=== PATIENT | female | born 1945 | race Caucasian/White ===

== ENCOUNTER 2017-05-25 10:22 | Emergency (ER) | payer OTHER, MEDICARE ==
[~2017-05-25] VITALS: Ht 152.4 cm; Wt 69.6 kg
[~2017-05-25 10:22] MED LIST: LORA-741 PO; LPR25 PO; MULT-260 PO; ZCR10 PO; [UNRECOGNIZED DRUG - CODE] PO
[2017-05-25 10:30] VITALS: Ht 152.4 cm; Wt 69.6 kg
[2017-05-25 10:34] VITALS: O2SAT 96
[2017-05-25] MEDS ORDERED: ONDANSETRON 8 MG/54 ML D5W IV STA (12:49)
[2017-05-25] MEDS ORDERED: SODIUM CHLORIDE 0.9% 1000ML 1,000 ML IV STA ×2 (12:49→15:52)
[2017-05-25 13:24] LABS: BASO % 0.3 %; BASO ABS # 0.02 K/uL (0-0.2); COMPLETE YES; HEMATOCRIT 38.1 % (37-47); IG% 0.1 %; LYMPH % 7.7 %; LYMPH ABS # 0.58 K/uL (1.2-3.4); MEAN CELL VOLUME 90.3 fL (80-100); MEAN CORPUSCULAR HEMOGLOBIN 31.3 pg (25-34); MEAN CORPUSCULAR HGB CONC 34.6 g/dl (32-36); MEAN PLATELET VOLUME 9.7 fL (7.4-10.4); MONO % 11.7 %; NEUT % 80.2 %; PLATELET COUNT 165 K/uL (130-400); RED BLOOD COUNT 4.22 M/uL (4.2-5.4); WHITE BLOOD COUNT 7.54 K/uL (4.8-10.8)
--- NOTE | 2017-05-25 13:44 | EMERGENCY ROOM VISIT NOTE ---
History Report prepared by Raffaele: Anila Patel Under the Supervision of: Jarrett ChurchO. First contact with patient: 12:12 Chief Complaint: NAUSEA Stated Complaint: WEAKNESS Nursing Triage Summary: pt reports she has had cough with spitting up flem yesterday was unable to eat or drink much had a couple saltines and sips of water yesterday was feeling weak during night went to get up slid off bed and attempted to tell her how to get up " get on knees then get up" pt reports that is why bilat knees are bruised. sx started on wednesday. unable to stand on her own today History of Present Illness The patient is a 71 year old female who presents to the Emergency Room with complaints of constant weakness beginning yesterday. She reports bilateral lower extremity weakness. She was unable to stand up from the bed on her own last night. She started to get up and then slid between her bed and the nightstand. The patient states that she tried to get out of bed on her own unsuccessfully three times throughout the night. Per , the patient developed cold symptoms two days ago. She is complaining of a non-productive cough, sore throat, sinus congestion, rhinorrhea, and low-grade fevers with temperatures around 100. She has not eaten anything in two days and has not been drinking a lot of fluids. Yesterday the patient had one episode of vomiting. She reports still feeling nauseated at this time. She denies chest pain, chest pressure, abdominal pain, urinary symptoms, diarrhea, melena, hematochezia, pain or swelling in her legs, and any recent changes to her diet or medications. The patient denies any personal history of frequent respiratory infections. She was brought to the ED by ambulance. She does report that she recently returned from [place] and had multiple long flights two days ago. Source of History: patient, spouse/significant other Onset: last night Position: other (global) Quality: other (weakness) Timing: constant Modifying Factors (Worsening): other (standing) Associated Symptoms: + fevers, + sorethroat, + cough, + nausea, + vomiting, No chest pain, No abdominal pain, No melena, No hematochezia, No diarrhea, No urinary symptoms Review of Systems See HPI for pertinent positives & negatives. A total of 10 systems reviewed and were otherwise negative. Past Medical & Surgical Medical Problems: (1) Breast cancer Surgical Problems: (1) H/O lumpectomy (2) H/O: hysterectomy Family History No significant family history Social History Smoking Status: Never Smoker Alcohol Use: occasionally Drug Use: none Marital Status: Housing Status: lives with significant other Occupation Status: retired Current/Historical Medications Scheduled Aspirin (Sm Childrens Aspirin), 81 MG PO DAILY Metoprolol Tartrate (Lopressor), 25 MG PO BID Multiple Vitamins W/ Minerals (Multivital), 1 TAB PO DAILY Simvastatin (Simvastatin), 10 MG PO DAILY Scheduled PRN Lorazepam (Ativan), 0.25 MG PO TID PRN for Anxiety Allergies Coded Allergies: No Known Allergies (Unverified , NONE, 05/25/17) Physical Exam Vital Signs Date Time Temp Pulse Resp B/P (MAP) Pulse Ox O2 Delivery O2 Flow Rate FiO2 05/25/17 18:41 37.6 91 17 123/79 96 05/25/17 16:31 123/79 05/25/17 16:01 102/84 05/25/17 15:36 91 96 05/25/17 15:31 127/77 05/25/17 15:26 119/59 05/25/17 13:49 125/69 05/25/17 13:48 93 17 125/69 95 Room Air 05/25/17 13:20 88 21 95 05/25/17 13:00 112/66 05/25/17 12:50 91 30 94 05/25/17 12:31 103/60 05/25/17 12:20 81 24 93 05/25/17 12:15 85 25 94 05/25/17 12:01 103/63 05/25/17 11:45 97 22 05/25/17 11:31 121/64 05/25/17 11:15 76 23 92 05/25/17 11:01 123/71 05/25/17 10:45 90 29 94 05/25/17 10:34 96 Room Air 05/25/17 10:33 96 05/25/17 10:30 37.6 99 18 131/76 96 Room Air Physical Exam GENERAL: alert, well appearing, well nourished, no distress, non-toxic EYE EXAM: normal conjunctiva, PERRL and EOM's grossly intact OROPHARYNX: no exudate, no erythema, lips, buccal mucosa, and tongue normal and mucous membranes are moist NECK: supple, no nuchal rigidity, no adenopathy, non-tender LUNGS: Breath sounds diminished, no wheezing, rhonchi, or rales. Normal chest wall mechanics HEART: no murmurs, S1 normal and S2 normal ABDOMEN: abdomen soft, non-tender, normo-active bowel sounds, no masses, no rebound or guarding. BACK: Back is symmetrical on inspection and there is no deformity, no midline tenderness, no CVA tenderness. SKIN: warm to touch, no rashes and no bruising UPPER EXTREMITIES: upper extremities are grossly normal. LOWER EXTREMITIES: No pitting edema. NEURO EXAM: Normal sensorium, cranial nerves II-XII grossly intact, normal speech, no gross weakness of arms, no gross weakness of legs. Medical Decision & Procedures ER Provider Diagnostic Interpretation: Radiology results have been interpreted by the radiologist and reviewed by me. TWO VIEW CHEST CLINICAL HISTORY: Cough and fever. FINDINGS: PA and lateral chest radiographs are compared to study dated 05/07/2015. The cardiomediastinal silhouette is unremarkable. There is atherosclerotic calcification of the thoracic aorta. Chronic interstitial thickening is unchanged. The lungs and pleural spaces are clear. There is no pneumothorax. The skeletal structures are osteopenic. The bony thorax appears intact. Surgical clips are noted in the left axilla. IMPRESSION: No active disease in the chest. Electronically signed by: Gulshan Kidd M.D. 05/25/2017 1:49 PM Dictated Date/Time: 05/25/2017 1:48 PM Laboratory Results 05/25/17 13:09 Red Blood Count 4.22, Mean Corpuscular Volume 90.3, Mean Corpuscular Hemoglobin 31.3, Mean Corpuscular Hemoglobin Concent 34.6, Mean Platelet Volume 9.7, Neutrophils (%) (Auto) 80.2, Lymphocytes (%) (Auto) 7.7, Monocytes (%) (Auto) 11.7, Eosinophils (%) (Auto) 0.0, Basophils (%) (Auto) 0.3, Neutrophils # (Auto ) 6.05, Lymphocytes # (Auto) 0.58, Monocytes # (Auto) 0.88, Eosinophils # (Auto ) 0.00, Basophils # (Auto) 0.02 05/25/17 13:09 Test 05/25/17 13:09 05/25/17 15:20 White Blood Count 7.54 K/uL (4.8-10.8) Red Blood Count 4.22 M/uL (4.2-5.4) Hemoglobin 13.2 g/dL (12.0-16.0) Hematocrit 38.1 % (37-47) Mean Corpuscular Volume 90.3 fL (80-100) Mean Corpuscular Hemoglobin 31.3 pg (25-34) Mean Corpuscular Hemoglobin Concent 34.6 g/dl (32-36) Platelet Count 165 K/uL (130-400) Mean Platelet Volume 9.7 fL (7.4-10.4) Neutrophils (%) (Auto) 80.2 % Lymphocytes (%) (Auto) 7.7 % Monocytes (%) (Auto) 11.7 % Eosinophils (%) (Auto) 0.0 % Basophils (%) (Auto) 0.3 % Neutrophils # (Auto) 6.05 K/uL (1.4-6.5) Lymphocytes # (Auto) 0.58 K/uL (1.2-3.4) Monocytes # (Auto) 0.88 K/uL (0.11-0.59) Eosinophils # (Auto) 0.00 K/uL (0-0.5) Basophils # (Auto) 0.02 K/uL (0-0.2) RDW Standard Deviation 44.2 fL (36.4-46.3) RDW Coefficient of Variation 13.4 % (11.5-14.5) Immature Granulocyte % (Auto) 0.1 % Immature Granulocyte # (Auto) 0.01 K/uL (0.00-0.02) D-Dimer 450 ug/L FEU (0-500) Anion Gap 8.0 mmol/L (3-11) Est Creatinine Clear Calc Drug Dose 48.8 ml/min Estimated GFR () 72.6 Estimated GFR (Non- 62.6 BUN/Creatinine Ratio 18.6 (10-20) Lactic Acid Level 1.3 mmol/L (0.4-2.0) Calcium Level 8.9 mg/dl (8.5-10.1) Total Bilirubin 0.5 mg/dl (0.2-1) Aspartate Amino Transf (AST/SGOT) 38 U/L (15-37) Alanine Aminotransferase (ALT/SGPT) 37 U/L (12-78) Alkaline Phosphatase 54 U/L (45-117) Troponin I < 0.015 ng/ml (0-0.045) Pro-B-Type Natriuretic Peptide 986 pg/ml (0-900) Total Protein 7.2 gm/dl (6.4-8.2) Albumin 3.4 gm/dl (3.4-5.0) Globulin 3.8 gm/dl (2.5-4.0) Albumin/Globulin Ratio 0.9 (0.9-2) Urine Color DK YELLOW Urine Appearance CLOUDY (CLEAR) Urine pH 5.5 (4.5-7.5) Urine Specific [place] 1.027 (1.000-1.030) Urine Protein TRACE (NEG) Urine Glucose (UA) NEG (NEG) Urine Ketones 1+ (NEG) Urine Occult Blood 1+ (NEG) Urine Nitrite NEG (NEG) Urine Bilirubin NEG (NEG) Urine Urobilinogen NEG (NEG) Urine Leukocyte Esterase NEG (NEG) Urine WBC (Auto) 5-10 /hpf (0-5) Urine RBC (Auto) 0-4 /hpf (0-4) Urine Hyaline Casts (Auto) 1-5 /lpf (0-5) Urine Epithelial Cells (Auto) >30 /lpf (0-5) Urine Bacteria (Auto) NEG (NEG) Urine Renal Epithelial Cells /lpf (0-5) Urine Crystals AMORPHOUS SEDIMENT (NONE Urine Pathogenic Casts /lpf (0) Urine Mucus PRESENT (NONE PRSENT) Urine Yeast (Auto) (NONE PRSENT) Date/Time Source Procedure Growth Status 05/25/17 15:20 Urine,Catheterized Urine Culture - Final NO GROWTH - LESS THAN 1,000 COLONIES/ML Complete Laboratory results per my review. Medications Administered Medications (Trade) Dose Ordered Sig/Vicky Route Start Time Stop Time Status Last Admin Dose Admin Sodium Chloride 1,000 ml @ 999 mls/hr Q1H1M STAT IV 05/25/17 12:49 05/25/17 13:49 DC 05/25/17 12:49 999 MLS/HR Ondansetron HCl (Zofran 8mg Iv) 8 mg NOW STAT IV 05/25/17 12:49 05/25/17 12:51 DC 05/25/17 13:48 8 MG Sodium Chloride 1,000 ml @ 999 mls/hr Q1H1M STAT IV 05/25/17 15:52 05/25/17 16:52 DC 05/25/17 16:28 999 MLS/HR Guaifenesin (Mucinex Contr Rel Tab) 600 mg NOW STAT PO 05/25/17 16:06 05/25/17 16:07 DC 05/25/17 16:28 600 MG Albuterol (Ventolin Hfa Inhaler) 2 puffs NOW ONCE INH 05/25/17 18:15 05/25/17 18:16 DC 05/25/17 18:40 2 PUFFS ECG Indication: weakness Rate (beats per minute): 91 Rhythm: sinus rhythm Findings: nonspecific-ST abn (inV3), PAC, T-wave inversion (lead 3), no acute ischemic change, other (normal axis; normal intervals) ED Course 1230: The patient was evaluated in room C4. A complete history and physical exam was performed. 1249: Zofran 8 mg IV, NSS 1000 ml @ 999 mls/hr IV 1552: NSS 1000 ml @ 999 mls/hr IV 1605: I reassessed the patient at this time. She is feeling a little better. 1606: Guaifenesin 600 mg PO 1753: I reassessed the patient at this time. She is doing well. She is ambulating with a steady gait. I discussed the results and treatment plan with the patient and her . I answered all pertaining questions that they had. They expressed understanding and verbalized agreement. The patient will be discharged home. 1815: Albuterol 2 puffs INH Medical Decision Differential diagnosis: Etiologies such as viral syndrome, otitis, pharyngitis, pneumonia, influenza, meningitis, urinary tract infection, sepsis, bacteremia, as well as others were entertained. Medication Reconciliation: I attest that I have personally reviewed the patient' s current medication list. Blood pressure screening: Patient was found to have a slightly elevated blood pressure due to circumstances. I do not believe that the patient requires hypertension monitoring. Pt clinically dehydrated, but stable VS here. Labs and imaging reassuring. Pt reported improvement with IVF. Pt states prior hx of hematuria, hasn't seen urology but PCP knows and follows this. STates thought to be irritation from being post menopausal. UA otw suboptimal specimen. Mildly elevated BNP, however pt doesn't examine like CHF nor have a hx. THis was discussed extensively at bedside with pt and encouraged discussion with PCP. May benefit from outpt echo. Did not feel warranted admission and urgent echo at this time. Able to ambulate with a steady gait. No c/o pain, and exam reassuring. Doubt occult acs, dissection, bacteremia/sepsis, gi bleed, mesenteric ischemia, meningitis/encephalitis, sbo, perf. No evidence of UTI. Discussed with pt need for close f/u with PCP, sx to watch/return for, she and verbalized understanding and were agreeable with plan. Pt symptoms suggestive of viral syndrome, no evidence of effusion/pneumonia, dimer negative and no LE edema. Doubt ACS. Impression Primary Impression: Cough Additional Impressions: Generalized weakness Dehydration Scribe Attestation The scribe's documentation has been prepared under my direction and personally reviewed by me in its entirety. I confirm that the note above accurately reflects all work, treatment, procedures, and medical decision making performed by me. Departure Information Dispostion Home / Self-Care Referrals Mar Lovelace M.D. (PCP) Patient Instructions My [facility] Additional Instructions Please continue regular medications as prescribed. Please sip clear liquids at frequent intervals to stay well-hydrated. Please call and follow up with her family doctor to recheck your symptoms and assure you're getting better. You may use the inhaler with spacer 2 puffs, up to every 4 hours as needed for its coughing, trouble breathing. If you develop any recurrent weakness or difficulty walking, have a worsening cough or develop trouble breathing, chest pains, fevers or chills again, worsening body aches, dizziness, vomiting, or you have any other new concerns, please return the emergency room immediately. Problem Qualifiers
[2017-05-25 13:47] LABS: ALT/SGPT 37 U/L (12-78); AST/SGOT 38 U/L (15-37); BLOOD UREA NITROGEN 17 mg/dl (7-18); BUN/CREATININE RATIO 18.6 (10-20); CALCIUM 8.9 mg/dl (8.5-10.1); CARBON DIOXIDE 26 mmol/L (21-32); CHLORIDE 103 mmol/L (98-107); CREATININE 0.92 mg/dl (0.60-1.20); GLUCOSE 118 mg/dl (70-99); POTASSIUM 3.5 mmol/L (3.5-5.1); SODIUM 137 mmol/L (136-145)
--- NOTE | 2017-05-25 13:50 | DIAGNOSTIC IMAGING REPORT ---
TWO VIEW CHEST CLINICAL HISTORY: Cough and fever. FINDINGS: PA and lateral chest radiographs are compared to study dated 05/07/2015. The cardiomediastinal silhouette is unremarkable. There is atherosclerotic calcification of the thoracic aorta. Chronic interstitial thickening is unchanged. The lungs and pleural spaces are clear. There is no pneumothorax. The skeletal structures are osteopenic. The bony thorax appears intact. Surgical clips are noted in the left axilla. IMPRESSION: No active disease in the chest. Electronically signed by: Gulshan Kidd M.D. 05/25/2017 1:49 PM Dictated Date/Time: 05/25/2017 1:48 PM
[2017-05-25 13:52] LABS: ALB/GLOB RATIO 0.9 (0.9-2); ALKALINE PHOSPHATASE 54 U/L (45-117)
[2017-05-25 15:59] LABS: URINE APPEARANCE CLOUDY (CLEAR); URINE BILIRUBIN NEG (NEG); URINE COLOR DK YELLOW; URINE EPITHELIAL CELL AUTO >30 /lpf (0-5); URINE NITRITE NEG (NEG); URINE PH 5.5 (4.5-7.5); URINE SPECIFIC GRAVITY 1.027 (1.000-1.030); UROBILINOGEN NEG (NEG)
[2017-05-25 16:01] LABS: MANUAL MICROSCOPIC REQUIRED? NO; REVIEW REQ? YES
[2017-05-25] MEDS ORDERED: GUAIFENESIN 600 MG TABCR PO STA (16:06)
[2017-05-25 16:28] LABS: URINE MUCUS PRESENT (NONE PRSENT)
[2017-05-25] MEDS ORDERED: ALBUTEROL HFA 8 GM INHALER INH ONE (18:15)
[2017-05-25 18:41] VITALS: BP 123/79; PULSE 91; TEMP 37.6; O2SAT 96
== END 2017-05-25 18:41 | disposition home or self-care (01) ==
LOC: EDBD 10:22 → C.EDC 10:23
DX: R05 Cough (principal); R53.1 Weakness; E86.0 Dehydration; R11.2 Nausea with vomiting, unspecified; Z85.3 Personal history of malignant neoplasm of breast; Z90.710 Acquired absence of both cervix and uterus; Z98.890 Other specified postprocedural states

== ENCOUNTER 2020-06-07 05:23 | Inpatient (IN) ==
--- NOTE | 2020-05-16 08:36 | PAT Medication Instructions ---
Medication Instructions Date of Service May 16, 2020 Home Medications Medication Instructions Recorded Ly Jenkins #1 ea 01/30/20 acetaminophen 325 mg tablet 325 mg PO UD PRN aspirin 81 mg tablet,delayed release 81 mg PO QAM metoprolol tartrate 25 mg tablet 25 mg PO BID simvastatin 40 mg tablet 40 mg PO HS albuterol sulfate 2 inh INHALATION UD PRN lorazepam 0.5 mg PO UD PRN multivitamin 1 cap PO QAM bismuth subsalicylate [Pepto-Bismol] 2 tab PO QID PRN celecoxib 200 mg PO QAM PRN melatonin 3 mg PO HS PRN ASK your surgeon for instructions celecoxib 200 mg PO QAM PRN DO NOT take the morning of surgery multivitamin 1 cap PO QAM bismuth subsalicylate [Pepto-Bismol] 2 tab PO QID PRN Take morning of surgery With a small sip of water, OTHERWISE NOTHING TO EAT OR DRINK AFTER MIDNIGHT: acetaminophen 325 mg tablet 325 mg PO UD PRN (okay to take up to 4 hours prior t o surgery if needed) metoprolol tartrate 25 mg tablet 25 mg PO BID albuterol sulfate 2 inh INHALATION UD PRN (use if needed; please bring with you to hospital day of surgery if possible) lorazepam 0.5 mg PO UD PRN (if needed) Take evening before surgery acetaminophen 325 mg tablet 325 mg PO UD PRN (if needed) metoprolol tartrate 25 mg tablet 25 mg PO BID simvastatin 40 mg tablet 40 mg PO HS albuterol sulfate 2 inh INHALATION UD PRN (if needed) lorazepam 0.5 mg PO UD PRN (if needed) bismuth subsalicylate [Pepto-Bismol] 2 tab PO QID PRN (if needed) melatonin 3 mg PO HS PRN (if needed) Other Notes If you have any questions please call us at [phone] or [phone] or [phone] or [phone]
--- NOTE | 2020-05-16 10:46 | Anesthesiology Consultation ---
Date of Service May 16, 2020 Assessment & Plan (1) Encounter for pre-operative examination: Per PAT assessment on 05/16: Travel screen- Traveled to [facility] to see the [facility] 04/28/20 (wore mask + social distancing). No known COVID-19 positive contacts (daughter had negative COVID testing within the past month). No current COVID-19 related symptoms. No hx of COVID-19 testing. - Check [facility] AM DOS Chart Review Chart Review: Acceptable Risk for Surgery and Patient seen in Pre Admission Te sting Teaching & Discussion Pre-Anesthesia Teaching/Discussion Notes: Instructed NPO after midnight before surgery,except medications with 15 cc of water. Medication instructions provided according to the PAT guidelines. History Surgery Operation Date: 06/07/20 10:40 Proposed Procedures p Right Total Knee Arthroplasty - Colby Whitehead MD Height/Weight Height: 5 ft Weight: 74.8 kg Allergies Allergy/AdvReac Type Severity Reaction Status Date / Time No Known Allergies Allergy NONE Verified 05/13/20 09:20 Medications Home Medications Medication Instructions Recorded Confirmed Last Taken acetaminophen 325 mg tablet 325 mg PO UD PRN 01/01/20 05/13/20 Unknown aspirin 81 mg tablet,delayed 81 mg PO QAM 01/01/20 05/13/20 Unknown release metoprolol tartrate 25 mg tablet 25 mg PO BID 01/01/20 05/13/20 Unknown simvastatin 40 mg tablet 40 mg PO HS 01/01/20 05/13/20 Unknown albuterol sulfate 2 inh INHALATION UD PRN 01/15/20 05/13/20 Unknown lorazepam 0.5 mg PO UD PRN 01/15/20 05/13/20 Unknown multivitamin 1 cap PO QAM 01/15/20 05/13/20 Unknown Wheeled Walker #1 ea 01/30/20 Unknown bismuth subsalicylate 2 tab PO QID PRN 05/13/20 05/13/20 Unknown [Pepto-Bismol] celecoxib 200 mg PO QAM PRN 05/13/20 05/13/20 Unknown melatonin 3 mg PO HS PRN 05/13/20 05/13/20 Unknown Wheeled Walker #1 ea 05/16/20 Unknown Past Medical History Medical History Anxiety Arthritis Bronchitis hx (no recent issues) Heartburn symptom diet controlled History of left breast cancer Hyperlipidemia Hypertension Obesity Prediabetes PCP monitoring, labs drawn for PCP on 12/26 show A1C 6.5%-decision to monitor/diet control Exercise / Class Metabolic Activity II 4-5 Yardwork/Stairs/Walk up hill Past Family History Family History Father Family history of diabetes mellitus Mother Family history of diabetes mellitus Other Patient's father is Patient's mother is Past Surgical History Surgical History History of arthroscopy of right knee History of colonoscopy History of hysterectomy History of lumpectomy of left breast WITH LYMPH NODES - PT DENIES LIMB RESTRICTION-2000 Nausea and vomiting after administration of anesthetic agent Past Anesthesia History No Family Hx of Anesthesia Complications and Other ("slow to wake") History of PONV No Hx of Motion Sickness and History of PONV Social History Smoking Status: Never smoker Do You Dip or Chew Tobacco: No Hx Alcohol Use: Yes Alcohol type: wine alcohol intake frequency: holidays/special occasions only Hx Substance Use: No substance use type: does not use Review of Systems Reflux controlled. Patient denies chest pain, shortness of breath, cough, wheezing, palpitations. Physical Exam Vital Signs VITALS BP 147/81 P 70 TEMP 98.4 SP02 96%RA RESP 18 PHYSICAL Full neck and c-spine range of motion. Full TMJ range of motion. TMD 3 finger breaths Mallampati Score 2 Dentition: intact, lower right side implant Lungs: clear throughout to auscultation Cardiac: regular rate and rhythm, no murmurs noted Spine: normal Carotid arteries: negative bruit Extremities: no edema Testing Laboratory Results 05/16/20 11:14 05/16/20 11:14 PT 11.2 Seconds (9.0-12.0) 05/16/20 11:14 INR 1.1 (0.9-1.1) 05/16/20 11:14 APTT 29.5 Seconds (21.0-31.0) 05/16/20 11:14 Hemoglobin A1c 6.5 % (4.5-5.6) H 05/16/20 11:14 Blood Type A Positive 05/16/20 11:14 Antibody Screen NEGATIVE 05/16/20 11:14 Electrocardiogram Date: 01/22/20 Findings: + NSR @ (65bpm) Chest X-Ray Date: 01/22/20 Findings: + NAD
[2020-05-16 12:20] LABS: Basophils # (auto) 0.02 K/uL (0-0.2); Basophils % (auto) 0.3 %; Eosinophils # (auto) 0.08 K/uL (0-0.5); Eosinophils % (auto) 1.4 %; Hematocrit (blood only) 42.5 % (37-47); Hemoglobin 14.1 g/dL (12.0-16.0); Lymphocytes # (auto) 1.92 K/uL (1.2-3.4); Mean Corpuscular Hemoglobin 30.5 pg (25-34); Mean Corpuscular Hgb Conc 33.2 g/dL (32-36); Mean Corpuscular Volume 91.8 fL (80-100); Monocytes # (auto) 0.56 K/uL (0.11-0.59); Monocytes % (auto) 9.6 %; Neutrophils # (auto) 3.23 K/uL (1.4-6.5); Neutrophils % (auto) 55.7 %; Platelet Count 235 K/uL (130-400); RDW Coefficient of Variation 13.1 % (11.5-14.5); RDW Standard Deviation 43.5 fL (36.4-46.3); Red Blood Count 4.63 M/uL (4.2-5.4); White Blood Count 5.81 K/uL (4.8-10.8)
[2020-05-16 12:30] LABS: BUN Creatinine Ratio 20.1 (10-20); Calcium 9.3 mg/dl (8.5-10.1); Creatinine Clr Calc Pharmacy 55.7 ml/min; Est GFR (African American) 84.2; Est GFR (Non-African American) 72.6; Potassium 4.6 mmol/L (3.5-5.1)
[2020-05-16 12:33] LABS: INR 1.1 (0.9-1.1); Partial Thromboplastin Ratio 1.1; Partial Thromboplastin Time 29.5 Seconds (21.0-31.0); Prothrombin Time 11.2 Seconds (9.0-12.0)
[2020-05-16 13:24] LABS: Estimated Average Glucose 140 mg/dl; Hemoglobin A1C 6.5 % (4.5-5.6)
[2020-06-07] MEDS ORDERED: LR 60ML/HR IV SCH (06:00)
[2020-06-07] MEDS ORDERED: FAMOTIDINE 20 MG TAB PO SCH (06:00)
[2020-06-07] MEDS ORDERED: LR 500ML BOLUS, THEN 15ML/HR IV SCH (06:00)
[2020-06-07] MEDS ORDERED: METOCLOPRAMIDE HCL 10 MG TABLET PO SCH (06:00)
[2020-06-07] MEDS ORDERED: BUPIVACAINE LIPOSOME/PF 266 MG, BUPIVACAINE/EPINEPHRINE 50 ML, SODIUM CHLORIDE 0.9% 30 ... INFIL SCH (06:00)
[2020-06-07] MEDS ORDERED: ACETAMINOPHEN 500 MG TAB PO SCH (06:00)
[2020-06-07] MEDS ORDERED: GABAPENTIN 300 MG CAP PO SCH (06:00)
[2020-06-07] MEDS ORDERED: CEFAZOLIN 2000MG 2,000 MG/15 ML SYR IV SCH (06:00)
[2020-06-07] MEDS ORDERED: [UNRECOGNIZED DRUG - OTHER] IV SCH (06:05)
[2020-06-07] MEDS ORDERED: TRANEXAMIC ACID IV SCH (06:05)
[2020-06-07] MEDS ORDERED: ROPIVACAINE 0.5% 5 MG/ML 30 ML VIAL ONE (06:30)
[2020-06-07] MEDS ORDERED: BUPIVACAINE 0.5 % 5 MG/1 ML PF 10ML VIAL ONE (06:30)
[2020-06-07] MEDS ORDERED: MIDAZOLAM HCL 1 MG/ML 2ML VIAL ONE (06:37)
[2020-06-07] MEDS ORDERED: SODIUM CHLORIDE 0.9% PF 50 ML VIAL ONE (06:44)
[2020-06-07] MEDS ORDERED: BUPIVACAINE/EPINEPHRINE 0.25% 1:200,000 30 ML VIAL ONE (06:44)
--- NOTE | 2020-06-07 06:44 | History & Physical Bridge Note ---
Date of Service June 07, 2020 History & Physical Bridge Note I have examined the patient, reviewed the History & Physical and in the interval since the performance of the History & Physical I have noted the following changes of clinical significance: no changes noted
[2020-06-07] MEDS ORDERED: BACITRACIN INJ 50,000 UNIT VIAL ONE (06:45)
[2020-06-07] MEDS ORDERED: BUPIVACAINE LIPOSOME 1.3% 266 MG/20 ML VIAL ONE (06:45)
[2020-06-07] MEDS ORDERED: fentaNYL citrate 100 MCG/2 ML VIAL IV PRN (06:55)
[2020-06-07] MEDS ORDERED: ATROPINE SULFATE 0.1 MG/ML 10ML SYR IV PRN (06:55)
[2020-06-07] MEDS ORDERED: ONDANSETRON INJ 2 MG/ML 2 ML VIAL IV PRN ×2 (06:55→10:13)
[2020-06-07] MEDS ORDERED: ePHEDrine sulfate 50 MG/ML AMP IV PRN (06:55)
[2020-06-07] MEDS ORDERED: PROPOFOL IV EMULSION 10 MG/ML 20 ML VIAL IV ONE ×2 (07:28→07:45)
[2020-06-07] MEDS ORDERED: PHENYLEPHRINE 100MCG/ML 5ML SYR ONE (07:28)
[2020-06-07] MEDS ORDERED: LIDOCAINE HCL 2% 2 ML VIAL/AMP(20MG/ML) INFIL ONE (07:28)
[2020-06-07] MEDS ORDERED: ePHEDrine sulfate 50 MG/ML SYR ONE (07:35)
--- NOTE | 2020-06-07 08:32 | Post Operative Brief Note ---
PG Immediate Post Op with CF Date of Surgery June 07, 2020 Pre & Post Diagnosis Operation Date: 06/07/20 07:00 Pre-Op Diagnosis: Right Knee Degenerative Joint Disease with Knee Pain Post-Op Diagnosis: Right Knee Degenerative Joint Disease with Knee Pain I identified the patient and participated in the time-out.: Yes Procedure Operation Date: 06/07/20 07:00 Actual Procedures p Right Total Knee Replacement(Right) - Colby Whitehead MD Surgeon Colby Whitehead MD Felt Dyeing Machine Tender Alexy, [facility] Estimated Blood Loss 50 Findings Consistent with Post-Op Diagnosis Fluids 1100 cc. Specimens Specimen Description: Permanent: A. Left Knee Bone and Tissue Drains Cummins Catheter Anesthesia Type Spinal MAC Complications none Disposition Accompanied Patient To Recovery: No Disposition: Recovery Room
--- NOTE | 2020-06-07 08:41 | Operative Report ---
Post Operative Report Pre & Post Diagnosis Operation Date: 06/07/20 07:00 Pre-Op Diagnosis: Right Knee Degenerative Joint Disease with Knee Pain Post-Op Diagnosis: Right Knee Degenerative Joint Disease with Knee Pain I identified the patient and participated in the time-out.: Yes Procedure Operation Date: 06/07/20 07:00 Actual Procedures p Right Total Knee Replacement(Right) - Colby Whitehead MD Surgeon Colby Whitehead MD Chair Post Machine Operator Alexy, PAC Estimated Blood Loss 50 Findings Consistent with Post-Op Diagnosis Operative findings revealed advanced right knee lateral compartment DJD with grade 4 [id number] disease of the lateral femoral condyle lateral tibial plateau. She had some moderate degenerative changes elsewhere particular in the medial side of her knee with grade 3 disease. Moderate-sized joint effusion. Slight valgus alignment to her knee. Fluids 1100 cc. Specimens Right knee sent for pathology. Drains None. Anesthesia Type Spinal MAC Complications none Disposition Accompanied Patient To Recovery: No Disposition: Recovery Room Indications Patient is a 74-year-old female is had a several year history of increasing right knee pain discomfort which become less responsive conservative care. She did have a recent right knee arthroscopy done about 4 years ago which did not help much. Pain progressed over time. She failed conservative measures. She elected proceed with total knee arthroplasty. Description of Procedure Operative implants consist of: 1. Biomet Vanguard size 60 right posterior by femoral component. 2. Biomet size 63 tibial tray. 3. 10 mm posterior box polyethylene insert. 4. 28 x 8 all poly-patella. Patient was taken to the operating identified and placed on the operating table supine position protectors were appropriately padded. IV antibiotics arrived by anesthesia team. A spinal anesthetic and abductor canal block had been provided in the holding area. Cummins catheter was placed in sterile fashion. Right thigh tract was then placed in the right lower extremity was then prepped and draped in usual sterile fashion. The right leg was elevated and exsanguinated with use of an Esmarch interspace at 300 mmHg. An anterior posterior the right knee was then performed to longitudinal incision centered over the patella. Sharp dissection was cut through subcutaneous tissue down the extensor mechanism. A medial parapatellar arthrotomy incision was made. Some subperiosteal dissection was carried out medially. The fat pad was resected from each patella tendon. Lateral patellofemoral ligament was released. The patella was subluxated laterally knee was flexed. The osteophytes were taken off the distal femur. The ACL and PCL were then released from the distal femur the tibia subluxate anteriorly. External tibial alignment jig was then placed in the interface the tibia and adjusted 12 mm medially. Proximal tibial cut was made to remove about 2 to 3 mm of bone from the medial side. The tibia was sized to a size 63. We try to maximize coverage but her anterior posterior dimensions were pretty small we had to downsize the tibial tray as a result. Attention drawn the femur. The distal femur was entered the sharp drill bit intramedullary canal was suction. A right 5 degree valgus cutting guide was placed but distal femoral cutting block was pinned in place. Distal femoral cut was made to take an additional 3 mm of bone off distal femur. The femur was then sized to a size 60. We downsized this just slightly. The AP cutting block was pinned parallel to the epicondylar axis which was 3 degrees external rotation with anterior cut, anterior chamfer, posterior cut, posterior chamfer cuts were made. Box cutting guide was placed in just slight lateral and the box cut was made. The knee was flexed with the remnants of the medial lateral menisci were excised. The osteophytes were taken off the posterior aspect of the femur. A trial femoral component was placed for the tibial tray was pinned in maximum external rotation and the drill and stem punch were used to create defect in proximal tip for the tibial tray. Knee was then trialed the 10 mm insert fit most appropriately. Attention drawn the patella. The patella was cleaned of all soft tissues. Patella thickness measured 20 mm in thickness was cut down to 12. Was sized to a size 28 patella. Locals were drilled for the 28 patella. The lateral osteophyte was removed. Patella button was placed. Knee was taken through range of motion patella tracked nicely with no thumbs test. Attention drawn to placing permanent components. All trial implants were removed. Bone plug was placed in the distal femur limit blood loss put a double batch Palacos G cement was mixed. Biomet Vanguard size 60 right posterior by femoral component, size 63 tibial tray, 10 mm posterior box polyethylene insert, and a 28 x 8 all poly-patella then cement placed. Knee was brought out into full extension total cement hardened. Final cement check was then performed. The pericapsular tissues were injected with total 100 cc of combination of 20 cc of Exparel, 30 cc normal saline, 50 cc of quarter percent Marcaine with epinephrine. The knee was once again irrigated. The extensor nec k was then closed with combination 1 PDS suture #1 Vicryl suture in [id number] fashion. Extensor mechanism checked found to be intact. The subcutaneous tissue then closed with 2 Dexon suture in a buried interrupted fashion skin was closed skin alyssia. Leg was then cleaned dried a sterile dressing composed Xeroform, 4 x 4's, sterile ABD pad, sterile cast padding, Wally bandage were applied. Patient then transferred to the recovery room in stable condition. The patient tolerated procedure well and there are no complications. I attest to the content of the Intraoperative Record and any orders documented therein. Any exceptions are noted below.
--- NOTE | 2020-06-07 08:56 | XRay Report ---
XR knee RT 1 or 2V routine CLINICAL HISTORY: Surgical Post Op COMPARISON: None. DISCUSSION: Anatomic alignment post total right knee arthroplasty. Could contact between prosthetic a nd underlying bone. Expected soft tissue postoperative change IMPRESSION: Anatomic alignment post total right knee arthroplasty. ACT 112: Negative or not required by law. The above report was generated using voice recognition software. It may contain grammatical, syntax or spelling errors. Electronically signed by: Eric Fabian M.D. 06/07/2020 8:54 AM
[2020-06-07] MEDS ORDERED: GLUCOSE 40% GEL 15 GM TUBE PO PRN (10:13)
[2020-06-07] MEDS ORDERED: ALUMINUM/MAGNESIUM SUSP 30 ML UDC PO PRN (10:13)
[2020-06-07] MEDS ORDERED: HYDROmorphone INJ 0.5 MG/0.5 ML SYR IV PRN (10:13)
[2020-06-07] MEDS ORDERED: MAGNESIUM HYDROXIDE SUSP 30 ML UDC PO PRN (10:13)
[2020-06-07] MEDS ORDERED: METOCLOPRAMIDE HCL INJ 5 MG/ML 2 ML VIAL IV PRN (10:13)
[2020-06-07] MEDS ORDERED: DEXTROSE 50% 50 ML SYRINGE IV PRN (10:13)
[2020-06-07] MEDS ORDERED: ALBUTEROL HFA 8 GM INHALER INH PRN (10:13)
[2020-06-07] MEDS ORDERED: NALOXONE HCL 0.4 MG/1 ML VIAL/CARP IV PRN (10:13)
[2020-06-07] MEDS ORDERED: bisacodyL 10 MG SUPP PR PRN (10:13)
[2020-06-07] MEDS ORDERED: NON-FORMULARY MEDICATION (Multivitamin 1 CAP) PO SCH (10:13)
[2020-06-07] MEDS ORDERED: TRAMADOL HCL 50 MG TABLET PO PRN (10:13)
[2020-06-07] MEDS ORDERED: GLUCAGON FOR INJ 1 MG VIAL SQ PRN (10:13)
[2020-06-07] MEDS ORDERED: CARBOHYDRATES FOR HYPOGLYCEMIA PO PRN (10:13)
[2020-06-07] MEDS ORDERED: LORazepam 0.5 MG TAB PO PRN (10:13)
[2020-06-07] MEDS ORDERED: GLUCOSE 10 TABS/TUBE PO PRN (10:13)
[2020-06-07] MEDS ORDERED: MELATONIN 3 MG TAB PO PRN (10:28)
[2020-06-07] MEDS ORDERED: BISMUTH SUBSALICYLATE 262 MG CHEW PO PRN (10:38)
[2020-06-07] MEDS ORDERED: PHARMACY GLYCEMIC MGMT CONSULT SCH (10:55)
[2020-06-07] MEDS: SODIUM CHLORIDE 0.9% 1000ML 1,000 ML IV SCH ×2 (11:18→21:05)
[2020-06-07] MEDS: KETOROLAC TROMETHAMINE 15 MG/ML VIAL IV SCH ×3 (11:20→22:47)
[2020-06-07] MEDS: MULTIVITAMIN TAB PO SCH (11:53)
[2020-06-07] MEDS: ASPIRIN 81 MG ECTAB PO SCH ×2 (11:53→20:56)
[2020-06-07] MEDS: ACETAMINOPHEN 500 MG TAB PO SCH ×2 (13:58→22:03)
[2020-06-07] MEDS: CEFAZOLIN 1000MG 1,000 MG/7.5 ML SYR IV SCH ×2 (14:33→22:03)
[2020-06-07] MEDS ORDERED: TRANEXAMIC ACID / 0.7% NACL 1,000 MG/100 ML BAG IV SCH (14:35)
--- NOTE | 2020-06-07 14:53 | Pharmacy Report ---
Glycemic Control Consultation - Date of Service June 07, 2020 - Scope Scope: Glycemic Pharmacist consulted for glycemic control and to write orders per [facility] inpatient glycemic control protocol. - Objective Weight: 75.43 kg Accuchecks BSG (last 24hrs): 06/07/20 06/07/20 06/07/20 05:40 08:39 11:36 POC Glucose 121 H 123 H 100 H HbA1c: Hemoglobin A1c 6.5 % (4.5-5.6) H 05/16/20 11:14 - Recent Pertinent Medications Outpatient Anti-diabetic Regimen: * NONE * A1c = 6.5 % 05/16/20 Risk Factors for Insulin Resistance: * Recent Surgery: S/P TKA * Diet: Type 2 DM - Assessment & Plan Assessment & Plan: ASSESSMENT: * 74 year old female, s/p R TKA, type 2 diabetic with A1c 6.5%, on no anti- diabetic medications as outpatient. * No steroids received. * Will start patient on only a CF at this time and monitor blood sugars. Will add prandial insulin if indicated. PLAN FOR INPATIENT GLYCEMIC CONTROL: * Bolus insulin * NovoLog per scale ACHS or Q6hrs while NPO * Goal Range: Low 110 mg/dL - High 140 mg/dL * Correction Factor: 30 mg/dL/unit * Please note that the plan above was derived based on current level of insulin resistance and hospital stress. These recommendations are appropriate for inpatient admission only. Plan of care upon discharge will need to be reassessed to avoid potential outpatient hypo/hyperglycemia. Thank you.
--- NOTE | 2020-06-07 15:35 | Anesthesiology Progress Note ---
Date of Service June 07, 2020 Anesthesia Post Procedure Vital Signs Vital Signs: Temp Pulse Pulse Pulse Resp BP BP 06/07/20 13:22 36.5 C 70 16 107/67 06/07/20 12:05 80 18 100/59 L 06/07/20 11:09 36.4 C L 66 16 126/69 06/07/20 10:38 36.4 C L 63 16 115/75 06/07/20 10:05 36.5 C 79 18 133/84 06/07/20 09:45 74 17 107/77 06/07/20 09:35 36.4 C L 79 21 125/75 06/07/20 09:25 82 17 108/83 06/07/20 09:15 80 12 118/91 06/07/20 09:05 82 14 118/85 06/07/20 08:55 86 16 133/75 06/07/20 08:45 85 17 115/71 06/07/20 08:36 36.4 C L 84 15 118/71 06/07/20 06:23 83 18 152/103 H 06/07/20 05:53 37.0 C 71 18 161/87 H Pulse Ox 06/07/20 13:22 95 06/07/20 12:05 95 06/07/20 11:09 97 06/07/20 10:38 96 06/07/20 10:05 98 06/07/20 09:45 96 06/07/20 09:35 96 06/07/20 09:25 97 06/07/20 09:15 96 06/07/20 09:05 96 06/07/20 08:55 96 06/07/20 08:45 96 06/07/20 08:36 96 06/07/20 06:23 98 06/07/20 05:53 98 Pain Intensity Right Knee: Pain Intensity: 0 Transfer of Care Handoff Completed per policy Notes Mental Status: alert / awake / arousable and participated in evaluation Patient Amnestic to Procedure: Yes Nausea / Vomiting: adequately controlled Pain: adequately controlled Airway Patency, RR, SpO2: stable & adequate BP & HR: stable & adequate Hydration State: stable & adequate Neuraxial Anesthesia: was administered and sensory block is resolving Anesthetic Complications: no major complications apparent and Pt Satisfied with anesthetic care
[2020-06-07] MEDS: ASCORBIC ACID 500 MG TAB PO SCH (17:58)
[2020-06-07] MEDS: FERROUS GLUCONATE 324 MG TAB PO SCH (17:58)
[2020-06-07] MEDS: INSULIN ASPART 100 UNITS/ML 3 ML PEN SC SCH ×2 (18:27→20:58)
[2020-06-07] MEDS: SENNA 8.6 MG TAB PO SCH (20:56)
[2020-06-07] MEDS: SIMVASTATIN 40 MG TAB PO SCH (20:56)
[2020-06-07] MEDS: DOCUSATE SODIUM 100 MG CAP PO SCH (20:56)
[2020-06-07] MEDS: METOPROLOL TARTRATE 25 MG TAB PO SCH (20:56)
[2020-06-08] MEDS: KETOROLAC TROMETHAMINE 15 MG/ML VIAL IV SCH ×4 (05:29→22:02)
[2020-06-08] MEDS: ACETAMINOPHEN 500 MG TAB PO SCH ×4 (05:29→22:02)
[2020-06-08 06:05] LABS: Hemoglobin 12.1 g/dL (12.0-16.0); Mean Corpuscular Hemoglobin 30.8 pg (25-34); Mean Corpuscular Hgb Conc 33.6 g/dL (32-36); Mean Corpuscular Volume 91.6 fL (80-100); Mean Platelet Volume 10.2 fL (7.4-10.4); Platelet Count 190 K/uL (130-400); RDW Coefficient of Variation 13.4 % (11.5-14.5); RDW Standard Deviation 44.8 fL (36.4-46.3); Red Blood Count 3.93 M/uL (4.2-5.4); White Blood Count 9.06 K/uL (4.8-10.8)
[2020-06-08 06:26] LABS: Calcium 8.5 mg/dl (8.5-10.1); Creatinine Clr Calc Pharmacy 56.7 ml/min; Est GFR (African American) 85.5; Est GFR (Non-African American) 73.7; Potassium 3.8 mmol/L (3.5-5.1)
[2020-06-08] MEDS: ASCORBIC ACID 500 MG TAB PO SCH ×2 (08:32→17:04)
[2020-06-08] MEDS: ASPIRIN 81 MG ECTAB PO SCH ×2 (08:32→20:29)
[2020-06-08] MEDS: DOCUSATE SODIUM 100 MG CAP PO SCH ×2 (08:32→20:29)
[2020-06-08] MEDS: FERROUS GLUCONATE 324 MG TAB PO SCH ×2 (08:33→17:04)
[2020-06-08] MEDS: METOPROLOL TARTRATE 25 MG TAB PO SCH ×2 (08:33→20:31)
[2020-06-08] MEDS: MULTIVITAMIN TAB PO SCH (08:33)
[2020-06-08] MEDS: INSULIN ASPART 100 UNITS/ML 3 ML PEN SC SCH ×4 (08:35→21:16)
--- NOTE | 2020-06-08 09:08 | Progress Notes ---
DATE: 06/08/2020 SUBJECTIVE: A 74-year-old female postop day 1 from right knee replacement. Having a bit more pain this morning. No chest pain or shortness of breath. Not feeling dizzy or lightheaded. She did recently get some medicine for nausea. Denies any chest pain or shortness of breath. OBJECTIVE: VITAL SIGNS: Temperature 36.7. Vital signs stable. GENERAL: Physical examination reveals a pleasant elderly female. Lying in bed, looks reasonably comfortable. LUNGS: Clear to auscultation. HEART: Regular rate and rhythm. ABDOMEN: Soft, nontender, nondistended. EXTREMITIES: Grossly neurovascularly intact except as follows. Examination of the right leg reveals the leg to be well aligned. She can dorsiflex and plantarflex her foot appropriately. She is neurologically intact. She has got brisk refill. LABORATORY DATA: Hemoglobin 12.1. Hematocrit 36.0. Electrolytes are stable. ASSESSMENT: A 74-year-old female postop day 1 from a right knee replacement, doing reasonably well. Her pain is controlled. She is neurologically intact. PLAN: 1. DVT prophylaxis include thigh-high TEDs, SCDs and aspirin twice a day. 2. PT/OT, weightbear as tolerated. Right total knee protocol. 3. Pain control, doing pretty well with current pain regimen. 4. Disposition: She is planning to be discharged to home with some home health once adequately recovered and medically stable. We will see how she does in therapy today. We need to get her nausea under better control as well.
[2020-06-08] MEDS: SIMVASTATIN 40 MG TAB PO SCH (20:29)
[2020-06-08] MEDS: SENNA 8.6 MG TAB PO SCH (20:29)
[2020-06-09] MEDS: KETOROLAC TROMETHAMINE 15 MG/ML VIAL IV SCH (05:59)
[2020-06-09] MEDS: ACETAMINOPHEN 500 MG TAB PO SCH (05:59)
[2020-06-09] MEDS: METOPROLOL TARTRATE 25 MG TAB PO SCH (08:11)
[2020-06-09] MEDS: DOCUSATE SODIUM 100 MG CAP PO SCH (08:11)
[2020-06-09] MEDS: FERROUS GLUCONATE 324 MG TAB PO SCH (08:11)
[2020-06-09] MEDS: ASPIRIN 81 MG ECTAB PO SCH (08:12)
[2020-06-09] MEDS: ASCORBIC ACID 500 MG TAB PO SCH (08:12)
[2020-06-09] MEDS: MULTIVITAMIN TAB PO SCH (08:12)
[2020-06-09] MEDS: INSULIN ASPART 100 UNITS/ML 3 ML PEN SC SCH (08:29)
--- NOTE | 2020-06-09 09:26 | Progress Notes ---
DATE: 06/09/2020 SUBJECTIVE: A 74-year-old white female postop day 2 from a right knee replacement. She is doing pretty well. Feeling better this morning. Pain is better controlled. No chest pain or shortness of breath. Not feeling dizzy or lightheaded. No nausea. OBJECTIVE: VITAL SIGNS: Temperature 36.8. Vital signs stable. GENERAL: Physical examination shows a pleasant elderly female. She is lying in bed, looks pretty comfortable. EXTREMITIES: Examination of the right leg reveals the leg to be well aligned. Dressing is clean, dry and intact. She can dorsiflex and plantarflex her foot appropriately. Calf is soft and supple. ASSESSMENT: A 74-year-old white female postop day 2 from right knee replacement, doing pretty well. Pain is controlled. She is neurologically intact. PLAN: 1. DVT prophylaxis include thigh-high TEDs, SCDs, and aspirin twice a day. 2. PT/OT, weightbear as tolerated. Right total knee protocol. 3. Pain control, doing pretty well with current pain regimen. 4. Disposition: Plan to discharge to home with some home health likely later today.
--- NOTE | 2020-06-12 16:15 | Discharge Summary ---
Date of Service June 12, 2020 Admission HPI Per Admitting Provider Documented in the H & P Admission Exam (Per Admitting) Constitutional Documented in the h & p Discharge Data Consultations 06/07/20 10:13 Consult Case Management - Discharge Planning Routine Procedures Performed Operation Date: 06/07/20 07:00 Actual Procedures p Right Total Knee Replacement(Right) - Colby Whitehead MD Hospital Course (1) Status post total right knee replacement: This patient is a 74 year old female admitted on 06/07/20 and underwent right total knee replacement. She tolerated the procedure well and there were no complications. Transferred to the PACU post op and later to the orthopedic floor for further care. She was given ancef for antibiotic prophylaxis. She was also given EKATERINA stockings, SCDs, and aspirin for DVT prophylaxis. Hemoglobin, hematocrit, and vital signs were monitored during their hospital stay and remained stable. Did not require any blood transfusions. There were no complications during her hospital stay. By post op day #2 the patient was tolerating a diabetic diet, pain was reasonably controlled with oral pain medicine, and she was participating in physical therapy. On post op day #2 the patient was discharged home and set up with home health care. She was given printed discharge instructions including prescriptions for extra strength tylenol, aspirin, and tramadol. Continue physical therapy, weight bearing as tolerated. Continue EKATERINA stockings. Follow up approximately 2 weeks post op or sooner if there are problems or concerns. Coding Level of Care Code None Diagnoses Status post total right knee replacement Z96.651
== END 2020-06-09 11:00 | disposition home health service (06) | DRG 470 ==
LOC: ASU 05:23 → 3E 08:36

== ENCOUNTER 2023-12-25 21:18 | Inpatient (IN) ==
--- OUTSIDE RECORDS SUMMARY | 2023-12-25 21:23 | External Medical Summary | Summary of Care ---
Author Name Unknown Organization [facility] Address [address] [place] [address] Phone [phone] Care Team Providers Care Licensed Life And Health Agent Name Role Phone Mar Lovelace MD Primary Care Provider [phone] Reason for Visit * Reason Onset Date Comments Emergency Department Follow-Up 11/16/2023 Encounter Details Date Type Department Care Team (Late st Contact Info) Description 11/16/2023 Telephone General Internal Medicine [facility] [place] [address] [facility] [place] [address] Mar Lovelace MD [address] [facility] [place] [address] Emergency Department Follow-Up Allergies No known active allergiesdocumented as of this encounter (statuses as of 11/17/2023) Medications Medication Sig Dispensed Refills Start Date End Date Status MULTIVITAL PO TABS daily 0 Active TYLENOL 325 MG PO TABS Take 1,000 mg by mouth 3 times a day as needed for Pain, Mild. 0 06/09/2020 Active ASPIRIN 81 MG PO CHEWIndications:Dysl ipidemia, goal to be determined,HTN, goal below 140/90 Take 1 Tablet by mouth in the morning. 100 5 06/09/2020 Active albuterol HFA (VENTOLIN HFA) 108 (90 BASE) MCG/ACT inhalerIndications:A cute bronchitis, antibiotics not indicated Inhale 2 Puffs by mouth 4 times a day. 1 Inhaler 1 07/31/2019 Active Bismuth Subsalicylate 262 MG/15ML Oral Suspension Take 30 mL by mouth every 4 hours as needed for Heartburn or Nausea. 0 Active Meclizine HCl 25 MG Oral Tablet (Antivert) TAKE 1 TABLET BY MOUTH THREE TIMES DAILY NEEDED FOR DIZZINESS 0 01/03/2021 Active Zoster Vac Recomb Adjuvanted 50 MCG/0.5ML Intramuscular Suspension Reconstituted (Shingrix)Indication s:Need for vaccination for zoster Inject 0.5 mL into a large muscle now and repeat dose in 60 to 180 days 1 Each 1 05/09/2021 Active Amoxicillin 500 MG Oral Capsule (Amoxil) TAKE FOUR CAPSULES BY MOUTH ONE HOUR BEFORE APPOINTMENT 0 05/22/2021 Active Donepezil HCl 10 MG Oral Tablet (Aricept) Take with supper daily 90 Tablet 3 05/31/2023 Active Alendronate Sodium 70 MG Oral Tablet (Fosamax)Indications :Age-related osteoporosis without current pathological fracture Take 1 Tablet by mouth once a week. with 8 oz. water 30 minutes before first meal of the day. Remain upright for 30 min after taking tablet 5 Tablet 11 07/14/2023 Active Solifenacin Succinate 10 MG Oral Tablet (VESIcare) Take 1 Tablet by mouth in the morning. 30 Tablet 6 08/06/2023 Active Atorvastatin Calcium 40 MG Oral Tablet (Lipitor)Indications :Dyslipidemia, goal LDL below 130 Take 1 Tablet by mouth in the morning. 90 Tablet 1 09/02/2023 Active Calcium 250 MG Oral Capsule Take by mouth. 0 Active Metoprolol Tartrate 25 MG Oral Tablet (Lopressor)Indicatio ns:Palpitations,Esse ntial hypertension with goal blood pressure less than 140/90 Take 0.5 Tablets by mouth in the morning and 0.5 Tablets before bedtime. 90 Tablet 3 09/24/2023 Active Meloxicam 7.5 MG Oral TabletIndications:DD D (degenerative disc disease), lumbar Take 1 Tablet by mouth daily as needed for Pain, Moderate. With food for pain. 90 Tablet 1 09/24/2023 Active DULoxetine HCl 60 MG Oral Capsule Delayed Release Particles (Cymbalta) Take 1 Capsule by mouth in the morning. Do not cut, crush or chew. With Breakfast. 30 Capsule 3 10/25/2023 Active documented as of this encounter (statuses as of 11/17/2023) Active Problems Problem Noted Date Diagnosed Date Major depressive disorder, recurrent episode, mo derate 10/25/2023 Major neurocognitive disorde r due to Alzheimer's disease, without behavioral disturbance 06/15/2023 Mild vascular dementia with anxiety 02/18/2023 Current mild episode of julia r depressive disorder without prior episode 08/18/2022 Type 2 diabetes mellitus wit h hemoglobin A1c goal of less than 7.0% 12/05/2018 Overview: Per Prediabetes protocol #1 BMI 30.0-30.9,adult 09/06/2017 Pain in joint of right shoulder 01/06/2017 History of breast cancer 07/01/2016 Anxiety disorder 05/10/2015 Dyslipidemia, goal LDL below 130 01/19/2011 Essential hypertension with goal blood pressure less than 140/90 12/13/2008 Palpitations documented as of this encounter (statuses as of 11/17/2023) Immunizations Name Administration Dates Next Due COVID-19 mRNA, LNP-s, No Pre serve, 2-Dose Series ([employer]) 03/24/2022,09/19/2021,02/03/2021,12/30 Covid-19, Mrna, Lnp-s, Pf, B ivalent, 30 Mcg, IM, 12 yrs and above (Pfizer) 04/30/2023 Pneumococcal Conjugate Vacc, 13 Valent (Prevnar) 07/01/2016 Pneumococcal Polysaccharide PPV23 (Pneumovax) 01/19/2011 Seasonal Influenza, PF, 6 M & above, IM , (FluLaval or Fluzone) 02/21/2019,09/06/2017 Seasonal Influenza, Quadriva lent Hd (Fluzone Hd) 09/24/2023,08/18/2022,10/09/2021 Seasonal Influenza, Quadriva lent, No Preserve, IM 08/26/2016,01/03/2016 Seasonal Influenza, Split, I IV3, No Preserve, Inj 10/04/2009 Seasonal Influenza, Split, I IV3, With Preserve, Inj 11/30/2014,10/24/2013,08/08/2012,10/30,12/13/2008 Seasonal Influenza, Trivalen t, Adjuvanted, 65+ yrs 08/29/2020,08/30/2019 TDAP (age 10 and older)(Boostrix) 08/21/2019, TDAP (age 11 and older)(Adacel) 12/27/2008 Varicella Zoster Vaccine (Adult) 11/03/2012 Zoster Vaccine Recombinant (Shingrix) 04/30/2023 documented as of this encounter Social History Tobacco Use Types Packs/Day Years Used Date Smoking Tobacco: Never Smokeless Tobacco: Never Alcohol Use Standard Drinks/Week Comments Yes 0 (1 standard drink = 0.6 oz pur e alcohol) rare, every few months AUDIT-C Answer Date Recorded Frequency of Alcohol Consumption Monthly or less 04/05/2019 Average Number of Drinks 1 or 2 019 Frequency of Binge Drinking Not on file 03/22 PHQ-2 Answer Date Recorded PHQ Adult Total Score 10 06/23/2023 Hunger Vital Sign Answer Date Recorded Within the past 12 months, y ou worried that your food would run out before you got the money to buy more. Never true 02/19/20 23 Within the past 12 months, t he food you bought just didn't last and you didn't have money to get more. Never true 02/18/2023 Sex and Gender Information Value Date Recorded Sex Assigned at Female 03/15/2019 12:23 PM EDT Gender Identity Female 03/15/2019 12:23 PM EDT Sexual Orientation Straight 03/15/2019 12 :23 PM EDT Job Start Date Occupation Industry Not on file Not on file Not on file documented as of this encounter Miscellaneous Notes * Telephone Encounter - Sherine Phillips OSA - 11/17/2023 4:30 PM EST Patient calling in to check on the status of previous message. Patient Called within 48 hour timeframe. Reminded patient of 48 hour turn-around time. * Telephone Encounter - Katherine Moreno OSA - 11/17/2023 2:53 PM EST Patient calling in to check on the status of previous message. Patient Called within 48 hour timeframe. Reminded patient of 48 hour turn-around time. * Telephone Encounter - Sherine Phillips OSA - 11/17/2023 12:58 PM EST Reason for patient's call: pt and returning call to schedule ER fu appt Caller was unable to be transferred to the clinic in the allotted time. Please return call. * Telephone Encounter - Gretel Garsia OSA - 11/17/2023 12:46 PM EST Lmom 11/17 * Telephone Encounter - Valeri Regalado OSA - 11/16/2023 2:14 PM EST Patient needs ED Follow-up. Did patient decline to see other providers in their home clinic? : NO If New Patient - Were surrounding clinics offered? Yes, no appts available within appropriate timeframe Please see call details. Patient Anton needed an earlier appointment than 2023. Thank you. DAMON Long documented in this encounter Plan of Treatment Upcoming Encounters Date Type Department Care Team (Late st Contact Info) Description 11/29/2023 12:00 PM EST Telemedicine Psychiatry, [place] [address] [place] [address] Carli Mercado MD [address] [place] [address] 01/24/2024 9:20 AM EST Office Visit Neurology [facility] [place] [address] [facility] [place] [address] Anton Kumar MD [address] [facility] [place] [address] 03/01/2024 11:00 AM EDT Office Visit Urology, [facility] [address] [place] [address] Dandy Bashir MD [address] [place] [address] [place] [address] 03/27/2024 2:20 PM EDT Office Visit General Internal Medicine [facility] [address] [facility] [place] [address] Mar Lovelace MD [address] [facility] [place] [address] Scheduled Procedures Name Priority Associated Diagnoses Date/Ti me COLONOSCOPY FLEXIBLE PROXIMA L DIAGNOSTIC Recall Special screening for malignant neoplasms, colon Health Maintenance Due Date Last Done Comments Hepatitis B (1 of 3 - Risk 3-dose series) 2005 Depression, Most Recent Score >= 10 (will fire each visit until score < 10) 06/24/2023 06/23/2023 Zoster Vaccines (3 of 3) 06/25/2023 04/30/2023, 10/22 COVID-19 Vaccine ( season) 2023 04/30/2023, 03/24/2022, 09/19/2021, Additional history exists Albumin/Creatinine Ratio 08/18/2023 08/18/2022, 12/23 Diabetic Foot Exam 02/19/2024 02/18/2023, 0 03/13/2022, 12/09/2020, Additional history exists HbA1c 03/24/2024 09/24/2023, 05/23, 02/10/2023, Additional history exists Diabetic Eye Exam 05/10/2024 05/10/2023, , 05/04/2022, Additional history exists GFR 09/24/2024 09/24/2023, 01/21, 10/05/2022, Additional history exists DTaP,Tdap,and Td Vaccines (4 - Td or Tdap) 08/21/2029 08/21/2019, 04/13/2019, 12/27/2008 DXA Scan 06/28/2030 06/28/2023, 08/05/2023, 06/10/2016, Additional history exists Pneumococcal Vaccine: 65+ Years Completed 07/01/2016, 01/19/2011 Influenza Vaccine (FLU shot) Completed 01/2023, 08/18/2022, 10/09/2021, Additional history exists GARDASIL-HPV IMMUNIZATION SERIES Aged Out No longer eligible based on patient's age to complete this topic MENINGOCOCCAL (MENACTRA/MENVEO) Aged Out No longer eligible based on patient's age to complete this topic documented as of this encounter Medical Devices Not on filedocumented as of this encounter Advance Directives Documents on File Type Date Recorded Patient Research And Development Chemist Expl anation Advance Directives and Thai g Will 07/29/2007 ADVANCE DIRECTIVE Care Teams Licensed Life And Health Agent Relationship Specialty Start Date End Date Mar Lovelace MD [address] [facility] [place] [address] PCP - General 12/13/08 documented as of this encounter
--- OUTSIDE RECORDS SUMMARY | 2023-12-25 21:23 | External Medical Summary | Summary of Care ---
Author Name Unknown Organization [facility] Address [address] [facility] [place] [address] Phone [phone] Care Team Providers Care Air Plant Engineer Name Role Phone Mar Lovelace MD Primary Care Provider [phone] Reason for Visit * Reason Comments Return Neuro Encounter Details Date Type Department Care Team (Late st Contact Info) Description 12/20/2023 10:40 AM EST Office Visit Neurology [facility] [place] 200 [facility] [place] [address] Anton Kumar MD 200 [place] [address] Gait abnormality*; Memory changes Allergies No known active allergiesdocumented as of this encounter (statuses as of 12/20/2023) Medications Medication Sig Dispensed Refills Start Date End Date Status TYLENOL 325 MG PO TABS Take 1,000 [...] a day. 1 Inhaler 1 07/31/2019 Active Additional Information Patient not taking.Reported on 12/20/2023 Bismuth Subsalicylate 262 MG/15ML Oral Suspension Take [...] ONE HOUR BEFORE APPOINTMENT 0 05/22/2021 Active Alendronate Sodium 70 MG Oral Tablet [...] the morning. 30 Tablet 6 08/06/2023 Active Calcium 250 MG Oral Capsule Take by mouth. 0 Active Meloxicam 7.5 MG Oral TabletIndications:DD D (degenerative disc disease), lumbar Take 1 Tablet by mouth daily as needed for Pain, Moderate. With food for pain. 90 Tablet 1 09/24/2023 Active Donepezil HCl 10 MG Oral Tablet (Aricept) Take with supper daily 90 Tablet 3 11/29/2023 Active DULoxetine HCl 60 MG Oral Capsule Delayed Release Particles (Cymbalta) Take 1 Capsule by mouth in the morning. Do not cut, crush or chew. With Breakfast. 30 Capsule 3 11/29/2023 Active Atorvastatin Calcium 40 MG Oral Tablet (Lipitor)Indications :Dyslipidemia, goal LDL below 130 Take 1 Tablet by mouth in the morning. 90 Tablet 3 12/01/2023 Active Metoprolol Tartrate 25 MG Oral Tablet (Lopressor)Indicatio ns:Palpitations,Esse ntial hypertension with goal blood pressure less than 140/90 Take 0.5 Tablets by mouth in the morning and 0.5 Tablets before bedtime. HOLD UNTIL DIRECTED. 0 12/01/2023 Active documented as of this encounter (statuses as of 12/20/2023) Active Problems Problem Noted Date Diagnosed Date [...] shoulder 01/06/2017 History of breast cancer 07/01/2016 Generalized anxiety disorder 05/10/2015 Dyslipidemia, goal LDL below 130 01/19/2011 Essential hypertension with goal blood pressure less than 140/90 12/13/2008 Palpitations documented as of this encounter (statuses as of 12/20/2023) Immunizations Name Administration Dates Next Due COVID-19 mRNA, LNP-s, No Pre serve, 2-Dose Series ([employer]) 03/24/2022,09/19/2021,02/03/2021,12/30 Covid-19, Mrna, Lnp-s, Pf, B ivalent, [...] on file documented as of this encounter Last Filed Vital Signs Vital Sign Reading Time Taken Comments Blood Pressure 130/84 12/20/2023 10:41 AM EST Pulse 86 12/20/2023 10:41 AM EST Temperature 36.6 C (97.8 F) 12/20/2023 10:[address] Respiratory Rate - - Oxygen Saturation 98% 12/20/2023 10:41 AM EST Inhaled Oxygen Concentration - - Weight 71.8 kg (158 lb 4.8 oz) 12/20/2023 10:41 AM EST Height - - Body Mass Index 30.92 12/01/2023 10:06 AM EST documented in this encounter Progress Notes * Anton Kumar MD - 12/20/2023 11:22 AM EST CLINIC NOTES Neurology [facility] [place] [address] [place] [address] Ruby Simms [id number] 1945 NEUROLOGY OUTPATIENT NOTE 12/20/2023 HISTORY: Ruby is 78 years old is right-handed has type 2 diabetes diabetic neuropathy, a gait disturbance likely due to white matter disease superimposed upon a polyneuropathy and cognitive impairment which was finally evaluated by neuropsych to and felt to be mild and type unlikely due to a mixed vascular and degenerative process and correlating nicely with the MRI scan showing global cerebral atrophy, hydrocephalus of compensatory type, and confluent white matter disease in the periventricular regions She also suffers from anxiety and depression and is now seeing Psychiatry by tele medicine visits has had her Cymbalta raised to 60 mg and continues to take Aricept which I started about a year ago and then raise the dose about 6 months ago to 10 mg. He has had no side effects her is not sure it is doing anything positive but will in agreement that is not having any major GI issues weightloss cardiac problems etcetera so we may as well continue There has been no new medical problems developing all of her old problems are stable has been no new medications on board she has not been hospitalized and she and her remains socially isolated due to age infirmity and the after effects of the COVID 19 lock down Past Medical History: Diagnosis Date Breast cancer (HCC) 1999 left breast with SLNB and XRT HTN, goal below 140/90 Hyperlipidemia LDL goal < 130 INFORMATION 05/07/2015 ER pain Malignant neoplasm of female breast (HCC) 10/2000 left breast Osteoarthritis palpitation Past Surgical History: Procedure Laterality Date OTHER lumpectomy - 11/22 BREAST LESION,OTHER,EXCISION Left 1999 Sterotatic (+) CATARACT SURGERY,COMPLEX , 08/2021 COLONOSCOPY, DIAGNOSTIC (RECTUM) 04/05/2015 normal, repeat 10 yrs/COLONOSCOPY FLEXIBLE PROXIMAL DIAGNOSTIC performed by Suzanne Barth DO at ENDOSCOPY [facility] COLONOSCOPY, OUTSIDE PROCEDURE 2004 CYSTOSCOPY 12/31/2014 MASTECTOMY, PARTIAL Left 11/2000 positive with SLNB (-) STRESS ECHO (DOBUTAMINE) 2005 negative TOTAL HYSTERECTOMY 2000 total TOTAL KNEE REPLACEMENT EDU. Right 06/07/2020 Social History Socioeconomic History Marital status: Spouse name: Not on file Number of children: Not on file Years of education: Not on file Highest education level: Not on file Occupational History Not on file Tobacco Use Smoking status: Never Smokeless tobacco: Never Vaping Use Vaping Use: Never used Substance and Sexual Activity Alcohol use: Yes Comment: rare, every few months Drug use: No Sexual activity: Yes Partners: Male Other Topics Concern Not on file Social History Narrative Not on file Social Determinants of Health Financial Resource Strain: Not on file Food Insecurity: No Food Insecurity (02/18/2023) Hunger Vital Sign Worried About Running Out of Food in the Last Year: Never true Ran Out of Food in the Last Year: Never true Transportation Needs: Not on file Physical Activity: Not on file Stress: Not on file Social Connections: Not on file Intimate Partner Violence: Not on file Housing Stability: Not on file Family History Problem Relation Age of Onset Diabetes Mother Heart Disorder Mother Diabetes Father Heart Disorder Father 66 from [place] Current Outpatient Medications Medication Sig Dispense Refill TYLENOL 325 MG PO TABS Take 1,000 mg by mouth 3 times a day as needed for Pain, Mild. ASPIRIN 81 MG PO CHEW Take 1 Tablet by mouth in the morning. 100 5 Bismuth Subsalicylate 262 MG/15ML Oral Suspension Take 30 mL by mouth every 4 hours as needed for Heartburn or Nausea. Meclizine HCl 25 MG Oral Tablet (Antivert) TAKE 1 TABLET BY MOUTH THREE TIMES DAILY NEEDED FOR DIZZINESS Zoster Vac Recomb Adjuvanted 50 MCG/0.5ML Intramuscular Suspension Reconstituted (Shingrix) Inject 0.5 mL into a large muscle now and repeat dose in 60 to 180 days 1 Each 1 Amoxicillin 500 MG Oral Capsule (Amoxil) TAKE FOUR CAPSULES BY MOUTH ONE HOUR BEFORE APPOINTMENT Alendronate Sodium 70 MG Oral Tablet (Fosamax) Take 1 Tablet by mouth once a week. with 8 oz. water30 minutes before first meal of the day. Remain upright for 30 min after taking tablet 5 Tablet 11 Solifenacin Succinate 10 MG Oral Tablet (VESIcare) Take 1 Tablet by mouth in the morning. 30 Tablet6 Calcium 250 MG Oral Capsule Take by mouth. Meloxicam 7.5 MG Oral Tablet Take 1 Tablet by mouth daily as needed for Pain, Moderate. With food for pain. 90 Tablet 1 Donepezil HCl 10 MG Oral Tablet (Aricept) Take with supper daily 90 Tablet 3 DULoxetine HCl 60 MG Oral Capsule Delayed Release Particles (Cymbalta) Take 1 Capsule by mouth in the morning. Do not cut, crush or chew. With Breakfast. 30 Capsule 3 Atorvastatin Calcium 40 MG Oral Tablet (Lipitor) Take 1 Tablet by mouth in the morning. 90 Tablet 3 albuterol HFA (VENTOLIN HFA) 108 (90 BASE) MCG/ACT inhaler Inhale 2 Puffs by mouth 4 times a day. (Patient not taking: Reported on 12/20/2023) 1 Inhaler 1 Metoprolol Tartrate 25 MG Oral Tablet (Lopressor) Take 0.5 Tablets by mouth in the morning and 0.5 Tablets before bedtime. HOLD UNTIL DIRECTED. (Patient not taking: Reported on 12/20/2023) No current facility-administered medications for this visit. Review of patient's allergies indicates: No Known Allergies REVIEW OF SYSTEMS: With the exception of historical items included in the history of present illness above, a 12-point systems review was normal. PHYSICAL EXAM: BP 130/84 (BP Site: Left Arm, BP Position: Sitting, BP Cuff Size: Regular) | Pulse 86 | Temp 36.6 C (97.8 F) (Tympanic) | Wt 71.8 kg (158 lb 4.8 oz) | LMP 01/19/2001 | SpO2 98% | BMI 30.92 kg/m | BSA 1.74 m She is awake alert oriented but quite tangential and clearly is having difficulty coming up with times in casual speech often using word substitutions and circumlocution to get an idea across she hasno abnormal involuntary movements eye movements are normal speech is clear she has no reflexes at the ankles or knees toes are downgoing no Shukri signs are seen strength testing is normal but sensation reveals significant loss of proprioception distally and mild loss of vibration distally along with reduction in light touch with normal findings in the upper extremities. I did not get her up to walk as she was in the wheelchair and did not bring a walker or assistive device but her states that at home she often uses a cane and holds onto his hand ambulate andthat this is fairly effective. He is afraid about lying her use a walker unattended as she does tend to get far behind the device and is stretched out when she uses it. 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 Plan is to continue medications Horace see her back in the summer hopefully with time after which she will have had in-home physical therapy and the weather will be more commensurate with her getting out and trying to walk in fresh air I spent a total of 20-29 minutes (exact time 25 mins) on the date of service in preparation, delivery, and documentation of the care provided to Ruby Simms excluding any time spent in the performance of separately billed services. The above note was generated utilizing voice recognition technology may have spelling errors punctuation errors pronoun usage errors and syntax errors Anton Kumar MD documented in this encounter Nursing Notes * Arely Burris LPN - 12/20/2023 10:40 AM EST Return patient- pt is having more difficulties walking since last visit. Walks with help at home. documented in this encounter Plan of Treatment Upcoming Encounters Date Type Department Care Team (Late st Contact Info) Description 12/30/2023 12:30 PM EST Telemedicine Psychiatry, [place] [address] [place] [address] Carli Mercado MD [address] [place] [address] 03/01/2024 11:00 AM EDT Office Visit Urology, [address] [place] [address] Dandy Bashir MD [address] [place] [address] [place] [address] 03/27/2024 2:20 PM EDT Office Visit General Internal Medicine [facility] [address] [facility] [place] [address] Mar Lovelace MD 200 [facility] [place] [address] 06/19/2024 11:20 AM EDT Office Visit Neurology [facility] 200 [facility] [place] [address] Anton Kumar MD 200 [facility] [place] [address] Scheduled Procedures Name Priority Associated Diagnoses Date/Ti [...] 08/21/2019, 04/13/2019, 12/27/2008 DXA Scan 06/28/2030 06/28/2023, 08/0 05/2023, 06/10/2016, Additional history exists Pneumococcal Vaccine: 65+ [...] Not on filedocumented as of this encounter Visit Diagnoses Diagnosis Gait abnormality- Primary Abnormality of gait Memory changes Memory loss documented in this encounter Advance Directives Documents on File Type Date Recorded Patient Freight Forwarder Expl anation Advance Directives and Thai Elliott 07/29/2007 ADVANCE DIRECTIVE Care Teams Air Plant Engineer Relationship Specialty Start Date End Date Mar Lovelace MD 200 [place] [address] PCP - General 12/13/08 documented as of this encounter"
--- OUTSIDE RECORDS SUMMARY | 2023-12-25 21:23 | External Medical Summary | Summary of Care ---
Author Name Unknown Organization [facility] Address [address] [facility] [place] [address] Phone [phone] Care Team Providers Care Pellet Preparation Operator Name Role Phone Mar Lovelace MD Primary Care Provider [phone] Reason for Visit * Reason Onset Date Comments Emergency Department Follow-Up 11/16/2023 Encounter Details Date Type Department Care Team (Late st Contact Info) Description 11/16/2023 Telephone General Internal Medicine [facility] [place] 200 [facility] [place] [address] Mar Lovelace MD 200 [place] [address] Emergency Department Follow-Up Allergies No known active allergiesdocumented as of this encounter (statuses as of 11/18/2023) Medications Medication Sig Dispensed Refills Start Date [...] as of this encounter (statuses as of 11/18/2023) Active Problems Problem Noted Date Diagnosed Date [...] as of this encounter (statuses as of 11/18/2023) Immunizations Name Administration Dates Next Due COVID-19 mRNA, LNP-s, No Pre serve, 2-Dose Series ([employer]) 03/24/2022,09/19/2021,02/03/2021,12/30 Covid-19, Mrna, Lnp-s, Pf, B ivalent, [...] encounter Miscellaneous Notes * Telephone Encounter - Gretel Garsia OSA - 11/18/2023 11:40 AM EST Lmom 11/18 When pt calls in SCHEDULE Er follow with any of the IM providers. ( Please see unsure why when they called in the 3 times pt couldn't be scheduled..... there are openings for 11/24 with a couple different times) FYI * Telephone Encounter - Sherine Phillips OSA [...] Description 11/29/2023 12:00 PM EST Telemedicine Psychiatry, [address] [address] Carli Mercado MD [address] [place] [address] 01/24/2024 9:20 AM EST Office Visit Neurology [facility] 200 [facility] [place] [address] Anton Kumar MD 200 [facility] [place] [address] 03/01/2024 11:00 AM EDT Office Visit Urology, [facility] 132 [facility] [place] [address] Dandy Bashir MD 27 [facility] [place] [address] [place] [address] 03/27/2024 2:20 PM EDT Office Visit General Internal Medicine [facility] 200 [facility] [place] [address] Mar Lovelace MD 200 [facility] [place] [address] Scheduled Procedures Name Priority Associated Diagnoses Date/Ti [...] Documents on File Type Date Recorded Patient Customer Greeter Expl anation Advance Directives and Thai g Will 07/29/2007 ADVANCE DIRECTIVE Care Teams Pellet Preparation Operator Relationship Specialty Start Date End Date Mar Lovelace MD 200 [facility] [place] [address] PCP - General 12/13/08 documented as of this encounter
--- OUTSIDE RECORDS SUMMARY | 2023-12-25 21:23 | External Medical Summary | Summary of Care ---
Author Name Unknown Organization [facility] Address [address] [facility] [place] [address] Phone [phone] Care Team Providers Care Slps Name Role Phone Mar Lovelace MD Primary Care Provider [phone] Reason for Visit * Reason Onset Date Comments Emergency Department Follow-Up 11/16/2023 Encounter Details Date Type Department Care Team (Late st Contact Info) Description 11/16/2023 Telephone General Internal Medicine [facility] [place] 200 [place] [address] Mar Lovelace MD 200 [place] [address] Emergency Department Follow-Up Allergies No known active [...] mRNA, LNP-s, No Pre serve, 2-Dose Series ([employer]) 03/24/2022,09/19/2021,02/03/2021,12/30 Covid-19, Mrna, Lnp-s, Pf, B ivalent, [...] encounter Miscellaneous Notes * Telephone Encounter - Katherine Moreno OSA [...] Description 11/29/2023 12:00 PM EST Telemedicine Psychiatry, [place] [address] [place] [address] Carli Mercado MD [address] [place] [address] 01/24/2024 9:20 AM EST Office Visit Neurology [facility] [address] [place] [address] Anton Kumar MD 200 [place] [address] 03/01/2024 11:00 AM EDT Office Visit Urology, [facility] 132 [facility] [place] [address] Dandy Bashir MD 27 [facility] [address] [place] [address] 03/27/2024 2:20 PM EDT Office Visit General Internal Medicine [facility] [address] [place] [address] Mar Lovelace MD [address] [facility] [place] [address] Scheduled Procedures Name Priority Associated Diagnoses Date/Ti [...] Documents on File Type Date Recorded Patient Plant Protection Superintendent Expl anation Advance Directives and Livin g Will 07/29/2007 ADVANCE DIRECTIVE Care Teams Slps Relationship Specialty Start Date End Date Mar Lovelace MD 200 [place] [address] PCP - General 12/13/08 documented as of this encounter
--- OUTSIDE RECORDS SUMMARY | 2023-12-25 21:23 | External Medical Summary | Summary of Care ---
Author Name Unknown Organization [facility] Address [address] [facility] [place] [address] Phone [phone] Care Team Providers Care Collateral Analyst Name Role Phone Mar Lovelace MD Primary Care Provider [phone] Reason for Visit * Reason Onset Date Comments Emergency Department Follow-Up 11/16/2023 Encounter Details Date Type Department Care Team (Late st Contact Info) Description 11/16/2023 Telephone General Internal Medicine [facility] [place] 200 [place] [address] Mar Lovelace MD 200 [place] [address] Emergency Department Follow-Up Allergies No known active [...] mRNA, LNP-s, No Pre serve, 2-Dose Series ([employer]) 03/24/2022,09/19/2021,02/03/2021,12/30 Covid-19, Mrna, Lnp-s, Pf, B [...] Description 11/29/2023 12:00 PM EST Telemedicine Psychiatry, [place] [address] [place] [address] Carli Mercado MD [address] [place] [address] 01/24/2024 9:20 AM EST Office Visit Neurology [facility] [address] [place] [address] Anton Kumar MD 200 [facility] [place] [address] 03/01/2024 11:00 AM EDT Office Visit Urology, [facility] 132 [facility] [place] [id number] Dandy Bashir MD 27 [facility] [address] [place] [address] 03/27/2024 2:20 PM EDT Office Visit General Internal Medicine [facility] [address] [place] [address] Mar Lovelace MD 200 [facility] [place] [address] Scheduled Procedures Name Priority Associated Diagnoses Date/Ti [...] Documents on File Type Date Recorded Patient Drive Tester Maribell agudelo Advance Directives and Thai Elliott 07/29/2007 ADVANCE DIRECTIVE Care Teams Collateral Analyst Relationship Specialty Start Date End Date Mar Lovelace MD 200 [facility] [place] [address] PCP - General 12/13/08 documented as of this encounter
--- OUTSIDE RECORDS SUMMARY | 2023-12-25 21:23 | External Medical Summary | Summary of Care ---
Author Name Unknown Organization [facility] Address [address] [facility] [place] [address] Phone [phone] Care Team Providers Care Ordnance Handler Name Role Phone Mar Lovelace MD Primary Care Provider [phone] Reason for Visit * Reason Onset Date Comments Emergency Department Follow-Up 11/16/2023 Encounter Details Date Type Department Care Team (Late st Contact Info) Description 11/16/2023 Telephone General Internal Medicine [facility] [place] 200 [place] [address] Mar Lovelace MD 200 [place] [address] Emergency Department Follow-Up Allergies No known active [...] mRNA, LNP-s, No Pre serve, 2-Dose Series ([employer]) 03/24/2022,09/19/2021,02/03/2021,12/30 Covid-19, Mrna, Lnp-s, Pf, B ivalent, [...] Description 11/29/2023 12:00 PM EST Telemedicine Psychiatry, [place] [address] [place] [address] Carli Mercado MD [address] [place] [address] 01/24/2024 9:20 AM EST Office Visit Neurology [facility] [address] [place] [address] Anton Kumar MD 200 [facility] [place] [address] 03/01/2024 11:00 AM EDT Office Visit Urology, [facility] 132 [facility] [place] [id number] Dandy Bashir MD 27 [facility] [address] [place] [address] 03/27/2024 2:20 PM EDT Office Visit General Internal Medicine [facility] [address] [place] [address] Mar Lovelace MD 200 [facility] [place] [address] Scheduled Procedures Name Priority Associated Diagnoses Date/Ti [...] Documents on File Type Date Recorded Patient Vest Front Presser Marib[place] agudelo Advance Directives and Thai Elliott 07/29/2007 ADVANCE DIRECTIVE Care Teams Ordnance Handler Relationship Specialty Start Date End Date Mar Lovelace MD 200 [place] [address] PCP - General 12/13/08 documented as of this encounter
--- OUTSIDE RECORDS SUMMARY | 2023-12-25 21:23 | External Medical Summary | Summary of Care ---
Author Name Unknown Organization [facility] Address [address] [facility] [place] [place] [address] Phone [phone] Care Team Providers Care Welt Sewer Name Role Phone Mar Lovelace MD Primary Care Provider [phone] Encounter Details Date Type Department Care Team (Late st Contact Info) Description 12/07/2023 Orders Only PATIENT PORTAL DO NOT DELETE THIS DEPT USED BY [place] [address] Allergies No known active allergiesdocumented as of this encounter (statuses as of 12/07/2023) Medications Medication Sig Dispensed Refills Start Date [...] as of this encounter (statuses as of 12/07/2023) Active Problems Problem Noted Date Diagnosed Date [...] as of this encounter (statuses as of 12/07/2023) Immunizations Name Administration Dates Next Due COVID-19 mRNA, LNP-s, No Pre serve, 2-Dose Series ([employer]) 03/24/2022,09/19/2021,02/03/2021,12/30 Covid-19, Mrna, Lnp-s, Pf, B ivalent, [...] on file documented as of this encounter Plan of Treatment Upcoming Encounters Date Type Department Care Team (Late st Contact Info) Description 12/30/2023 12:30 PM EST Telemedicine Psychiatry, [facility] [address] [place] [address] Carli Mercado MD [address] [place] [address] 01/24/2024 9:20 AM EST Office Visit [facility] [address] [place] [address] Anton Kumar MD [address] [place] [address] 03/01/2024 11:00 AM EDT Office Visit Urology, [facility] [address] [facility] [place] [address] Dandy Bashir MD [address] [place] [address] [place] [address] 03/27/2024 2:20 PM EDT Office Visit General Internal Medicine [facility] [place] 200 [facility] [place] [address] Mar Lovelace MD 200 [facility] [place] [address] Scheduled Procedures Name Priority Associated Diagnoses Date/Ti [...] Documents on File Type Date Recorded Patient Wagon Drill Operator Expl anation Advance Directives and Livin g Will 07/29/2007 ADVANCE DIRECTIVE Care Teams Welt Sewer Relationship Specialty Start Date End Date Mar Lovelace MD [address] [place] [address] PCP - General 12/13/08 documented as of this encounter
--- OUTSIDE RECORDS SUMMARY | 2023-12-25 21:23 | External Medical Summary | Summary of Care ---
Author Name Unknown Organization [facility] Address [address] [place] [facility] [place] [address] Phone [phone] Care Team Providers Care Automated Manufacturing Instructor Name Role Phone Mar Lovelace MD Primary Care Provider [phone] Encounter Details Date Type Department Care Team (Latest Contact Info) Description 11/29/2023 12:[address] 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 0 06/09/2020 Active ASPIRIN 81 MG PO CHEWIndications:Dy slipidemia, goal to be determined,HTN, goal below 140/90 Take 1 Tablet by mouth in the morning. 100 5 06/09/2020 Active albuterol HFA (VENTOLIN HFA) 108 (90 BASE) MCG/ACT inhalerIndications :Acute bronchitis, antibiotics not indicated Inhale 2 Puffs [...] Recomb Adjuvanted 50 MCG/0.5ML Intramuscular Suspension Reconstituted (Shingrix)Indicati ons:Need for vaccination for zoster Inject 0.5 mL into a large muscle now and repeat dose in 60 to 180 days 1 Each 1 05/09/2021 Active Amoxicillin 500 MG Oral Capsule (Amoxil) TAKE FOUR CAPSULES BY MOUTH ONE HOUR BEFORE APPOINTMENT 0 05/22/2021 Active Alendronate Sodium 70 MG Oral Tablet (Fosamax)Indicatio ns:Age-related osteoporosis without current pathological fracture Take 1 [...] Active Atorvastatin Calcium 40 MG Oral Tablet (Lipitor)Indicatio ns:Dyslipidemia, goal LDL below 130 Take 1 Tablet by mouth in the morning. 90 Tablet 1 09/02/2023 Active Calcium 250 MG Oral Capsule Take by mouth. 0 Active Metoprolol Tartrate 25 MG Oral Tablet (Lopressor)Indicat ions:Palpitations, Essential hypertension with goal blood pressure less than 140/90 Take 0.5 Tablets by mouth in the morning and 0.5 Tablets before bedtime. 90 Tablet 3 09/24/2023 Active Meloxicam 7.5 MG Oral TabletIndications: DDD (degenerative disc disease), lumbar Take 1 Tablet [...] With Breakfast. 30 Capsule 3 11/29/2023 Active Donepezil HCl 10 MG Oral Tablet (Aricept) Take with supper daily 90 Tablet 3 05/31/2023 4 Discontinue d(Refill) DULoxetine HCl 60 MG Oral Capsule Delayed Release Particles (Cymbalta) Take 1 Capsule by mouth in the morning. Do not cut, crush or chew. With Breakfast. 30 Capsule 3 10/25/2023 4 Discontinue d(Refill) documented as of this encounter (statuses as of 11/29/2023) Active Problems Problem Noted Date Diagnosed Date [...] as of this encounter (statuses as of 11/29/2023) Immunizations Name Administration Dates Next Due COVID-19 mRNA, LNP-s, No Pre serve, 2-Dose Series ([employer]) 03/24/2022,09/19/2021,02/03/2021,12/30 Covid-19, Mrna, Lnp-s, Pf, B ivalent, 30 Mcg, IM, 12 yrs and above ([employer]ation) 04/30/2023 Pneumococcal Conjugate Vacc, 13 Valent (Prevnar) [...] on file documented as of this encounter Progress Notes * Carli Mercado MD - 11/29/2023 12:06 PM EST OUTPATIENT PSYCHIATRY RETURN VISIT DIVISION OF PSYCHIATRY [address] [address] Name: Ruby Simms : 1945 Date and Time Patient was Seen: 11/29/2023 at 12:06 PM After connecting through televideo, patient was verified with two unique identifiers. Patient (or authorized legal marketing development representative) was then informed that this was a Telemedicine visit and that the exam was being conducted confidentially over secure lines. My office door was closed. No one else was in the room with me. Patient acknowledged consent and understanding of privacy and security of the Telemedicine visit, and gave permission to have a telemedicine presenter stay in the room in order toassist with the history and to conduct the exam as needed. I informed the patient that I have reviewed their record in [facility] and presented the opportunity for them to ask any questions regarding the visit today. The patient agreed to participate. Patient location: HOME. I was not in a hospital or clinic location. After connecting through televideo, patient was verified with two unique identifiers. Patient (or authorized legal marketing development representative) was then informed that this was a Telemedicine visit and being conducted confidentially over secure lines. Methods to assure confidentiality were taken. Patient acknowledged consent and understanding of privacy and security of the Telemedicine visit. The patient agreed to participate. CC: Follow up visit Depression, anxiety and depression INTERVAL HISTORY: Pt said that she is doing better since her last visit. She said she is still depressed, improved, about 1-2 times a week, less intense and able to cope much better with it. She denied feeling anxiousfor the most part and doing pretty well. She denied any current stressors. She said she lives with her and he is supportive. Psychiatric ROS Sleep: Good, 8-9 hours Appetite: Reduced, eats 2 meals mostly, 5 lbs in last few months Suicidal ideation: Denied Homicidal ideation: Denied Psychosis: None reported Marleny: None reported PTSD: None reported Panic attacks: None reported Memory issues: None reported Side effects: None reported D+A Use Alcohol: None Nicotine: None Other substances: None Medical Issues Acute medical issues at present: None Last PCP Visit: 4 weeks ago, no issues MEDICAL REVIEW OF SYSTEMS: C/o pain in left knee that was replaced few years ago No fever/dizziness/blurred vision/cough/chest pain/shortness of breath/abdominal pain/nausea/vomiting/bladder or bowel problems/headache/weakness/rigidity or pain reported. Any positive symptoms reported by patient are listed in the interval summary. ALLERGIES Review of patient's allergies indicates: No Known Allergies CURRENT MEDICATIONS: Current Outpatient Medications Medication Sig Dispense Refill MULTIVITAL PO TABS daily TYLENOL 325 MG PO TABS Take 1,000 mg by mouth 3 times a day as needed for Pain, Mild. ASPIRIN 81 MG PO CHEW Take 1 Tablet by mouth in the morning. 100 5 albuterol HFA (VENTOLIN HFA) 108 (90 BASE) MCG/ACT inhaler Inhale 2 Puffs by mouth 4 times a day. 1Inhaler 1 Bismuth Subsalicylate 262 MG/15ML Oral Suspension Take [...] CAPSULES BY MOUTH ONE HOUR BEFORE APPOINTMENT Donepezil HCl 10 MG Oral Tablet (Aricept) Take with supper daily 90 Tablet 3 Alendronate Sodium 70 MG Oral Tablet (Fosamax) Take 1 Tablet by mouth once a week. with 8 oz. water30 minutes before first meal of the day. Remain upright for 30 min after taking tablet 5 Tablet 11 Solifenacin Succinate 10 MG Oral Tablet (VESIcare) Take 1 Tablet by mouth in the morning. 30 Tablet6 Atorvastatin Calcium 40 MG Oral Tablet (Lipitor) Take 1 Tablet by mouth in the morning. 90 Tablet 1 Calcium 250 MG Oral Capsule Take by mouth. Metoprolol Tartrate 25 MG Oral Tablet (Lopressor) Take 0.5 Tablets by mouth in the morning and 0.5 Tablets before bedtime. 90 Tablet 3 Meloxicam 7.5 MG Oral Tablet Take 1 Tablet by mouth daily as needed for Pain, Moderate. With food for pain. 90 Tablet 1 DULoxetine HCl 60 MG Oral Capsule Delayed Release Particles (Cymbalta) Take 1 Capsule by mouth in the morning. Do not cut, crush or chew. With Breakfast. 30 Capsule 3 No current facility-administered medications for this visit. RECENT LABS/IMAGING: No results found for this or any previous visit (from the past 672 hour(s)). VITALS There were no vitals filed for this visit. Wt Readings from Last 3 Encounters: 09/24/23 70.9 kg (156 lb 4.8 oz) 06/15/23 70.9 kg (156 lb 6.4 oz) 05/31/23 70.9 kg (156 lb 3.2 oz) There is no height or weight on file to calculate BMI. CURRENT MEDICATIONS: Current Outpatient Medications Medication Sig Dispense Refill MULTIVITAL PO TABS daily TYLENOL 325 MG PO TABS Take 1,000 mg by mouth 3 times a day as needed for Pain, Mild. ASPIRIN 81 MG PO CHEW Take 1 Tablet by mouth in the morning. 100 5 albuterol HFA (VENTOLIN HFA) 108 (90 BASE) MCG/ACT inhaler Inhale 2 Puffs by mouth 4 times a day. 1Inhaler 1 Bismuth Subsalicylate 262 MG/15ML Oral Suspension Take [...] CAPSULES BY MOUTH ONE HOUR BEFORE APPOINTMENT Donepezil HCl 10 MG Oral Tablet (Aricept) Take with supper daily 90 Tablet 3 Alendronate Sodium 70 MG Oral Tablet (Fosamax) Take 1 Tablet by mouth once a week. with 8 oz. water30 minutes before first meal of the day. Remain upright for 30 min after taking tablet 5 Tablet 11 Solifenacin Succinate 10 MG Oral Tablet (VESIcare) Take 1 Tablet by mouth in the morning. 30 Tablet6 Atorvastatin Calcium 40 MG Oral Tablet (Lipitor) Take 1 Tablet by mouth in the morning. 90 Tablet 1 Calcium 250 MG Oral Capsule Take by mouth. Metoprolol Tartrate 25 MG Oral Tablet (Lopressor) Take 0.5 Tablets by mouth in the morning and 0.5 Tablets before bedtime. 90 Tablet 3 Meloxicam 7.5 MG Oral Tablet Take 1 Tablet by mouth daily as needed for Pain, Moderate. With food for pain. 90 Tablet 1 DULoxetine HCl 60 MG Oral Capsule Delayed Release Particles (Cymbalta) Take 1 Capsule by mouth in the morning. Do not cut, crush or chew. With Breakfast. 30 Capsule 3 No current facility-administered medications for this visit. FAMILY HISTORY: Family History Problem Relation Age of Onset Diabetes Mother Heart Disorder Mother Diabetes Father Heart Disorder Father 66 from [place] PAST MEDICAL HISTORY: Past Medical History: Diagnosis Date Breast cancer (HCC) 1999 left breast with SLNB and XRT HTN, goal below 140/90 Hyperlipidemia LDL goal < 130 INFORMATION 05/07/2015 ER pain Malignant neoplasm of female breast (HCC) 10/2000 left breast Osteoarthritis palpitation SUMMARY OF/CHANGES TO PAST PSYCHIATRIC, MEDICAL, FAMILY, OR SOCIAL HISTORY: See interval history MENTAL STATUS EXAMINATION: General appearance and behavior: Moderately kempt, calm, cooperative, pleasant, good eye contact, good rapport, no psychomotor abnormalities noted Motor: Normal gait and no abnormal movements noted via tele-medicine encounter Speech: Spontaneous with normal rate, normal volume and normal tone Mood: "better" Affect: Euthymic, congruent with mood, normal range, appropriate Thought Process: Linear and logical Thought content: Denied suicidal or homicidal ideation. No delusions elicited Perception: Denied any auditory or visual hallucinations Insight: Good Judgment: Good Orientation: Oriented to person, place and time Attention/Concentration: Good Memory: Grossly intact Language: Fluent Fund of Knowledge: Adequate [place]-SUICIDE SEVERITY RATING SCALE Frequent Screener Ask questions that are bold and underlined Since Last Contact (Eric with an X) YES NO Have you actually had thoughts about killing yourself? x If YES, ask the following questions. If NO, go directly to the last question Have you been thinking about how you might do this? Have you had these thoughts and had some intention of acting on them? E.g. I thought about taking an overdose, but I never made a specific plan as to when where or how I would actually do it.and I would never go through with it. Have you started to work out or worked out the details of how to kill yourself? Do you intend to carry out this plan? As opposed to I have the thoughts, but I definitely will not do anything about them. Have you done anything, started to do anything, or prepared to do anything to end your life? Examples: Collected pills, obtained a gun, gave away valuables, wrote a will or suicide note, took out pills but didn't swallow any, held a gun but changed your mind or it was grabbed from your hand,went to the roof but didn't jump; or actually took pills, tried to shoot yourself, cut yourself, tried to hang yourself, etc. x Low Risk Complete or review crisis plan with patient Discuss risk/protective factors and reasons for living Moderate Risk Complete or review crisis plan with patient Discuss risk/protective factors and reasons for living Discuss removal of means High Risk Maintain 1 to 1 monitoring until assessment is completed Evaluate for higher level of care (Inpatient or PHP) Consultation with Emergency Services as appropriate If patient not admitted: Complete or review crisis plan with patient Discuss risk/protective factors and reasons for living Advise removal of means Consider family or collateral contact to promote safety Schedule follow up care consistent with assessment ASSESSMENT AND PLAN: Major depressive disorder, recurrent, moderate - Continue duloxetine to 60 mg PO daily with breakfast. Tolerating the dose well Anxiety disorder unspecified - Continue duloxetine as above Major neurocognitive disorder, due to Alzheimers, mild - Continue donepezil 10 mg PO supper MRI in 10/2022 showed vascular changes and some global volume loss and no evidence of NPH. Continueto f/u with neuro and PCP Laboratory tests: None Therapy: None RTC: in 4 weeks Treatment options and alternatives reviewed with patient who agrees with the above plan. Information about current medications was provided to the patient including reasons why medications are being used. Patient understood the risks, benefits, side-effects, and potential complications associated with changes in medications being proposed (both medications being started and medications being discontinued or having dose changed). Patient is making an informed medical decision to follow the recommendations outlined in this note. Directed patient to call with any questions or concerns, worseningsymptoms and/or ask for earlier appointment. Their current psychosocial stressors were discussed with the patient. Supportive psychotherapy was provided to help them with better coping with their current stressors. Breathing, relaxation, distraction and behavioral activation techniques were explained to the patient where and when clinically indicated. The importance of medication compliance was reinstated. The importance of heathy diet, regular exercise and daily sleep hygiene/routine was reiterated to the patient. Risk assessment was performed. This is a patient being treated for mental health conditions and/or substance use disorder as characterized above. At the time of this visit, there was no indication that this patient was either a risk to self, others, or gravely disabled by symptoms of a mental illness or substance use disorder. At the time of this evaluation, patient did not appear to be an acute risk to self or others. There were enough protective factors in place and it was deemed safe and appropriate to continue with treatment on a outpatient basis with return to clinic in the timeframe described below. We reviewed previous crisis plan should he/she experience worsening of symptoms before next follow-up appointment, including being aware of what resources to use according to the urgency and severityof symptoms. Ruby Simms was able to verbalize understanding of the steps necessary to obtain help between appointments should be needed, from requesting a phone call, to requesting an appointment sooner, including reaching clinic after hours, accessing our system, and accessing emergency mental health and medical services, either at a local emergency department or by activating mobile crisis teams and EMS. Time Spent on Visit: 30 minutes Time spent on counseling over and above medication management: 17 minutes Billing code: [id number] and [id number] TREATMENT PLAN: DATE PROBLEM STATUS (New, Stable, Improved, etc.) INTERVENTIONS 11/29/2023 Depression Improving Medication management Anxiety Improving Memory problems Improving This treatment plan was most recently reviewed and discussed with the patient on the date(s) listedabove. She and/or family had the opportunity to ask questions and agreed with the treatment plan and course of care on that date. Carli Mercado MD Psychiatrist, [facility] 11/29/2023 documented in this encounter Plan of Treatment Upcoming Encounters Date Type Department Care Team (Late st Contact Info) Description 12/01/2023 10:00 AM EST Office Visit General Internal Medicine [employer] [address] [place] [address] Mar Lovelace MD [address] [place] [address] 12/30/2023 12:30 PM EST [facility] [address], [place] [id number] Carli Mercado MD [address] [place] [address] 01/24/2024 9:20 AM EST Office Visit Neurology [facility] 200 [facility] [place] [address] Anton Kumar MD 200 [facility] [address] 03/01/2024 11:00 AM EDT Office Visit Urology, [facility] [address] [facility] [place] [address] Dandy Bashir MD [address] [place] [address] [place] [address] 03/27/2024 2:20 PM EDT Office Visit General Internal Medicine [facility] 200 [facility] [place] [address] Mar Lovelace MD 200 [facility] [place] [address] Scheduled Procedures Name Priority Associated Diagnoses Date/Ti [...] 12/09/2020, Additional history exists HbA1c 03/24/2024 09/24/2023, 0703/2023, 02/10/2023, Additional history exists Diabetic Eye Exam [...] as of this encounter Visit Diagnoses Diagnosis Major depressive disorder, recurrent episode, moderate (HCC)- Primary Major depressive disorder, recurrent episode, moderate Anxiety disorder, unspecified type Major neurocognitive disorder due to Alzheimer's disease, 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
--- OUTSIDE RECORDS SUMMARY | 2023-12-25 21:23 | External Medical Summary | Summary of Care ---
Author Name Unknown Organization [facility] Address [address] [facility] [place] [address] Phone [phone] Care Team Providers Care Web Marketing Analyst Name Role Phone Mar Lovelace MD Primary Care Provider [phone] Reason for Visit * Reason Onset Date Comments Emergency Department Follow-Up 11/16/2023 Encounter Details Date Type Department Care Team (Late st Contact Info) Description 11/16/2023 Telephone General Internal Medicine [facility] [place] [address] [place] [address] Mar Lovelace MD 200 [place] [address] Emergency Department Follow-Up Allergies No known active allergiesdocumented as of this encounter (statuses as of 11/26/2023) Medications Medication Sig Dispensed Refills Start Date [...] as of this encounter (statuses as of 11/26/2023) Active Problems Problem Noted Date Diagnosed Date [...] as of this encounter (statuses as of 11/26/2023) Immunizations Name Administration Dates Next Due COVID-19 mRNA, LNP-s, No Pre serve, 2-Dose Series ([employer]) 03/24/2022,09/19/2021,02/03/2021,12/30 Covid-19, Mrna, Lnp-s, Pf, B ivalent, [...] encounter Miscellaneous Notes * Telephone Encounter - Linh Parmar LPN - 11/26/2023 9:35 AM EST Appt has been scheduled for Hosp f/u for wed with [facility]. * Telephone Encounter - Gretel Garsia OSA [...] Description 11/29/2023 12:00 PM EST Telemedicine Psychiatry, [place] [address] [place] [address] Carli Mercado MD [address] [place] [address] 12/01/2023 10:00 AM EST Office Visit General Internal Medicine [facility] [address] [place] [address] Mar Lovelace MD 200 [facility] [place] [address] 01/24/2024 9:20 AM EST Office Visit Neurology [facility] [address] [place] [address] Anton Kumar MD 200 [facility] [address] 03/01/2024 11:00 AM EDT Office Visit Urology, [facility] [place] [id number] Dandy Bashir MD 27 [facility] [address] [place], [place] [id number] 03/27/2024 2:20 PM EDT Office Visit General Internal Medicine [facility] [address] [place] [address] Mar Lovelace MD [address] [place] [address] Scheduled Procedures Name Priority Associated Diagnoses Date/Ti [...] Documents on File Type Date Recorded Patient 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
--- OUTSIDE RECORDS SUMMARY | 2023-12-25 21:23 | External Medical Summary | Summary of Care ---
Author Name Unknown Organization [facility] Address [address] [facility] [place] [address] Phone [phone] Care Team Providers Care Import Dispatcher Name Role Phone Mar Lovelace MD Primary Care Provider [phone] Reason for Visit * Reason Comments Emergency Department Follow-Up [facility] ER 1 01/08/23-- f/u on bladder infection. thinks her urine has an odor and she has been more incontinent, which has been occurring since before she went to the ER. Leg Pain C/o pain in left leg when walking or when she is on her feet for a period of time. Has been having difficulty walking. Encounter Details Date Type Department Care Team (Latest Contact Info) Description 12/01/2023 10:00 AM EST Office Visit General Internal Medicine [address] [place] [address] [place] [address] Mar Lovelace MD [address] [place] [address] Acute cystitis without hematuria*; Type 2 diabetes mellitus with hemoglobin A1c goal of less than 7.0% (HCC); Generalized weakness; Palpitations; Major neurocognitive disorder due to Alzheimer's disease, without behavioral disturbance (HCC); Pain in joint of right shoulder; Dyslipidemia, goal LDL below 130; Major depressive disorder, recurrent episode, moderate (HCC); Mild vascular dementia with anxiety (HCC); History of breast cancer; Essential hypertension with goal blood pressure less than 140/90; Current mild episode of major depressive disorder without prior episode ([facility]); BMI 30.0-30.9,adult; Generalized anxiety disorder Allergies No known active allergiesdocumented as of this encounter (statuses as of 12/01/2023) Medications Medication Sig Dispensed Refills Start Date End Date Status TYLENOL 325 MG PO TABS Take 1,000 mg by mouth 3 times a day as needed for Pain, Mild. 0 0 Active ASPIRIN 81 MG PO CHEWIndications:D yslipidemia, goal to be determined,HTN, goal below 140/90 Take 1 Tablet by mouth in the morning. 100 5 0 Active albuterol HFA (VENTOLIN HFA) 108 (90 BASE) MCG/ACT inhalerIndication s:Acute bronchitis, antibiotics not indicated Inhale 2 Puffs by mouth 4 times a day. 1 Inhaler 1 9 Active Bismuth Subsalicylate 262 MG/15ML Oral Suspension Take 30 mL by mouth every 4 hours as needed for Heartburn or Nausea. 0 Active Meclizine HCl 25 MG Oral Tablet (Antivert) TAKE 1 TABLET BY MOUTH THREE TIMES DAILY NEEDED FOR DIZZINESS 0 1 Active Zoster Vac Recomb Adjuvanted 50 MCG/0.5ML Intramuscular Suspension Reconstituted (Shingrix)Indicat ions:Need for vaccination for zoster Inject 0.5 mL into a large muscle now and repeat dose in 60 to 180 days 1 Each 1 1 Active Amoxicillin 500 MG Oral Capsule (Amoxil) TAKE FOUR CAPSULES BY MOUTH ONE HOUR BEFORE APPOINTMENT 0 1 Active Alendronate Sodium 70 MG Oral Tablet (Fosamax)Indicati ons:Age-related osteoporosis without current pathological fracture Take 1 Tablet by mouth once a week. with 8 oz. water 30 minutes before first meal of the day. Remain upright for 30 min after taking tablet 5 Tablet 11 3 Active Solifenacin Succinate 10 MG Oral Tablet (VESIcare) Take 1 Tablet by mouth in the morning. 30 Tablet 6 3 Active Calcium 250 MG Oral Capsule Take by mouth. 0 Active Meloxicam 7.5 MG Oral TabletIndications :DDD (degenerative disc disease), lumbar Take 1 Tablet by mouth daily as needed for Pain, Moderate. With food for pain. 90 Tablet 1 3 Active Donepezil HCl 10 MG Oral Tablet (Aricept) Take with supper daily 90 Tablet 3 4 Active DULoxetine HCl 60 MG Oral Capsule Delayed Release Particles (Cymbalta) Take 1 Capsule by mouth in the morning. Do not cut, crush or chew. With Breakfast. 30 Capsule 3 4 Active Atorvastatin Calcium 40 MG Oral Tablet (Lipitor)Indicati ons:Dyslipidemia, goal LDL below 130 Take 1 Tablet by mouth in the morning. 90 Tablet 3 4 Active Metoprolol Tartrate 25 MG Oral Tablet (Lopressor)Indica tions:Palpitation s,Essential hypertension with goal blood pressure less than 140/90 Take 0.5 Tablets by mouth in the morning and 0.5 Tablets before bedtime. HOLD UNTIL DIRECTED. 0 4 Active MULTIVITAL PO TABS daily 0 12/01/19 24 Discontinued Atorvastatin Calcium 40 MG Oral Tablet (Lipitor)Indicati ons:Dyslipidemia, goal LDL below 130 Take 1 Tablet by mouth in the morning. 90 Tablet 1 3 12/01/19 24 Discontinued(Re fill) Metoprolol Tartrate 25 MG Oral Tablet (Lopressor)Indica tions:Palpitation s,Essential hypertension with goal blood pressure less than 140/90 Take 0.5 Tablets by mouth in the morning and 0.5 Tablets before bedtime. 90 Tablet 3 3 12/01/19 24 Discontinued(Re fill) documented as of this encounter (statuses as of 12/01/2023) Active Problems Problem Noted Date Diagnosed Date [...] as of this encounter (statuses as of 12/01/2023) Immunizations Name Administration Dates Next Due COVID-19 mRNA, LNP-s, No Pre serve, 2-Dose Series (Pfizer) 03/24/2022,09/19/2021,02/03/2021,12/30 Covid-19, Mrna, Lnp-s, Pf, B ivalent, [...] Sign Reading Time Taken Comments Blood Pressure 116/70 12/01/2023 10:06 AM EST Pulse 74 12/01/2023 10:06 AM EST Temperature 37.1 C (98.7 F) 12/01/2023 1 0:06 AM EST Respiratory Rate - - Oxygen Saturation 97% 12/01/2023 10: 06 AM EST Inhaled Oxygen Concentration - - Weight 70.6 kg (155 lb 11.2 oz) 024 10:06 AM EST Height 152.4 cm (5') 12/01/2023 10:06 AM EST Body Mass Index 30.41 12/01/2023 10:06 AM EST documented in this encounter Progress Notes * Mar Lovelace MD - 12/01/2023 10:12 AM EST SUBJECTIVE: Ruby Simms is a 78 year old female. Chief Complaint Patient presents with Emergency Department Follow-Up [facility] ER 11/07/23-- f/u on bladder infection. thinks her urine has an odor and she has been more incontinent, which has been occurring since before she went to the ER. Leg Pain C/o pain in left leg when walking or when she is on her feet for a period of time. Has been having difficulty walking. HPI: 78 YOF with HTN, Hyperlipidemia, borderline sugar, left breast ca in 00 s/p lumpectomy, chemo presents here for ER follow up. Pt went to ER 3 weeks ago with urinary frequency and bad odor and found to have UTI and treated with Cefdinir for 5 days . Since discharge feeling better while on antibiotic but odor been coming backwith some more incontinence. . Hospital records reviewed and updated. New issue now -baseline continence has also increased because patient is not able to make to the bathroom on timedue to her leg weakness and it takes a while for her to get up from sitting position. -pain in left leg when walking or when she is on her feet for a period of time. Has been having difficulty walking. Patient is not walking at all and does not want to use walker for the most part. Sousually uses cane and 's hand. Has been is taking pretty much all care at home and herself. [facility] to [facility] was [facility] and faxed but they have not heard back -blood pressure low noted. Patient does complain of dizziness in the morning when she gets out of bed Patient Active Problem List Diagnosis Code Essential hypertension with goal blood pressure less than 140/90 I10 Palpitations R00.2 Dyslipidemia, goal LDL below 130 E78.5 Anxiety disorder F41.9 History of breast cancer Z85.3 Pain in joint of right shoulder M25.511 BMI 30.0-30.9,adult Z68.30 Type 2 diabetes mellitus with hemoglobin A1c goal of less than 7.0% ([facility]) E11.9 Current mild episode of major depressive disorder without prior episode ([facility]) F32.0 Mild vascular dementia with anxiety ([facility]) F01.A4 Major neurocognitive disorder due to Alzheimer's disease, without behavioral disturbance ([facility]) G30.9, F02.80 Major depressive disorder, recurrent episode, moderate ([facility]) F33.1 Current Outpatient Medications Medication Sig Dispense Refill TYLENOL 325 MG PO TABS Take 1,000 mg by mouth 3 times a day as needed for Pain, Mild. ASPIRIN 81 MG PO CHEW Take 1 Tablet by mouth in the morning. 100 5 albuterol HFA (VENTOLIN HFA) 108 (90 BASE) MCG/ACT inhaler Inhale 2 Puffs by mouth 4 times a day. 1Inhaler 1 Meclizine HCl 25 MG Oral Tablet (Antivert) TAKE 1 TABLET BY MOUTH THREE TIMES DAILY NEEDED FOR DIZZINESS Zoster Vac Recomb Adjuvanted 50 MCG/0.5ML Intramuscular Suspension Reconstituted (Shingrix) Inject 0.5 mL into a large muscle now and repeat dose in 60 to 180 days 1 Each 1 Alendronate Sodium 70 MG Oral Tablet (Fosamax) [...] or chew. With Breakfast. 30 Capsule 3 Bismuth Subsalicylate 262 MG/15ML Oral Suspension Take 30 mL by mouth every 4 hours as needed for Heartburn or Nausea. Amoxicillin 500 MG Oral Capsule (Amoxil) TAKE FOUR CAPSULES BY MOUTH ONE HOUR BEFORE APPOINTMENT No current facility-administered medications for this visit. The patient's medication list was reviewed and updated as needed. Past Medical History: Diagnosis Date Breast cancer (HCC) 1999 left breast with SLNB and XRT HTN, goal below 140/90 Hyperlipidemia LDL goal < 130 INFORMATION 05/07/2015 ER pain Malignant neoplasm of female breast (HCC) 10/2000 left breast Osteoarthritis palpitation Social History Socioeconomic History Marital status: Tobacco Use Smoking status: Never Smokeless tobacco: Never Vaping Use Vaping Use: Never used Substance and Sexual Activity Alcohol use: Yes Comment: rare, every few months Drug use: No Sexual activity: Yes Partners: Male Social Determinants of Health Food Insecurity: No Food Insecurity (02/18/2023) Hunger Vital Sign Worried About Running Out of Food in the Last Year: Never true Ran Out of Food in the Last Year: Never true Review of patient's allergies indicates: No Known Allergies Family History Problem Relation Age of Onset Diabetes Mother Heart Disorder Mother Diabetes Father Heart Disorder Father 66 from [place] Family Status Relation Status Mo at age 74 diabetes Fa at age 85 black lung Jaymie Alive MGMA at age 90 old age MGFA at age 90 old age PGMA unknown reason PGFA unknown reason REVIEW OF SYSTEMS: All 10 systems reviewed and negative except mentioned in HPI OBJECTIVE: BP 116/70 | Pulse 74 | Temp 37.1 C (98.7 F) (Tympanic) | Ht 1.524 m (5') | Wt 70.6 kg (155 lb 11.2 oz) | LMP 01/19/2001 | SpO2 97% | BMI 30.41 kg/m | BSA 1.73 m PHYSICAL EXAM: General: alert, healthy, and no distress, mild dementia Head: Normocephalic, No masses, lesions, tenderness or abnormalities Neck: supple, no adenopathy, no bruits, thyroid normal size, non-tender, without nodularity Heart: regular rate & rhythm, no murmur, and no gallops Lungs: chest symmetric with normal AP diameter, no chest deformities noted, no chest wall tenderness, lungs clear to auscultation Abdomen: abdomen soft, non-tender, normal bowel sounds, and no masses or organomegaly Extremities: less than 2 second capillary refill, no joint deformities, effusion, or inflammation Neuro Exam: alert & oriented x 2 with fluent speech, no focal motor/sensory deficits but generalized some weakness on both legs ASSESSMENT AND PLAN Acute cystitis without hematuria (Primary) - URINALYSIS WITH MICROSCOPIC EXAM; Future; Expected date: 12/01/2023 - CULTURE, URINE, QUANTITATIVE; Future; Expected date: 12/01/2023 Type 2 diabetes mellitus with hemoglobin A1c goal of less than 7.0% ([facility]) - HEMOGLOBIN A1C; Future; Expected date: 03/31/2024 - ALBUMIN / CREATININE RATIO, URINE; Future; Expected date: 12/01/2023 Stable Continue current treatment as directed Generalized weakness Proceed with physical therapy Discussed importance of exercise on her own- patient to walk for 10 -15 minutes before each meal and do some chair exercises and under chair pedal in between walks. Suggested to make a note book where she just will salomón whenever she does walking and chair exercises as above once she is donewith it- this might help her get in the schedule Palpitations Hold metoprolol due to low blood pressure Major neurocognitive disorder due to Alzheimer's disease, without behavioral disturbance (HCC) Follow up with Neurology Pain in joint of right shoulder Dyslipidemia, goal LDL below 130 - Atorvastatin Calcium 40 MG Oral Tablet (Lipitor); Take 1 Tablet by mouth in the morning. - COMPREHENSIVE METABOLIC PANEL; Future; Expected date: 03/31/2024 - LIPID PANEL WITH DIRECT LDL IF TG IS HIGH; Future; Expected date: 03/31/2024 Major depressive disorder, recurrent episode, moderate (HCC) Continue Cymbalta Mild vascular dementia with anxiety (HCC) History of breast cancer Essential hypertension with goal blood pressure less than 140/90 Hold metoprolol due to low blood pressure now Current mild episode of major depressive disorder without prior episode (HCC) BMI 30.0-30.9,adult Generalized anxiety disorder More than 40 min ( 45 ) spent on reviewing records, previous notes , labs and face to face counselling on different aspect of disease and formulating plan Mar Lovelace MD 10:12 AM 12/01/2023 documented in this encounter Nursing Notes * Imani Mathew LPN - 12/01/2023 10:06 AM EST Chief Complaint Patient presents with Emergency Department Follow-Up [facility] ER 11/07/23-- f/u on bladder infection. thinks her urine has an odor and she has been more incontinent, which has been occurring since before she went to the ER. Leg Pain C/o pain in left leg when walking or when she is on her feet for a period of time. Has been having difficulty walking. documented in this encounter Plan of Treatment Upcoming Encounters Date Type Department Care Team (Late st Contact Info) Description 12/30/2023 12:30 PM EST Telemedicine Psychiatry, [facility] [address] [place] [address] Carli Mercado MD [address] [place] [address] 01/24/2024 9:20 AM EST Office Visit Neurology [address] [place] [address] [facility] [address] [place] [address] Anton Kumar MD [address] [facility] [place], [place] [address] 03/01/2024 11:00 AM EDT Office Visit Urology, [facility] [address] [place] [address] Dandy Bashir MD [address] [place] [address] [place] [address] 03/27/2024 2:20 PM EDT Office Visit General Internal Medicine [facility] [address] [facility] [place] [address] Mar Lovelace MD [address] [facility] [place], [place] [address] Scheduled Orders Name Type Priority Associated Diagnoses Orde r Schedule URINALYSIS WITH MICROSCOPIC EXAM Lab Routine Acute cystitis without hematuria Expected: 12/01/2023 (Approximate), Expires: 11/30/2024 CULTURE, URINE, QUANTITATIVE Lab Routine Acute cystitis without hematuria Expected: 12/01/2023, Expires: 12/01/2024 COMPREHENSIVE METABOLIC PANEL Lab Routine Dyslipidemia, goal LDL below 130 Expected: 03/31/2024, Expires: 12/01/2024 HEMOGLOBIN A1C Lab Routine Type 2 diabetes mellitus with hemoglobin A1c goal of less than 7.0% (HCC) Expected: 03/31/2024, Expires: 12/01/2024 ALBUMIN / CREATININE RATIO, URINE Lab Routine Type 2 diabetes mellitus with hemoglobin A1c goal of less than 7.0% (HCC) Expected: 12/01/2023 (Approximate), Expires: 12/01/2024 LIPID PANEL WITH DIRECT LDL IF TG IS HIGH Lab Routine Dyslipidemia, goal LDL below 130 Expected: 03/31/2024, Expires: 12/01/2024 Scheduled Procedures Name Priority Associated Diagnoses Date/Ti me COLONOSCOPY FLEXIBLE PROXIMA L DIAGNOSTIC Recall Special screening for malignant neoplasms, colon Health Maintenance Due Date Last Done Comments Hepatitis B (1 of 3 - Risk 3-dose series) 2005 Depression, Most Recent Score >= 10 (will fire each visit until score < 10) 06/24/2023 06/23/2023 Zoster Vaccines (3 of 3) 06/25/2023 04/30/2023, 10/22 COVID-19 Vaccine (2022- season) 2023 04/30/2023, 03/24/2022, 09/19/2021, Additional history [...] as of this encounter Visit Diagnoses Diagnosis Acute cystitis without hematuria- Primary Acute cystitis Type 2 diabetes mellitus with hemoglobin A1c goal of less than 7.0% (HCC) Generalized weakness Other malaise and fatigue Palpitations Major neurocognitive disorder due to Alzheimer's disease, without behavioral disturbance (HCC) Pain in joint of right shoulder Pain in joint, shoulder region Dyslipidemia, goal LDL below 130 Other and unspecified hyperlipidemia Major depressive disorder, recurrent episode, moderate (HCC) Major depressive disorder, recurrent episode, moderate Mild vascular dementia with anxiety (HCC) History of breast cancer Personal history of malignant neoplasm of breast Essential hypertension with goal blood pressure less than 140/90 Current mild episode of major depressive disorder without prior episode (HCC) BMI 30.0-30.9,adult Body Mass Index 30.0-30.9, adult Generalized anxiety disorder documented in this encounter Advance Directives Documents on File Type Date Recorded Patient Telephone Sales Representative Expl anation Advance Directives and Thai calles Will 07/29/2007 ADVANCE DIRECTIVE Care Teams Import Dispatcher Relationship Specialty Start Date End Date Mar Lovelace MD [address] [facility] [place] [address] PCP - General 12/13/08 documented as of this encounter"
--- NOTE | 2023-12-25 21:37 | Emergency Department Note ---
Impression & Plan Falls frequently, Acute UTI (urinary tract infection), Generalized weakness ED Provider Note Name: MILLER BUTLER Age: 78 Sex: Female Arrives Via: Ambulance Informant: Patient, , EMS ED Provider: Fidencio Foster MD Chief Complaint: Generalized weakness Impression: As per impressions above Medical Decision Makin-year-old female with a history of anxiety depression vertigo breast cancer arrives for evaluation of worsening weakness. She has been falling at home and tonight was unable to even get up off the floor. EMS had been called to help her up however due to her weakness brought to the ER. Patient was treated 2 months ago for UTI which was pansensitive bacteria. Today patient is awake alert though is not fully oriented and is a bit anxious. arrived and notes he is very concerned about her frequent falls and risk of injury. Workup including CT of the head is unremarkable other than she does have a UTI. She was given some IV fluids and seems to have perked up a bit after this but given the weakness at home and the risk of falls and injuries and after discussing with will bring in for further monitoring and evaluation. Hospitalist and to see further. I do not feel patient has severe sepsis or septic shock at time of hospitalization Triage/Nursing Notes reviewed by Me Differential:Infection, dehydration, metabolic abnormality, hypo/hyperglycemia, electrolyte disturbance, anemia, hypoxia, cardiac sources, intracerebral event, toxicologic, neurologic, as well as other pathologies. Vital Signs: reviewed and remarkable for no significant abnormalities Interventions: Normal saline bolus 5 mL IV, Rocephin 2 g IV Labs:ED labs Reviewed by me and remarkable for no significant abnormalities other than UA is concerning for UTI Imaging:CT of the head without contrast as per my informal interpretation reveals no intracranial hemorrhage or mass effect. 1 view chest x-ray as per my interpretation reveals no lobar infiltrate nor significant fluid overload EKG:As per my interpretation. Indication weakness. Sinus tachycardia 103 bpm QTc of 437. There is no ectopy nor ischemia. Patient does appear to have a right bundle branch block. When compared to an EKG of March 06, 2023 rate has increased but otherwise morphology is similar. Cardiac/Tele Monitoring: Cardiac Monitoring: An Order was placed for continuous cardiac monitoring. The monitor shows a rate of 90 with a normal sinus rhythm. [facility]: Disposition:Hospitalization. Condition: Good History of Present Illness: 78-year-old female arrives for evaluation of weakness. Patient states last few days she has had increasing weakness. Today she was unable to get off the floor after sliding to the ground. EMS was called for lift assist but given severity of weakness she was brought to the ER for evaluation. Patient denies any focal weakness. State weakness is primarily in the legs but also feels like her arms are not working as well either. She states she has not eaten in a few days due to not feeling well. She denies any headache or head injury. She has not had any chest pain, shortness of breath, fevers, chills, abdominal pain, back pain, urinary burning, leg swelling, rashes or other concerning signs or symptoms. Patient does note a history of UTIs having been to the ER few months ago for a UTI. Past Medical History:Anxiety, depression, vertigo, breast cancer Home Medications:See Below Allergies:No known drug allergies Vitals:Blood Pressure: 159/102, Pulse 99, RR 21, T 36.5C, O2 97% on RA Physical Exam: GENERAL: Patient is anxious appearing and in minimal distress. RESPIRATORY: No dyspnea. Clear to auscultation and equal bilaterally. CARDIOVASCULAR: Regular rate and rhythm.No murmur appreciated. GASTROINTESTINAL: Abdomen soft, non-tender, no peritonitis. EXTREMITIES: Normal motion all extremities, no cyanosis, no edema. NEUROLOGIC: Alert and aware of location but seems a bit confused with recent timeline and date. No focal neurologic deficits appreciated SKIN: No rash, no jaundice, no diaphoresis. PSYCH: Appropriate GCS: 15 ED Course: Times/Reassessments: Patient does appear a bit better after some IV fluids however given the concerns for her ambulatory dysfunction and risks of falling at home I have consulted hospitalist for further management Fidencio Foster MD Past Med/Surg History Medical History Obesity Bronchitis hx (no recent issues) Prediabetes PCP monitoring, labs drawn for PCP on 12/26 show A1C 6.5%-decision to monitor/diet control History of left breast cancer dx 1999; sx + radiation Heartburn symptom diet controlled Arthritis Anxiety Hypertension Hyperlipidemia Surgical History History of cataract surgery RT History of tooth extraction reason for current abx Nausea and vomiting after administration of anesthetic agent History of colonoscopy History of hysterectomy History of arthroscopy of right knee History of lumpectomy of left breast WITH LYMPH NODES - PT DENIES LIMB RESTRICTION-1999 Family History Father Family history of diabetes mellitus Mother Family history of diabetes mellitus Other No family history of adverse response to anesthesia Patient's father is Patient's mother is Social History Smoking Status: Never smoker Second Hand Exposure: No; Do You Dip or Chew Tobacco: No; Hx Alcohol Use: No Hx Substance Use: No Preferred Language: Azeri Communication Ability: Effective [employer] Operator Required: No Beliefs That Will Affect Care: None marital status: Current Living Situation: Spouse Feels Safe at Home: Yes Safety Concerns: Feels Safe At This Time Assistive Devices: Glasses, Walker and Wheelchair Allergies Allergies Allergy/AdvReac Type Severity Reaction Status Date / Time No Known Allergies Allergy NONE Verified 12/25/23 22:03 Home Meds Home Medications Medication Instructions Recorded Confirmed aspirin 81 mg tablet,delayed 81 mg PO QAM 01/01/20 12/25/23 release (Adult Aspirin Regimen) meloxicam 7.5 mg tablet 7.5 mg PO QAM PRN Pain 01/03/21 12/25/23 amoxicillin 500 mg capsule 2,000 mg PO DIRECTED PRN ONE 01/31/22 12/25/23 HOUR PRIOR TO DENTAL VISITS. atorvastatin 40 mg tablet 40 mg PO HS 01/31/22 12/25/23 acetaminophen 500 mg tablet 1,000 mg PO TID PRN Pain 12/25/23 12/25/23 (Tylenol Extra Strength) alendronate 70 mg tablet 70 mg PO WK 12/25/23 12/25/23 bismuth subsalicylate 262 mg/15 mL 524 mg PO Q4H PRN HEARTBURN/NAUSEA 12/25/23 12/25/23 oral suspension (Pepto-Bismol) calcium 250 mg tablet 250 mg PO QAM 12/25/23 12/25/23 donepezil 10 mg tablet 10 mg PO QDD 12/25/23 12/25/23 duloxetine 60 mg capsule,delayed 60 mg PO QAM 12/25/23 12/25/23 release solifenacin 10 mg tablet 10 mg PO QAM 12/25/23 12/25/23 Previous Rx's Medication Instructions Recorded Wheeled Walker #1 ea 01/30/20 Wheeled Walker #1 ea 05/16/20 Wheeled Walker #1 ea 05/29/20 Wheeled Walker #1 ea 05/29/20 meclizine 25 mg tablet 25 mg PO TID PRN dizziness #30 tabs 01/03/21 Results & Data (ED) Vital Signs Vital Signs - 24 hr 12/25/23 21:18 Temperature 36.5 C Temperature Source Oral Pulse Rate [Right Finger] 99 H Respiratory Rate 21 Blood Pressure [Right Arm] 159/102 H Blood Pressure Mean [Right Arm] 121 Pulse Oximetry 97 Oxygen Delivery Method Room Air Laboratory Data 12/26/23 06:51 12/26/23 06:51 Lab Results 12/25/23 12/25/23 12/25/23 Range/Units 21:30 21:50 22:59 WBC 6.71 (4.8-10.8) K/ul RBC 4.61 (4.20-5.40) M/uL Hgb 14.3 (12.0-16.0) g/dl Hct 42.9 (37.0-47.0) % MCV 93.1 (80.0-100.0) fL MCH 31.0 (25.0-34.0) pg MCHC 33.3 (32.0-36.0) g/dL RDW Std Deviation 45.6 (36.4-46.3) fL RDW Coeff of Andrea 13.3 (11.5-14.5) % Plt Count 249 (130-400) K/uL MPV 10.2 (9.4-12.4) fL Immature Gran % (Auto) 0.3 % Neut % (Auto) 64.8 % Lymph % (Auto) 23.2 % [place] % (Auto) 9.1 % Eos % (Auto) 2.2 % Baso % (Auto) 0.4 % Neut # (Auto) 4.34 (1.40-6.50) K/uL Lymph # (Auto) 1.56 (1.20-3.40) K/uL [place] # (Auto) 0.61 H (0.11-0.59) K/uL Eos # (Auto) 0.15 (0.00-0.50) K/uL Baso # (Auto) 0.03 (0.00-0.20) K/uL Immature Gran # (Auto) 0.02 (0.01-0.20) K/uL Sodium 139 (136-145) mmol/L Potassium 4.0 (3.5-5.1) mmol/L Chloride 105 (98-107) mmol/L Carbon Dioxide 27 (21-32) mmol/L Anion Gap 7 (3-11) BUN 17 (6-23) mg/dl Creatinine 0.83 (0.6-1.2) mg/dl Est Cr Clr Drug Dosing Not Reportable Est GFR ( Amer) 78.3 ml/min Est GFR (Non-Af Amer) 67.5 ml/min BUN/Creatinine Ratio 20.5 H (10-20) Glucose 168 H (70-99(Fasting)) mg/dl Calcium 9.5 (8.6-10.3) mg/dl Magnesium 1.9 (1.7-2.4) mg/dl Total Bilirubin 0.4 (0.2-1.0) mg/dl Direct Bilirubin 0.1 (0-0.2) mg/dl AST 20 (13-39) U/L ALT 26 (7-52) U/L Alkaline Phosphatase 64 (34-104) U/L Troponin I High Sens 3.5 (0-14) pg/ml Total Protein 7.0 (6.0-8.3) gm/dl Albumin 4.3 (3.4-5.0) gm/dl Urine Color Yellow Urine Appearance Turbid A (Clear) Urine pH 6.0 (4.5-7.5) Ur Specific [place] 1.016 (1.000-1.030) Urine Protein 1+ H (Negative) Urine Glucose (UA) Negative (Negative) Urine Ketones Negative (Negative) Urine Blood 2+ H (Negative) Urine Nitrite Positive A (Negative) Urine Bilirubin Negative (Negative) Urine Urobilinogen Negative (Negative) Ur Leukocyte Esterase 3+ H (Negative) Urine RBC 0-4 (0-4) /hpf Urine WBC >30 H (0-5) /hpf Ur Epithelial Cells 10-20 H (0-5) /lpf Urine Bacteria 4+ H (Negative) SARS-CoV-2 (PCR) NEGATIVE (Negative) Influenza Type A (PCR) Negative (Neg) Influenza Type B (PCR) Negative (Neg) RSV (RT-PCR) Negative (Neg) Administered Medications Aspirin (Aspirin 81 Mg Ectab) 81 mg PO QAM [facility] Stop: 01/25/24 08:59 Last Admin: 12/26/23 08:33 Dose: 81 mg Documented By: LILIAN Atorvastatin Calcium (Atorvastatin 40 Mg Tab) 40 mg PO HS [facility] Stop: 01/25/24 20:59 Last Admin: 12/26/23 20:16 Dose: 40 mg Documented By: DANIEL Calcium Carbonate (Calcium Carbonate 1250mg Tab) 1,[facility] [place]: 01/25/24 08:59 Last Admin: 12/26/23 08:32 Dose: 1,250 mg Documented By: LILIAN Donepezil HCl (Donepezil Hcl 10 Mg Tab) 10 mg PO QDD [facility] Stop: 01/25/24 16:29 Last Admin: 12/26/23 16:22 Dose: 10 mg Documented By: LILIAN Duloxetine HCl (Duloxetine Hcl 60 Mg Cap) 60 mg PO QAM [facility] Stop: 01/25/24 08:59 Last Admin: 12/26/23 08:33 Dose: 60 mg Documented By: LILIAN Heparin Sodium (Porcine) (Heparin Sod 5,000 Unit/0.5 Ml Vial) 5,000 units SQ Q12 [facility] Stop: 01/25/24 08:59 Last Admin: 12/26/23 20:16 Dose: 5,000 units Documented By: Admin: 12/26/23 08:34 Dose: 5,000 units Documented By: LILIAN Ceftriaxone Sodium 2,000 mg/ (Dextrose) 50 mls @ 100 mls/hr IV Q24H [facility]; Protocol Stop: 01/05/24 21:59 Last Infusion: 12/26/23 22:30 Dose: Infused Documented By: Admin: 12/26/23 21:46 Dose: 100 mls/hr Documented By: DANIEL Insulin Aspart (Insulin Aspart Per Unit Charge) 0 units SC ACHS [facility] Stop: 01/25/24 07:29 Last Admin: 12/26/23 20:25 Dose: Not Given Documented By: Admin: 12/26/23 16:49 Dose: Not Given Documented By: JUSTUS Co-signed By: LILIAN Admin: 12/26/23 11:57 Dose: Not Given Documented By: Admin: 12/26/23 08:30 Dose: Not Given Documented By: LILIAN Co-signed By: JUSTUS Oxybutynin Chloride (Oxybutynin Chloride Xl 5 Mg Tabcr) 10 mg PO QAM [facility] Stop: 01/25/24 08:59 Last Admin: 12/26/23 08:33 Dose: 10 mg Documented By: LILIAN Discontinued Medications Sodium Chloride (Nss) 500 mls @ 999 mls/hr IV .Q31M ONE Stop: 12/25/23 22:06 Last Infusion: 12/25/23 23:02 Dose: Infused Documented By: Admin: 12/25/23 21:53 Dose: 999 mls/hr Documented By: FIDEL Ceftriaxone Sodium (Rocephin) 2,000 mg in 50 mls @ 100 mls/hr IV NOW STA Stop: 12/25/23 23:55 Last Infusion: 12/26/23 00:16 Dose: Infused Documented By: Admin: 12/25/23 23:41 Dose: 100 mls/hr Documented By: FIDEL Discharge Plan Visit Data Chief Complaint: Illness Stated Complaint: FALL, NOT FEELING WELL FOR COUPLE WEEKS ED Provider: Fidencio Foster Discharge Problem: Falls frequently, Acute UTI (urinary tract infection), Generalized weakness Patient Disposition: Admitted As Inpatient Discharge Instructions Interventions: ED Discharge Assessment Last Done: 12/26/23 02:27
[2023-12-25] MEDS: SODIUM CHLORIDE 0.9% 500 ML IV ONE (21:53)
[2023-12-25 21:57] LABS: Basophils # (auto) 0.03 K/uL (0.00-0.20); Basophils % (auto) 0.4 %; Eosinophils # (auto) 0.15 K/uL (0.00-0.50); Eosinophils % (auto) 2.2 %; Hematocrit (blood only) 42.9 % (37.0-47.0); Hemoglobin 14.3 g/dl (12.0-16.0); Immature Granulocytes # (auto) 0.02 K/uL (0.01-0.20); Immature Granulocytes % (auto) 0.3 %; Lymphocytes # (auto) 1.56 K/uL (1.20-3.40); Lymphocytes % (auto) 23.2 %; Mean Corpuscular Hgb Conc 33.3 g/dL (32.0-36.0); Mean Corpuscular Volume 93.1 fL (80.0-100.0); Mean Platelet Volume 10.2 fL (9.4-12.4); Monocytes # (auto) 0.61 K/uL (0.11-0.59); Monocytes % (auto) 9.1 %; Neutrophils # (auto) 4.34 K/uL (1.40-6.50); Neutrophils % (auto) 64.8 %; Platelet Count 249 K/uL (130-400); RDW Coefficient of Variation 13.3 % (11.5-14.5); RDW Standard Deviation 45.6 fL (36.4-46.3); Red Blood Count 4.61 M/uL (4.20-5.40); White Blood Count 6.71 K/ul (4.8-10.8)
[2023-12-25 22:13] LABS: Alanine Aminotransferase 26 U/L (7-52); Albumin Level 4.3 gm/dl (3.4-5.0); Alkaline Phosphatase 64 U/L (34-104); Anion Gap 7 (3-11); Aspartate Aminotransferase 20 U/L (13-39); BUN Creatinine Ratio 20.5 (10-20); Bilirubin Direct 0.1 mg/dl (0-0.2); Bilirubin,Total 0.4 mg/dl (0.2-1.0); Blood Urea Nitrogen 17 mg/dl (6-23); Calcium 9.5 mg/dl (8.6-10.3); Carbon Dioxide 27 mmol/L (21-32); Chloride 105 mmol/L (98-107); Est GFR (African American) 78.3 ml/min; Est GFR (Non-African American) 67.5 ml/min; Glucose 168 mg/dl (70-99(Fasting)); Magnesium 1.9 mg/dl (1.7-2.4); Sodium 139 mmol/L (136-145)
[2023-12-25 22:19] LABS: Troponin I High Sensitivity 3.5 pg/ml (0-14)
[2023-12-25 22:39] LABS: Influenza A virus by PCR Negative (Neg); Influenza B virus by PCR Negative (Neg); RSV by PCR Negative (Neg); SARS CoV2 RNA(COVID-19) Ceph NEGATIVE (Negative)
[2023-12-25 23:16] LABS: Appearance Urine Turbid (Clear); Bilirubin Urine Negative (Negative); Blood Urine 2+ (Negative); Color Urine Yellow; Glucose Urine UA Negative (Negative); Ketones Urine Negative (Negative); Leukocyte Esterase Urine 3+ (Negative); Nitrite Urine Positive (Negative); Protein Urine 1+ (Negative); Specific Gravity Urine 1.016 (1.000-1.030); Urobilinogen Urine Negative (Negative)
[2023-12-25 23:39] LABS: Bacteria Urine 4+ (Negative); RBC Urine 0-4 /hpf (0-4); WBC Urine >30 /hpf (0-5)
[2023-12-25] MEDS: cefTRIAXone SODIUM 2,000 MG/50 ML BAG IV STA (23:41)
--- NOTE | 2023-12-26 00:30 | CT Scan Report ---
Exam(s): CT HEAD Without Contrast EXAM: CT Head Without Intravenous Contrast CLINICAL HISTORY: Reason for exam: weakness, recurrent falls. TECHNIQUE: Axial computed tomography images of the head/brain without intravenous contrast. CTDI is 37.95 mGy and DLP is 546.36 mGy-cm. Automated exposure control was utilized for the study. A dose lowering technique was utilized adhering to the principles of ALARA. COMPARISON: Comparison made to prior head CT from January 03, 2021. FINDINGS: Brain: Unremarkable. No hemorrhage. Moderate nonspecific white matter changes. No edema. Ventricles: Advanced ventriculomegaly. Bones/joints: Unremarkable. No acute fracture. Soft tissues: Bilateral lens replacements. Sinuses: Unremarkable as visualized. No acute sinusitis. Mastoid air cells: Unremarkable as visualized. No mastoid effusion. IMPRESSION: No evidence of acute intracranial pathology. Electronically signed by: Lian Jeffers MD 12/26/23 00:28 AM
--- NOTE | 2023-12-26 01:22 | History & Physical Report ---
Date of Service December 26, 2023 Assessment & Plan (1) Falls frequently: Plan: 78-year-old female with past medical history significant for type 2 diabetes, hyperlipidemia, hypertension, palpitations, depression, generalized anxiety disorder, history of breast cancer, mixed vascular and degenerative dementia who lives at home with her comes because of weakness and falls and found to have UTI. Patient was in ER in October and found to UTI and discharged on cefdinir for 5 days. Cultures grew pansensitive Klebsiella. Last few days she is having more weakness in the legs. Today after she fell down she could not get up from the floor. Her could not help get her up. EMS was called. There was question of confusions. So patient was brought to the ER. Found to have UTI. As per she is supposed to use walker but not using it. holds her hands while she is walking in the house. Patient is able to give her history. She states she is having urinary incontinence. Denies any burning micturition. No diarrhea or constipation. No abdominal pain. No fevers. No chest pain or shortness of breath. No cough. No runny nose or sore throat. No headaches. Appetite not great. No blurred visions. Currently resting comfortably and hemodynamically stable. Falling frequently Weakness UTI contributing As per she is getting home physical therapy Gentle fluids IV Rocephin PT OT UTI On Rocephin Will follow cultures Diabetes Not on medications Will place on sliding scale Follow HbA1c levels Hypertension Not on meds Will monitor Depression Generalized anxiety disorder On duloxetine Mixed vascular and degenerative dementia On donezepil Monitor for delirium Urinary incontinence On Solifenacin Hyperlipidemia Statin DVT prophylaxis Heparin subcu Disposition Medical floor Full code History of Present Illness Chief Complaint: Frequent falls, weakness and UTI Primary Care Provider: Mar Lovelace MD 78-year-old female with past medical history significant for type 2 diabetes, hyperlipidemia, hypertension, palpitations, depression, generalized anxiety disorder, history of breast cancer, mixed vascular and degenerative dementia who lives at home with her comes because of weakness and falls and found to have UTI. Patient was in ER in October and found to UTI and discharged on cefdinir for 5 days. Cultures grew pansensitive Klebsiella. Last few days she is having more weakness in the legs. Today after she fell down she could not get up from the floor. Her could not help get her up. EMS was called. There was question of confusions. So patient was brought to the ER. Found to have UTI. As per she is supposed to use walker but not using it. holds her hands while she is walking in the house. Patient is able to give her history. She states she is having urinary incontinence. Denies any burning micturition. No diarrhea or constipation. No abdominal pain. No fevers. No chest pain or shortness of breath. No cough. No runny nose or sore throat. No headaches. Appetite not great. No blurred visions. Currently resting comfortably and hemodynamically stable. Past medical history. As mentioned above Past surgical history. Left breast lesion excision. Left partial mastectomy.. Cataracts. Colonoscopy. Cystoscopy. Total hysterectomy. Right knee replacement Social history. . No smoking. Alcohol rarely. No drug use. Family history. Father had diabetes. CT. Mother had diabetes. Heart disorder. Allergies Allergy/AdvReac Type Severity Reaction Status Date / Time No Known Allergies Allergy NONE Verified 12/25/23 22:03 Home Medications Medication Instructions Recorded Confirmed Type aspirin 81 mg tablet,delayed 81 mg PO QAM 01/01/20 12/25/23 History release (Adult Aspirin Regimen) Wheeled Walker #1 ea 01/30/20 09/27/23 Rx Wheeled Walker #1 ea 05/16/20 09/27/23 Rx Wheeled Walker #1 ea 05/29/20 09/27/23 Rx Wheeled Walker #1 ea 05/29/20 09/27/23 Rx meclizine 25 mg tablet 25 mg PO TID PRN dizziness #30 tabs 01/03/21 12/25/23 Rx meloxicam 7.5 mg tablet 7.5 mg PO QAM PRN Pain 01/03/21 12/25/23 History amoxicillin 500 mg capsule 2,000 mg PO DIRECTED PRN ONE 01/31/22 12/25/23 History HOUR PRIOR TO DENTAL VISITS. atorvastatin 40 mg tablet 40 mg PO HS 01/31/22 12/25/23 History acetaminophen 500 mg tablet 1,000 mg PO TID PRN Pain 12/25/23 12/25/23 History (Tylenol Extra Strength) alendronate 70 mg tablet 70 mg PO WK 12/25/23 12/25/23 History bismuth subsalicylate 262 mg/15 mL 524 mg PO Q4H PRN HEARTBURN/NAUSEA 12/25/23 12/25/23 History oral suspension (Pepto-Bismol) calcium 250 mg tablet 250 mg PO QAM 12/25/23 12/25/23 History donepezil 10 mg tablet 10 mg PO QDD 12/25/23 12/25/23 History duloxetine 60 mg capsule,delayed 60 mg PO QAM 12/25/23 12/25/23 History release solifenacin 10 mg tablet 10 mg PO QAM 12/25/23 12/25/23 History Past Med/Surg History Medical History Obesity Bronchitis hx (no recent issues) Prediabetes PCP monitoring, labs drawn for PCP on 12/26 show A1C 6.5%-decision to monitor/diet control History of left breast cancer dx 1999; sx + radiation Heartburn symptom diet controlled Arthritis Anxiety Hypertension Hyperlipidemia Surgical History History of cataract surgery RT History of tooth extraction reason for current abx Nausea and vomiting after administration of anesthetic agent History of colonoscopy History of hysterectomy History of arthroscopy of right knee History of lumpectomy of left breast WITH LYMPH NODES - PT DENIES LIMB RESTRICTION-1999 Family History Father Family history of diabetes mellitus Mother Family history of diabetes mellitus Other No family history of adverse response to anesthesia Patient's father is Patient's mother is Social History Smoking Status: Never smoker Second Hand Exposure: No; Do You Dip or Chew Tobacco: No; Hx Alcohol Use: No Hx Substance Use: No Preferred Language: Sammarinese Communication Ability: Effective 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 Head- atraumatic Eyes- PERRL. ENT- oropharynx clear Neck- supple, no JVD. Lungs- clear to auscultation no wheezing or crackles. Heart- regular rhythm; no murmur, no gallop. Abdomen- normal bowel sounds, soft, nontender, no distension. Extremities- no pretibial edema, no erythema Neuro- alert, oriented ; PERRL, no facial palsy; no dysarthria; moves extremities. Skin- warm & dry Results & Data Results & Data Vital Signs (Past 12 Hours) Vital Signs Temp Pulse Pulse Resp BP BP Pulse Ox 12/25/23 23:18 93 H 19 165/109 H 95 12/25/23 21:35 102 H 12/25/23 21:18 36.5 C 99 H 21 159/102 H 97 12/25/23 21:15 36.5 C 95 H 20 151/99 H 96 O2 Del Method 12/25/23 23:18 Room Air 12/25/23 21:35 12/25/23 21:18 Room Air 12/25/23 21:15 Room Air Diagnostic Findings Laboratory Results WBC 6.71 K/ul (4.8-10.8) 12/25/23 21:30 RBC 4.61 M/uL (4.20-5.40) 12/25/23 21:30 Hgb 14.3 g/dl (12.0-16.0) 12/25/23 21:30 Hct 42.9 % (37.0-47.0) 12/25/23 21:30 MCV 93.1 fL (80.0-100.0) 12/25/23 21:30 MCH 31.0 pg (25.0-34.0) 12/25/23 21:30 MCHC 33.3 g/dL (32.0-36.0) 12/25/23 21:30 RDW Std Deviation 45.6 fL (36.4-46.3) 12/25/23 21:30 RDW Coeff of Anrdea 13.3 % (11.5-14.5) 12/25/23 21:30 Plt Count 249 K/uL (130-400) 12/25/23 21:30 MPV 10.2 fL (9.4-12.4) 12/25/23 21:30 Immature Gran % (Auto) 0.3 % 12/25/23 21:30 Neut % (Auto) 64.8 % 12/25/23 21:30 Lymph % (Auto) 23.2 % 12/25/23 21:30 [place] % (Auto) 9.1 % 12/25/23 21:30 Eos % (Auto) 2.2 % 12/25/23 21:30 Baso % (Auto) 0.4 % 12/25/23 21:30 Neut # (Auto) 4.34 K/uL (1.40-6.50) 12/25/23 21: Lymph # (Auto) 1.56 K/uL (1.20-3.40) 12/25/23 21:30 [place] # (Auto) 0.61 K/uL (0.11-0.59) H 12/25/23 21:30 Eos # (Auto) 0.15 K/uL (0.00-0.50) 12/25/23 21: Baso # (Auto) 0.03 K/uL (0.00-0.20) 12/25/23 21: Immature Gran # (Auto) 0.02 K/uL (0.01-0.20) 12/25/23 21:30 Sodium 139 mmol/L (136-145) 12/25/23 21:30 Potassium 4.0 mmol/L (3.5-5.1) 12/25/23 21:30 Chloride 105 mmol/L (98-107) 12/25/23 21:30 Carbon Dioxide 27 mmol/L (21-32) 12/25/23 21:30 Anion Gap 7 (3-11) 12/25/23 21:30 BUN 17 mg/dl (6-23) 12/25/23 21:30 Creatinine 0.83 mg/dl (0.6-1.2) 12/25/23 21:30 Est Cr Clr Drug Dosing Not Reportable 12/25/23 21:30 Est GFR ( Amer) 78.3 ml/min 12/25/23 21:30 Est GFR (Non-Af Amer) 67.5 ml/min 12/25/23 21:30 BUN/Creatinine Ratio 20.5 (10-20) H 12/25/23 21:30 Glucose 168 mg/dl (70-99(Fasting)) H 12/25/23 21:30 Calcium 9.5 mg/dl (8.6-10.3) 12/25/23 21:30 Magnesium 1.9 mg/dl (1.7-2.4) 12/25/23 21:30 Total Bilirubin 0.4 mg/dl (0.2-1.0) 12/25/23 21:30 Direct Bilirubin 0.1 mg/dl (0-0.2) 12/25/23 21:30 AST 20 U/L (13-39) 12/25/23 21:30 ALT 26 U/L (7-52) 12/25/23 21:30 Alkaline Phosphatase 64 U/L (34-104) 12/25/23 21:30 Troponin I High Sens 3.5 pg/ml (0-14) 12/25/23 21:30 Total Protein 7.0 gm/dl (6.0-8.3) 12/25/23 21:30 Albumin 4.3 gm/dl (3.4-5.0) 12/25/23 21:30 Urine Color Yellow 12/25/23 22:59 Urine Appearance Turbid (Clear) A 12/25/23 22:59 Urine pH 6.0 (4.5-7.5) 12/25/23 22:59 Ur Specific [place] 1.016 (1.000-1.030) 12/25/23 22:59 Urine Protein 1+ (Negative) H 12/25/23 22:59 Urine Glucose (UA) Negative (Negative) 12/25/23 22:59 Urine Ketones Negative (Negative) 12/25/23 22:59 Urine Blood 2+ (Negative) H 12/25/23 22:59 Urine Nitrite Positive (Negative) A 12/25/23 22:59 Urine Bilirubin Negative (Negative) 12/25/23 22:59 Urine Urobilinogen Negative (Negative) 12/25/23 22:59 Ur Leukocyte Esterase 3+ (Negative) H 12/25/23 22:59 Urine RBC 0-4 /hpf (0-4) 12/25/23 22:59 Urine WBC >30 /hpf (0-5) H 12/25/23 22:59 Ur Epithelial Cells 10-20 /lpf (0-5) H 12/25/23 22:59 Urine Bacteria 4+ (Negative) H 12/25/23 22:59 SARS-CoV-2 (PCR) NEGATIVE (Negative) 12/25/23 21:50 Influenza Type A (PCR) Negative (Neg) 12/25/23 21:50 Influenza Type B (PCR) Negative (Neg) 12/25/23 21:50 RSV (RT-PCR) Negative (Neg) 12/25/23 21:[address] 12/25/23 21:36 Exam(s): CT HEAD Without Contrast EXAM: CT Head Without Intravenous Contrast CLINICAL HISTORY: Reason for exam: weakness, recurrent falls. TECHNIQUE: Axial computed tomography images of the head/brain without intravenous contrast. CTDI is 37.95 mGy and DLP is 546.36 mGy-cm. Automated exposure control was utilized for the study. A dose lowering technique was utilized adhering to the principles of ALARA. COMPARISON: Comparison made to prior head CT from January 03, 2021. FINDINGS: Brain: Unremarkable. No hemorrhage. Moderate nonspecific white matter changes. No edema. Ventricles: Advanced ventriculomegaly. Bones/joints: Unremarkable. No acute fracture. Soft tissues: Bilateral lens replacements. Sinuses: Unremarkable as visualized. No acute sinusitis. Mastoid air cells: Unremarkable as visualized. No mastoid effusion. IMPRESSION: No evidence of acute intracranial pathology. Electronically signed by: Lian Jeffers MD 12/26/23 00:28 AM ECG Additional Comments: ECG. Sinus tachycardia rate of 103. Nonspecific T wave abnormalities. Code Status & VTE Plan VTE Prophylaxis Plan VTE Prophylaxis will be ordered: Yes
[2023-12-26] MEDS ORDERED: MECLIZINE HCL 25 MG TAB PO PRN (03:01)
[2023-12-26] MEDS ORDERED: ACETAMINOPHEN 325 MG TAB PO PRN (03:01)
[2023-12-26] MEDS ORDERED: ACETAMINOPHEN 500 MG TAB PO PRN (03:01)
[2023-12-26] MEDS ORDERED: BISMUTH SUBSALICYLATE LIQD 236 ML PO PRN (03:01)
[2023-12-26] MEDS ORDERED: DEXTROSE 50% 50 ML SYRINGE IV PRN (06:33)
[2023-12-26] MEDS ORDERED: GLUCOSE 40% GEL 15 GM TUBE PO PRN (06:33)
[2023-12-26] MEDS ORDERED: GLUCOSE 10 TAB/TUBE PO PRN (06:33)
[2023-12-26] MEDS ORDERED: CARBOHYDRATES FOR HYPOGLYCEMIA PO PRN (06:33)
[2023-12-26] MEDS ORDERED: GLUCAGON FOR INJ 1 MG VIAL SQ PRN (06:33)
[2023-12-26 07:21] LABS: Basophils # (auto) 0.04 K/uL (0.00-0.20); Basophils % (auto) 0.7 %; Eosinophils # (auto) 0.26 K/uL (0.00-0.50); Eosinophils % (auto) 4.4 %; Hematocrit (blood only) 36.2 % (37.0-47.0); Hemoglobin 12.1 g/dl (12.0-16.0); Immature Granulocytes # (auto) 0.01 K/uL (0.01-0.20); Immature Granulocytes % (auto) 0.2 %; Lymphocytes # (auto) 1.68 K/uL (1.20-3.40); Lymphocytes % (auto) 28.5 %; Mean Corpuscular Hemoglobin 30.9 pg (25.0-34.0); Mean Corpuscular Hgb Conc 33.4 g/dL (32.0-36.0); Mean Corpuscular Volume 92.3 fL (80.0-100.0); Monocytes # (auto) 0.67 K/uL (0.11-0.59); Monocytes % (auto) 11.4 %; Neutrophils # (auto) 3.24 K/uL (1.40-6.50); Neutrophils % (auto) 54.8 %; Platelet Count 203 K/uL (130-400); RDW Coefficient of Variation 13.3 % (11.5-14.5); RDW Standard Deviation 44.9 fL (36.4-46.3); Red Blood Count 3.92 M/uL (4.20-5.40)
--- NOTE | 2023-12-26 07:27 | XRay Report ---
XR chest 1V portable HISTORY: 78 years-old Female weakness, recurrent falls acute weakness COMPARISON: Chest CT 03/06/2023 TECHNIQUE: AP view of the chest FINDINGS: Cardiac silhouette is mildly enlarged. Atherosclerosis of the aorta. No pneumothorax, pleural effusio n, airspace consolidation or pulmonary edema. Mild right hemidiaphragmatic elevation. Left axillary s urgical clips. Degenerative changes of the shoulders and spine. IMPRESSION: No acute process of the chest. ACT 112: Negative or not required by law. The above report was generated using voice recognition software. It may contain grammatical, syntax o r spelling errors. Electronically signed by: Montez Azul M.D. 12/26/2023 7:25 AM
[2023-12-26 07:30] LABS: BUN Creatinine Ratio 19.4 (10-20); Calcium 8.5 mg/dl (8.6-10.3); Creatinine Clr Calc Pharmacy 60.8 ml/min; Est GFR (African American) 97.6 ml/min; Est GFR (Non-African American) 84.2 ml/min; Magnesium 1.9 mg/dl (1.7-2.4)
[2023-12-26] MEDS: INSULIN ASPART PER UNIT CHARGE SC SCH (08:30)
[2023-12-26] MEDS: CALCIUM CARBONATE 1250MG TAB PO SCH (08:32)
[2023-12-26] MEDS: OXYBUTYNIN CHLORIDE XL 5 MG TABCR PO SCH (08:33)
[2023-12-26] MEDS: DULoxetine HCL 60 MG CAP PO SCH (08:33)
[2023-12-26] MEDS: ASPIRIN 81 MG ECTAB PO SCH (08:33)
[2023-12-26] MEDS: HEPARIN SOD 5,000 UNIT/0.5 ML VIAL SQ SCH (08:34)
--- NOTE | 2023-12-26 08:46 | Electrocardiogram Report ---
Test Reason : Blood Pressure : / mmHG Vent. Rate : 103 BPM Atrial Rate : 103 BPM P-R Int : 168 ms QRS Dur : 090 ms QT Int : 334 ms P-R-T Axes : 036 -10 007 degrees QTc Int : 437 ms Poor data quality, interpretation may be adversely affected Sinus tachycardia Incomplete right bundle branch block Poor R wave progression, consider anterior ID vs. lead placement vs. LVH Nonspecific T wave abnormality Anterior leads Abnormal ECG When compared with ECG of 06-MAR-2023 09:31, Vent. rate has increased BY 37 BPM Confirmed by Rafael Loza ([id number]) on 12/26/2023 8:46:00 AM Referred By: REFERRED SELF Confirmed By:Rafael Loza
--- NOTE | 2023-12-26 14:53 | Communication Note ---
Date of Service: December 26, 2023 Evaluated patient at bedside after admission. Reports feeling better and "more safe" since being in the hospital. Notes concerns about weakness and falls at home. Endorses frequency and hesitancy with urination. VS stable. labs this am reviewed, otherwise unremarkable. Urine culture pending at this time. Remains on CTX Ms. Simms is a 78-year-old female with past medical history significant for type 2 diabetes, hyperlipidemia, hypertension, palpitations, depression, generalized anxiety disorder, history of breast cancer, mixed vascular and degenerative dementia who lives at home with her admitted on 12/26 for evaluation of ambulatory dysfunction. Work up revealed abnormal UA suspicious for infection. #Ambulatory dysfunction Pt/OT fall precautions Open to rehab Treat infection Will hold oxybutynin as not necessarily helping with incontinence reported and can contribute presenting issues #Acute uncomplicated cystitis -Follow cultures Continue CTX #Diabetes Not on medications Will place on sliding scale A1C pending #Hypertension Not on meds Will monitor #Depression Generalized anxiety disorder On duloxetine #Mixed vascular and degenerative dementia On donezepil Monitor for delirium #Urinary incontinence On Solifenacin; holding at this time #Hyperlipidemia Statin DVT prophylaxis Heparin subcu Disposition Medical floor Full code Formal progress note to follow in am
[2023-12-26] MEDS: DONEPEZIL HCL 10 MG TAB PO SCH (16:22)
[2023-12-26] MEDS: ATORVASTATIN 40 MG TAB PO SCH (20:16)
[2023-12-26] MEDS: cefTRIAXone SODIUM 2,000 MG in DEXTROSE 5 % MINI-B 50 ML IV SCH (21:46)
[2023-12-27 07:10] LABS: Mean Corpuscular Hemoglobin 30.9 pg (25.0-34.0); Mean Corpuscular Hgb Conc 33.3 g/dL (32.0-36.0); Mean Corpuscular Volume 92.7 fL (80.0-100.0); Platelet Count 204 K/uL (130-400); RDW Coefficient of Variation 13.2 % (11.5-14.5); RDW Standard Deviation 44.9 fL (36.4-46.3); Red Blood Count 4.53 M/uL (4.20-5.40)
[2023-12-27 07:22] LABS: BUN Creatinine Ratio 17.1 (10-20); Calcium 9.2 mg/dl (8.6-10.3); Creatinine Clr Calc Pharmacy 58.2 ml/min; Est GFR (African American) 96.2 ml/min; Phosphorus 3.8 mg/dl (2.5-4.9)
[2023-12-27 07:45] LABS: Estimated Average Glucose 157 mg/dl; Hemoglobin A1C 7.1 % (4.5-5.6)
--- NOTE | 2023-12-27 17:44 | Hospitalist Progress Note ---
Date of Service December 27, 2023 Assessment & Plan (1) Falls frequently: Plan: Ms. Simms is a 78-year-old female with past medical history significant for type 2 diabetes, hyperlipidemia, hypertension, palpitations, depression, generalized anxiety disorder, history of breast cancer, mixed vascular and degenerative dementia who lives at home with her admitted on 12/26 for evaluation of ambulatory dysfunction. Work up revealed abnormal UA suspicious for infection. Ambulatory dysfunction Generalized weakness Secondary to UTI Fall precautions Continue PT OT Oxybutynin discontinued Acute UTI Urine culture growing gram-negative bacilli Empirically on Rocephin DM II Diet-controlled Not on medications HbA1c 7.9 Continue insulin while hospitalized Hypertension Not on meds monitor Depression Generalized anxiety disorder Continue duloxetine Mixed vascular and degenerative dementia On Donepezil Reorient frequently to minimize delirium Urinary incontinence On Solifenacin--discontinued--not helpful Hyperlipidemia Continue statin DVT Px: Heparin SQ CODE STATUS Full code Disposition PT OT prior to discharge Admission and Anticipated Discharge Date Admission Date: December 26, 2023 Subjective Patient is seen and examined at bedside Generalized weakness improved Poor historian secondary to dementia Discussed with patient's family at bedside Denies any dysuria, hematuria, chest pain, dyspnea No other complaints Urine culture pending Review of Systems Review of Systems: All systems reviewed & are unremarkable except as noted in Subjective Physical Exam Physical Exam: Physical Exam: Vitals signs as noted above General Appearance:Obese, no apparent distress Head: normocephalic, Atraumatic Eyes: normal inspection, EOMI Neck: supple, Trachea midline Respiratory/Chest: Normal breath sounds, CTA, No accessory muscle use Cardiovascular: S1, S2, No murmur Abdomen/GI:Soft, Non tender, Bowel sounds present Extremities/Musculoskeletal:normal inspection, no edema Neurologic/Psych:AAO, grossly no focal neurological deficits, +Dementia Skin: normal color, warm Results & Data Results & Data Vital Signs (Past 12 Hours) Vital Signs Temp Pulse Resp BP Pulse Ox O2 Del Method 12/27/23 13:59 36.9 C 87 18 143/79 H 95 Room Air 12/27/23 07:17 36.4 C L 63 16 136/84 95 Room Air Laboratory Results Short CBC 12/27/23 Range/Units 06:38 WBC 6.20 (4.8-10.8) K/ul Hgb 14.0 (12.0-16.0) g/dl Hct 42.0 (37.0-47.0) % Plt Count 204 (130-400) K/uL BMP 12/27/23 06:38 Sodium 139 Potassium 4.0 Chloride 105 Carbon Dioxide 29 BUN 12 Creatinine 0.70 Glucose 139 H Calcium 9.2
[2023-12-28] MEDS: CEFDINIR 300 MG CAP PO SCH (10:58)
--- NOTE | 2023-12-28 13:28 | Hospitalist Progress Note ---
Date of Service December 28, 2023 Assessment & Plan (1) Falls frequently: Plan: Ms. Simms is a 78-year-old female with past medical history significant for type 2 diabetes, hyperlipidemia, hypertension, palpitations, depression, generalized anxiety disorder, history of breast cancer, mixed vascular and degenerative dementia who lives at home with her admitted on 12/26 for evaluation of ambulatory dysfunction. Work up revealed abnormal UA suspicious for infection. Ambulatory dysfunction Generalized weakness Secondary to UTI Fall precautions Continue PT OT Oxybutynin discontinued Plan to discharge to rehab facility today Acute UTI Urine culture grew: Klebsiella oxytoca Empirically on Rocephin--received for 3 days Transition to p.o. antibiotics to complete the course DM II Diet-controlled Not on medications HbA1c 7.9 Continue insulin while hospitalized Hypertension Not on meds monitor Depression Generalized anxiety disorder Continue duloxetine Mixed vascular and degenerative dementia On Donepezil Reorient frequently to minimize delirium Urinary incontinence On Solifenacin--discontinued--not helpful Hyperlipidemia Continue statin DVT Px: Heparin SQ CODE STATUS Full code Disposition Rehab Admission and Anticipated Discharge Date Admission Date: December 26, 2023 Subjective Patient is seen and examined at bedside States feeling well today Offers no new complaints Discussed with patient's family at bedside Denies any dysuria, hematuria, chest pain, dyspnea, nausea, vomiting, abdominal pain Plan to be discharged to rehab facility today Review of Systems Review of Systems: All systems reviewed & are unremarkable except as noted in Subjective Physical Exam Physical Exam: Physical Exam: Vitals signs as noted above General Appearance:Obese, no apparent distress Head: normocephalic, Atraumatic Eyes: normal inspection, EOMI Neck: supple, Trachea midline Respiratory/Chest: Normal breath sounds, CTA, No accessory muscle use Cardiovascular: S1, S2, No murmur Abdomen/GI:Soft, Non tender, Bowel sounds present Extremities/Musculoskeletal:normal inspection, no edema Neurologic/Psych:AAO, grossly no focal neurological deficits, +Dementia Skin: normal color, warm Results & Data Results & Data Vital Signs (Past 12 Hours) Vital Signs Temp Pulse Resp BP Pulse Ox O2 Del Method 12/28/23 07:33 36.4 C L 77 18 154/80 H 96 Room Air
--- NOTE | 2023-12-28 13:36 | Discharge Summary ---
Date of Service December 28, 2023 Admission HPI Per Admitting Provider 78-year-old female with past medical history significant for type 2 diabetes, hyperlipidemia, hypertension, palpitations, depression, generalized anxiety disorder, history of breast cancer, mixed vascular and degenerative dementia who lives at home with her comes because of weakness and falls and found to have UTI. Patient was in ER in October and found to UTI and discharged on cefdinir for 5 days. Cultures grew pansensitive Klebsiella. Last few days she is having more weakness in the legs. Today after she fell down she could not get up from the floor. Her could not help get her up. EMS was called. There was question of confusions. So patient was brought to the ER. Found to have UTI. As per she is supposed to use walker but not using it. holds her hands while she is walking in the house. Patient is able to give her history. She states she is having urinary incontinence. Denies any burning micturition. No diarrhea or constipation. No abdominal pain. No fevers. No chest pain or shortness of breath. No cough. No runny nose or sore throat. No headaches. Appetite not great. No blurred visions. Currently resting comfortably and hemodynamically stable. Past medical history. As mentioned above Past surgical history. Left breast lesion excision. Left partial mastectomy.. Cataracts. Colonoscopy. Cystoscopy. Total hysterectomy. Right knee replacement Social history. . No smoking. Alcohol rarely. No drug use. Family history. Father had diabetes. [place]. Mother had diabetes. Heart disorder. Admission Exam Per Admitting Provider General- Not in distress. Head- atraumatic Eyes- PERRL. ENT- oropharynx clear Neck- supple, no JVD. Lungs- clear to auscultation no wheezing or crackles. Heart- regular rhythm; no murmur, no gallop. Abdomen- normal bowel sounds, soft, nontender, no distension. Extremities- no pretibial edema, no erythema Neuro- alert, oriented ; PERRL, no facial palsy; no dysarthria; moves extremities. Skin- warm & dry Principal Diagnosis Acute Urinary tract infection Ambulatory dysfunction Generalized weakness Discharge Data Allergies Allergy/AdvReac Type Severity Reaction Status Date / Time No Known Allergies Allergy NONE Verified 12/25/23 22:03 Consultations 12/25/23 23:40 ED Decision to Admit Stat Procedures Performed Laboratory Results WBC 6.20 K/ul (4.8-10.8) 12/27/23 06:38 RBC 4.53 M/uL (4.20-5.40) 12/27/23 06:38 Hgb 14.0 g/dl (12.0-16.0) 12/27/23 06:38 Hct 42.0 % (37.0-47.0) 12/27/23 06:38 MCV 92.7 fL (80.0-100.0) 12/27/23 06:38 MCH 30.9 pg (25.0-34.0) 12/27/23 06:38 MCHC 33.3 g/dL (32.0-36.0) 12/27/23 06:38 RDW Std Deviation 44.9 fL (36.4-46.3) 12/27/23 06:38 RDW Coeff of Andrea 13.2 % (11.5-14.5) 12/27/23 06:38 Plt Count 204 K/uL (130-400) 12/27/23 06:38 MPV 10.0 fL (9.4-12.4) 12/27/23 06:38 Immature Gran % (Auto) 0.2 % 12/26/23 06:51 Neut % (Auto) 54.8 % 12/26/23 06:51 Lymph % (Auto) 28.5 % 12/26/23 06:51 [place] % (Auto) 11.4 % 12/26/23 06:51 Eos % (Auto) 4.4 % 12/26/23 06:51 Baso % (Auto) 0.7 % 12/26/23 06:51 Neut # (Auto) 3.24 K/uL (1.40-6.50) 12/26/23 06:51 Lymph # (Auto) 1.68 K/uL (1.20-3.40) 12/26/23 06:51 [place] # (Auto) 0.67 K/uL (0.11-0.59) H 12/26/23 06:51 Eos # (Auto) 0.26 K/uL (0.00-0.50) 12/26/23 06:51 Baso # (Auto) 0.04 K/uL (0.00-0.20) 12/26/23 06:51 Immature Gran # (Auto) 0.01 K/uL (0.01-0.20) 12/26/23 06:51 Sodium 139 mmol/L (136-145) 12/27/23 06:38 Potassium 4.0 mmol/L (3.5-5.1) 12/27/23 06:38 Chloride 105 mmol/L (98-107) 12/27/23 06:38 Carbon Dioxide 29 mmol/L (21-32) 12/27/23 06:38 Anion Gap 5 (3-11) 12/27/23 06:38 BUN 12 mg/dl (6-23) 12/27/23 06:38 Creatinine 0.70 mg/dl (0.6-1.2) 12/27/23 06:38 Est Cr Clr Drug Dosing 58.2 ml/min 12/27/23 06:38 Est GFR ( Amer) 96.2 ml/min 12/27/23 06:38 Est GFR (Non-Af Amer) 83.0 ml/min 12/27/23 06:38 BUN/Creatinine Ratio 17.1 (10-20) 12/27/23 06:38 Glucose 139 mg/dl (70-99(Fasting)) H 12/27/23 06:38 POC Glucose 150 mg/dl (70-99) H 12/28/23 11:26 Estimat Average Glucose 157 mg/dl 12/26/23 06:51 Hemoglobin A1c 7.1 % (4.5-5.6) H 12/26/23 06:51 Calcium 9.2 mg/dl (8.6-10.3) 12/27/23 06:38 Phosphorus 3.8 mg/dl (2.5-4.9) 12/27/23 06:38 Magnesium 2.0 mg/dl (1.7-2.4) 12/27/23 06:38 Total Bilirubin 0.4 mg/dl (0.2-1.0) 12/25/23 21:30 Direct Bilirubin 0.1 mg/dl (0-0.2) 12/25/23 21:30 AST 20 U/L (13-39) 12/25/23 21:30 ALT 26 U/L (7-52) 12/25/23 21:30 Alkaline Phosphatase 64 U/L (34-104) 12/25/23 21:30 Troponin I High Sens 3.5 pg/ml (0-14) 12/25/23 21:30 Total Protein 7.0 gm/dl (6.0-8.3) 12/25/23 21:30 Albumin 4.3 gm/dl (3.4-5.0) 12/25/23 21:30 Urine Color Yellow 12/25/23 22:59 Urine Appearance Turbid (Clear) A 12/25/23 22:59 Urine pH 6.0 (4.5-7.5) 12/25/23 22:59 Ur Specific [place] 1.016 (1.000-1.030) 12/25/23 22:59 Urine Protein 1+ (Negative) H 12/25/23 22:59 Urine Glucose (UA) Negative (Negative) 12/25/23 22:59 Urine Ketones Negative (Negative) 12/25/23 22:59 Urine Blood 2+ (Negative) H 12/25/23 22:59 Urine Nitrite Positive (Negative) A 12/25/23 22:59 Urine Bilirubin Negative (Negative) 12/25/23 22:59 Urine Urobilinogen Negative (Negative) 12/25/23 22:59 Ur Leukocyte Esterase 3+ (Negative) H 12/25/23 22:59 Urine RBC 0-4 /hpf (0-4) 12/25/23 22:59 Urine WBC >30 /hpf (0-5) H 12/25/23 22:59 Ur Epithelial Cells 10-20 /lpf (0-5) H 12/25/23 22:59 Urine Bacteria 4+ (Negative) H 12/25/23 22:59 SARS-CoV-2 (PCR) NEGATIVE (Negative) 12/25/23 21:50 Influenza Type A (PCR) Negative (Neg) 12/25/23 21:50 Influenza Type B (PCR) Negative (Neg) 12/25/23 21:50 RSV (RT-PCR) Negative (Neg) 12/25/23 21:50 Impressions Chest X-Ray 12/25/23 21:36 XR chest 1V portable HISTORY: 78 years-old Female weakness, recurrent falls acute weakness COMPARISON: Chest CT 03/06/2023 TECHNIQUE: AP view of the chest FINDINGS: Cardiac silhouette is mildly enlarged. Atherosclerosis of the aorta. No pneumothorax, pleural effusion, airspace consolidation or pulmonary edema. Mild right hemidiaphragmatic elevation. Left axillary surgical clips. Degenerative changes of the shoulders and spine. IMPRESSION: No acute process of the chest. ACT 112: Negative or not required by law. The above report was generated using voice recognition software. It may contain grammatical, syntax or spelling errors. Electronically signed by: Montez Azul M.D. 12/26/2023 7:[address] 12/25/23 21:36 Exam(s): CT HEAD Without Contrast EXAM: CT Head Without Intravenous Contrast CLINICAL HISTORY: Reason for exam: weakness, recurrent falls. TECHNIQUE: Axial computed tomography images of the head/brain without intravenous contrast. CTDI is 37.95 mGy and DLP is 546.36 mGy-cm. Automated exposure control was utilized for the study. A dose lowering technique was utilized adhering to the principles of ALARA. COMPARISON: Comparison made to prior head CT from January 03, 2021. FINDINGS: Brain: Unremarkable. No hemorrhage. Moderate nonspecific white matter changes. No edema. Ventricles: Advanced ventriculomegaly. Bones/joints: Unremarkable. No acute fracture. Soft tissues: Bilateral lens replacements. Sinuses: Unremarkable as visualized. No acute sinusitis. Mastoid air cells: Unremarkable as visualized. No mastoid effusion. IMPRESSION: No evidence of acute intracranial pathology. Electronically signed by: Lian Jeffers MD 12/26/23 00:28 AM Ordered Studies 12/25/23 21:36 CT head/brain wo con Stat Hospital Course (1) Falls frequently: Ms. Simms is a 78-year-old female with past medical history significant for type 2 diabetes, hyperlipidemia, hypertension, palpitations, depression, generalized anxiety disorder, history of breast cancer, mixed vascular and degenerative dementia who lives at home with her admitted on 12/26 for evaluation of ambulatory dysfunction. Work up revealed abnormal UA suspicious fo r infection. Ambulatory dysfunction Generalized weakness Secondary to UTI Fall precautions Continue PT OT Oxybutynin discontinued Plan to discharge to rehab facility today Acute UTI Urine culture grew: Klebsiella oxytoca Empirically on Rocephin--received for 3 days Transition to p.o. antibiotics to complete the course DM II Diet-controlled Not on medications HbA1c 7.9 Continue insulin while hospitalized Hypertension Not on meds monitor Depression Generalized anxiety disorder Continue duloxetine Mixed vascular and degenerative dementia On Donepezil Reorient frequently to minimize delirium Urinary incontinence On Solifenacin--discontinued--not helpful Hyperlipidemia Continue statin DVT Px: Heparin SQ CODE STATUS Full code Disposition Rehab Total Time Total Time Spent Total Time Spent (In Minutes): 55 minutes Discharge Plan Discharge Items Patient Disposition: Transfer Inpatient Rehab Fac Reason For Visit: FALLS, UTI Discharge Diagnosis: Acute Urinary tract infection Ambulatory dysfunction Generalized weakness Activity: Per Instructions section Exercise/Sports: Gradually increase as tolerated Non-emergency contact: Primary Care Provider Call non-emergency contact if: you have any medication questions, your symptoms worsen, your pain is concerning for you and you have a fever Follow-up/Referrals: Mar Lovelace MD [Primary Care Provider] - Diet: Carb Consistent or DM2 and Heart Healthy Addtl Attending Provider Instructions: Follow-up with your primary care physician in 1 week upon discharge from rehab facility --- Complete the antibiotic course cefdinir as prescribed Seek immediate medical attention if your symptoms reoccur or worsen Please take all medications as instructed on discharge list below. Please call if you have any questions or problems. You can reach a [facility] hospitalist on duty at [facility] 24 hours a day by calling [phone] Pending Studies at Discharge: No Stand-Alone Forms: My [facility] Skilled Items Patient informed of condition?: Yes DNR: No Discharge Level of Care: Acute rehab Communicable Disease: No Discharge Prognosis: Stable Lines: None Urinary Catheter: No Medications and DC Order Prescriptions: New cefdinir 300 mg Capsule 300 mg PO BID Qty: 7 0RF Continued (DME) Wheeled Walker Misc See Rx Instructions .ROUTE .MEDSUPPLY Qty: 1 0RF Rx Instructions: As directed (DME) Wheeled Walker Misc See Rx Instructions .ROUTE .MEDSUPPLY Qty: 1 0RF Rx Instructions: As directed (DME) Wheeled Walker Misc See Rx Instructions .ROUTE .MEDSUPPLY Qty: 1 0RF Rx Instructions: As directed (DME) Wheeled Walker Misc See Rx Instructions .ROUTE .MEDSUPPLY Qty: 1 0RF Rx Instructions: As directed aspirin [Adult Aspirin Regimen] 81 mg tablet,delayed release (DR/EC) 81 mg PO QAM Patient Comments: chewable meloxicam 7.5 mg tablet 7.5 mg PO QAM PRN (Reason: Pain) meclizine 25 mg tablet 25 mg PO TID PRN (Reason: dizziness) Qty: 30 0RF amoxicillin 500 mg capsule 2,000 mg PO DIRECTED PRN (Reason: ONE HOUR PRIOR TO DENTAL VISITS.) atorvastatin 40 mg tablet 40 mg PO HS donepezil 10 mg tablet 10 mg PO QDD alendronate 70 mg tablet 70 mg PO WK Rx Instructions: MONDAYS acetaminophen [Tylenol Extra Strength] 500 mg Tablet 1,000 mg PO TID PRN (Reason: Pain) bismuth subsalicylate [Pepto-Bismol] 262 mg/15 mL Suspension 524 mg PO Q4H PRN (Reason: HEARTBURN/NAUSEA) calcium 250 mg Tablet 250 mg PO QAM duloxetine 60 mg capsule,delayed release(DR/EC) 60 mg PO QAM Held solifenacin 10 mg tablet 10 mg PO QAM Hold Instructions: Hold until further instructions from your Primary Care Physician Discharge Orders: Discharge Order (Routine); Ordered 12/28/23 Ordered By: Johnny Delgado/Other Patient Handouts: Diabetes: Meal Planning, Type 2 Diabetes Admission Data Admit Date/Time: 12/26/23 01:02 Attending Provider: Johnny Amin Admit Provider: Delio Fung Primary Care Provider: Mar Lovelace Other Providers: Delio Fung; [facility]
== END 2023-12-28 15:47 | DRG 690 ==
LOC: ED 21:18 → 3W 12-26 01:02 → SUATTDRO 12-26 01:02 → 3W 12-26 02:27

== ENCOUNTER 2024-01-18 09:30 | Inpatient (IN) ==
--- NOTE | 2024-01-18 09:45 | Emergency Department Note ---
Impression & Plan Acute UTI (urinary tract infection), Generalized weakness, Vomiting, COVID-19 ED Provider Note NAME: MILLER BUTLER AGE: 78 SEX: F : 1945 ARRIVES VIA: Ambulance INFORMANT: Patient ED PROVIDER(S): Demario Cisneros DO CHIEF COMPLAINT: N/V HPI: Patient is a 78-year-old female with a past medical history of UTIs, breast cancer, and hysterectomy who presents to the ER for nausea and vomiting. She notes she has been unable to eat since Wednesday. She has been having persistent dry heaves. Denies any true abdominal pain. No fevers that she is aware of. Denies any headache or change in vision. No chest pain or shortness of breath. Additional history provided by EMS who notes that she is from [facility] and lives with her . Patient does admit to urinary pressure which started yesterday. She notes this feels like she might have a UTI but is not certain. ADDITIONAL HISTORY OBTAINED: Per HPI Chronic Medical/Social Conditions Affecting Care: Per HPI PAST MEDICAL HISTORY:See Below PAST SURGICAL HISTORY:See Below FAMILY HISTORY:See Below SOCIAL HISTORY:See Below HOME MEDICATIONS:See Below ALLERGIES:See Below VITALS:See Below PHYSICAL EXAMINATION: GENERAL: Sitting up in bed, alert, well appearing, well nourished, no distress, non-toxic EYE EXAM: normal conjunctiva. OROPHARYNX: Dry mucous membranes NECK: supple, no nuchal rigidity, no adenopathy, non-tender LUNGS: Clear to auscultation. Normal chest wall mechanics HEART: no murmurs, S1 normal and S2 normal ABDOMEN: abdomen soft, non-tender, normo-active bowel sounds, no masses, no rebound or guarding. UPPER EXTREMITIES: upper extremities are grossly normal. LOWER EXTREMITIES: No pitting edema. NEURO EXAM: Normal sensorium, cranial nerves II-XII grossly intact, normal speech, no gross weakness of arms, no gross weakness of legs. MEDICAL DECISION MAKING: Patient is a 78-year-old female who presents ER for above-stated complaint. IV was established blood work was obtained. Labs show mild leukocytosis. No significant anemia. INR unremarkable. BMP with LFTs bilirubin and lipase was normal. UA does suggest UTI although contaminated. Patient was given IV antibiotics. She was COVID-positive. She was given IV fluids. Patient was updated bedside. CT abdomen pelvis does suggest a cystitis. Appendix was normal. She was discussed with the hospitalist admitted for further workup and management Consults/Care Managements Discussions: Per MDM Triage Nursing notes reviewed. Limited review of prior medical records performed Vital Signs: reviewed and remarkable for no significant abnormalities Differential diagnosis: Differential diagnoses includes but is not limited to gastritis, peptic ulcer disease, GERD, gallbladder disease, pancreatitis, small bowel obstruction, appendicitis, diverticulitis, hernia, urinary tract infection, torsion, perforation, trauma, infectious. ER treatment provided: See below Diagnostics interpreted by me include EKG and cardiac monitoring as listed below: -Cardiac Monitoring: An order was placed for continuous cardiac monitoring. The monitor shows a rate of 80 with sinus rhythm. -ECG: none -Laboratory studies:Interpreted by me as stated above in MDM and shown below. Imaging studies: Xrays: As interpreted by me:none CTs show: CT abdomen pelvis per my preliminary interpretation shows no obvious lower lobe infiltrates CT abdomen pelvis per radiology as described above Procedures:none Critical Care: None Past Med/Surg History Medical History Obesity Bronchitis hx (no recent issues) Prediabetes PCP monitoring, labs drawn for PCP on 12/26 show A1C 6.5%-decision to monitor/diet control History of left breast cancer dx 1999; sx + radiation Heartburn symptom diet controlled Arthritis Anxiety Hypertension Hyperlipidemia Surgical History History of cataract surgery RT History of tooth extraction reason for current abx Nausea and vomiting after administration of anesthetic agent History of colonoscopy History of hysterectomy History of arthroscopy of right knee History of lumpectomy of left breast WITH LYMPH NODES - PT DENIES LIMB RESTRICTION-1999 Family History Father Family history of diabetes mellitus Mother Family history of diabetes mellitus Other No family history of adverse response to anesthesia Patient's father is Patient's mother is Social History Smoking Status: Never smoker Second Hand Exposure: No; Do You Dip or Chew Tobacco: No; Hx Alcohol Use: No Hx Substance Use: No Preferred Language: Sami Communication Ability: Effective Critical Care Educator Required: No Beliefs That Will Affect Care: None marital status: Current Living Situation: Spouse Feels Safe at Home: Yes Assistive Devices: Cane, Walker and Wheelchair Allergies Allergies Allergy/AdvReac Type Severity Reaction Status Date / Time walnut Allergy Severe mouth Unverified 01/18/24 11:59 blisters Home Meds Home Medications Medication Instructions Recorded Confirmed aspirin 81 mg tablet,delayed 81 mg PO QAM 01/01/20 01/18/24 release (Adult Aspirin Regimen) meloxicam 7.5 mg tablet 7.5 mg PO QAM PRN Pain 01/03/21 01/18/24 amoxicillin 500 mg capsule 2,000 mg PO DIRECTED PRN ONE 01/31/22 01/18/24 HOUR PRIOR TO DENTAL VISITS. atorvastatin 40 mg tablet 40 mg PO HS 01/31/22 01/18/24 acetaminophen 500 mg tablet 1,000 mg PO TID PRN Pain 12/25/23 01/18/24 (Tylenol Extra Strength) alendronate 70 mg tablet 70 mg PO WK 12/25/23 01/18/24 bismuth subsalicylate 262 mg/15 mL 524 mg PO Q4H PRN HEARTBURN/NAUSEA 12/25/23 01/18/24 oral suspension (Pepto-Bismol) calcium 250 mg tablet 250 mg PO QAM 12/25/23 01/18/24 donepezil 10 mg tablet 10 mg PO QDD 12/25/23 01/18/24 duloxetine 60 mg capsule,delayed 60 mg PO QAM 12/25/23 01/18/24 release solifenacin 10 mg tablet 10 mg PO QAM 12/25/23 01/18/24 Previous Rx's Medication Instructions Recorded Wheeled Walker #1 ea 01/30/20 Wheeled Walker #1 ea 05/16/20 Wheeled Walker #1 ea 05/29/20 Wheeled Walker #1 ea 05/29/20 meclizine 25 mg tablet 25 mg PO TID PRN dizziness #30 tabs 01/03/21 Results & Data (ED) Vital Signs Vital Signs - 24 hr 01/18/24 09:50 01/18/24 09:54 01/18/24 09:59 Temperature 36.7 C Temperature Source Oral Pulse Rate 81 75 Pulse Rate [Apical] Pulse Rhythm Regular Pulse Strength Normal Respiratory Rate 18 Respiratory Effort / Characteristics Non-Labored Spontaneous Respiratory Depth Normal Respiratory Pattern Regular Blood Pressure 172/84 H Blood Pressure [Right Arm] Blood Pressure Mean 113 Blood Pressure Mean [Right Arm] Blood Pressure Position Lying Pulse Oximetry 94 96 Oxygen Delivery Method Room Air Room Air Sepsis Recent Fever Within 48 Hours No Sepsis New/Unexplained Change in Mental Status No Sepsis Action Taken by Nursing No Action Required 01/18/24 11:46 Temperature Temperature Source Pulse Rate Pulse Rate [Apical] 76 Pulse Rhythm Pulse Strength Respiratory Rate 18 Respiratory Effort / Characteristics Non-Labored Respiratory Depth Normal Respiratory Pattern Blood Pressure Blood Pressure [Right Arm] 161/96 H Blood Pressure Mean Blood Pressure Mean [Right Arm] 117 Blood Pressure Position Pulse Oximetry 95 Oxygen Delivery Method Room Air Sepsis Recent Fever Within 48 Hours Sepsis New/Unexplained Change in Mental Status Sepsis Action Taken by Nursing Laboratory Data 01/18/24 09:50 01/18/24 09:50 Lab Results 01/18/24 01/18/24 01/18/24 Range/Units 09:45 09:50 09:56 WBC 12.73 H (4.8-10.8) K/ul RBC 5.06 (4.20-5.40) M/uL Hgb 15.3 (12.0-16.0) g/dl Hct 46.5 (37.0-47.0) % MCV 91.9 (80.0-100.0) fL MCH 30.2 (25.0-34.0) pg MCHC 32.9 (32.0-36.0) g/dL RDW Std Deviation 43.0 (36.4-46.3) fL RDW Coeff of Andrea 12.8 (11.5-14.5) % Plt Count 369 (130-400) K/uL MPV 10.2 (9.4-12.4) fL Immature Gran % (Auto) 0.5 % Neut % (Auto) 79.9 % Lymph % (Auto) 12.6 % [place] % (Auto) 6.5 % Eos % (Auto) 0.0 % Baso % (Auto) 0.5 % Neut # (Auto) 10.16 H (1.40-6.50) K/uL Lymph # (Auto) 1.61 (1.20-3.40) K/uL [place] # (Auto) 0.83 H (0.11-0.59) K/uL Eos # (Auto) 0.00 (0.00-0.50) K/uL Baso # (Auto) 0.06 (0.00-0.20) K/uL Immature Gran # (Auto) 0.07 (0.01-0.20) K/uL PT 11.3 (9.0-12.0) Seconds INR 1.0 (0.9-1.1) Sodium 138 (136-145) mmol/L Potassium 4.0 (3.5-5.1) mmol/L Chloride 103 (98-107) mmol/L Carbon Dioxide 25 (21-32) mmol/L Anion Gap 10 (3-11) BUN 15 (6-23) mg/dl Creatinine 0.78 (0.6-1.2) mg/dl Est Cr Clr Drug Dosing 49.2 ml/min Est GFR ( Amer) 84.4 ml/min Est GFR (Non-Af Amer) 72.8 ml/min BUN/Creatinine Ratio 19.2 (10-20) Glucose 119 H (70-99(Fasting)) mg/dl Calcium 9.5 (8.6-10.3) mg/dl Total Bilirubin 1.0 (0.2-1.0) mg/dl AST 18 (13-39) U/L ALT 20 (7-52) U/L Alkaline Phosphatase 74 (34-104) U/L Total Protein 7.4 (6.0-8.3) gm/dl Albumin 3.9 (3.4-5.0) gm/dl Globulin 3.5 (2.5-4.0) gm/dl Albumin/Globulin Ratio 1.1 (0.9-2) Lipase 25 (11-82) U/L Urine Color Yellow Urine Appearance Turbid A (Clear) Urine pH 6.5 (4.5-7.5) Ur Specific [place] 1.021 (1.000-1.030) Urine Protein 1+ H (Negative) Urine Glucose (UA) Negative (Negative) Urine Ketones 2+ H (Negative) Urine Blood 2+ H (Negative) Urine Nitrite Positive A (Negative) Urine Bilirubin Negative (Negative) Urine Urobilinogen Negative (Negative) Ur Leukocyte Esterase 2+ H (Negative) Urine WBC (Auto) >30 H (0-5) /hpf Urine RBC (Auto) 5-10 H (0-4) /hpf U Hyaline Cast (Auto) 1-5 (0-5) /lpf U Epithel Cells (Auto) >30 H (0-5) /lpf Urine Bacteria (Auto) 4+ H (Negative) SARS-CoV-2, RNA, NAAT POSITIVE A (NEGATIVE) Administered Medications Sodium Chloride (Nss) 1,000 mls @ 80 mls/hr IV .[id number] JADON Stop: 01/19/24 03:44 Last Admin: 01/18/24 15:26 Dose: 80 mls/hr Documented By: MMG Discontinued Medications Sodium Chloride (Nss) 1,000 mls @ 999 mls/hr IV .Q1H1M ONE Stop: 01/18/24 10:41 Last Infusion: 01/18/24 11:45 Dose: Infused Documented By: Admin: 01/18/24 09:52 Dose: 999 mls/hr Documented By: ML Ceftriaxone Sodium (Rocephin) 2,000 mg in 50 mls @ 100 mls/hr IV NOW STA Stop: 01/18/24 12:21 Last Infusion: 01/18/24 12:51 Dose: Infused Documented By: MMDago Admin: 01/18/24 12:21 Dose: 100 mls/hr Documented By: PASHA Sodium Chloride (Nss) 500 mls @ 999 mls/hr IV .Q31M ONE Stop: 01/18/24 12:22 Last Infusion: 01/18/24 12:51 Dose: Infused Documented By: Admin: 01/18/24 12:21 Dose: 999 mls/hr Documented By: PASHA Ioversol (Optiray 320 500ml) 88 ml IV ONCE ONE Stop: 01/18/24 11:14 Last Admin: 01/18/24 11:13 Dose: 88 ml Documented By: LUIS ENRIQUE Ondansetron HCl (Ondansetron Inj 2 Mg/Ml 2 Ml Vial) 4 mg IV NOW STA Stop: 01/18/24 09:42 Last Admin: 01/18/24 09:53 Dose: 4 mg Documented By: ML Imaging Data Radiologist's Impression: Abdomen/Pelvis CT 01/18/24 09:42 CT OF THE ABDOMEN AND PELVIS WITH CONTRAST CLINICAL HISTORY: Nausea and vomiting. COMPARISON STUDY: CT of the abdomen and pelvis March 06, 2023. TECHNIQUE: Following IV administration of 88 mL of Optiray, axial images of the abdomen and pelvis were obtained from the lung bases to the proximal femurs. Images were reviewed in the axial, sagittal, and coronal planes. IV contrast was administered without complication. Automated exposure control was utilized for the study. A dose lowering technique was utilized adhering to the principles of ALARA. CT DOSE: 955.9 mGy.cm FINDINGS: Lung bases are unremarkable. No pneumatosis, free air gas is present. There are no hepatic lesions. There is no biliary or pancreatic ductal dilatation. Spleen, adrenal glands and pancreas are unremarkable. No peripancreatic or pericholecystic infiltration is present. Several right renal calculi measure up to 5 mm. There are no ureteral calculi. There is no hydronephrosis. Water attenuation bilateral renal lesions reflect cysts. The caliber and wall thickness of small and large bowel are normal. The appendix is normal. Moderate wall thickening of the bladder is noted with mild adjacent stranding. There is no lymphadenopathy. Major vasculature is patent. No acute fractures or suspicious lesions within the visualized skeletal structures. IMPRESSION: 1. Bladder wall thickening with adjacent stranding suggestive of cystitis. 2. Right nephrolithiasis. No ureteral calculi. No hydronephrosis. 3. Normal appendix. No bowel obstruction. No bowel wall thickening. ACT 112: Negative or not required by law. Electronically signed by: Milind Lugo M.D. 01/18/2024 11:43 AM Discharge Plan Visit Data Chief Complaint: Illness ED Provider: Demario Cisneros Discharge Problem: Acute UTI (urinary tract infection), Generalized weakness, Vomiting, COVID-19 Discharge Instructions Interventions: ED Discharge Assessment Last Done: 01/18/24 15:16 Discharge Problem: Vomiting Qualifiers: Vomiting type: unspecified Nausea presence: unspecified Qualified Code(s): R 11.10 - Vomiting, unspecified
[2024-01-18] MEDS: SODIUM CHLORIDE 0.9% 1,000 ML IV ONE (09:52)
[2024-01-18] MEDS: ONDANSETRON INJ 2 MG/ML 2 ML VIAL IV STA (09:53)
[2024-01-18 10:22] LABS: Appearance Urine Turbid (Clear); Bacteria Urine Automated 4+ (Negative); Bilirubin Urine Negative (Negative); Blood Urine 2+ (Negative); Color Urine Yellow; Epithelial Cell Urine Auto >30 /lpf (0-5); Glucose Urine UA Negative (Negative); Ketones Urine 2+ (Negative); Leukocyte Esterase Urine 2+ (Negative); Nitrite Urine Positive (Negative); Protein Urine 1+ (Negative); Specific Gravity Urine 1.021 (1.000-1.030); Urobilinogen Urine Negative (Negative); WBC Urine Automated >30 /hpf (0-5); pH Urine 6.5 (4.5-7.5)
[2024-01-18 10:32] LABS: Basophils # (auto) 0.06 K/uL (0.00-0.20); Basophils % (auto) 0.5 %; Hematocrit (blood only) 46.5 % (37.0-47.0); Hemoglobin 15.3 g/dl (12.0-16.0); Immature Granulocytes # (auto) 0.07 K/uL (0.01-0.20); Immature Granulocytes % (auto) 0.5 %; Lymphocytes # (auto) 1.61 K/uL (1.20-3.40); Lymphocytes % (auto) 12.6 %; Mean Corpuscular Hemoglobin 30.2 pg (25.0-34.0); Mean Corpuscular Hgb Conc 32.9 g/dL (32.0-36.0); Mean Corpuscular Volume 91.9 fL (80.0-100.0); Mean Platelet Volume 10.2 fL (9.4-12.4); Monocytes # (auto) 0.83 K/uL (0.11-0.59); Monocytes % (auto) 6.5 %; Neutrophils # (auto) 10.16 K/uL (1.40-6.50); Neutrophils % (auto) 79.9 %; Platelet Count 369 K/uL (130-400); RDW Coefficient of Variation 12.8 % (11.5-14.5); Red Blood Count 5.06 M/uL (4.20-5.40); White Blood Count 12.73 K/ul (4.8-10.8)
[2024-01-18 10:40] LABS: Albumin Globulin Ratio 1.1 (0.9-2); Albumin Level 3.9 gm/dl (3.4-5.0); BUN Creatinine Ratio 19.2 (10-20); Calcium 9.5 mg/dl (8.6-10.3); Creatinine Clr Calc Pharmacy 49.2 ml/min; Est GFR (African American) 84.4 ml/min; Est GFR (Non-African American) 72.8 ml/min; Globulin 3.5 gm/dl (2.5-4.0); Total Protein 7.4 gm/dl (6.0-8.3)
[2024-01-18 10:58] LABS: Prothrombin Time 11.3 Seconds (9.0-12.0)
[2024-01-18] MEDS: OPTIRAY 320 500ml IV ONE (11:13)
--- NOTE | 2024-01-18 11:44 | CT Scan Report ---
CT OF THE ABDOMEN AND PELVIS WITH CONTRAST CLINICAL HISTORY: Nausea and vomiting. COMPARISON STUDY: CT of the abdomen and pelvis March 06, 2023. TECHNIQUE: Following IV administration of 88 mL of Optiray, axial images of the abdomen and pelvis we re obtained from the lung bases to the proximal femurs. Images were reviewed in the axial, sagittal, and coronal planes. IV contrast was administered without complication. Automated exposure control wa s utilized for the study. A dose lowering technique was utilized adhering to the principles of ALARA . CT DOSE: 955.9 mGy.cm FINDINGS: Lung bases are unremarkable. No pneumatosis, free air gas is present. There are no hepatic lesions. There is no biliary or pancreatic ductal dilatation. Spleen, adrenal glands and pancreas are unremarkable. No peripancreatic or pericholecystic infiltration is present. Several right renal calc maria del carmen measure up to 5 mm. There are no ureteral calculi. There is no hydronephrosis. Water attenuation bilateral renal lesions reflect cysts. The caliber and wall thickness of small and large bowel are no rmal. The appendix is normal. Moderate wall thickening of the bladder is noted with mild adjacent str anding. There is no lymphadenopathy. Major vasculature is patent. No acute fractures or suspicious le sions within the visualized skeletal structures. IMPRESSION: 1. Bladder wall thickening with adjacent stranding suggestive of cystitis. 2. Right nephrolithiasis. No ureteral calculi. No hydronephrosis. 3. Normal appendix. No bowel obstruction. No bowel wall thickening. ACT 112: Negative or not required by law. Electronically signed by: Milind Lugo M.D. 01/18/2024 11:43 AM
--- NOTE | 2024-01-18 12:09 | History & Physical Report ---
Date of Service January 18, 2024 Assessment & Plan (1) Acute UTI (urinary tract infection): (2) Generalized weakness: Plan This is a 78-year-old female with significant past medical history of T2DM, HTN, HLD, vascular mention with anxiety, depression with history of breast cancer who presents to ED secondary to nausea and vomiting. Recently hospitalized 12/25-12/28/23 2/2 klebsiella oxytoca UTI and amb dysfxn. She completed course of antibiotic IV rocephin and transitioned to cefnidir for total of 7 days. She was [facility] She re presents back to ED today 2/ to recurrent UTI and Sars COV2. Acute UTI admit to med tele await blood and urine cultures Empiric IV Rocephin, Day #1 SARS COV-2 currently asymptomatic does not meet criteria for treatment will monitor, covid precautions DM II Diet-controlled Not on medications HbA1c 7.1 12/26/23 Continue insulin while hospitalized Hypertension Not on meds monitor, bp elevated in ED, will follow Depression Generalized anxiety disorder Continue duloxetine Mixed vascular and degenerative dementia On Donepezil Reorient frequently to minimize delirium Hyperlipidemia Continue statin DVT Px: Lovenox CODE STATUS Full code Pt was seen and examined in collaboration with Dr. Reardon, please see addendum A total of 76 minutes was spent coordinating, documenting, and providing care for this patient excluding time spent in the performance of separately billed services. This included personally viewing all current laboratories and imaging studies, medication reconciliation, outpatient chart review, and discussion with specialists. History of Present Illness Chief Complaint: Nausea and vomiting. Primary Care Provider: Mar Lovelace MD This is a 78-year-old female with significant past medical history of T2DM, HTN, HLD, vascular mention with anxiety, depression with history of breast cancer who presents to ED secondary to nausea and vomiting. She complains of difficulty urinating, dysuria. also elicits some increased confusion. She denies f/c/s, lightheaded, dizziness, chest pain, sob, uri sx, cough, melena, hematochezia and diarrhea. Overall appetite is poor. She is generally weak. When discussing general hygiene she states she wipes from front to back most occassions. Overall bowel movements are less frequent. Last time she moved her bowels was yesterday. She was recently admitted 12/25-12/28/23 due to UTI and ambulatory dysfunction. Her urine culture grew klebsiella and she was initially started on IV rocephin and discharged on cefnidir. She was then discharged to [facility] where she was until 01/06. who is at bedside also helps elicit history. Allergies Allergy/AdvReac Type Severity Reaction Status Date / Time [place] Allergy Severe mouth Unverified 01/18/24 11:59 blisters Home Medications Medication Instructions Recorded Confirmed Type aspirin 81 mg tablet,delayed 81 mg PO QAM 01/01/20 01/18/24 History release (Adult Aspirin Regimen) Wheeled Walker #1 ea 01/30/20 01/18/24 Rx Wheeled Walker #1 ea 05/16/20 01/18/24 Rx Wheeled Walker #1 ea 05/29/20 01/18/24 Rx Wheeled Walker #1 ea 05/29/20 01/18/24 Rx meclizine 25 mg tablet 25 mg PO TID PRN dizziness #30 tabs 01/03/21 01/18/24 Rx meloxicam 7.5 mg tablet 7.5 mg PO QAM PRN Pain 01/03/21 01/18/24 History amoxicillin 500 mg capsule 2,000 mg PO DIRECTED PRN ONE 01/31/22 01/18/24 History HOUR PRIOR TO DENTAL VISITS. atorvastatin 40 mg tablet 40 mg PO HS 01/31/22 01/18/24 History acetaminophen 500 mg tablet 1,000 mg PO TID PRN Pain 12/25/23 01/18/24 History (Tylenol Extra Strength) alendronate 70 mg tablet 70 mg PO WK 12/25/23 01/18/24 History bismuth subsalicylate 262 mg/15 mL 524 mg PO Q4H PRN HEARTBURN/NAUSEA 12/25/23 01/18/24 History oral suspension (Pepto-Bismol) calcium 250 mg tablet 250 mg PO QAM 12/25/23 01/18/24 History donepezil 10 mg tablet 10 mg PO QDD 12/25/23 01/18/24 History duloxetine 60 mg capsule,delayed 60 mg PO QAM 12/25/23 01/18/24 History release solifenacin 10 mg tablet 10 mg PO QAM 12/25/23 01/18/24 History Past Med/Surg History Medical History Obesity Bronchitis hx (no recent issues) Prediabetes PCP monitoring, labs drawn for PCP on 12/26 show A1C 6.5%-decision to monitor/diet control History of left breast cancer dx 1999; sx + radiation Heartburn symptom diet controlled Arthritis Anxiety Hypertension Hyperlipidemia Surgical History History of cataract surgery RT History of tooth extraction reason for current abx Nausea and vomiting after administration of anesthetic agent History of colonoscopy History of hysterectomy History of arthroscopy of right knee History of lumpectomy of left breast WITH LYMPH NODES - PT DENIES LIMB RESTRICTION-1999 Family History Father Family history of diabetes mellitus Mother Family history of diabetes mellitus Other No family history of adverse response to anesthesia Patient's father is Patient's mother is Social History Smoking Status: Never smoker Second Hand Exposure: No; Do You Dip or Chew Tobacco: No; Hx Alcohol Use: No Hx Substance Use: No Preferred Language: Bruneian Communication Ability: Effective Life Insurance Specialist Required: No Beliefs That Will Affect Care: None marital status: Current Living Situation: Spouse Feels Safe at Home: Yes Assistive Devices: Cane, Walker and Wheelchair Review of Systems Review of Systems: All systems reviewed & are unremarkable except as noted in HPI & below Physical Exam Physical Exam: please refer to Dr. Reardon addendum for physical exam findings. Results & Data Results & Data Vital Signs (Past 12 Hours) Vital Signs Temp Pulse Pulse Resp BP BP Pulse Ox 01/18/24 11:46 76 18 161/96 H 95 01/18/24 09:59 75 01/18/24 09:54 96 01/18/24 09:50 36.7 C 81 18 172/84 H 94 O2 Del Method 01/18/24 11:46 Room Air 01/18/24 09:59 01/18/24 09:54 Room Air 01/18/24 09:50 Room Air Diagnostic Findings Abdomen/Pelvis CT 01/18/24 09:42 CT OF THE ABDOMEN AND PELVIS WITH CONTRAST CLINICAL HISTORY: Nausea and vomiting. COMPARISON STUDY: CT of the abdomen and pelvis March 06, 2023. TECHNIQUE: Following IV administration of 88 mL of Optiray, axial images of the abdomen and pelvis were obtained from the lung bases to the proximal femurs. Images were reviewed in the axial, sagittal, and coronal planes. IV contrast was administered without complication. Automated exposure control was utilized for the study. A dose lowering technique was utilized adhering to the principles of ALARA. CT DOSE: 955.9 mGy.cm FINDINGS: Lung bases are unremarkable. No pneumatosis, free air gas is present. There are no hepatic lesions. There is no biliary or pancreatic ductal dilatation. Spleen, adrenal glands and pancreas are unremarkable. No peripancreatic or pericholecystic infiltration is present. Several right renal calculi measure up to 5 mm. There are no ureteral calculi. There is no hydronephrosis. Water attenuation bilateral renal lesions reflect cysts. The caliber and wall thickness of small and large bowel are normal. The appendix is normal. Moderate wall thickening of the bladder is noted with mild adjacent stranding. There is no lymphadenopathy. Major vasculature is patent. No acute fractures or suspicious lesions within the visualized skeletal structures. IMPRESSION: 1. Bladder wall thickening with adjacent stranding suggestive of cystitis. 2. Right nephrolithiasis. No ureteral calculi. No hydronephrosis. 3. Normal appendix. No bowel obstruction. No bowel wall thickening. ACT 112: Negative or not required by law. Electronically signed by: Milind Lugo M.D. 01/18/2024 11:43 AM Medications Administered Medication List Discontinued Medications Sodium Chloride (Nss) 1,000 mls @ 999 mls/hr IV .Q1H1M ONE Stop: 01/18/24 10:41 Last Infusion: 01/18/24 11:45 Dose: Infused Documented By: Admin: 01/18/24 09:52 Dose: 999 mls/hr Documented By: MERLENE Ceftriaxone Sodium (Rocephin) 2,000 mg in 50 mls @ 100 mls/hr IV NOW STA Stop: 01/18/24 12:21 Last Infusion: 01/18/24 12:51 Dose: Infused Documented By: Admin: 01/18/24 12:21 Dose: 100 mls/hr Documented By: PASHA Sodium Chloride (Nss) 500 mls @ 999 mls/hr IV .Q31M ONE Stop: 01/18/24 12:22 Last Infusion: 01/18/24 12:51 Dose: Infused Documented By: Admin: 01/18/24 12:21 Dose: 999 mls/hr Documented By: PASHA Ioversol (Optiray 320 500ml) 88 ml IV ONCE ONE Stop: 01/18/24 11:14 Last Admin: 01/18/24 11:13 Dose: 88 ml Documented By: LUIS ENRIQUE Ondansetron HCl (Ondansetron Inj 2 Mg/Ml 2 Ml Vial) 4 mg IV NOW STA Stop: 01/18/24 09:42 Last Admin: 01/18/24 09:53 Dose: 4 mg Documented By: ML Code Status & VTE Plan Code Status FULL CODE Supervising Physician Co-Signing Physician Notes I have seen and discussed the case with the collaborating ROSA. I agree with the above H&P. I have reviewed and confirmed the patients medical history, the findings on physical examination, and the patients diagnosis and treatment plan with Kiana LEE and agree with the information documented. In short, Ms. Simms is a 78 year old woman with vascular dementia in a personal skilled nursing admitted for poor po intake and urinary complaints x 4 days. Patient recently admitted with klebsiella uti and discharged to [facility]. Patient notes urinary pressure/discomfort, as well as nausea and 1-2 episodes vomiting. GENERAL APPEARANCE: AxOx2-3, generally well-appearing female, no acute distress. HEENT: NC, AT. MMM. EOMI, clear conjunctiva, oropharynx clear. NECK: Supple without lymphadenopathy. No stiffness or restricted ROM. HEART: Normal rate and regular rhythm, normal S1/S1, no m/r/g LUNGS: CTAB, moving air well. No crackles or wheezes are heard. ABDOMEN: Soft, nontender, nondistended with good bowel sounds heard. BACK: No CVAT, no obvious deformity. EXTREMITIES: Without cyanosis, clubbing or edema. NEUROLOGICAL: Grossly nonfocal. Alert and oriented, moving all 4 extremities. CN not formally tested but appear grossly intact. : #Acute urinary tract infection Follow cultures Continue CTX given recent susceptibilities #Mixed dementia -delrium precautions Rest of plan as above I have reviewed the advanced practitioner's documentation, and I agree with, and take responsibility for the plan of care I spent a total of 35 minutes coordinating, documenting, and providing care for this patient excluding time spent in the performance of separately billed services. All of the aforementioned completed outside of collaborating with above advanced practitioner for a full treatment plan.
[2024-01-18] MEDS: SODIUM CHLORIDE 0.9% 500 ML IV ONE (12:21)
[2024-01-18] MEDS: cefTRIAXone SODIUM 2,000 MG/50 ML BAG IV STA (12:21)
--- OUTSIDE RECORDS SUMMARY | 2024-01-18 14:26 | External Medical Summary ---
Author Name Unknown Address Unknown Organization [id number]:[facility] [address] [place] [address] Laboratory Report Ordering Provider Test Date Status JAVIER HERNANDEZ 01/05/2024 05:35:00 Final Observation Date Value Abnormality Reference (Units ) Status WBC, Total 01/05/2024 05:35:00 4.88 4.00-10.8 0 (K/uL) Final RBC 01/05/2024 05:35:00 4.47 3.85-5.15 (M/uL) Final Hemoglobin 01/05/2024 05:35:00 13.7 12.0-15.3 (g/dL) Final HCT 01/05/2024 05:35:00 42.8 36.0-45.2 (%) Final MCV 01/05/2024 05:35:00 95.7 81.5-97.5 (fL) Final MCH 01/05/2024 05:35:00 30.6 27.0-34.0 (pg) Final MCHC 01/05/2024 05:35:00 32.0 32.0-36.0 (g/dL) Final RDW 01/05/2024 05:35:00 13.5 11.5-15.5 (%) Final Platelets 01/05/2024 05:35:00 205 140-400 (K /uL) Final MPV 01/05/2024 05:35:00 10.9 6.6-11.1 ( fL) Final Performing Location [facility] [address] [place] [address]
--- OUTSIDE RECORDS SUMMARY | 2024-01-18 14:26 | External Medical Summary ---
Author Name Unknown Address Unknown Organization [id number]:[facility] [place] [address] Laboratory Report Ordering Provider Test Date Status JAVIER HERNANDEZ 12/29/2023 05:35:00 Final Observation Date Value Abnormality Reference (Units ) Status WBC, Total 12/29/2023 05:35:00 6.42 4.00-10.8 0 (K/uL) Final RBC 12/29/2023 05:35:00 4.60 3.85-5.15 (M/uL) Final Hemoglobin 12/29/2023 05:35:00 14.2 12.0-15.3 (g/dL) Final HCT 12/29/2023 05:35:00 43.5 36.0-45.2 (%) Final MCV 12/29/2023 05:35:00 94.6 81.5-97.5 (fL) Final MCH 12/29/2023 05:35:00 30.9 27.0-34.0 (pg) Final MCHC 12/29/2023 05:35:00 32.6 32.0-36.0 (g/dL) Final RDW 12/29/2023 05:35:00 13.5 11.5-15.5 (%) Final Platelets 12/29/2023 05:35:00 231 140-400 (K /uL) Final MPV 12/29/2023 05:35:00 10.3 6.6-11.1 ( fL) Final Performing Location [facility] [place] [address]
--- OUTSIDE RECORDS SUMMARY | 2024-01-18 14:26 | External Medical Summary ---
Author Name Unknown Address Unknown Organization K09:[facility] [address] [place] [address] Laboratory Report Ordering Provider Test Date Status JAVIER HERNANDEZ 01/05/2024 05:35:00 Final Observation Date Value Abnormality Reference (Units ) Status BUN 01/05/2024 05:35:00 9 6-20 (mg/dL) Final Creatinine 01/05/2024 05:35:00 0.7 0.5-1.0 (mg/dL) Final Glomerular filtration rate/1.73 sq M.predicted [Volume Rate/Area] in Serum, Plasma or Blood by Creatinine-based formula (CKD-EPI) 01/05/2024 05:35:00 89 >=60 (mL/min) Final eGFR is calculated based on the CKD-EPI 2020 equation SODIUM 01/05/2024 05:35:00 140 135-146 (m mol/L) Final Potassium 01/05/2024 05:35:00 4.2 3.5-5.1 (m mol/L) Final Cl 01/05/2024 05:35:00 104 98-107 (mm ol/L) Final CO2 01/05/2024 05:35:00 25 22-32 (mmo l/L) Final Anion gap 01/05/2024 05:35:00 11 7-15 (mmol /L) Final Glucose 01/05/2024 05:35:00 111 70-120 (mg /dL) Final Calcium 01/05/2024 05:35:00 9.3 8.4-10.2 ( mg/dL) Final Performing Location [facility] [address] [place] [address]
--- OUTSIDE RECORDS SUMMARY | 2024-01-18 14:26 | External Medical Summary ---
Author Name Unknown Address Unknown Organization K09[facility] [place] [address] Laboratory Report Ordering Provider Test Date Status JAVIER HERNANDEZ 12/29/2023 05:35:00 Final Observation Date Value Abnormality Reference (Units ) Status BUN 12/29/2023 05:35:00 16 6-20 (mg/dL) Final Creatinine 12/29/2023 05:35:00 0.9 0.5-1.0 (mg/dL) Final Glomerular filtration rate/1.73 sq M.predicted [Volume Rate/Area] in Serum, Plasma or Blood by Creatinine-based formula (CKD-EPI) 12/29/2023 05:35:00 70 >=60 (mL/min) Final eGFR is calculated based on the CKD-EPI 2020 equation SODIUM 12/29/2023 05:35:00 139 135-146 (m mol/L) Final Potassium 12/29/2023 05:35:00 4.1 3.5-5.1 (m mol/L) Final Cl 12/29/2023 05:35:00 104 98-107 (mm ol/L) Final CO2 12/29/2023 05:35:00 24 22-32 (mmo l/L) Final Anion gap 12/29/2023 05:35:00 11 7-15 (mmol /L) Final Glucose 12/29/2023 05:35:00 135 Above high normal 70 -120 (mg/dL) Final Calcium 12/29/2023 05:35:00 9.7 8.4-10.2 ( mg/dL) Final Performing Location [facility] [place] [address]
[2024-01-18] MEDS ORDERED: ONDANSETRON INJ 2 MG/ML 2 ML VIAL IV PRN (15:15)
[2024-01-18] MEDS ORDERED: GLUCOSE 40% GEL 15 GM TUBE PO PRN (15:15)
[2024-01-18] MEDS ORDERED: CARBOHYDRATES FOR HYPOGLYCEMIA PO PRN (15:15)
[2024-01-18] MEDS ORDERED: GLUCOSE 10 TAB/TUBE PO PRN (15:15)
[2024-01-18] MEDS ORDERED: GLUCAGON FOR INJ 1 MG VIAL SQ PRN (15:15)
[2024-01-18] MEDS ORDERED: DEXTROSE 50% 50 ML SYRINGE IV PRN (15:15)
[2024-01-18] MEDS ORDERED: ACETAMINOPHEN 325 MG TAB PO PRN (15:15)
[2024-01-18] MEDS: SODIUM CHLORIDE 0.9% 1,000 ML IV SCH (15:26)
[2024-01-18] MEDS: INSULIN ASPART PER UNIT CHARGE SC SCH (17:26)
[2024-01-18] MEDS: DONEPEZIL HCL 10 MG TAB PO SCH (17:42)
[2024-01-18] MEDS: ATORVASTATIN 40 MG TAB PO SCH (20:37)
[2024-01-18] MEDS: ENOXAPARIN INJ 40 MG/0.4 ML SYR SQ SCH (20:37)
[2024-01-19 09:11] LABS: Albumin Globulin Ratio 1.4 (0.9-2); Albumin Level 3.7 gm/dl (3.4-5.0); BUN Creatinine Ratio 12.5 (10-20); Bilirubin,Total 0.6 mg/dl (0.2-1.0); Creatinine Clr Calc Pharmacy 68.5 ml/min; Est GFR (African American) 103.5 ml/min; Est GFR (Non-African American) 89.3 ml/min; Globulin 2.7 gm/dl (2.5-4.0); Magnesium 2.1 mg/dl (1.7-2.4); Potassium 3.9 mmol/L (3.5-5.1); Total Protein 6.4 gm/dl (6.0-8.3)
[2024-01-19 09:20] LABS: Basophils # (auto) 0.03 K/uL (0.00-0.20); Basophils % (auto) 0.4 %; Eosinophils # (auto) 0.03 K/uL (0.00-0.50); Eosinophils % (auto) 0.4 %; Hematocrit (blood only) 40.7 % (37.0-47.0); Hemoglobin 13.9 g/dl (12.0-16.0); Immature Granulocytes # (auto) 0.02 K/uL (0.01-0.20); Immature Granulocytes % (auto) 0.3 %; Lymphocytes % (auto) 17.9 %; Mean Corpuscular Hgb Conc 34.2 g/dL (32.0-36.0); Mean Corpuscular Volume 90.6 fL (80.0-100.0); Mean Platelet Volume 10.2 fL (9.4-12.4); Monocytes # (auto) 0.77 K/uL (0.11-0.59); Monocytes % (auto) 9.9 %; Neutrophils # (auto) 5.56 K/uL (1.40-6.50); Neutrophils % (auto) 71.1 %; Platelet Count 279 K/uL (130-400); RDW Coefficient of Variation 12.6 % (11.5-14.5); RDW Standard Deviation 41.8 fL (36.4-46.3); Red Blood Count 4.49 M/uL (4.20-5.40); White Blood Count 7.81 K/ul (4.8-10.8)
[2024-01-19 09:32] LABS: Estimated Average Glucose 151 mg/dl; Hemoglobin A1C 6.9 % (4.5-5.6)
[2024-01-19] MEDS: DULoxetine HCL 60 MG CAP PO SCH (09:50)
[2024-01-19] MEDS: ASPIRIN 81 MG ECTAB PO SCH (09:50)
[2024-01-19] MEDS: cefTRIAXone SODIUM 2,000 MG in DEXTROSE 5 % MINI-B 50 ML IV SCH (10:25)
--- NOTE | 2024-01-19 13:18 | Hospitalist Progress Note ---
Date of Service January 19, 2024 Assessment & Plan (1) Acute UTI (urinary tract infection): (2) Generalized weakness: Plan This is a 78-year-old female with significant past medical history of T2DM, HTN, HLD, vascular mention with anxiety, depression with history of breast cancer who presents to ED secondary to nausea and vomiting. Recently hospitalized 2/3-12/28/23 2/2 klebsiella oxytoca UTI and amb dysfxn. She completed course of antibiotic IV rocephin and transitioned to cefnidir for total of 7 days. She was then [facility]. She re presents back to ED today 2/2 to recurrent UTI and Sars COV2. Acute UTI admit to med tele urine culture growing gram negative bacilli blood culture pending Empiric IV Rocephin, Day #2 SARS COV-2 currently asymptomatic does not meet criteria for treatment will monitor, covid precautions DM II Diet-controlled Not on medications HbA1c 6.9 01/19/24 Continue insulin while hospitalized Hypertension Not on meds BP consistently elevated, even during last admission add losartan 25mg daily, first dose now, monitor response repeat bmp Depression Generalized anxiety disorder Continue duloxetine Mixed vascular and degenerative dementia On Donepezil Reorient frequently to minimize delirium Hyperlipidemia Continue statin Severe malnutrition Continue supplements DVT Px: Lovenox CODE STATUS Full code Dispo: await urine culture, PT/OT, pt may need rehab, does not feel he can care for her at home and pt does not want to go back to [facility] following Pt was seen and examined in collaboration with Dr. Amin, please see addendum A total of 55 minutes was spent coordinating, documenting, and providing care for this patient excluding time spent in the performance of separately billed services. This included personally viewing all current laboratories and imaging studies, medication reconciliation, outpatient chart review, and discussion with specialists. Admission and Anticipated Discharge Date Admission Date: January 18, 2024 Supervising Physician Co-Signing Physician Notes Patient is seen and examined at bedside. States having generalized weakness and tiredness. Denies any cough, dyspnea, chest pain, dizziness, nausea, vomiting, abdominal pain. Admits to have poor oral intake. On exam patient is moderately built and nourished, no apparent distress, normocephalic atraumatic, EOMI, normal breath sounds, clear to auscultation, S1-S2, no murmur, no peripheral edema, abdomen soft, nontender, normal bowel sounds, alert, awake,+ dementia, grossly no focal deficits. Continue Rocephin for UTI. Follow-up urine cultures. COVID-19 infection incidental. Asymptomatic. Saturating well on room air. Conservative management. Agree with adding losartan for hypertension management. I personally interviewed and examined at bedside. Patient's care is coordinated with Cher Bruno PA-C. I have reviewed the advanced practitioner's documentation, and I agree with, and take responsibility for that plan of care. Please refer to the documentation above for details of patient's presentation and for discussion of other issues. I spent a total [id number] coordinating, documenting, and providing care for this patient excluding time spent in the performance of separately billed services. Subjective Pt was seen and examined in room 380-1. F/U UTI Pt at bedside. She tolerated breakfast. Denies any acute complaints. She wants to go home from discharge. Denies f/c/s, chest pain, sob, n/v/d. She feels like she always has to pee. Review of Systems Review of Systems: All systems reviewed & are unremarkable except as noted in HPI & below Physical Exam Physical Exam: Gen: WD/WN, NAD, A&O x3 to basics HEENT: Normocephalic, atraumatic, conjunctivae moist, sclerae anicteric, mucous membranes moist. Lung: Clear to Auscultation bilaterally, no wheezes/rales/rhonchi Heart: Regular rate, regular rhythm, no murmurs, rubs, or gallops Abdomen: Soft, NT, ND +BS x 4 Extremities: No edema Skin: Warm, no rash, negative turgor. Results & Data Results & Data Vital Signs (Past 12 Hours) Vital Signs Temp Pulse Resp BP Pulse Ox O2 Del Method 01/19/24 07:08 36.8 C 86 16 177/91 H 93 Room Air Laboratory Results Short CBC 01/19/24 Range/Units 08:13 WBC 7.81 (4.8-10.8) K/ul Hgb 13.9 (12.0-16.0) g/dl Hct 40.7 (37.0-47.0) % Plt Count 279 (130-400) K/uL BMP 01/19/24 08:13 Sodium 139 Potassium 3.9 Chloride 106 Carbon Dioxide 25 BUN 7 Creatinine 0.56 L Glucose 114 H Calcium 9.0 Liver Function 01/19/24 Range/Units 08:13 Total Bilirubin 0.6 (0.2-1.0) mg/dl AST 17 (13-39) U/L ALT 16 (7-52) U/L Alkaline Phosphatase 58 (34-104) U/L Albumin 3.7 (3.4-5.0) gm/dl Medications Administered Current Inpatient Medications Acetaminophen (Acetaminophen 325 Mg Tab) 650 mg PO Q4H PRN PRN Reason: pain/fever Stop: 02/17/24 15:14 Aspirin (Aspirin 81 Mg Ectab) 81 mg PO [facility] Stop: 02/18/24 08:59 Last Admin: 01/19/24 09:50 Dose: 81 mg Atorvastatin Calcium (Atorvastatin 40 Mg Tab) 40 mg PO HS [facility] Stop: 02/17/24 20:59 Last Admin: 01/18/24 20:37 Dose: 40 mg Dextrose (Dextrose 50% 50 Ml Syringe) 25 - 50 ml IV UD PRN; Protocol PRN Reason: Hypoglycemia Protocol Stop: 02/17/24 15:14 Donepezil HCl (Donepezil Hcl 10 Mg Tab) 10 mg PO QDD [facility] Stop: 02/17/24 16:29 Last Admin: 01/18/24 17:42 Dose: 10 mg Duloxetine HCl (Duloxetine Hcl 60 Mg Cap) [facility] Stop: 02/18/24 08:59 Last Admin: 01/19/24 09:50 Dose: 60 mg Enoxaparin Sodium (Enoxaparin Inj 40 Mg/0.4 Ml Syr) 40 mg SQ HS [facility] Stop: 02/17/24 20:59 Last Admin: 01/18/24 20:37 Dose: 40 mg Glucagon (Glucagon For Inj 1 Mg Vial) 1 mg SQ UD PRN; Protocol PRN Reason: Hypoglycemia Protocol Stop: 02/17/24 15:14 Glucose (Glucose 10 Tab/Tube) 4 - 8 tab PO UD PRN; Protocol PRN Reason: Hypoglycemia Treatment Stop: 02/17/24 15:14 Glucose (Glucose 40% Gel 15 Gm Tube) 15 - 30 gm PO UD PRN; Protocol PRN Reason: Hypoglycemia Protocol Stop: 02/17/24 15:14 Ceftriaxone Sodium 2,000 mg/ (Dextrose) 50 mls @ 100 mls/hr IV Q24H [facility]; Protocol Stop: 01/29/24 08:59 Last Infusion: 01/19/24 11:19 Dose: Infused Insulin Aspart (Insulin Aspart Per Unit Charge) 0 units SC ACHS [facility] Stop: 02/17/24 16:29 Last Admin: 01/19/24 12:13 Dose: Not Given Miscellaneous (Carbohydrates For Hypoglycemia ) 15 - 30 gm PO UD PRN PRN Reason: Hypoglycemia Protocol Stop: 02/17/24 15:14 Ondansetron HCl (Ondansetron Inj 2 Mg/Ml 2 Ml Vial) 4 mg IV Q6H PRN PRN Reason: Nausea Stop: 02/17/24 15:14
[2024-01-19] MEDS: LOSARTAN POTASSIUM 25 MG TAB PO SCH (14:39)
[2024-01-20 08:15] LABS: Hematocrit (blood only) 40.3 % (37.0-47.0); Mean Corpuscular Hemoglobin 30.9 pg (25.0-34.0); Mean Corpuscular Hgb Conc 34.7 g/dL (32.0-36.0); Mean Platelet Volume 9.9 fL (9.4-12.4); Platelet Count 285 K/uL (130-400); RDW Coefficient of Variation 12.4 % (11.5-14.5); RDW Standard Deviation 40.8 fL (36.4-46.3); Red Blood Count 4.53 M/uL (4.20-5.40); White Blood Count 7.57 K/ul (4.8-10.8)
[2024-01-20 08:52] LABS: BUN Creatinine Ratio 15.1 (10-20); Calcium 9.1 mg/dl (8.6-10.3); Creatinine Clr Calc Pharmacy 72.4 ml/min; Est GFR (African American) 105.4 ml/min; Est GFR (Non-African American) 90.9 ml/min; Magnesium 2.2 mg/dl (1.7-2.4); Potassium 3.6 mmol/L (3.5-5.1)
--- NOTE | 2024-01-20 14:15 | Hospitalist Progress Note ---
Date of Service January 20, 2024 Assessment & Plan (1) Acute UTI (urinary tract infection): (2) Generalized weakness: Plan This is a 78-year-old female with significant past medical history of T2DM, HTN, HLD, vascular mention with anxiety, depression with history of breast cancer who presents to ED secondary to nausea and vomiting. Recently hospitalized 2/3-12/28/23 2/2 klebsiella oxytoca UTI and amb dysfxn. She completed course of antibiotic IV rocephin and transitioned to cefnidir for total of 7 days. She was then d[facility] She re presents back to ED today 2/2 to recurrent UTI and Sars COV2. Acute UTI admit to med tele urine culture growing klebsiella oxytoca blood culture negative to date Empiric IV Rocephin, Day #3 Transition to Cipro tomorrow to complete course SARS COV-2 currently asymptomatic does not meet criteria for treatment will monitor, covid precautions DM II Diet-controlled Not on medications HbA1c 6.9 01/19/24 Continue insulin while hospitalized Hypertension Not on meds BP consistently elevated, even during last admission BP improved with losartan 25mg daily, plan to continue and have patient follow up with PCP Monitor BMP Depression Generalized anxiety disorder Continue duloxetine Mixed vascular and degenerative dementia On Donepezil Reorient frequently to minimize delirium Hyperlipidemia Continue statin Severe malnutrition Continue supplements DVT Px: Lovenox CODE STATUS Full code Dispo: patient accepted back at [facility], has transport at 11 am tomorrow. Will attempt to reach over phone (CM unable to reach today) Pt was seen and examined in collaboration with Dr. Amin, please see addendum A total of 50 minutes was spent coordinating, documenting, and providing care for this patient excluding time spent in the performance of separately billed services. This included personally viewing all current laboratories and imaging studies, medication reconciliation, outpatient chart review, and discussion with specialists. Admission and Anticipated Discharge Date Admission Date: January 18, 2024 Supervising Physician Co-Signing Physician Notes Patient is seen and examined at bedside. No new complaints. States having generalized weakness. Saturating well on room air. Denies any cough, dyspnea, chest pain, dizziness, nausea, vomiting, abdominal pain. Still has poor appetite. On exam patient is moderately built and nourished, no apparent distress, normocephalic atraumatic, EOMI, normal breath sounds, clear to auscultation, S1-S2, no murmur, no peripheral edema, abdomen soft, nontender, normal bowel sounds, alert, awake,+ dementia, grossly no focal deficits. UTI-- Rocephin will be transition to ciprofloxacin tomorrow. COVID-19 infection incidental. Asymptomatic. Saturating well on room air. Conservative management. Continue losartan for hypertension management. I personally interviewed and examined at bedside. Patient's care is coordinated with Smiley Whitehead PA-C. I have reviewed the advanced practitioner's documentation, and I agree with, and take responsibility for that plan of care. Please refer to the documentation above for details of patient's presentation and for discussion of other issues. I spent a total [id number] coordinating, documenting, and providing care for this patient excluding time spent in the performance of separately billed services. Waiting for rehab placement. Subjective Pt was seen and examined in room 380-1 in F/U for UTI. Feeling better today, less urinary symptoms. Denies any acute complaints. She wants to go home from discharge. Denies f/c/s, chest pain, sob, n/v/d. She feels like she always has to pee. Review of Systems Review of Systems: At least ten systems reviewed and negative except as noted in the HPI. Physical Exam Physical Exam: Gen: WD/WN, NAD, sitting in bedside chair, A&Ox2, limited insight HEENT: Normocephalic, atraumatic, conjunctivae moist, sclerae anicteric, mucous membranes moist Lung: Clear to Auscultation bilaterally, no wheezes/rales/rhonchi Heart: Regular rate, regular rhythm, no murmurs, rubs, or gallops Abdomen: Soft, NT, ND +BS x 4 Extremities: no edema Skin: Warm, no rash Results & Data Results & Data Vital Signs (Past 12 Hours) Vital Signs Pulse Resp BP Pulse Ox O2 Del Method 01/20/24 12:25 100 H 18 125/88 95 Room Air Laboratory Results Short CBC 01/20/24 Range/Units 07:54 WBC 7.57 (4.8-10.8) K/ul Hgb 14.0 (12.0-16.0) g/dl Hct 40.3 (37.0-47.0) % Plt Count 285 (130-400) K/uL [facility] 01/20/24 07:54 Sodium 137 Potassium 3.6 Chloride 104 Carbon Dioxide 26 BUN 8 Creatinine 0.53 L Glucose 118 H Calcium 9.1 Diagnostic Findings Abdomen/Pelvis CT 01/18/24 09:42 CT OF THE ABDOMEN AND PELVIS WITH CONTRAST CLINICAL HISTORY: Nausea and vomiting. COMPARISON STUDY: CT of the abdomen and pelvis March 06, 2023. TECHNIQUE: Following IV administration of 88 mL of Optiray, axial images of the abdomen and pelvis were obtained from the lung bases to the proximal femurs. Images were reviewed in the axial, sagittal, and coronal planes. IV contrast was administered without complication. Automated exposure control was utilized for the study. A dose lowering technique was utilized adhering to the principles of ALARA. CT DOSE: 955.9 mGy.cm FINDINGS: Lung bases are unremarkable. No pneumatosis, free air gas is present. There are no hepatic lesions. There is no biliary or pancreatic ductal dilatation. Spleen, adrenal glands and pancreas are unremarkable. No peripancreatic or pericholecystic infiltration is present. Several right renal calculi measure up to 5 mm. There are no ureteral calculi. There is no hydronephrosis. Water attenuation bilateral renal lesions reflect cysts. The caliber and wall thickness of small and large bowel are normal. The appendix is normal. Moderate wall thickening of the bladder is noted with mild adjacent stranding. There is no lymphadenopathy. Major vasculature is patent. No acute fractures or suspicious lesions within the visualized skeletal structures. IMPRESSION: 1. Bladder wall thickening with adjacent stranding suggestive of cystitis. 2. Right nephrolithiasis. No ureteral calculi. No hydronephrosis. 3. Normal appendix. No bowel obstruction. No bowel wall thickening. ACT 112: Negative or not required by law. Electronically signed by: Milind Lugo M.D. 01/18/2024 11:43 AM
[2024-01-21] MEDS ORDERED: CIPROFLOXACIN 500 MG TAB PO SCH (09:00)
[2024-01-21 09:17] LABS: BUN Creatinine Ratio 17.2 (10-20); Calcium 9.1 mg/dl (8.6-10.3); Creatinine Clr Calc Pharmacy 66.1 ml/min; Est GFR (African American) 102.3 ml/min; Est GFR (Non-African American) 88.3 ml/min; Potassium 3.8 mmol/L (3.5-5.1)
[2024-01-21] MEDS: AMOXICILLIN/CLAVULANATE 875 MG TAB PO SCH (09:18)
--- NOTE | 2024-01-21 10:03 | Discharge Summary ---
Discharge Summary Date of Service January 21, 2024 Notes For Next Care Provider Medication Changes From Visit Losartan 25 mg daily Augmentin x 6 more days Admission HPI Per Admitting Provider This is a 78-year-old female with significant past medical history of T2DM, HTN, HLD, vascular mention with anxiety, depression with history of breast cancer who presents to ED secondary to nausea and vomiting. She complains of difficulty urinating, dysuria. also elicits some increased confusion. She denies f/c/s, lightheaded, dizziness, chest pain, sob, uri sx, cough, melena, hem atochezia and diarrhea. Overall appetite is poor. She is generally weak. When discussing general hygiene she states she wipes from front to back most occassions. Overall bowel movements are less frequent. Last time she moved her bowels was yesterday. She was recently admitted 12/25-12/28/23 due to UTI and ambulatory dysfunction. Her urine culture grew klebsiella and she was initially started on IV rocephin and discharged on cefnidir. She was then discharged to [facility] where she was until 01/06. who is at bedside also helps elicit history. Admission Exam Per Admitting Provider I have seen and discussed the case with the collaborating ROSA. I agree with the above H&P. I have reviewed and confirmed the patients medical history, the findings on physical examination, and the patients diagnosis and treatment plan with Kiana LEE and agree with the information documented. In short, Ms. Simms is a 78 year old woman with vascular dementia in a personal intermediate admitted for poor po intake and urinary complaints x 4 days. Patient recently admitted with klebsiella uti and discharged to [facility]. Patient notes urinary pressure/discomfort, as well as nausea and 1-2 episodes vomiting. GENERAL APPEARANCE: AxOx2-3, generally well-appearing female, no acute distress. HEENT: NC, AT. MMM. EOMI, clear conjunctiva, oropharynx clear. NECK: Supple without lymphadenopathy. No stiffness or restricted ROM. HEART: Normal rate and regular rhythm, normal S1/S1, no m/r/g LUNGS: CTAB, moving air well. No crackles or wheezes are heard. ABDOMEN: Soft, nontender, nondistended with good bowel sounds heard. BACK: No CVAT, no obvious deformity. EXTREMITIES: Without cyanosis, clubbing or edema. NEUROLOGICAL: Grossly nonfocal. Alert and oriented, moving all 4 extremities. CN not formally tested but appear grossly intact. Principal Dx & Hospital Course #1 = Principal Diagnosis (1) Acute UTI (urinary tract infection): (2) Generalized weakness: Plan This is a 78-year-old female with significant past medical history of T2DM, HTN, HLD, vascular mention with anxiety, depression with history of breast cancer who presents to ED secondary to nausea and vomiting. Recently hospitalized 2/3-12/28/23 2/2 klebsiella oxytoca UTI and amb dysfxn. She completed course of antibiotic IV rocephin and transitioned to cefnidir for total of 7 days. She was then d/c to [facility]. She presented back to ED given recurrent UTI and Sars COV2. UA with Klebsiella. Acute UTI admit to med tele urine culture growing klebsiella oxytoca blood culture negative to date Empiric IV Rocephin, Day #3 Dicharged on Augmentin SARS COV-2 currently asymptomatic does not meet criteria for treatment Asymptomatic DM II Diet-controlled Not on medications HbA1c 6.9 01/19/24 Hypertension Not on meds Continue Losartan 25mg daily Depression Generalized anxiety disorder Continue duloxetine Mixed vascular and degenerative dementia On Donepezil Reorient frequently to minimize delirium Hyperlipidemia Continue statin Severe malnutrition Continue supplements On day of discharge patient was conversational and eager to transition back to [facility]. She denied any acute concerns. at bedside, all questions answered, Discharge Exam Constitutional WD/WN, vitals as above pleasant, AOx3, forgetful of circumstances of admission Respiratory normal respiratory effort, lungs clear to auscultation Cardiovascular RRR, no murmur, no edema Gastrointestinal (Abdomen) normal bowel sounds, soft, nontender, no hepatosplenomegaly Updated Medication List Medication Instructions Recorded Confirmed Type aspirin 81 mg tablet,delayed 81 mg PO QAM 01/01/20 01/18/24 History release (Adult Aspirin Regimen) Wheeled Walker #1 ea 01/30/20 01/18/24 Rx Wheeled Walker #1 ea 05/16/20 01/18/24 Rx Wheeled Walker #1 ea 05/29/20 01/18/24 Rx Wheeled Walker #1 ea 05/29/20 01/18/24 Rx meclizine 25 mg tablet 25 mg PO TID PRN dizziness #30 tabs 01/03/21 01/18/24 Rx meloxicam 7.5 mg tablet 7.5 mg PO QAM PRN Pain 01/03/21 01/18/24 History amoxicillin 500 mg capsule 2,000 mg PO DIRECTED PRN ONE 01/31/22 01/18/24 History HOUR PRIOR TO DENTAL VISITS. atorvastatin 40 mg tablet 40 mg PO HS 01/31/22 01/18/24 History acetaminophen 500 mg tablet 1,000 mg PO TID PRN Pain 12/25/23 01/18/24 History (Tylenol Extra Strength) alendronate 70 mg tablet 70 mg PO WK 12/25/23 01/18/24 History bismuth subsalicylate 262 mg/15 mL 524 mg PO Q4H PRN HEARTBURN/NAUSEA 12/25/23 01/18/24 History oral suspension (Pepto-Bismol) calcium 250 mg tablet 250 mg PO QAM 12/25/23 01/18/24 History donepezil 10 mg tablet 10 mg PO QDD 12/25/23 01/18/24 History duloxetine 60 mg capsule,delayed 60 mg PO QAM 12/25/23 01/18/24 History release solifenacin 10 mg tablet 10 mg PO QAM 12/25/23 01/18/24 History amoxicillin 875 mg-potassium 1 tab PO BIDM 7 days #14 tabs 01/21/24 Rx clavulanate 125 mg tablet losartan 25 mg tablet 25 mg PO QAM #30 tabs 01/21/24 Rx Hospital Stay Data Consultations 01/18/24 11:54 ED Decision to Admit Stat Diagnostic Imagining Performed 01/18/24 09:42 CT abd pelvis IV con only Stat Pending Results Patient Have Any Pending Studies at Discharge: No Discharge Instructions Given to Patient (Per Discharging Provider) MEDICATION CHANGES: Augmentin by mouth twice daily to complete course for UTI , 7 more days next dose this evening 01/20 Losartan 25mg daily for uncontrolled blood pressure SUMMARY OF TEST RESULTS: You were admitted to hospital secondary to nausea and vomiting, recurrent UTI . Incidentally also found to have Sars CoV2 (asymptomatic, has not required treatment). Repeat urine culture from 01/18 grew Klebsiella oxytoca again. Symptoms have resolved on Rocephin, will transition course to Augmentin to complete course. PENDING TEST RESULTS: None RECOMMENDATIONS FOR FOLLOW-UP: Follow up with PCP as scheduled. Complete antibiotic in its entirety. Continue medication regimen as scheduled aside from changes noted above. OTHER INSTRUCTIONS: Seek medical attention if you have: * temperature above 101 * chest pain or trouble breathing * abdominal pain, nausea, vomiting * diarrhea, dark stools or bloody stools * any unanswered questions or concerns Call 911 if symptoms are severe. Please take good care of yourself. Call if you have any questions or problems. You can reach a [facility] hospitalist on duty at [facility] 24 hours a day by calling [phone]. ROSA Kitchen Hospitalist Total Time Total Time Spent Total Time Spent (In Minutes): 35
== END 2024-01-21 11:15 | disposition home or self-care (01) | DRG 689 ==
LOC: ED 09:30 → EDINP 12:15 → SUATTDRO 12:15 → 3N 15:16

== ENCOUNTER 2024-05-11 20:11 | Inpatient (IN) ==
[2024-05-11 20:47] LABS: Basophils # (auto) 0.03 K/uL (0.00-0.20); Basophils % (auto) 0.2 %; Eosinophils % (auto) 1.3 %; Hematocrit (blood only) 44.5 % (37.0-47.0); Hemoglobin 14.6 g/dl (12.0-16.0); Immature Granulocytes # (auto) 0.05 K/uL (0.01-0.20); Immature Granulocytes % (auto) 0.3 %; Lymphocytes % (auto) 7.3 %; Mean Corpuscular Hemoglobin 30.3 pg (25.0-34.0); Mean Corpuscular Hgb Conc 32.8 g/dL (32.0-36.0); Mean Corpuscular Volume 92.3 fL (80.0-100.0); Mean Platelet Volume 9.9 fL (9.4-12.4); Monocytes # (auto) 1.03 K/uL (0.11-0.59); Monocytes % (auto) 6.9 %; Neutrophils # (auto) 12.61 K/uL (1.40-6.50); Platelet Count 271 K/uL (130-400); RDW Coefficient of Variation 12.9 % (11.5-14.5); RDW Standard Deviation 43.4 fL (36.4-46.3); Red Blood Count 4.82 M/uL (4.20-5.40); White Blood Count 15.02 K/ul (4.8-10.8)
[2024-05-11 21:04] LABS: Albumin Globulin Ratio 1.3 (0.9-2); Albumin Level 4.3 gm/dl (3.4-5.0); BUN Creatinine Ratio 12.7 (10-20); Bilirubin,Total 0.9 mg/dl (0.2-1.0); Calcium 9.9 mg/dl (8.6-10.3); Creatinine Clr Calc Pharmacy 52.6 ml/min; Est GFR (African American) 83.1 ml/min; Est GFR (Non-African American) 71.7 ml/min; Globulin 3.2 gm/dl (2.5-4.0); Magnesium 1.9 mg/dl (1.7-2.4); Potassium 4.2 mmol/L (3.5-5.1); Total Protein 7.5 gm/dl (6.0-8.3)
--- NOTE | 2024-05-11 21:05 | Emergency Department Note ---
History of Present Illness General Chief complaint: Illness Stated complaint: ILLNESS Time Seen by Provider: 05/11/24 20:52 Source: patient, family, RN notes reviewed and old records reviewed (04/24/2024- urine culture from [facility]) Mode of arrival: EMS Limitations: no limitations History of Present Illness This patient is 78-year-old female who comes in complaining of weakness. She had decreased appetite and vomiting. No cough or runny nose she does get frequent UTIs. Her last urine culture in February grew out Klebsiella which was pansensitive to everything but Macrobid. She had a mild headache. She is constantly clearing her throat .she had dysuria and frequency but no hematuria and no back pain .she complains of suprapubic pain. No chest pain . no fall or trauma Home Medications Medication Instructions Recorded Confirmed Type aspirin 81 mg tablet,delayed 81 mg PO QAM 01/01/20 05/11/24 History release (Adult Aspirin Regimen) Wheeled Walker #1 ea 01/30/20 05/11/24 Rx Wheeled Walker #1 ea 05/16/20 05/11/24 Rx Wheeled Walker #1 ea 05/29/20 05/11/24 Rx Wheeled Walker #1 ea 05/29/20 05/11/24 Rx meclizine 25 mg tablet 25 mg PO TID PRN dizziness #30 tabs 01/03/21 05/11/24 Rx meloxicam 7.5 mg tablet 7.5 mg PO QAM PRN Pain 01/03/21 05/11/24 History amoxicillin 500 mg capsule 2,000 mg PO DIRECTED PRN ONE 01/31/22 05/11/24 History HOUR PRIOR TO DENTAL VISITS. atorvastatin 40 mg tablet 40 mg PO QAM 01/31/22 05/11/24 History acetaminophen 500 mg tablet 1,000 mg PO TID PRN Pain 12/25/23 05/11/24 History (Tylenol Extra Strength) alendronate 70 mg tablet 70 mg PO WK 12/25/23 05/11/24 History bismuth subsalicylate 262 mg/15 mL 524 mg PO Q4H PRN HEARTBURN/NAUSEA 12/25/23 05/11/24 History oral suspension (Pepto-Bismol) donepezil 10 mg tablet 10 mg PO QDD 12/25/23 05/11/24 History duloxetine 60 mg capsule,delayed 60 mg PO QAM 12/25/23 05/11/24 History release solifenacin 10 mg tablet 10 mg PO QAM 12/25/23 05/11/24 History buspirone 5 mg tablet 5 mg PO AMHS 05/11/24 05/11/24 History calcium carbonate (Calcium 600) 1,200 mg PO BID 05/11/24 05/11/24 History glipizide 2.5 mg tablet, extended 2.5 mg PO DAILYBB 05/11/24 05/11/24 History release 24 hr losartan 25 mg tablet 12.5 mg PO QAM 05/11/24 05/11/24 History nitrofurantoin 100 mg PO BID 05/11/24 05/11/24 History monohydrate/macrocrystals 100 mg capsule Allergies Allergy/AdvReac Type Severity Reaction Status Date / Time walnut Allergy Severe mouth Unverified 01/18/24 11:59 blisters Past Med/Surg History Problem List (Updated 05/12/24 @ 00:19 by Oliverio Martinez MD) Vomiting (Acute) Acute UTI (Acute) Weakness (Acute) Sepsis (Acute) COVID-19 (Acute) Vomiting (Acute) Generalized weakness (Acute) Acute UTI (urinary tract infection) (Acute) Falls frequently (Acute) Posterior tibial tendon dysfunction, left Chest pain (Acute) Costochondritis (Acute) Rib pain (Acute) Right knee pain Right knee DJD Encounter for pre-operative examination 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 Lumbar stenosis (Acute) Medical History Obesity Bronchitis hx (no recent issues) Prediabetes PCP monitoring, labs drawn for PCP on 12/26 show A1C 6.5%-decision to monitor/diet control History of left breast cancer dx 1999; sx + radiation Heartburn symptom diet controlled Arthritis Anxiety Hypertension Hyperlipidemia Surgical History History of cataract surgery RT History of tooth extraction reason for current abx Nausea and vomiting after administration of anesthetic agent History of colonoscopy History of hysterectomy History of arthroscopy of right knee History of lumpectomy of left breast WITH LYMPH NODES - PT DENIES LIMB RESTRICTION-1999 Family History Father Family history of diabetes mellitus Mother Family history of diabetes mellitus Other No family history of adverse response to anesthesia Patient's father is Patient's mother is Social History Smoking Status: Never smoker Second Hand Exposure: No; Do You Dip or Chew Tobacco: No; Hx Alcohol Use: No Hx Substance Use: No Preferred Language: Indonesian Communication Ability: Effective 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 Beliefs That Will Affect Care: None marital status: Current Living Situation: Spouse Current Living Situation Comment: Tereso Velazquez Feels Safe at Home: Yes Assistive Devices: Wheelchair Review of Systems A total of 10 systems reviewed and were otherwise negative Physical Exam Vital Signs Vital Signs - 24 hr 05/11/24 20:03 05/11/24 20:31 05/11/24 21:52 Temperature 38.0 C H Temperature Source Oral Pulse Rate 110 H Pulse Rate [Apical] 103 H Pulse Rhythm Regular Pulse Rhythm [Apical] Regular Pulse Strength Normal Pulse Strength [Apical] Normal Respiratory Rate 22 20 Respiratory Effort / Characteristics Non-Labored Non-Labored Respiratory Depth Normal Normal Respiratory Pattern Regular Regular Blood Pressure 146/99 H Blood Pressure [Right Arm] 151/107 H Blood Pressure Mean 114 Blood Pressure Mean [Right Arm] 121 Blood Pressure Position Semi-fowlers Blood Pressure Position [Right Arm] Semi-fowlers Pulse Oximetry 94 93 93 Oxygen Delivery Method Room Air Room Air Room Air Sepsis Recent Fever Within 48 Hours Yes Sepsis New/Unexplained Change in Mental Status No Sepsis Action Taken by Nursing Physician Notified General: Well developed well nourished flo-oet-iypixwzve older female who appears in no acute distress, breathing comfortably on room air. Normal speech. Alert and orient x 2. She does not know the date. She seems to answer questions appropriately HEENT: Normal cephalic atraumatic. Pupils are equal round and reactive to light. Extraocular movements are intact. Oropharynx is pink with moist mucous membranes. No swelling of the mouth lips or tongue. Neck: Supple with a midline trachea. No meningeal signs or stiffness, no JVD or bruits. No Stridor. Chest: Clear to auscultation bilaterally. No wheezes or rhonchi. No increased work of breathing. Heart: Regular rate and rhythm without murmurs or gallops. Abdomen: Soft, mild suprapubic tenderness, nondistended without rebound guarding or rigidity. Extremities: No cyanosis clubbing or edema. No calf tenderness or assymetry Spine/Back. Non tender to palpation. No CVA tenderness Skin: Good turgor without rashes. Neurologic exam: Cranial nerves two through 12 are intact. Motor and sensation are intact and symmetrical throughout. Course Administered Medications Magnesium Sulfate/Dextrose (Magnesium Sulfate / D5w) 1 gm in 100 mls @ 50 mls/hr IV ONE ONE Stop: 05/12/24 00:27 Last Admin: 05/11/24 23:53 Dose: 50 mls/hr Documented By: KG Sodium Chloride (Nss) 1,000 mls @ 80 mls/hr IV .[id number] ONE Stop: 05/12/24 11:35 Last Admin: 05/11/24 23:58 Dose: 80 mls/hr Documented By: KG Discontinued Medications Acetaminophen (Acetaminophen 325 Mg Tab) 650 mg PO NOW STA Stop: 05/11/24 22:27 Last Admin: 05/11/24 23:54 Dose: 650 mg Documented By: KG Sodium Chloride (Nss) 1,000 mls @ 999 mls/hr IV .Q1H1M ONE Stop: 05/11/24 21:59 Last Infusion: 05/11/24 22:51 Dose: Infused Documented By: Admin: 05/11/24 21:42 Dose: 999 mls/hr Documented By: KG Ceftriaxone Sodium (Rocephin) 2,000 mg in 50 mls @ 100 mls/hr IV NOW STA Stop: 05/11/24 21:28 Last Infusion: 05/11/24 22:51 Dose: Infused Documented By: Admin: 05/11/24 21:42 Dose: 100 mls/hr Documented By: KG Ertapenem (Invanz) 10 mls @ 2 mls/min IV NOW STA Stop: 05/11/24 22:29 Last Admin: 05/11/24 23:53 Dose: 2 mls/min Documented By: KG Ondansetron HCl (Ondansetron Inj 2 Mg/Ml 2 Ml Vial) 4 mg IV NOW STA Stop: 05/11/24 21:31 Last Admin: 05/11/24 21:42 Dose: 4 mg Documented By: KG Medical Decision Making Differential Diagnosis Sepsis, UTI, acute coronary syndrome, arrhythmia, kidney stone, intra-abdominal process, infection, pneumonia Medical Records Attestation: I reviewed the patient's medical records. Home Medications Current Medication List: was personally reviewed by me Laboratory Data Attestation: I reviewed the patient's lab results. 05/11/24 20:25 05/11/24 20:25 Lab Results 05/11/24 05/11/24 05/11/24 Range/Units 20:25 21:35 21:49 WBC 15.02 H (4.8-10.8) K/ul RBC 4.82 (4.20-5.40) M/uL Hgb 14.6 (12.0-16.0) g/dl Hct 44.5 (37.0-47.0) % MCV 92.3 (80.0-100.0) fL MCH 30.3 (25.0-34.0) pg MCHC 32.8 (32.0-36.0) g/dL RDW Std Deviation 43.4 (36.4-46.3) fL RDW Coeff of Andrea 12.9 (11.5-14.5) % Plt Count 271 (130-400) K/uL MPV 9.9 (9.4-12.4) fL Immature Gran % (Auto) 0.3 % Neut % (Auto) 84.0 % Lymph % (Auto) 7.3 % Freestone % (Auto) 6.9 % Eos % (Auto) 1.3 % Baso % (Auto) 0.2 % Neut # (Auto) 12.61 H (1.40-6.50) K/uL Lymph # (Auto) 1.10 L (1.20-3.40) K/uL Freestone # (Auto) 1.03 H (0.11-0.59) K/uL Eos # (Auto) 0.20 (0.00-0.50) K/uL Baso # (Auto) 0.03 (0.00-0.20) K/uL Immature Gran # (Auto) 0.05 (0.01-0.20) K/uL PT 11.1 (9.0-12.0) Seconds INR 1.0 (0.9-1.1) APTT 29 (21-31) Seconds PTT Ratio 1.1 Sodium 134 L (136-145) mmol/L Potassium 4.2 (3.5-5.1) mmol/L Chloride 100 (98-107) mmol/L Carbon Dioxide 26 (21-32) mmol/L Anion Gap 8 (3-11) BUN 10 (6-23) mg/dl Creatinine 0.79 (0.6-1.2) mg/dl Est Cr Clr Drug Dosing 52.6 ml/min Est GFR ( Amer) 83.1 ml/min Est GFR (Non-Af Amer) 71.7 ml/min BUN/Creatinine Ratio 12.7 (10-20) Glucose 153 H (70-99(Fasting)) mg/dl Lactate 1.5 (0.4-2.0) mmol/L Calcium 9.9 (8.6-10.3) mg/dl Magnesium 1.9 (1.7-2.4) mg/dl Total Bilirubin 0.9 (0.2-1.0) mg/dl AST 14 (13-39) U/L ALT 16 (7-52) U/L Alkaline Phosphatase 72 (34-104) U/L Troponin I High Sens 4.0 (0-14) pg/ml Total Protein 7.5 (6.0-8.3) gm/dl Albumin 4.3 (3.4-5.0) gm/dl Globulin 3.2 (2.5-4.0) gm/dl Albumin/Globulin Ratio 1.3 (0.9-2) Urine Color Yellow Urine Appearance Cloudy A (Clear) Urine pH 7.0 (4.5-7.5) POC Urine pH 6 (4.5-7.5) Ur Specific Benedict 1.015 (1.000-1.030) Urine Protein Negative (Negative) POC Urine Protein Trace H (Negative) Urine Glucose (UA) Negative (Negative) POC Ur Glucose (UA) Normal (Normal) Urine Ketones 2+ H (Negative) POC Urine Ketones 3+ (Large) H (Negative) Urine Blood Trace H (Negative) POC Urine Blood 50 H (Negative) Urine Nitrite Positive A (Negative) POC Urine Nitrite Positive A (Negative) Urine Bilirubin Negative (Negative) POC Urine Bilirubin Negative (Negative) Urine Urobilinogen Negative (Negative) POC Urine Urobilinogen Normal (Normal) Ur Leukocyte Esterase 3+ H (Negative) POC U Leukocyte Esteras 2+ H (Negative) Urine WBC (Auto) >50 H (0-5) /hpf Urine RBC (Auto) 3-5 H (0-2) /hpf U Hyaline Cast (Auto) 0-2 (0-2) /lpf U Epithel Cells (Auto) 3-5 H (0-2) /hpf Urine Bacteria (Auto) 4+ H (None Seen) Imaging Data Attestation: I personally reviewed and interpreted this imaging study as follows: My Impression: Chest x-rayno acute infiltrate, failure, seen. CAT scan of the abdomen shows no obstructive uropathy. There is stones within the kidney on the right Radiologist's Impression: Chest X-Ray 05/11/24 20:29 SINGLE VIEW CHEST CLINICAL HISTORY: Sepsis. FINDINGS: An AP, portable, upright chest radiograph is compared to study dated 03/10/2024. The examination is degraded by portable technique and patient rotation. Surgical clips are noted in the left axilla. The cardiomediastinal silhouette is unremarkable noting atherosclerotic calcification of the thoracic aorta. Chronic interstitial thickening is similar to previous. There is mild bibasilar scarring/atelectasis. The lungs and pleural spaces are otherwise clear. No pneumothorax is seen. The skeletal structures are osteopenic. The bony thorax is grossly intact. IMPRESSION: No active disease in the chest. ACT 112: Negative or not required by law. Electronically signed by: Gulshan Kidd M.D. 05/11/2024 11:44 PM Abdomen/Pelvis CT 05/11/24 20:59 Exam(s): CT ABDOMEN + PELVIS Without Contrast EXAM: CT Abdomen and Pelvis Without Intravenous Contrast CLINICAL HISTORY: Reason for exam: uti, sepsis. TECHNIQUE: Axial computed tomography images of the abdomen and pelvis without intravenous contrast. CTDI is 24.89 mGy and DLP is 1114.91 mGy-cm. Automated exposure control was utilized for the study. A dose lowering technique was utilized adhering to the principles of ALARA. COMPARISON: 01/18/2024. FINDINGS: Lung bases: Mild bilateral lower lobe atelectasis with mild bilateral basilar interstitial prominence . Heart: Unremarkable. No cardiomegaly. No significant pericardial effusion. Normal cardiac size . ABDOMEN: Liver: Unremarkable. Gallbladder and bile ducts: Unremarkable. No calcified stones. No ductal dilation. Pancreas: Unremarkable. No ductal dilation. Spleen: Unremarkable. No splenomegaly. Adrenals: Unremarkable. No mass. Kidneys and ureters: There are 2 right-sided intrarenal stones, largest measuring 4.3 mm seen in the mid upper pole. Right upper renal pole simple cyst measuring 2.8 cm. Otherwise normal right kidney. Left upper renal pole simple cyst measuring 3.3 cm. Otherwise normal left kidney. Stomach and bowel: Moderate to abundant fecal debris within the colon. No obstruction. No mucosal thickening. PELVIS: Appendix: Normal appendix. Bladder: Unremarkable. No stones. Reproductive: Nonvisualized uterus suggestive of previous hysterectomy. ABDOMEN and PELVIS: Intraperitoneal space: Unremarkable. No free air. No significant fluid collection. Bones/joints: Diffuse osteopenia with mild spondylosis/degenerative disease of the spine. Minimal anterolisthesis of L4 and L5 with no pars defect. No acute fracture. No dislocation. Soft tissues: Tiny fat-containing umbilical hernia. Vasculature: Calcified atherosclerotic disease of aorta with no aneurysm or dissection. Lymph nodes: Unremarkable. No enlarged lymph nodes. IMPRESSION: 1. Nonobstructive right-sided intrarenal stones, largest measuring 4.3 mm. Bilateral simple renal cysts as described above with no further follow-up imaging recommended. Remainder of abdominal viscera are unremarkable. 2. No acute appendicitis or bowel obstruction. Electronically signed by: Teresa Gomez MD 05/11/24 22:19 PM ECG Data Attestation: I personally reviewed and interpreted this ECG as follows: Indication: + weakness Rate (beats per minute): 109 Rhythm: + sinus tachycardia and + other (Poor baseline/artifact) ECG Intervals/blocks: + Normal QRS, + Normal QT and + Normal GA ECG Roland: + Normal ECG ST segments: + Nonspecific ST abnormalities ECG Findings: no PACs or no PVCs Comparison ECG Date: from (03/10/2024) Change: no significant change MDM Narrative This patient comes in as described above. I saw her in room A3. I am concerned that she is septic as she has a temperature she is tachycardic. She also has history of frequent UTIs. IV access was established. she was hydrated with a 1 L IV normal saline bolus. I also ordered Rocephin 2 g IV. Her white count was elevated at 15 however lactic acid is not elevated. Her urinalysis does suggest UTI. The showed up and gave me some results from [employer]. It showed Klebsiella that was ESBL. I had our disability case manager get the culture results from [facility] and it showed that it was resistant to ceftriaxone. I do think she needs to be admitted for further IV antibiotics. I did talk to Dr. Gold , who will be admitting he,r about the antibiotic choice he said he will put it in. The patient did have some nausea and was given Zofran. She will be admitted/observed. Her CAT scan was also read by radiology and shows no obstructive uropathy. Continuous night monitor: Orders placed in EMR for continuous night monitor: Pulm evaluation she was noted to be in a sinus tachycardia at a rate of 100 Impression & Plan Sepsis, Weakness, Acute UTI, Vomiting Discharge Plan Visit Data Chief Complaint: Illness Stated Complaint: ILLNESS ED Provider: Oliverio Martinez Discharge Problem: Sepsis, Weakness, Acute UTI, Vomiting Patient Disposition: Admitted As Inpatient Discharge Instructions Interventions: ED Discharge Assessment Last Done: 05/11/24 23:40 Discharge Problem: Sepsis Qualifiers: Sepsis type: sepsis due to unspecified organism Sepsis acute organ dysfunction status: unspecified Qualified Code(s): A41.9 - Sepsis, unspecified organism Vomiting Qualifiers: Vomiting type: unspecified Nausea presence: with nausea Qualified Code(s): R 11.2 - Nausea with vomiting, unspecified
[2024-05-11 21:13] LABS: Partial Thromboplastin Ratio 1.1; Partial Thromboplastin Time 29 Seconds (21-31); Prothrombin Time 11.1 Seconds (9.0-12.0)
[2024-05-11] MEDS: ONDANSETRON INJ 2 MG/ML 2 ML VIAL IV STA (21:42)
[2024-05-11] MEDS: cefTRIAXone SODIUM 2,000 MG/50 ML BAG IV STA (21:42)
[2024-05-11] MEDS: SODIUM CHLORIDE 0.9% 1,000 ML IV ONE ×2 (21:42→23:58)
[2024-05-11 21:58] LABS: POC Urine Bilirubin Negative (Negative); POC Urine Blood 50 (Negative); POC Urine Glucose Normal (Normal); POC Urine Ketones 3+ (Large) (Negative); POC Urine Leukocytes 2+ (Negative); POC Urine Nitrite Positive (Negative); POC Urine Protein Trace (Negative); POC Urine Urobilinogen Normal (Normal); POC Urine pH 6 (4.5-7.5)
--- NOTE | 2024-05-11 22:20 | CT Scan Report ---
Exam(s): CT ABDOMEN + PELVIS Without Contrast EXAM: CT Abdomen and Pelvis Without Intravenous Contrast CLINICAL HISTORY: Reason for exam: uti, sepsis. TECHNIQUE: Axial computed tomography images of the abdomen and pelvis without intravenous contrast. CTDI is 24.89 mGy and DLP is 1114.91 mGy-cm. Automated exposure control was utilized for the study. A dose lowering technique was utilized adhering to the principles of ALARA. COMPARISON: 01/18/2024. FINDINGS: Lung bases: Mild bilateral lower lobe atelectasis with mild bilateral basilar interstitial prominence . Heart: Unremarkable. No cardiomegaly. No significant pericardial effusion. Normal cardiac size . ABDOMEN: Liver: Unremarkable. Gallbladder and bile ducts: Unremarkable. No calcified stones. No ductal dilation. Pancreas: Unremarkable. No ductal dilation. Spleen: Unremarkable. No splenomegaly. Adrenals: Unremarkable. No mass. Kidneys and ureters: There are 2 right-sided intrarenal stones, largest measuring 4.3 mm seen in the mid upper pole. Right upper renal pole simple cyst measuring 2.8 cm. Otherwise normal right kidney. Left upper renal pole simple cyst measuring 3.3 cm. Otherwise normal left kidney. Stomach and bowel: Moderate to abundant fecal debris within the colon. No obstruction. No mucosal thickening. PELVIS: Appendix: Normal appendix. Bladder: Unremarkable. No stones. Reproductive: Nonvisualized uterus suggestive of previous hysterectomy. ABDOMEN and PELVIS: Intraperitoneal space: Unremarkable. No free air. No significant fluid collection. Bones/joints: Diffuse osteopenia with mild spondylosis/degenerative disease of the spine. Minimal anterolisthesis of L4 and L5 with no pars defect. No acute fracture. No dislocation. Soft tissues: Tiny fat-containing umbilical hernia. Vasculature: Calcified atherosclerotic disease of aorta with no aneurysm or dissection. Lymph nodes: Unremarkable. No enlarged lymph nodes. IMPRESSION: 1. Nonobstructive right-sided intrarenal stones, largest measuring 4.3 mm. Bilateral simple renal cysts as described above with no further follow-up imaging recommended. Remainder of abdominal viscera are unremarkable. 2. No acute appendicitis or bowel obstruction. Electronically signed by: Teresa Gomez MD 05/11/24 22:19 PM
[2024-05-11 22:26] LABS: Appearance Urine Cloudy (Clear); Bacteria Urine Automated 4+ (None Seen); Bilirubin Urine Negative (Negative); Blood Urine Trace (Negative); Cast Urine Automated 0-2 /lpf (0-2); Color Urine Yellow; Glucose Urine UA Negative (Negative); Ketones Urine 2+ (Negative); Leukocyte Esterase Urine 3+ (Negative); Nitrite Urine Positive (Negative); Protein Urine Negative (Negative); Specific Gravity Urine 1.015 (1.000-1.030); Urobilinogen Urine Negative (Negative); WBC Urine Automated >50 /hpf (0-5)
--- NOTE | 2024-05-11 23:03 | History & Physical Report ---
Date of Service May 11, 2024 Assessment & Plan (1) Sepsis: Plan: Secondary to complicated UTI Recurrent infections History of mixed incontinence ESBL Klebsiella on recent outpatient urine CS Failed outpatient treatment hypertension, stable hyperlipidemia, on statin Rx DM2 on oral medications, well-controlled as of recent hemoglobin A1c of 7 last March 2024 left breast cancer status post surgery/radiation status post tamoxifen Rx, in remission dementia, patient mentating at baseline Medical telemetry CS, Ertapenem IVF ID consult contingent on CS results Basal bolus insulin, ISS BG goal 1 10-1 40, carb count coverage DVT prophylaxis. Lovenox subcu Full code Patient requesting updates providers. Mr. Anton Simms, contact #[phone]. Text document was generated using [employer] voice recognition software. It may contain grammatical or spelling errors. Kindly contact undersigned for clarification of any documentation item in question. History of Present Illness Chief Complaint: Abdominal pain Primary Care Provider: Mar Lovelace MD History obtained from patient, family, and records. Patient is a fair historian. Medical history significant for hypertension, hyperlipidemia, DM2 on oral medications, left breast cancer status post surgery/radiation status post tamoxifen Rx, mixed incontinence, recurrent UTIs, history ESBL Klebsiella UTI, dementia, anxiety/mood disorder. Last confinement January 2024 Klebsiella UTI status post antibiotic Rx. Patient also noted to have COVID-19 illness during confinement. [place] [facility] on follow-up visit 2 weeks ago. Persistent incontinence symptoms verbalized during visit. Outpatient UA later grew ESBL Klebsiella. Patient prescribed Macrodantin course. Increasing weakness, abdominal discomfort, emesis, poor appetite today. Dysuria symptoms noted at home. Denies headache, chest pain, SOB. Patient brought to ER for evaluation. IV ceftriaxone administered at the ER. 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 Allergies Allergy/AdvReac Type Severity Reaction Status Date / Time walnut Allergy Severe mouth Unverified 01/18/24 11:59 blisters Home Medications Medication Instructions Recorded Confirmed Type aspirin 81 mg tablet,delayed 81 mg PO QAM 01/01/20 05/11/24 History release (Adult Aspirin Regimen) Wheeled Walker #1 ea 01/30/20 05/11/24 Rx Wheeled Walker #1 ea 05/16/20 05/11/24 Rx Wheeled Walker #1 ea 05/29/20 05/11/24 Rx Wheeled Walker #1 ea 05/29/20 05/11/24 Rx meclizine 25 mg tablet 25 mg PO TID PRN dizziness #30 tabs 01/03/21 05/11/24 Rx meloxicam 7.5 mg tablet 7.5 mg PO QAM PRN Pain 01/03/21 05/11/24 History amoxicillin 500 mg capsule 2,000 mg PO DIRECTED PRN ONE 01/31/22 05/11/24 History HOUR PRIOR TO DENTAL VISITS. atorvastatin 40 mg tablet 40 mg PO QAM 01/31/22 05/11/24 History acetaminophen 500 mg tablet 1,000 mg PO TID PRN Pain 12/25/23 05/11/24 History (Tylenol Extra Strength) alendronate 70 mg tablet 70 mg PO WK 12/25/23 05/11/24 History bismuth subsalicylate 262 mg/15 mL 524 mg PO Q4H PRN HEARTBURN/NAUSEA 12/25/23 05/11/24 History oral suspension (Pepto-Bismol) donepezil 10 mg tablet 10 mg PO QDD 12/25/23 05/11/24 History duloxetine 60 mg capsule,delayed 60 mg PO QAM 12/25/23 05/11/24 History release solifenacin 10 mg tablet 10 mg PO QAM 12/25/23 05/11/24 History buspirone 5 mg tablet 5 mg PO AMHS 05/11/24 05/11/24 History calcium carbonate (Calcium 600) 1,200 mg PO BID 05/11/24 05/11/24 History glipizide 2.5 mg tablet, extended 2.5 mg PO DAILYBB 05/11/24 05/11/24 History release 24 hr losartan 25 mg tablet 12.5 mg PO QAM 05/11/24 05/11/24 History nitrofurantoin 100 mg PO BID 05/11/24 05/11/24 History monohydrate/macrocrystals 100 mg capsule Past Med/Surg History Problem List (Updated 05/12/24 @ 00:19 by Oliverio Martinez MD) Vomiting (Acute) Acute UTI (Acute) Weakness (Acute) Sepsis (Acute) COVID-19 (Acute) Vomiting (Acute) Generalized weakness (Acute) Acute UTI (urinary tract infection) (Acute) Falls frequently (Acute) Posterior tibial tendon dysfunction, left Chest pain (Acute) Costochondritis (Acute) Rib pain (Acute) Right knee pain Right knee DJD Encounter for pre-operative examination 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 Lumbar stenosis (Acute) Medical History Obesity Bronchitis hx (no recent issues) Prediabetes PCP monitoring, labs drawn for PCP on 12/26 show A1C 6.5%-decision to monitor/diet control History of left breast cancer dx 1999; sx + radiation Heartburn symptom diet controlled Arthritis Anxiety Hypertension Hyperlipidemia Surgical History History of cataract surgery RT History of tooth extraction reason for current abx Nausea and vomiting after administration of anesthetic agent History of colonoscopy History of hysterectomy History of arthroscopy of right knee History of lumpectomy of left breast WITH LYMPH NODES - PT DENIES LIMB RESTRICTION-1999 Family History Father Family history of diabetes mellitus Mother Family history of diabetes mellitus Other No family history of adverse response to anesthesia Patient's father is Patient's mother is Social History Smoking Status: Never smoker Second Hand Exposure: No; Do You Dip or Chew Tobacco: No; Tobacco Cessation Education Requested by Patient: No Hx Alcohol Use: Yes Alcohol type: wine Hx Substance Use: No Preferred Language: Mongolian Communication Ability: Effective 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: No Beliefs That Will Affect Care: None marital status: Current Living Situation: Significant Other Current Living Situation Comment: [employer] Other Information That Helps Us Care for You: No Feels Safe at Home: Yes Safety Concerns: Feels Safe At This Time Assistive Devices: Slide Board, Walker and Wheelchair Review of Systems Review of Systems: As per HPI, all other systems reviewed and negative Physical Exam Physical Exam: GENERAL: Oriented to place, pleasant, obese, no respiratory distress SKIN: Normal color, warm HEENT: Storla palpebral conjunctivae, no ptosis, dry buccal mucosa NECK : Supple, no tenderness CHEST : CTA, no tenderness HEART : Tachycardic, no obvious murmurs ABDOMEN: Some distention, minimal hypogastric tenderness EXTREMITIES : No LE swelling/tenderness, no other conspicuous deformities noted NEUROLOGIC : Oriented to place, no facial asymmetry, gait and stance not assessed Results & Data Results & Data Vital Signs (Past 12 Hours) Vital Signs Temp Pulse Pulse Resp BP BP Pulse Ox 05/11/24 21:52 103 H 20 151/107 H 93 05/11/24 20:31 93 05/11/24 20:03 38.0 C H 110 H 22 146/99 H 94 O2 Del Method 05/11/24 21:52 Room Air 05/11/24 20:31 Room Air 05/11/24 20:03 Room Air Laboratory Results Laboratory Results WBC 15.02 K/ul (4.8-10.8) H 05/11/24 20:25 RBC 4.82 M/uL (4.20-5.40) 05/11/24 20: Hgb 14.6 g/dl (12.0-16.0) 05/11/24 20: Hct 44.5 % (37.0-47.0) 05/11/24 20: MCV 92.3 fL (80.0-100.0) 05/11/24 20: MCH 30.3 pg (25.0-34.0) 05/11/24 20: MCHC 32.8 g/dL (32.0-36.0) 05/11/24 20: RDW Std Deviation 43.4 fL (36.4-46.3) 05/11/24 20: RDW Coeff of Andrea 12.9 % (11.5-14.5) 05/11/24 20: Plt Count 271 K/uL (130-400) 05/11/24 20: MPV 9.9 fL (9.4-12.4) 05/11/24 20:25 Immature Gran % (Auto) 0.3 % 05/11/24 20: Neut % (Auto) 84.0 % 05/11/24 20:25 Lymph % (Auto) 7.3 % 05/11/24 20: [place] % (Auto) 6.9 % 05/11/24 20:25 Eos % (Auto) 1.3 % 05/11/24 20:25 Baso % (Auto) 0.2 % 05/11/24 20:25 Neut # (Auto) 12.61 K/uL (1.40-6.50) H 05/11/24 20:25 Lymph # (Auto) 1.10 K/uL (1.20-3.40) L 05/11/24 20:25 [place] # (Auto) 1.03 K/uL (0.11-0.59) H 05/11/24 20:25 Eos # (Auto) 0.20 K/uL (0.00-0.50) 05/11/24 20:25 Baso # (Auto) 0.03 K/uL (0.00-0.20) 05/11/24 20:25 Immature Gran # (Auto) 0.05 K/uL (0.01-0.20) 05/11/24: PT 11.1 Seconds (9.0-12.0) 05/11/24: INR 1.0 (0.9-1.1) 05/11/24 20: APTT 29 Seconds (21-31) 05/11/24 20: PTT Ratio 1.1 05/11/24: Sodium 134 mmol/L (136-145) L 05/11/24 20: Potassium 4.2 mmol/L (3.5-5.1) 05/11/24 20: Chloride 100 mmol/L (98-107) 05/11/24 20: Carbon Dioxide 26 mmol/L (21-32) 05/11/24 20:25 Anion Gap 8 (3-11) 05/11/24 20: BUN 10 mg/dl (6-23) 05/11/24 20: Creatinine 0.79 mg/dl (0.6-1.2) 05/11/24: Est Cr Clr Drug Dosing 52.6 ml/min 05/11/24 20:25 Est GFR ( Amer) 83.1 ml/min 05/11/24 20:25 Est GFR (Non-Af Amer) 71.7 ml/min 05/11/24 20:25 BUN/Creatinine Ratio 12.7 (10-20) 05/11/24 20:25 Glucose 153 mg/dl (70-99(Fasting)) H 05/11/24 20:25 Lactate 1.5 mmol/L (0.4-2.0) 05/11/24 20: Calcium 9.9 mg/dl (8.6-10.3) 05/11/24 20: Magnesium 1.9 mg/dl (1.7-2.4) 05/11/24 20: Total Bilirubin 0.9 mg/dl (0.2-1.0) 05/11/24 20:25 AST 14 U/L (13-39) 05/11/24 20:25 ALT 16 U/L (7-52) 05/11/24 20: Alkaline Phosphatase 72 U/L (34-104) 05/11/24 20: Troponin I High Sens 4.0 pg/ml (0-14) 05/11/24 20: Total Protein 7.5 gm/dl (6.0-8.3) 05/11/24 20: Albumin 4.3 gm/dl (3.4-5.0) 05/11/24 20: Globulin 3.2 gm/dl (2.5-4.0) 05/11/24 20: Albumin/Globulin Ratio 1.3 (0.9-2) 05/11/24 20:25 Urine Color Yellow 05/11/24 21:35 Urine Appearance Cloudy (Clear) A 05/11/24 21:35 Urine pH 7.0 (4.5-7.5) 05/11/24 21:35 POC Urine pH 6 (4.5-7.5) 05/11/24 21:49 Ur Specific Colver 1.015 (1.000-1.030) 05/11/24 21:35 Urine Protein Negative (Negative) 05/11/24 21:35 POC Urine Protein Trace (Negative) H 05/11/24 21:49 Urine Glucose (UA) Negative (Negative) 05/11/24 21:35 POC Ur Glucose (UA) Normal (Normal) 05/11/24 21:49 Urine Ketones 2+ (Negative) H 05/11/24 21:35 POC Urine Ketones 3+ (Large) (Negative) H 05/11/24 21:49 Urine Blood Trace (Negative) H 05/11/24 21:35 POC Urine Blood 50 (Negative) H 05/11/24 21:49 Urine Nitrite Positive (Negative) A 05/11/24 21:35 POC Urine Nitrite Positive (Negative) A 05/11/24 21:49 Urine Bilirubin Negative (Negative) 05/11/24 21:35 POC Urine Bilirubin Negative (Negative) 05/11/24 21:49 Urine Urobilinogen Negative (Negative) 05/11/24 21:35 POC Urine Urobilinogen Normal (Normal) 05/11/24 21:49 Ur Leukocyte Esterase 3+ (Negative) H 05/11/24 21:35 POC U Leukocyte Esteras 2+ (Negative) H 05/11/24 21:49 Urine WBC (Auto) >50 /hpf (0-5) H 05/11/24 21:35 Urine RBC (Auto) 3-5 /hpf (0-2) H 05/11/24 21:35 U Hyaline Cast (Auto) 0-2 /lpf (0-2) 05/11/24 21:35 U Epithel Cells (Auto) 3-5 /hpf (0-2) H 05/11/24 21:35 Urine Bacteria (Auto) 4+ (None Seen) H 05/11/24 21:35 Impressions Abdomen/Pelvis CT 05/11/24 20:59 Exam(s): CT ABDOMEN + PELVIS Without Contrast EXAM: CT Abdomen and Pelvis Without Intravenous Contrast CLINICAL HISTORY: Reason for exam: uti, sepsis. TECHNIQUE: Axial computed tomography images of the abdomen and pelvis without intravenous contrast. CTDI is 24.89 mGy and DLP is 1114.91 mGy-cm. Automated exposure control was utilized for the study. A dose lowering technique was utilized adhering to the principles of ALARA. COMPARISON: 01/18/2024. FINDINGS: Lung bases: Mild bilateral lower lobe atelectasis with mild bilateral basilar interstitial prominence . Heart: Unremarkable. No cardiomegaly. No significant pericardial effusion. Normal cardiac size . ABDOMEN: Liver: Unremarkable. Gallbladder and bile ducts: Unremarkable. No calcified stones. No ductal dilation. Pancreas: Unremarkable. No ductal dilation. Spleen: Unremarkable. No splenomegaly. Adrenals: Unremarkable. No mass. Kidneys and ureters: There are 2 right-sided intrarenal stones, largest measuring 4.3 mm seen in the mid upper pole. Right upper renal pole simple cyst measuring 2.8 cm. Otherwise normal right kidney. Left upper renal pole simple cyst measuring 3.3 cm. Otherwise normal left kidney. Stomach and bowel: Moderate to abundant fecal debris within the colon. No obstruction. No mucosal thickening. PELVIS: Appendix: Normal appendix. Bladder: Unremarkable. No stones. Reproductive: Nonvisualized uterus suggestive of previous hysterectomy. ABDOMEN and PELVIS: Intraperitoneal space: Unremarkable. No free air. No significant fluid collection. Bones/joints: Diffuse osteopenia with mild spondylosis/degenerative disease of the spine. Minimal anterolisthesis of L4 and L5 with no pars defect. No acute fracture. No dislocation. Soft tissues: Tiny fat-containing umbilical hernia. Vasculature: Calcified atherosclerotic disease of aorta with no aneurysm or dissection. Lymph nodes: Unremarkable. No enlarged lymph nodes. IMPRESSION: 1. Nonobstructive right-sided intrarenal stones, largest measuring 4.3 mm. Bilateral simple renal cysts as described above with no further follow-up imaging recommended. Remainder of abdominal viscera are unremarkable. 2. No acute appendicitis or bowel obstruction. Electronically signed by: Teresa Gomez MD 05/11/24 22:19 PM Diagnostic Findings EKG as per my interpretation :Rate 110, sinus tachycardia, LAD, LAFB, incomplete RBBB, nonspecific T wave abnormalities (1) Sepsis Sepsis acute organ dysfunction status: unspecified Sepsis type: sepsis due to unspecified organism Qualified Code(s): A41.9 - Sepsis, unspecified organism
[2024-05-11] MEDS ORDERED: oxyCODONE HCL IR 5 MG TAB (IMMEDIATE RELEASE) PO PRN (23:06)
[2024-05-11] MEDS ORDERED: ACETAMINOPHEN 325 MG TAB PO PRN (23:06)
[2024-05-11] MEDS ORDERED: PHENAZOPYRIDINE HCL 100 MG TAB PO PRN (23:06)
[2024-05-11] MEDS ORDERED: CARBOHYDRATES FOR HYPOGLYCEMIA PO PRN (23:41)
[2024-05-11] MEDS ORDERED: GLUCAGON FOR INJ 1 MG VIAL SQ PRN (23:41)
[2024-05-11] MEDS ORDERED: GLUCOSE 40% GEL 15 GM TUBE PO PRN (23:41)
[2024-05-11] MEDS ORDERED: DEXTROSE 50% 50 ML SYRINGE IV PRN (23:41)
[2024-05-11] MEDS ORDERED: GLUCOSE 10 TAB/TUBE PO PRN (23:41)
--- NOTE | 2024-05-11 23:45 | XRay Report ---
SINGLE VIEW CHEST CLINICAL HISTORY: Sepsis. FINDINGS: An AP, portable, upright chest radiograph is compared to study dated 03/10/2024. The examina tion is degraded by portable technique and patient rotation. Surgical clips are noted in the left axi lla. The cardiomediastinal silhouette is unremarkable noting atherosclerotic calcification of the tho racic aorta. Chronic interstitial thickening is similar to previous. There is mild bibasilar scarring /atelectasis. The lungs and pleural spaces are otherwise clear. No pneumothorax is seen. The skeletal structures are osteopenic. The bony thorax is grossly intact. IMPRESSION: No active disease in the chest. ACT 112: Negative or not required by law. Electronically signed by: Gulshan Kidd M.D. 05/11/2024 11:44 PM
[2024-05-11] MEDS: ERTAPENEM SODIUM 10 ML IV STA (23:53)
[2024-05-11] MEDS: MAGNESIUM SULFATE / D5W 1 GM/100 ML BAG IV ONE (23:53)
[2024-05-11] MEDS: ACETAMINOPHEN 325 MG TAB PO STA (23:54)
[2024-05-12] MEDS: INSULIN ASPART PER UNIT CHARGE SC SCH (00:41)
[2024-05-12 04:23] LABS: Basophils # (auto) 0.03 K/uL (0.00-0.20); Basophils % (auto) 0.2 %; Eosinophils # (auto) 0.33 K/uL (0.00-0.50); Eosinophils % (auto) 2.4 %; Hematocrit (blood only) 39.7 % (37.0-47.0); Hemoglobin 13.1 g/dl (12.0-16.0); Immature Granulocytes # (auto) 0.06 K/uL (0.01-0.20); Immature Granulocytes % (auto) 0.4 %; Lymphocytes # (auto) 1.07 K/uL (1.20-3.40); Lymphocytes % (auto) 7.7 %; Mean Corpuscular Hemoglobin 30.2 pg (25.0-34.0); Mean Corpuscular Volume 91.5 fL (80.0-100.0); Mean Platelet Volume 9.9 fL (9.4-12.4); Monocytes # (auto) 1.14 K/uL (0.11-0.59); Monocytes % (auto) 8.2 %; Neutrophils # (auto) 11.35 K/uL (1.40-6.50); Neutrophils % (auto) 81.1 %; Platelet Count 223 K/uL (130-400); RDW Coefficient of Variation 12.8 % (11.5-14.5); RDW Standard Deviation 42.4 fL (36.4-46.3); Red Blood Count 4.34 M/uL (4.20-5.40); White Blood Count 13.98 K/ul (4.8-10.8)
[2024-05-12 04:36] LABS: BUN Creatinine Ratio 12.2 (10-20); Creatinine Clr Calc Pharmacy 56.2 ml/min; Est GFR (African American) 89.9 ml/min; Est GFR (Non-African American) 77.6 ml/min; Potassium 4.1 mmol/L (3.5-5.1)
--- OUTSIDE RECORDS SUMMARY | 2024-05-12 08:51 | External Medical Summary | Summary of Care ---
Author Name Unknown Organization [facility] Address [address] [facility] [place] [address] Phone [phone] Care Team Providers Care Hypoid Gear Generator Name Role Phone Mar Lovelace MD Primary Care Provider [phone] Encounter Details Date Type Department Care Team (Late st Contact Info) Description 04/27/2024 Telephone Urology Supriya Mccormack [address] [place] [address] [place] [id number] Dandy Bashir MD [address] [place] [address] [place] [id number] Allergies No known active allergiesdocumented as of this encounter (statuses as of 04/27/2024) Medications Medication Sig Dispensed Refills Start Date End Date Status TYLENOL 325 MG PO TABS Take 1,000 mg by mouth 3 times a day as needed for Pain, Mild. 06/09/2020 Active ASPIRIN 81 MG PO CHEWIndications:Dysl [...] hours as needed for Heartburn or Nausea. Active Meclizine HCl 25 MG Oral Tablet (Antivert) TAKE 1 TABLET BY MOUTH THREE TIMES DAILY NEEDED FOR DIZZINESS 01/03/2021 Active Amoxicillin 500 MG Oral Capsule (Amoxil) TAKE FOUR CAPSULES BY MOUTH ONE HOUR BEFORE APPOINTMENT 05/22/2021 Active Alendronate Sodium 70 MG Oral Tablet (Fosamax)Indications :Age-related osteoporosis without current pathological fracture Take 1 Tablet by mouth once a week. with 8 oz. water 30 minutes before first meal of the day. Remain upright for 30 min after taking tablet 5 Tablet 11 07/14/2023 Active Calcium 250 MG Oral Capsule Take 600 mg by mouth 2 times a day. Active Meloxicam 7.5 MG Oral TabletIndications:DD D (degenerative disc disease), lumbar Take 1 Tablet by mouth daily as needed for Pain, Moderate. With food for pain. 90 Tablet 1 09/24/2023 Active Donepezil HCl 10 MG Oral Tablet (Aricept) Take with supper daily 90 Tablet 3 11/29/2023 Active Atorvastatin Calcium 40 MG Oral Tablet (Lipitor)Indications :Dyslipidemia, goal LDL below 130 Take 1 Tablet by mouth in the morning. 90 Tablet 3 12/01/2023 Active Estrogens Conjugated 0.625 MG/GM Vaginal Cream (Premarin)Indication s:Recurrent UTI Apply 0.5 gm to urethral and vulva twice a week 30 g 5 01/26/2024 Active glipiZIDE ER 2.5 MG Oral Tablet Extended Release 24 Hour (glipiZIDE XL)Indications:Type 2 diabetes mellitus with hemoglobin A1c goal of less than 7.0% ([facility]) Take 1 Tablet by mouth in the morning. 30 minutes before a meal.. 90 Tablet 1 02/29/2024 Active Zoster Vac Recomb Adjuvanted 50 MCG/0.5ML Intramuscular Suspension Reconstituted (Shingrix)Indication s:Need for vaccination for zoster Inject 0.5 mL into a large muscle now 1 Each 02/29/2024 Active Additional Information Patient not taking.Reported on 03/22/2024 busPIRone HCl 5 MG Oral Tablet (Buspar)Indications: Mild vascular dementia with anxiety (HCC),Major neurocognitive disorder due to Alzheimer's disease, with behavioral disturbance (HCC),Generalized anxiety disorder,Current mild episode of major depressive disorder without prior episode (HCC) Take 1 Tablet by mouth in the morning and 1 Tablet before bedtime. 60 Tablet 3 03/22/2024 Active Losartan Potassium 25 MG Oral Tablet (Cozaar)Indications: Essential hypertension with goal blood pressure less than 140/90 Take 0.5 Tablets by mouth in the morning. 03/22/2024 Active DULoxetine HCl 60 MG Oral Capsule Delayed Release Particles (Cymbalta) Take 1 Capsule by mouth in the morning. Do not cut, crush or chew. With Breakfast. 90 Capsule 3 04/24/2024 Active Solifenacin Succinate 10 MG Oral Tablet (VESIcare) Take 1 Tablet by mouth in the morning. 30 Tablet 6 04/24/2024 Active Nitrofurantoin Monohyd Macro 100 MG Oral Capsule (Macrobid) Take 1 Capsule by mouth in the morning and 1 Capsule before bedtime. With food.. 30 Capsule 04/27/2024 Active documented as of this encounter (statuses as of 04/27/2024) Active Problems Problem Noted Date Diagnosed Date Imbalance 03/22/2024 Generalized weakness 03/22/2024 Recurrent UTI 01/26/2024 Major depressive disorder, recurrent episode, mo derate [...] as of this encounter (statuses as of 04/27/2024) Immunizations Name Administration Dates Next Due COVID-19 mRNA, LNP-s, No Pre serve, 2-Dose Series ([employer]) 03/24/2022,09/19/2021,02/03/2021,12/30 Covid-19, Mrna, Lnp-s, Pf, B ivalent, 30 Mcg, IM, 12 yrs and above (Pfizer) 04/30/2023,09/23/2022 Pneumococcal Conjugate Vacc, 13 Valent (Prevnar) 07/01/2016 Pneumococcal Polysaccharide PPV23 (Pneumovax) 01/19/2011 Seasonal Influenza, PF, 6 M & above, IM , (FluLaval or Fluzone) 09/24/2023,08/18/2022,10/09/2021,08/29,02/21/2019,09/06/2017 Seasonal Influenza, Quadriva lent Hd (Fluzone Hd) 09/24/2023,08/18/2022,10/09/2021 Seasonal Influenza, Quadriva lent, No Preserve, IM 08/26/2016,01/03/2016 Seasonal Influenza, Split, I IV3, No Preserve, Inj 10/04/2009 Seasonal Influenza, Split, I IV3, With Preserve, Inj 11/30/2014,10/24/2013,08/08/2012,10/30,12/13/2008 Seasonal Influenza, Trivalen t, Adjuvanted, 65+ yrs 08/29/2020,08/30/2019 TDAP (age 10 and older)(Boostrix) 08/21/2019, TDAP, Age 7 and older, IM (Adacel) 12/27/2008 Varicella Zoster Vaccine (Adult) 11/03/2012 Zoster Vaccine Recombinant (Shingrix) 02/29/2024 ,04/30/2023 documented as of this encounter Social History [...] Answer Date Recorded PHQ Adult Total Score 0 02/07/2024 Hunger Vital Sign Answer Date Recorded Within the past 12 months, y ou worried that your food would run out before you got the money to buy more. Never true 02/07/20 24 Within the past 12 months, t he food you bought just didn't last and you didn't have money to get more. Never true 02/07/2024 Sex and Gender Information Value Date Recorded Sex Assigned at Female 03/15/2019 12:23 PM EDT Gender Identity Female 03/15/2019 12:23 PM EDT Sexual Orientation Straight 03/15/2019 12 :23 PM EDT Job Start Date Occupation Industry Not on file Not on file Not on file documented as of this encounter Miscellaneous Notes * Telephone Encounter - Jacquie Rodriguez LPN - 04/27/2024 3:05 PM EDT lmtcb * Telephone Encounter - Dandy Bashir MD - 04/27/2024 3:01 PM EDT Patient's catheterized urine sample was positive for Klebsiella. Will treat with extended Macrobid,sensitive per culture. Follow-up as scheduled. Thanks, HM documented in this encounter Plan of Treatment Upcoming Encounters Date Type Department Care Team (Late st Contact Info) Description 06/19/2024 11:20 AM EDT Office Visit Neurology [facility] [address] [place] [id number] Anton Kumar MD [address] [place] [address] 08/18/2024 9:40 AM EDT Office Visit General Internal Medicine [facility] Joana Asbury [address] [place] [id number] Mar Lovelace MD [address] [place] [id number] 09/19/2024 3:30 PM EDT Procedure Only Urology, [facility] [address] [facility] [place] [id number] Dandy Bashir MD [address] [facility] [place] [address] [place] [id number] Scheduled Procedures Name Priority Associated Diagnoses Date/Ti me COLONOSCOPY FLEXIBLE PROXIMA L DIAGNOSTIC Recall Special screening for malignant neoplasms, colon Health Maintenance Due Date Last Done Comments COVID-19 Vaccine ( season) 2023 04/30/2023, 09/23/2022, 03/24/2022, Additional history exists Albumin/Creatinine Ratio 08/18/2023 08/18/2022, 12/23 Diabetic Eye Exam 05/10/2024 05/10/2023, , 05/04/2022, Additional history exists Diabetic Foot Exam 09/10/2024 09/10/2023 (D one elsewhere), 02/18/2023, 03/13/2022, Additional history exists HbA1c 09/22/2024 03/22/2024, 1101/2023, 06/15/2023, Additional history exists GFR 03/22/2025 03/22/2024, 12/23, 12/29/2023, Additional history exists DTaP,Tdap,and Td Vaccines (4 - Td or Tdap) 08/21/2029 08/21/2019, 04/13/2019, 12/27/2008 DXA Scan 06/28/2030 06/28/2023, 08/0 05/2023, 06/10/2016, Additional history exists Pneumococcal Vaccine: 65+ Years Completed 07/01/2016, 01/19/2011 Influenza Vaccine (FLU shot) Completed 01/2023, 09/24/2023, 08/18/2022, Additional history exists Zoster Vaccines Completed 02/29/2024, 060 07/2023, 11/03/2012 GARDASIL-HPV IMMUNIZATION SERIES Aged Out No longer eligible based on patient's age to complete this topic Hepatitis B Aged Out No longer eligi ble based on patient's age to complete this topic MENINGOCOCCAL (MENACTRA/MENVEO) Aged Out No longer eligible based on patient's age to complete this topic documented as of this encounter Medical Devices Not on filedocumented as of this encounter Additional Health Concerns Infection Onset Date Last Indicated Resolved Time ESBL 04/24/2024 04/24/2024 documented as of this encounter Advance Directives Documents on File Type Date Recorded 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
--- OUTSIDE RECORDS SUMMARY | 2024-05-12 08:51 | External Medical Summary | Summary of Care ---
Author Name Unknown Organization [facility] Address [address] [facility] [place] [address] Phone [phone] Care Team Providers Care Conference Organizer Name Role Phone Mar Lovelace MD Primary Care Provider [phone] Reason for Visit * Reason Onset Date Comments Test Results 04/27/2024 tcb 04/27, 04/28 Encounter Details Date Type Department Care Team (Late st Contact Info) Description 04/27/2024 Telephone Urology Supriya Mccormack [address] [place] [address] [place] [address] Dandy Bashir MD [address] [place] [address] [place] [id number] Test Results (tcb 04/27, 04/28) Allergies No known active allergiesdocumented as of this encounter (statuses as of 04/28/2024) Medications Medication Sig Dispensed Refills Start Date [...] hemoglobin A1c goal of less than 7.0% ([facility]) Take 1 Tablet by mouth [...] as of this encounter (statuses as of 04/28/2024) Active Problems Problem Noted Date Diagnosed Date [...] as of this encounter (statuses as of 04/28/2024) Immunizations Name Administration Dates Next Due COVID-19 [...] encounter Miscellaneous Notes * Telephone Encounter - Neida Henry LPN - 04/28/2024 10:34 AM EDT Spoke with pt, aware of abx, no further questions. * Telephone Encounter - Neida Henry LPN - 04/28/2024 9:02 AM EDT Lmtcb. * Telephone Encounter - Jacquie Rodriguez LPN [...] 06/19/2024 11:20 AM EDT Office Visit Neurology [facility] [address] [place] [address] Anton Kumar MD [address] [place] [address] 08/18/2024 9:40 AM EDT Office Visit General Internal Medicine [facility] [address] [place] [address] Mar Lovelace MD [address] [facility] [place] [address] 09/19/2024 3:30 PM EDT Procedure Only Urology, [facility] [address] [facility] [place] [address] Dandy Bashir MD [address] [place] [address] [place] [address] Scheduled Procedures Name Priority Associated Diagnoses [...] 08/21/2019, 04/13/2019, 12/27/2008 DXA Scan 06/28/2030 06/28/2023, 05/2023, 06/10/2016, Additional history exists Pneumococcal Vaccine: 65+ Years Completed 07/01/2016, 01/19/2011 Influenza Vaccine (FLU shot) Completed 01/2023, 09/24/2023, 08/18/2022, Additional history exists Zoster Vaccines Completed 02/29/2024, 07/2023, 11/03/2012 GARDASIL-HPV IMMUNIZATION SERIES Aged Out [...] Documents on File Type Date Recorded Patient Table Hand Expl anation POLST 02/02/2024 signed on 01/20 [place] ORDERS FOR LIFE-SUSTAINING TREATMENT Advance Directives and Living Will 07/29/2007 ADVANCE DIRECTIVE Healthcare Agents on File Name Relationship Healthcare Agent Relationshi p Communication Anton Simms Spouse Health Care Repr esentative (appointed verbally by patient or by statute hierarchy) Care Teams Conference Organizer Relationship Specialty Start Date End Date Mar Lovelace MD 200 [place] [address] PCP - General 12/13/08 documented as of this encounter
--- OUTSIDE RECORDS SUMMARY | 2024-05-12 08:51 | External Medical Summary | Summary of Care ---
Author Name Unknown Organization [facility] Address [address] [facility] [place] [address] Phone [phone] Care Team Providers Care Hand Picker Name Role Phone Mar Lovelace MD Primary Care Provider [phone] Reason for Visit * Reason Onset Date Comments Test Results 04/27/2024 tcb 04/27, 04/28 Encounter Details Date Type Department Care Team (Late st Contact Info) Description 04/27/2024 Telephone Urology Supriya Mccormack [address] [place] [address] [place] [address] Dandy Bashir MD [address] [place] [address] [place] [id number] Test Results (tcb 04/27, 04/28) Allergies No [...] hemoglobin A1c goal of less than 7.0% ([facility]) Take 1 Tablet by mouth in the [...] 06/19/2024 11:20 AM EDT Office Visit Neurology [place] [address] [place] [address] Anton Kumar MD [address] [place] [address] 08/18/2024 9:40 AM EDT Office Visit General Internal Medicine [facility] [address] [facility] [place] [address] Mar Lovelace MD [address] [facility] [place] [address] 09/19/2024 3:30 PM EDT Procedure Only Urology, [facility] [address] [place] [address] Dandy Bashir MD [address] [place] [address] [place] [id number] Scheduled Procedures Name Priority Associated Diagnoses Date/Ti [...] 03/13/2022, Additional history exists HbA1c 09/22/2024 03/22/2024, 01/2023, 06/15/2023, Additional history exists GFR 03/22/2025 03/22/2024, 12/23, 12/29/2023, Additional history exists DTaP,Tdap,and Td Vaccines (4 - Td or Tdap) 08/21/2029 08/21/2019, 04/13/2019, 12/27/2008 DXA Scan 06/28/2030 06/28/2023, 0805/2023, 06/10/2016, Additional history exists Pneumococcal Vaccine: 65+ [...] Documents on File Type Date Recorded 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
--- OUTSIDE RECORDS SUMMARY | 2024-05-12 08:51 | External Medical Summary | Summary of Care ---
Author Name Unknown Organization [facility] Address [address] [facility] [place] [address] Phone [phone] Care Team Providers Care Heating Unit Installer Name Role Phone Mar Lovelace MD Primary Care Provider [phone] Encounter Details Date Type Department Care Team (Late st Contact Info) Description 03/10/2024 Result Scan Unspecified Department <No scans attached> Allergies No known active allergiesdocumented as of this encounter (statuses as of 04/25/2024) Medications Medication Sig Dispensed Refills Start Date [...] hemoglobin A1c goal of less than 7.0% ([facility]) Take 1 Tablet by mouth in the morning. 30 minutes before a meal.. 90 Tablet 1 02/29/2024 Active Zoster Vac Recomb Adjuvanted 50 MCG/0.5ML Intramuscular Suspension Reconstituted (Shingrix)Indication s:Need for vaccination for zoster Inject 0.5 mL into a large muscle now 1 Each 02/29/2024 Active Additional Information Patient not taking.Reported on 03/22/2024 documented as of this encounter (statuses as of 04/25/2024) Active Problems Problem Noted Date Diagnosed Date [...] as of this encounter (statuses as of 04/25/2024) Immunizations Name Administration Dates Next Due COVID-19 mRNA, LNP-s, No Pre serve, 2-Dose Series (LemonCrate) 03/24/2022,09/19/2021,02/03/2021,12/30 Covid-19, Mrna, Lnp-s, Pf, B ivalent, 30 Mcg, IM, 12 yrs and above (LemonCrate) 04/30/2023,09/23/2022 Pneumococcal Conjugate Vacc, 13 Valent (Prevnar) [...] 06/19/2024 11:20 AM EDT Office [facility] [place] [address] [place] [address] Anton Kumar MD [address] [place] [address] 08/18/2024 9:40 AM EDT Office Visit General Internal Medicine [place] [facility] [place] [address] [place] [address] Mar Lovelace MD [address] [place] [address] 09/19/2024 3:30 PM EDT Procedure Only Urology, [facility] [address] [facility] [place] [address] Dandy Bashir MD [address] [facility] [place] [address] [place] [address] Scheduled Procedures Name Priority Associated Diagnoses [...] 08/21/2019, 04/13/2019, 12/27/2008 DXA Scan 06/28/2030 06/28/2023, 080 05/2023, 06/10/2016, Additional history exists Pneumococcal Vaccine: 65+ Years Completed 07/01/2016, 01/19/2011 Influenza Vaccine (FLU shot) Completed 01/2023, 09/24/2023, 08/18/2022, Additional history exists Zoster Vaccines Completed 02/29/2024, 0607/2023, 11/03/2012 GARDASIL-HPV IMMUNIZATION SERIES Aged Out No longer eligible based on patient's age to complete this topic Hepatitis B Aged Out No longer eligi ble based on patient's age to complete this topic MENINGOCOCCAL (MENACTRA/MENVEO) Aged Out No longer eligible based on patient's age to complete this topic documented as of this encounter Medical Devices Not on filedocumented as of this encounter Procedures Procedure Name Priority Date/Time Associated Diagnosis Comments OUTSIDE LAB RESULTS 03/10/2024 documented in this encounter Results * OUTSIDE LAB RESULTS (03/10/2024) 03/10/2024 No Physician Data Unknown LABORATORY documented in this encounter Advance Directives Documents on File Type Date Recorded Patient Service Clerk Expl anation POLST 02/02/2024 signed on 01/20 [place] ORDERS FOR LIFE-SUSTAINING TREATMENT Advance Directives and Living Will 07/29/2007 ADVANCE DIRECTIVE Healthcare Agents on File Name Relationship Healthcare Agent Relationshi p Communication Anton Simms Spouse Health Care Repr esentative (appointed verbally by patient or by statute hierarchy) Care Teams Heating Unit Installer Relationship Specialty Start Date End Date Mar Lovelace MD [address] [place] [address] PCP - General 12/13/08 documented as of this encounter
--- OUTSIDE RECORDS SUMMARY | 2024-05-12 08:52 | External Medical Summary ---
Author Name Unknown Address Unknown Organization K01:LABORATORY [facility] [address] [facility] [place] [address] Laboratory Report Ordering Provider Test Date Status GONZÁLEZ MEJIA 03/22/2024 11:10:07 Final Observation Date Value Abnormality Reference (Units ) Status Triglyceride 03/22/2024 11:10:07 143 <=174 ( mg/dL) Final Triglyceride Reference Range s (mg/dL):
<150 Acceptable
150-174 Borderline high
175-499 High
>=500 Very high Cholesterol 03/22/2024 11:10:07 167 <200 (mg /dL) Final Total Cholesterol Reference Ranges (mg/dL):
<200 Desirable
200-239 Borderline high
>=240 High HDL 03/22/2024 11:10:07 70 >49 (mg/dL ) Final HDL Cholesterol Reference Ra nges (mg/dL):
>=60 High (Desirable)
<50 Low (Undesirable) For Females
<40 Low (Undesirable) For Males NON-HDL CHOLESTEROL 03/22/2024 11:10:07 97 <=159 (mg/dL) Final Non-HDL Cholesterol Referenc e Range (mg/dL):
<100 Target level for high risk ASCVD patient
<130 Optimal for general population
130-159 Near optimal for general population
160-189 Borderline High
190-219 High
>=220 Very High LDL, (calculated) 03/22/2024 11:10:07 68 <= 129 (mg/dL) Final LDL Cholesterol Reference Ra nges (mg/dL):
<70 Target level for high risk ASCVD patient
<100 Optimal for general population
100-129 Near optimal for general population
130-159 Borderline high
160-189 High
>=190 Very high Performing Location LABORATORY [facility] - [address] [facility] [address]
--- OUTSIDE RECORDS SUMMARY | 2024-05-12 08:52 | External Medical Summary | Summary of Care ---
Author Name Unknown Organization [facility] Address [address] [facility] [place] [place] [address] Phone [phone] Care Team Providers Care Manager Enterprise Name Role Phone Mar Lovelace MD Primary Care Provider [phone] Reason for Visit * Reason Onset Date Comments Health Maintenance 03/21/2024 Encounter Details Date Type Department Care Team (Late st Contact Info) Description 03/21/2024 Telephone General Internal Medicine [facility] [address] [facility] [place] [address] Mar Lovelace MD 200 [place] [address] Health Maintenance Allergies No known active allergiesdocumented as of this encounter (statuses as of 03/21/2024) Medications Medication Sig Dispensed Refills Start Date [...] DAILY NEEDED FOR DIZZINESS 0 01/03/2021 Active Amoxicillin 500 MG Oral Capsule [...] mg by mouth 2 times a day. 0 Active Meloxicam 7.5 MG Oral TabletIndications:DD D (degenerative disc disease), lumbar Take 1 Tablet by mouth daily as needed for Pain, Moderate. With food for pain. 90 Tablet 1 09/24/2023 Active Additional Information Patient not taking.Reported on 02/29/2024 Donepezil HCl 10 MG Oral Tablet (Aricept) [...] hemoglobin A1c goal of less than 7.0% ([facility]) Take 1 Tablet by mouth in the morning. 30 minutes before a meal.. 90 Tablet 1 02/29/2024 Active Losartan Potassium 25 MG Oral Tablet (Cozaar) Take 1 Tablet by mouth in the morning. 90 Tablet 3 02/29/2024 Active DULoxetine HCl 60 MG Oral Capsule Delayed Release Particles (Cymbalta) Take 1 Capsule by mouth in the morning. Do not cut, crush or chew. With Breakfast. 0 02/29/2024 Active Zoster Vac Recomb Adjuvanted 50 MCG/0.5ML Intramuscular Suspension Reconstituted (Shingrix)Indication s:Need for vaccination for zoster Inject 0.5 mL into a large muscle now 1 Each 0 02/29/2024 Active documented as of this encounter (statuses as of 03/21/2024) Active Problems Problem Noted Date Diagnosed Date Recurrent UTI 01/26/2024 Major depressive disorder, recurrent [...] as of this encounter (statuses as of 03/21/2024) Immunizations Name Administration Dates Next Due COVID-19 mRNA, LNP-s, No Pre serve, 2-Dose Series (Celframe) 03/24/2022,09/19/2021,02/03/2021,12/30 Covid-19, Mrna, Lnp-s, Pf, B ivalent, [...] encounter Miscellaneous Notes * Telephone Encounter - Florence Ji TAMIE - 03/21/2024 1:48 PM EDT Care Gaps Comprehensive Care Outreach Last Office/Telemedicine Visit: 02/29/2024 (in office), 01/06/2021 (telemedicine) Next Office Visit: 03/22/2024 Hemoglobin AIC Results: Lab Results Component Value Date/Time HEMOGLOBIN A1C - [facility] 6.7 (H) 09/24/2023 11:42 AM HEMOGLOBIN A1C - [facility] 7.1 (H) 02/10/2023 09:52 AM HEMOGLOBIN A1C - [facility] 6.8 (H) 08/18/2022 10:49 AM HEMOGLOBIN A1C - [facility] 6.2 (H) 12/06/2020 09:18 AM HEMOGLOBIN A1C - [facility] 6.5 (H) 12/26/2019 08:59 AM HEMOGLOBIN A1C - [facility] 6.6 (H) 10/05/2019 08:39 AM HEMOGLOBIN A1C POCT - [facility] 6.7 (H) 06/15/2023 09:34 AM BP Readings from Last 1 Encounters: 02/29/24 112/62 Reviewed Health Maintenance below: Health Maintenance Topic Date Due COVID-19 Vaccine ( season) 2023 Albumin/Creatinine Ratio 08/18/2023 Diabetic Foot Exam 02/19/2024 HbA1c 03/24/2024 Diabetic Eye Exam 05/10/2024 Pcp tomorrow Care Gap Outreach Action Taken: Outreach not indicated documented in this encounter Plan of Treatment Upcoming Encounters Date Type Department Care Team (Late st Contact Info) Description 03/22/2024 10:00 AM EDT [facility] [place] [address] [place] [address] Mar Lovelace MD [address] [place] [address] 06/19/2024 11:20 AM EDT Office Visit Neurology [facility] [place] [address] [place] [address] Anton Kumar MD [address] [place] [address] Scheduled Procedures Name Priority Associated Diagnoses Date/Ti me COLONOSCOPY FLEXIBLE PROXIMA L DIAGNOSTIC Recall Special screening for malignant neoplasms, colon Health Maintenance Due Date Last Done Comments COVID-19 Vaccine ( season) 2023 04/30/2023, 09/23/2022, 03/24/2022, Additional history exists Albumin/Creatinine Ratio 08/18/2023 08/18/2022, 12/23 Diabetic Foot Exam 02/19/2024 02/18/2023, 0 03/13/2022, 12/09/2020, Additional history exists HbA1c 03/24/2024 09/24/2023, 07/03/2023, 02/10/2023, Additional history exists Diabetic Eye Exam 05/10/2024 05/10/2023, , 05/04/2022, Additional history exists GFR 01/05/2025 01/05/2024, 0 05/2024, 09/24/2023, Additional history exists DTaP,Tdap,and Td Vaccines (4 [...] Documents on File Type Date Recorded 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
--- OUTSIDE RECORDS SUMMARY | 2024-05-12 08:52 | External Medical Summary | Summary of Care ---
Author Name Unknown Organization [facility] Address [address] [facility] [place] [address] Phone [phone] Care Team Providers Care Rehab Director Occupational Therapist Name Role Phone Mar Lovelace MD Primary Care Provider [phone] Reason for Visit * Reason Comments Outpatient Testing Encounter Details Date Type Department Care Team (Late st Contact Info) Description 03/22/2024 11:10 AM EDT Laboratory Laboratory [facility] [place] [address] [place] [id number] [facility] Lab [facility] [address] [facility] [place], [place] [address] Dyslipidemia, goal LDL below 130; Type 2 diabetes mellitus with hemoglobin A1c goal of less than 7.0% ([facility] Allergies No known active allergiesdocumented as of this encounter (statuses as of 03/22/2024) Medications Medication Sig Dispensed Refills Start Date [...] hemoglobin A1c goal of less than 7.0% ([facility]) Take 1 Tablet by mouth in the morning. 30 minutes before a meal.. 90 Tablet 1 02/29/2024 Active DULoxetine HCl 60 MG Oral Capsule Delayed Release Particles (Cymbalta) Take 1 Capsule by mouth in the morning. Do not cut, crush or chew. With Breakfast. 0 02/29/2024 Active Zoster Vac Recomb Adjuvanted 50 MCG/0.5ML Intramuscular Suspension Reconstituted (Shingrix)Indication s:Need for vaccination for zoster Inject 0.5 mL into a large muscle now 1 Each 0 02/29/2024 Active Additional Information Patient not taking.Reported on 03/22/2024 busPIRone HCl 5 MG Oral Tablet (Buspar) Take 1 Tablet by mouth in the morning and 1 Tablet before bedtime. 60 Tablet 3 03/22/2024 Active Losartan Potassium 25 MG Oral Tablet (Cozaar) Take 0.5 Tablets by mouth in the morning. 0 03/22/2024 Active documented as of this encounter (statuses as of 03/22/2024) Active Problems Problem Noted Date Diagnosed Date [...] as of this encounter (statuses as of 03/22/2024) Immunizations Name Administration Dates Next Due COVID-19 mRNA, LNP-s, No Pre serve, 2-Dose Series (Cyrba) 03/24/2022,09/19/2021,02/03/2021,12/30 Covid-19, Mrna, Lnp-s, Pf, B ivalent, [...] 06/19/2024 11:20 AM EDT Office Visit Neurology [facility] [address] [facility] [place] [address] Anton Kumar MD 200 [facility] [place] [address] 08/18/2024 9:40 AM EDT Office Visit General Internal Medicine [facility] [address] [facility] [place] [address] Mar Lovelace MD 200 [facility] [place] [address] 09/26/2024 11:30 AM EST Office Visit Urology, [facility] [address] [facility] [place] [address] Dandy Bashir MD [address] [facility] [place] [address] [place] [address] Pending Results Name Type Priority Associated Diagnoses Date /Time COMPREHENSIVE METABOLIC PANEL Lab Routine Dyslipidemia, goal LDL below 130 03/22/2024 11:10 AM EDT HEMOGLOBIN A1C Lab Routine Type 2 diabetes mellitus with hemoglobin A1c goal of less than 7.0% ([facility]) 03/22/2024 11:10 AM EDT LIPID PANEL WITH DIRECT LDL IF TG IS HIGH Lab Routine Dyslipidemia, goal LDL below 130 03/22/2024 11:10 AM EDT Scheduled Procedures Name Priority Associated Diagnoses Date/Ti me COLONOSCOPY FLEXIBLE PROXIMA L DIAGNOSTIC Recall Special screening for malignant neoplasms, colon Health Maintenance Due Date Last Done Comments COVID-19 Vaccine ( season) 2023 04/30/2023, 09/23/2022, 03/24/2022, Additional history exists Albumin/Creatinine Ratio 08/18/2023 08/18/2022, 12/23 HbA1c 03/24/2024 09/24/2023, 05/23, 02/10/2023, Additional history exists Diabetic Eye Exam 05/10/2024 05/10/2023, , 05/04/2022, Additional history exists Diabetic Foot Exam 09/10/2024 09/10/2023 (D one elsewhere), 02/18/2023, 03/13/2022, Additional history exists GFR 01/05/2025 01/05/2024, 0 05/2024, 09/24/2023, Additional history exists DTaP,Tdap,and Td Vaccines (4 - Td or Tdap) 08/21/2029 08/21/2019, 04/13/2019, 12/27/2008 DXA Scan 06/28/2030 06/28/2023, 0 05/2023, 06/10/2016, Additional history exists Pneumococcal Vaccine: [...] as of this encounter Visit Diagnoses Diagnosis Dyslipidemia, goal LDL below 130 Other and unspecified hyperlipidemia Type 2 diabetes mellitus with hemoglobin A1c goal of less than 7.0% (HCC) documented in this encounter Advance Directives Documents on File Type Date Recorded 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
--- OUTSIDE RECORDS SUMMARY | 2024-05-12 08:52 | External Medical Summary | Summary of Care ---
Author Name Unknown Organization [facility] Address [address] [place] [address] Phone [phone] Care Team Providers Care Client Services Associate Name Role Phone Jackie Lovelace MD Primary Care Provider [phone] Reason for Visit * Reason Comments Follow Up Encounter Details Date Type Department Care Team (Late st Contact Info) Description 04/24/2024 3:15 PM EDT Office Visit Urology, [facility] [address] [facility] [place] [address] Dandy Bashir MD [address] [facility] [address] [place] [address] Mixed stress and urge urinary incontinence*; OAB (overactive bladder); Recurrent UTI Allergies No known active allergiesdocumented as of this encounter (statuses as of 04/24/2024) Medications Medication Sig Dispensed Refills Start Date [...] hemoglobin A1c goal of less than 7.0% ([facility]) Take 1 Tablet by mouth in the [...] the morning. 30 Tablet 6 04/24/2024 Active documented as of this encounter (statuses as of 04/24/2024) Active Problems Problem Noted Date Diagnosed Date [...] as of this encounter (statuses as of 04/24/2024) Immunizations Name Administration Dates Next Due COVID-19 mRNA, LNP-s, No Pre serve, 2-Dose Series ([employer]) 03/24/2022,09/19/2021,02/03/2021,12/30 Covid-19, Mrna, Lnp-s, Pf, B ivalent, [...] as of this encounter Progress Notes * Dandy Bashir MD - 04/24/2024 3:15 PM EDT [id number] PCP: [place] [place] [address] Ruby Simms is a 78 year old female, who presents for 1 year follow-up of her history of UTI and voiding difficulties. Negative culture in June 2023 is appreciated. Patient notes difficulties with persistent incontinence. Patient is here with and caregiver. Caregiver is applying premarin BIW. Patient is a relatively poor historian. She is unsure if VESIcare was helpful for her incontinence when she was taking previously. She feels this was stopped for her UTI when she was an inpatient. UTI: Admitted Dec 2023 with Klebsiella UTI, IV antibiotics. Urinary Incontinence: Patient is being seen for urinary incontinence. Problem has been present for years. Severity is moderate. Problem is about the same. Urinary incontinence is mixed incontinence. They are using 0-1 pads a day safety, changes clothes if leaks at least daily. She is using 8-10 pads a day. They have used Myrbetriq with minimal effect, questionable results with 50 mg dose. Solifenacin stopped during hospitalization. Established with pelvic floor PT early 2021 with improvement. Renal Cysts: Stable on US Feb 2021 compared to 2012. Renal US Jan 2024: IMPRESSION 1. Postvoid residual: 166 mL. 2. No appreciable nephrolithiasis. No hydronephrosis. 3. Stable bilateral renal cysts and left renal angiomyolipoma. Current Outpatient Medications Medication Sig Dispense Refill [...] taking: Reported on 12/20/2023) 1 Inhaler 1 Bismuth Subsalicylate 262 MG/15ML Oral Suspension Take 30 mL by mouth every 4 hours as needed for Heartburn or Nausea. (Patient not taking: Reported on 03/22/2024) Meclizine HCl 25 MG Oral Tablet (Antivert) TAKE 1 TABLET BY MOUTH THREE TIMES DAILY NEEDED FOR DIZZINESS Amoxicillin 500 MG Oral Capsule (Amoxil) TAKE FOUR CAPSULES BY MOUTH ONE HOUR BEFORE APPOINTMENT (Patient not taking: Reported on 02/29/2024) Alendronate Sodium 70 MG Oral Tablet (Fosamax) Take 1 Tablet by mouth once a week. with 8 oz. water30 minutes before first meal of the day. Remain upright for 30 min after taking tablet 5 Tablet 11 Calcium 250 MG Oral Capsule Take 600 mg by mouth 2 times a day. Meloxicam 7.5 MG Oral Tablet Take 1 Tablet by mouth daily as needed for Pain, Moderate. With food for pain. 90 Tablet 1 Donepezil HCl 10 MG Oral Tablet (Aricept) Take with supper daily 90 Tablet 3 Atorvastatin Calcium 40 MG Oral Tablet (Lipitor) Take 1 Tablet by mouth in the morning. 90 Tablet 3 Estrogens Conjugated 0.625 MG/GM Vaginal Cream (Premarin) Apply 0.5 gm to urethral and vulva twice a week 30 g 5 glipiZIDE ER 2.5 MG Oral Tablet Extended Release 24 Hour (glipiZIDE XL) Take 1 Tablet by mouth in the morning. 30 minutes before a meal.. 90 Tablet 1 DULoxetine HCl 60 MG Oral Capsule Delayed Release Particles (Cymbalta) Take 1 Capsule by mouth in the morning. Do not cut, crush or chew. With Breakfast. Zoster Vac Recomb Adjuvanted 50 MCG/0.5ML Intramuscular Suspension Reconstituted (Shingrix) Inject 0.5 mL into a large muscle now (Patient not taking: Reported on 03/22/2024) 1 Each 0 busPIRone HCl 5 MG Oral Tablet (Buspar) Take 1 Tablet by mouth in the morning and 1 Tablet before bedtime. 60 Tablet 3 Losartan Potassium 25 MG Oral Tablet (Cozaar) Take 0.5 Tablets by mouth in the morning. No current facility-administered medications for this visit. Review of patient's allergies indicates: No Known Allergies Social History: Social History Tobacco Use Smoking status: Never Smokeless tobacco: Never Substance Use Topics Alcohol use: Yes Comment: rare, every few months Vaping/E-Cigarette Use Vaping/E-Cigarette Use Never User Vaping/E-Cigarette Substances Vaping/E-Cigarette Devices Family History Problem Relation Name Age of Onset Diabetes Mother Heart Disorder Mother Diabetes Father Heart Disorder Father 66 from [place] Past Surgical History: Procedure Laterality Date OTHER lumpectomy - 11/22 BREAST LESION,OTHER,EXCISION Left 1999 Sterotatic (+) CATARACT SURGERY,COMPLEX , 08/2021 COLONOSCOPY, DIAGNOSTIC (RECTUM) 04/05/2015 normal, repeat 10 yrs/COLONOSCOPY FLEXIBLE PROXIMAL DIAGNOSTIC performed by Suzanne Barth DO at [facility] COLONOSCOPY, OUTSIDE PROCEDURE 2004 CYSTOSCOPY 12/31/2014 MASTECTOMY, PARTIAL Left 11/2000 positive with SLNB (-) STRESS ECHO (DOBUTAMINE) 2005 negative TOTAL HYSTERECTOMY 2000 total TOTAL KNEE REPLACEMENT EDU. Right 06/07/2020 Past Medical History: Diagnosis Date Breast cancer (HCC) 1999 left breast with SLNB and XRT HTN, goal below 140/90 Hyperlipidemia LDL goal < 130 INFORMATION 05/07/2015 ER pain Malignant neoplasm of female breast (HCC) 10/2000 left breast Osteoarthritis palpitation Patient Active Problem List Diagnosis Essential hypertension with goal blood pressure less than 140/90 Palpitations Dyslipidemia, goal LDL below 130 Generalized anxiety disorder History of breast cancer Pain in joint of right shoulder BMI 30.0-30.9,adult Type 2 diabetes mellitus with hemoglobin A1c goal of less than 7.0% (HCC) Current mild episode of major depressive disorder without prior episode (HCC) 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, without behavioral disturbance (HCC) Major depressive disorder, recurrent episode, moderate (HCC) Recurrent UTI Imbalance Generalized weakness Constitutional: (-) fever and (-) chills ENT: (-) stridor Cardiovascular: (-) chest pain Female : (+) see HPI Musculoskeletal: (+) joint pain and (+) muscle weakness Neurology: (+) loss of balance Psychiatry: (+) memory loss Physical Exam Nursing note reviewed. Constitutional: Appearance: She is not ill-appearing or toxic-appearing. Comments: In wheelchair HENT: Head: Normocephalic. Right Ear: External ear normal. Left Ear: External ear normal. Nose: Nose normal. Mouth/Throat: Mouth: Mucous membranes are moist. Eyes: Extraocular Movements: Extraocular movements intact. Cardiovascular: Pulses: Normal pulses. Pulmonary: Effort: Pulmonary effort is normal. No respiratory distress. Abdominal: Palpations: Abdomen is soft. Skin: Coloration: Skin is not pale. Neurological: Motor: Weakness present. Gait: Gait abnormal. Psychiatric: Behavior: Behavior normal. Thought Content: Thought content normal. Impression/Plan: 78 yo female with incontinence, history of UTI. Findings reviewed with patient. PRN UC&S provided. Moderate PVR is noted on US - will nonetheless try resumption of solifenacin 10 mg. Possible side effects are reviewed. Patient requests a catheterized culture today, will performed to check. Will see if the patient's difficulties or simply associated with her bacteriuria or present at baseline. Family tends to think it is the latter. Will arrange for a cystoscopy in the next few months to evaluate the bladder more directly. Ultrasound images are personally reviewed. If patient notes worsening urinary emptying she may need urethral dilation. She reports she was told that there was tightening of her urethra in the past. Will discuss further at the time of cystoscopy. Above content is personally reviewed. Patient vocalizes good understanding of the treatment plan. Dandy Bashir MD 12:38 PM 04/24/2024 documented in this encounter Nursing Notes * Jacquie Rodriguez LPN - 04/24/2024 3:17 PM EDT 1 yr ret Incontinence, OAB Premarin C/o- urinary frequency, incontinence, brief hs, urgency sensation when needs to void unable to hold. documented in this encounter Plan of Treatment Upcoming Encounters Date Type Department Care Team (Late st Contact Info) Description 06/19/2024 11:20 AM EDT Office Visit Neurology [facility] [place] [address] [facility], [place] [address] Anton Kumar MD [address] [facility] [place] [address] 08/18/2024 9:40 AM EDT Office Visit General Internal Medicine [facility] [place] [address] [facility] [place] [address] Jackie Lovelace MD [address] [facility] [address] [place], [place] [address] Scheduled Orders Name Type Priority Associated Diagnoses Orde r Schedule CULTURE, URINE, QUANTITATIVE Lab Routine Mixed stress and urge urinary incontinence OAB (overactive bladder) Recurrent UTI 6 Occurrences starting 04/24/2024 until 04/24/2025 Scheduled Procedures Name Priority Associated Diagnoses Date/Ti [...] as of this encounter Visit Diagnoses Diagnosis Mixed stress and urge urinary incontinence- Primary Mixed incontinence urge and stress (male)(female) OAB (overactive bladder) Hypertonicity of bladder Recurrent UTI Urinary tract infection, site not specified documented in this encounter Advance Directives Documents on File Type Date Recorded 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
--- OUTSIDE RECORDS SUMMARY | 2024-05-12 08:52 | External Medical Summary ---
Author Name Unknown Address Unknown Organization [id number]:[facility] [address] [place] [address] Laboratory Report Ordering Provider Test Date Status GONZÁLEZ MEJIA 03/22/2024 11:10:07 Final Observation Date Value Abnormality Reference (Units ) Status BUN 03/22/2024 11:10:07 9 6-20 (mg/dL) Final Creatinine 03/22/2024 11:10:07 0.7 0.5-1.0 (mg/dL) Final Glomerular filtration rate/1.73 sq M.predicted [Volume Rate/Area] in Serum, Plasma or Blood by Creatinine-based formula (CKD-EPI) 03/22/2024 11:10:07 83 >=60 (mL/min) Final eGFR is calculated based on the CKD-EPI 2020 equation Sodium 03/22/2024 11:10:07 140 135-146 (m mol/L) Final Potassium 03/22/2024 11:10:07 4.3 3.5-5.1 (m mol/L) Final Cl 03/22/2024 11:10:07 102 98-107 (mm ol/L) Final CO2 03/22/2024 11:10:07 28 22-32 (mmo l/L) Final Anion gap 03/22/2024 11:10:07 10 7-15 (mmol /L) Final Glucose 03/22/2024 11:10:07 121 Above high normal 70 -120 (mg/dL) Final Albumin 03/22/2024 11:10:07 4.0 3.8-5.0 (g /dL) Final AST (Aspartate aminotransferase) 03/22/2024 11:10:07 25 10-35 (U/L) Fin al Alk Phos 03/22/2024 11:10:07 75 35-130 (U/ L) Final Bilirubin, Total 03/22/2024 11:10:07 0.4 <=1 .2 (mg/dL) Final Calcium 03/22/2024 11:10:07 9.6 8.4-10.2 ( mg/dL) Final Protein 03/22/2024 11:10:07 6.4 6.0-8.3 (g /dL) Final ALT (Alanine aminotransferase) 03/22/2024 11:10:07 30 10-35 (U/L) Josh rossi Performing Location [facility] [place] [address]
--- OUTSIDE RECORDS SUMMARY | 2024-05-12 08:52 | External Medical Summary ---
Author Name Unknown Address Unknown Organization [id number]:[facility] – [place], [place] - [address] [place] [address] Laboratory Report Ordering Provider Test Date Status JACKIELEOBIJAN 03/22/2024 11:10:07 Final Observation Date Value Abnormality Reference (Units ) Status HbA1C 03/22/2024 11:10:07 7.0 Above high normal 4. 0-5.6 (%) Final The use of HbA1c to monitor glycemic status is based on normal hemoglobin and HbA composition. This test should not be used in patients with abnormal hemoglobin that affects the half life of the red blood cell or the in vivo glycation rates. Glucose, estimated average 03/22/2024 11:10:07 154 Above high normal <126 (mg/dL) Josh rossi Performing Location [facility] [place], [place] - [address] [place] [address]
--- OUTSIDE RECORDS SUMMARY | 2024-05-12 08:52 | External Medical Summary | Summary of Care ---
Author Name Unknown Organization [facility] Address [address] [facility] [place] [address] Phone [phone] Care Team Providers Care Stone Setter Metal Optical Frames Name Role Phone Mar Lovelace MD Primary Care Provider [phone] Reason for Visit * Reason Comments Emergency Department Follow-Up Pt went t o [facility] ER on 03/10 for UTI. Pt denied any new concerns Encounter Details Date Type Department Care Team (Latest Contact Info) Description 03/22/2024 10:00 AM EDT Office Visit General Internal Medicine [facility] [place] [address] [facility] [place] [address] Mar Lovelace MD [address] [facility] [place] [address] Recurrent UTI*; Pain in joint of right shoulder; Imbalance; Palpitations; Generalized weakness; Mild vascular dementia with anxiety (HCC); Major neurocognitive disorder due to Alzheimer's disease, with behavioral disturbance (HCC); Major depressive disorder, recurrent episode, moderate (HCC); Type 2 diabetes mellitus with hemoglobin A1c goal of less than 7.0% ([facility]); History of breast cancer; Generalized anxiety disorder; Essential hypertension with goal blood pressure less than 140/90; Dyslipidemia, goal LDL below 130; Current mild episode of major depressive disorder without prior episode (HCC); BMI 30.0-30.9,adult Allergies No known active allergiesdocumented as of this encounter (statuses as of 03/22/2024) Medications Medication Sig Dispensed Refills Start Date End Date Status TYLENOL 325 MG PO TABS Take 1,000 mg by mouth 3 times a day as needed for Pain, Mild. 0 0 Active ASPIRIN 81 MG PO CHEWIndications:Dys lipidemia, goal to be determined,HTN, goal below 140/90 Take 1 Tablet by mouth in the morning. 100 5 0 Active albuterol HFA (VENTOLIN HFA) 108 (90 BASE) MCG/ACT inhalerIndications: Acute bronchitis, antibiotics not indicated Inhale 2 Puffs by mouth 4 times a day. 1 Inhaler 1 9 Active Additional Information Patient not taking.Reported on 12/20/2023 Bismuth Subsalicylate 262 MG/15ML Oral Suspension Take 30 mL by mouth every 4 hours as needed for Heartburn or Nausea. 0 Active Meclizine HCl 25 MG Oral Tablet (Antivert) TAKE 1 TABLET BY MOUTH THREE TIMES DAILY NEEDED FOR DIZZINESS 0 1 Active Amoxicillin 500 MG Oral Capsule (Amoxil) TAKE FOUR CAPSULES BY MOUTH ONE HOUR BEFORE APPOINTMENT 0 1 Active Alendronate Sodium 70 MG Oral Tablet (Fosamax)Indication s:Age-related osteoporosis without current pathological fracture Take 1 Tablet by mouth once a week. with 8 oz. water 30 minutes before first meal of the day. Remain upright for 30 min after taking tablet 5 Tablet 11 3 Active Calcium 250 MG Oral Capsule Take 600 mg by mouth 2 times a day. 0 Active Meloxicam 7.5 MG Oral TabletIndications:D DD (degenerative disc disease), lumbar Take 1 Tablet by mouth daily as needed for Pain, Moderate. With food for pain. 90 Tablet 1 3 Active Donepezil HCl 10 MG Oral Tablet (Aricept) Take with supper daily 90 Tablet 3 4 Active Atorvastatin Calcium 40 MG Oral Tablet (Lipitor)Indication s:Dyslipidemia, goal LDL below 130 Take 1 Tablet by mouth in the morning. 90 Tablet 3 4 Active Estrogens Conjugated 0.625 MG/GM Vaginal Cream (Premarin)Indicatio ns:Recurrent UTI Apply 0.5 gm to urethral and vulva twice a week 30 g 5 4 Active glipiZIDE ER 2.5 MG Oral Tablet Extended Release 24 Hour (glipiZIDE XL)Indications:Type 2 diabetes mellitus with hemoglobin A1c goal of less than 7.0% (HCC) Take 1 Tablet by mouth in the morning. 30 minutes before a meal.. 90 Tablet 1 4 Active DULoxetine HCl 60 MG Oral Capsule Delayed Release Particles (Cymbalta) Take 1 Capsule by mouth in the morning. Do not cut, crush or chew. With Breakfast. 0 4 Active Zoster Vac Recomb Adjuvanted 50 MCG/0.5ML Intramuscular Suspension Reconstituted (Shingrix)Indicatio ns:Need for vaccination for zoster Inject 0.5 mL into a large muscle now 1 Each 0 4 Active Additional Information Patient not taking.Reported on 03/22/2024 busPIRone HCl 5 MG Oral Tablet (Buspar)Indications :Mild vascular dementia with anxiety (HCC),Major neurocognitive disorder due to Alzheimer's disease, with behavioral disturbance (HCC),Generalized anxiety disorder,Current mild episode of major depressive disorder without prior episode (HCC) Take 1 Tablet by mouth in the morning and 1 Tablet before bedtime. 60 Tablet 3 4 Active Losartan Potassium 25 MG Oral Tablet (Cozaar)Indications :Essential hypertension with goal blood pressure less than 140/90 Take 0.5 Tablets by mouth in the morning. 0 4 Active Losartan Potassium 25 MG Oral Tablet (Cozaar) Take 1 Tablet by mouth in the morning. 90 Tablet 3 4 03/22/20 24 Discontinued documented as of this encounter (statuses as [...] Date Smoking Tobacco: Never Smokeless Tobacco: Never Tobacco Cessation:Counseling Given: Not Answered Alcohol Use Standard Drinks/Week Comments Yes 0 [...] Sign Reading Time Taken Comments Blood Pressure 118/76 03/22/2024 10:10 AM EDT Pulse 76 03/22/2024 10:10 AM EDT Temperature 36.4 C (97.5 F) 03/22/2024 10:10 AM E DT Respiratory Rate - - Oxygen Saturation 92% 03/22/2024 10:10 AM EDT Inhaled Oxygen Concentration - - Weight 67.7 kg (149 lb 4.8 oz) 03/22/2024 10:10 AM EDT Height 152.4 cm (5') 03/22/2024 10:10 AM EDT Body Mass Index 29.16 03/22/2024 10:10 AM EDT documented in this encounter Progress Notes * Mar Lovelace MD - 03/22/2024 10:18 AM EDT SUBJECTIVE: Ruby Simms is a 78 year old female. Chief Complaint Patient presents with Emergency Department Follow-Up Pt went to [facility] ER on 03/10 for UTI. Pt denied any new concerns HPI: 78 YOF with HTN, Hyperlipidemia, borderline sugar, left breast ca in 00 s/p lumpectomy, chemo presents here for ER follow up. Pt went to ER 10 days ago with weakness generalized and some confusion and found to have UTI and treated with cefdinir. Since discharge feeling better . Hospital records reviewed and updated. New issue now -her urine showing Klebsiella pneumoniae and susceptible to cefdinir that shows given -she continues to have imbalance and gait instability. Had physical therapy at home but does not like how he is pushing her or demanding her to walk. We had a long conversation of how it is importantfor her to work with PT and try to walk on her own with walker to continue to be living at home. She is right now wheelchair-bound, does not go anywhere and is very frustrated of her situation now. At time she seems to be very mean and mad at her as he has been asking her to be more active and going out with him to pentecostalism etc. It seems like she does have a lady that comes in help with chores and lunch. We discussed that maybe she can also help her to walk 15-20 minutes few times a day with walker Patient Active Problem List Diagnosis Code Essential hypertension with goal blood pressure less than 140/90 I10 Palpitations R00.2 Dyslipidemia, goal LDL below 130 E78.5 Generalized anxiety disorder F41.1 History of breast cancer Z85.3 Pain in joint of right shoulder M25.511 BMI 30.0-30.9,adult Z68.30 Type 2 diabetes mellitus with hemoglobin A1c goal of less than 7.0% ([facility]) E11.9 Current mild episode of major depressive disorder without prior episode ([facility]) F32.0 Mild vascular dementia with anxiety ([facility]) F01.A4 Major neurocognitive disorder due to Alzheimer's disease, without behavioral disturbance ([facility]) G30.9, F02.80 Major depressive disorder, recurrent episode, moderate ([facility]) F33.1 Recurrent UTI N39.0 Current Outpatient Medications Medication Sig Dispense Refill TYLENOL 325 MG PO TABS Take 1,000 mg by mouth 3 times a day as needed for Pain, Mild. ASPIRIN 81 MG PO CHEW Take 1 Tablet by mouth in the morning. 100 5 Meclizine HCl 25 MG Oral Tablet (Antivert) TAKE 1 TABLET BY MOUTH THREE TIMES DAILY NEEDED FOR DIZZINESS Alendronate Sodium 70 MG Oral Tablet (Fosamax) [...] minutes before a meal.. 90 Tablet 1 Losartan Potassium 25 MG Oral Tablet (Cozaar) Take 1 Tablet by mouth in the morning. 90 Tablet 3 DULoxetine HCl 60 MG Oral Capsule Delayed Release Particles (Cymbalta) Take 1 Capsule by mouth in the morning. Do not cut, crush or chew. With Breakfast. albuterol HFA (VENTOLIN HFA) 108 (90 BASE) MCG/ACT inhaler Inhale 2 Puffs by mouth 4 times a day. (Patient not taking: Reported on 12/20/2023) 1 Inhaler 1 Bismuth Subsalicylate 262 MG/15ML Oral Suspension Take 30 mL by mouth every 4 hours as needed for Heartburn or Nausea. (Patient not taking: Reported on 03/22/2024) Amoxicillin 500 MG Oral Capsule (Amoxil) TAKE FOUR CAPSULES BY MOUTH ONE HOUR BEFORE APPOINTMENT (Patient not taking: Reported on 02/29/2024) Zoster Vac Recomb Adjuvanted 50 MCG/0.5ML Intramuscular Suspension Reconstituted (Shingrix) Inject 0.5 mL into a large muscle now (Patient not taking: Reported on 03/22/2024) 1 Each 0 No current facility-administered medications for this visit. [...] of Health Food Insecurity: No Food Insecurity (02/07/2024) Hunger Vital Sign Worried About Running Out of Food in the Last Year: Never true Ran Out of Food in the Last Year: Never true Review of patient's allergies indicates: No Known Allergies Family History Problem Relation Age of Onset Diabetes Mother Heart Disorder Mother Diabetes Father Heart Disorder Father 66 from [place] Family Status Relation Status Mo at age 74 diabetes Fa at age 85 black lung Jaymie Alive MGMA at age 90 old age MGFA at age 90 old age PGMA unknown reason PGFA unknown reason REVIEW OF SYSTEMS: All 10 systems reviewed and negative except mentioned in HPI OBJECTIVE: BP 118/76 | Pulse 76 | Temp 36.4 C (97.5 F) (Tympanic) | Ht 1.524 m (5') | Wt 67.7 kg (149 lb 4.8 oz) | LMP 01/19/2001 | SpO2 92% | BMI 29.16 kg/m | BSA 1.69 m PHYSICAL EXAM: General: alert, healthy, and no distress , seems anxious and frustrated Head: Normocephalic, No masses, lesions, tenderness or abnormalities Oropharynx: no exudate, no erythema, lips, buccal mucosa, and tongue normal, and mucous membranes are moist Neck: supple, no adenopathy, no bruits, thyroid [...] refill, no joint deformities, effusion, or inflammation Neuro: Demented, 4+/5 bilateral legs, imbalance ASSESSMENT AND PLAN Recurrent UTI (Primary) Complete antibiotic as given I asked her has been to call here whenever she has symptoms so we can send her antibiotic without sample Continue with Premarin cream as she just started using it If discontinued then we will consider low dose prophylactic antibiotic Reschedule Urology appointment. I wonder if flomax might be helpful for her since she had high residual in renal ultrasound- defer to Dr. Bashir Pain in joint of right shoulder Imbalance Lack of exercise causing weakness of legs and arthritis Palpitations Generalized weakness Discuss about really working with PT and other aid to work on her balance and weakness of legs. I did want her-she might developed pressure ulcers if she only sits in the wheelchair or in a chair forlong time Mild vascular dementia with anxiety (HCC) - busPIRone HCl 5 MG Oral Tablet (Buspar); Take 1 Tablet by mouth in the morning and 1 Tablet before bedtime. New Continue duloxetine Major neurocognitive disorder due to Alzheimer's disease, with behavioral disturbance (HCC) - busPIRone HCl 5 MG Oral Tablet (Buspar); Take 1 Tablet by mouth in the morning and 1 Tablet before bedtime. Major depressive disorder, recurrent episode, moderate (HCC) Type 2 diabetes mellitus with hemoglobin A1c goal of less than 7.0% (HCC) Stable Continue current treatment as directed Due for lab today History of breast cancer Generalized anxiety disorder - busPIRone HCl 5 MG Oral Tablet (Buspar); Take 1 Tablet by mouth in the morning and 1 Tablet before bedtime. Essential hypertension with goal blood pressure less than 140/90 Decrease losartan to half a tablet which would be 12.5 mg daily BP is still low will stop it Dyslipidemia, goal LDL below 130 Await current treatment and plan until lab result comes back Current mild episode of major depressive disorder without prior episode (HCC) - busPIRone HCl 5 MG Oral Tablet (Buspar); Take 1 Tablet by mouth in the morning and 1 Tablet before bedtime. BMI 30.0-30.9,adult Follow Up: Return in about 3 months (around 06/22/2024) for recheck. | For: recheck | Check-out note:Please reschedule urology appointment More than 40 min ( 48 ) spent on reviewing records, previous notes , labs and face to face counselling on different aspect of disease and formulating plan Mar Lovelace MD 10:18 AM 03/22/2024 documented in this encounter Nursing Notes * Lidya Valles, MED ASSIST - 03/22/2024 10:12 AM EDT Chief Complaint Patient presents with Emergency Department Follow-Up Pt went to [facility] ER on 03/10 for UTI. Pt denied any new concerns documented in this encounter Plan of Treatment Upcoming Encounters Date Type Department Care Team (Late st Contact Info) Description 06/19/2024 11:20 AM EDT Office Visit Neurology [facility] [address] [facility] [place] [address] Anton Kumar MD [address] [facility] [place] [address] 08/18/2024 9:40 AM EDT Office Visit General Internal Medicine [facility] [address] [facility] [place] [address] Mar Lovelace MD [address] [facility] [place] [address] 09/26/2024 11:30 AM EST Office Visit Urology, [facility] [address] [facility] [place] [address] Dandy Bashir MD [address] [facility] [address] [place] [address] Scheduled Procedures Name Priority Associated [...] elsewhere), 02/18/2023, 03/13/2022, Additional history exists GFR 03/22/2025 03/22/2024, 12/23, [...] as of this encounter Visit Diagnoses Diagnosis Recurrent UTI- Primary Urinary tract infection, site not specified Pain in joint of right shoulder Pain in joint, shoulder region Imbalance Abnormality of gait Palpitations Generalized weakness Other malaise and fatigue 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, with behavioral disturbance (HCC) Major depressive disorder, recurrent episode, moderate (HCC) Major depressive disorder, recurrent episode, moderate Type 2 diabetes mellitus with hemoglobin A1c goal of less than 7.0% (HCC) History of breast cancer Personal history of malignant neoplasm of breast Generalized anxiety disorder Essential hypertension with goal blood pressure less than 140/90 Dyslipidemia, goal LDL below 130 Other and unspecified hyperlipidemia Current mild episode of major depressive disorder without prior episode (HCC) BMI 30.0-30.9,adult Body Mass Index 30.0-30.9, adult documented in this encounter Advance Directives Documents on File Type Date Recorded Patient Nurses Director Expl jammie PASCAL 02/02/2024 signed on 01/20 [place] ORDERS FOR LIFE-SUSTAINING TREATMENT Advance Directives and Living Will 07/29/2007 ADVANCE DIRECTIVE Healthcare Agents on File Name Relationship Healthcare Agent Relationshi p Communication Anton Simms Spouse Health Care Repr esentative (appointed verbally by patient or by statute hierarchy) Care Teams Stone [employer] Relationship Specialty Start Date End Date Mar Lovelace MD [address] [place] [address] PCP - General 12/13/08 documented as of this encounter"
--- OUTSIDE RECORDS SUMMARY | 2024-05-12 08:52 | External Medical Summary | Summary of Care ---
Author Name Unknown Organization [facility] Address [address] [facility] [address] Phone [phone] Care Team Providers Care Nicking Machine Operator Name Role Phone Jackie Lovelace MD Primary Care Provider [phone] Reason for Visit * Reason Comments Follow Up Encounter Details Date Type Department Care Team (Late st Contact Info) Description 04/24/2024 3:15 PM EDT Office Visit Urology, [facility] [address] [facility] [place] [address] Dandy Bashir MD 27 [facility] [address] [place] [address] Mixed stress and urge urinary incontinence*; [...] hemoglobin A1c goal of less than 7.0% ([facility]) Take 1 Tablet by mouth in the [...] mRNA, LNP-s, No Pre serve, 2-Dose Series ([facility]) 03/24/2022,09/19/2021,02/03/2021,12/30 Covid-19, Mrna, Lnp-s, Pf, B ivalent, [...] Bashir MD - 04/24/2024 3:15 PM EDT [id number] PCP: JACKIE [place] [address] Ruby Simms is a 78 [...] Diabetes Father Heart Disorder Father 66 from [place] Past Surgical History: Procedure Laterality Date OTHER lumpectomy - 11/22 BREAST LESION,OTHER,EXCISION Left 1999 Sterotatic (+) CATARACT SURGERY,COMPLEX , 08/2021 COLONOSCOPY, DIAGNOSTIC (RECTUM) 04/05/2015 normal, repeat 10 yrs/COLONOSCOPY FLEXIBLE PROXIMAL DIAGNOSTIC performed by Suzanne Barth DO at END[facility] COLONOSCOPY, OUTSIDE PROCEDURE 2004 CYSTOSCOPY 12/31/2014 MASTECTOMY, [...] 06/19/2024 11:20 AM EDT Office Visit Neu[facility] [address] Anton Kumar MD [address] [facility] [place] [address] 08/18/2024 9:40 AM EDT Office Visit General Internal Medicine [facility] [address] [facility] [place] [address] Jackie Lovelace MD 200 [facility] [place] [address] 09/19/2024 3:30 PM EDT Procedure Only Urology, [facility] [address] [facility] [place] [address] Dandy Bashir MD 27 [facility] [place] [address] [place] [address] Scheduled Orders Name Type Priority Associated Diagnoses [...] 03/13/2022, Additional history exists HbA1c 09/22/2024 03/22/2024, 110 01/2023, 06/15/2023, Additional history exists GFR 03/22/2025 [...] Documents on File Type Date Recorded Patient 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
--- OUTSIDE RECORDS SUMMARY | 2024-05-12 08:52 | External Medical Summary ---
Author Name Unknown Address Unknown Organization [id number][place] [place] [address] [facility] [address] Laboratory Report Ordering Provider Test Date Status LISA BRYANT 04/24/2024 16:16:50 Final Observation Date Value Abnormality Reference (Units ) Status Bacteria identified in Specimen by Culture 04/24/2024 16:16:50 [id number]^KLEBSIELL A PNEUMONIAE ESBL Abnormal Final >100,000 colonies/mL Klebsie lla pneumoniae ESBL producing organism, This patient may require isolation.
This gram negative bacilli displays in vitro resistance to multiple antibiotics. This patient may require isolation. Carbapenem use is preferred. Contact infectious disease service for further recommendations. Performing Location [facility] [place] [address] [facility] [address] [address] [facility] [address] Ordering Provider Test Date Status LISA BRYANT 04/24/2024 16:16:50 Final Observation Date Value Abnormality Reference (Units ) Status Ampicillin + Sulbactam 04/24/2024 16:16:50 8 Susceptible Final Cefazolin 04/24/2024 16:16:50 >=64 Resistant Final Cefepime susceptibility 04/24/2024 16:16:50 Susceptible Final This is an appended report. These results have been appended to a previously preliminary verified report. Ceftriaxone suceptibility 04/24/2024 16:16:50 >=64 Resi stant Final Ciprofloxacin 04/24/2024 16:16:50 <=0.25 Susceptible Final Due to serious side effects, the FDA has advised against using Ciprofloxacin to treat uncomplicated UTIs and respiratory tract infections unless there are no alternative treatment options. Gentamicin susceptibility 04/24/2024 16:16:50 <=1 Susc eptible Final Levofloxacin susceptibility 04/24/2024 16:16:50 1 In termediate Final Due to serious side effects, the FDA has advised against using Levofloxacin to treat uncomplicated UTIs and respiratory tract infections unless there are no alternative treatment options. Meropenem [Susceptibility] 04/24/2024 16:16:50 <=0.25 Stacy ceptible Final Nitrofurantoin susceptibility 04/24/2024 16:16:50 <=16 Susceptible Final Piperacillin + Tazobactamsusceptibility 04/24/2024 16:16:50 <=4 Susceptible Final TMP-SMZ susceptibility 04/24/2024 16:16:50 <=20 Suscept ible Final Performing Location [facility] [place] [address] [facility] [address] [facility] [address] Ordering Provider Test Date Status LISA BRYANT 04/24/2024 16:16:50 Final Observation Date Value Abnormality Reference (Units ) Status Ertapenem [Susceptibility] 04/24/2024 16:16:50 28 Susceptible Susceptible >21 , Intermediate <=21 , Resistant <=18 Final Test: Culture, Urine, Quanti tative
Specimen Source: Urine, Clean Catch
Specimen Type: Urine
Specimen Date: 04/24/2024 1616
Result Date: 04/27/2024 1452
Result Status: Final result
Abnormal: Yes
Resulting Lab: [facility]
[address]
[facility] [address]

CULTURE

>100,000 colonies/mL Klebsiella pneumoniae ESBL producing organism, This patient
may require isolation. (Abnormal)

This gram negative bacilli displays in vitro resistance to multiple
antibiotics. This patient may require isolation. Carbapenem use is
preferred. Contact infectious disease service for further recommendations.

SUSCEPTIBILITY

Klebsiella pneumoniae ESBL producing
organism, This patient may require
isolation.
METHOD NAVARRO RAINEY

AMPICILLIN/SULBACTAM
CEFAZOLIN
CEFEPIME
CEFTRIAXONE
CIPROFLOXACIN
ERTAPENEM 28 Susceptible
GENTAMICIN
LEVOFLOXACIN
MEROPENEM
NITROFURANTOIN
PIPERACILLIN TAZOBACTAM
TRIMETH/SULFAMETHOXAZOLE

Klebsiella pneumoniae ESBL producing
organism, This patient may require
isolation.
METHOD MICROBROTH DILUTIONS

AMPICILLIN/SULBACTAM 8 Susceptible
CEFAZOLIN >=64 Resistant
CEFEPIME -- Susceptible - Dose Dependent
[1]
CEFTRIAXONE >=64 Resistant
CIPROFLOXACIN <=0.25 Susceptible [2]
ERTAPENEM
GENTAMICIN <=1 Susceptible
LEVOFLOXACIN 1 Intermediate [3]
MEROPENEM <=0.25 Susceptible
NITROFURANTOIN <=16 Susceptible
PIPERACILLIN TAZOBACTAM <=4 Susceptible
TRIMETH/SULFAMETHOXAZOLE <=20 Susceptible

[1] This is an appended report. These results have been appended to a
previously preliminary verified report.

[2] Due to serious side effects, the FDA has advised against using
Ciprofloxacin to treat uncomplicated UTIs and respiratory tract infections
unless there are no alternative treatment options.

[3] Due to serious side effects, the FDA has advised against using
Levofloxacin to treat uncomplicated UTIs and respiratory tract infections
unless there are no alternative treatment options.

null Performing Location [facility] [place] [address] [place] [address]
[2024-05-12] MEDS: ENOXAPARIN INJ 40 MG/0.4 ML SYR SQ SCH (10:58)
--- NOTE | 2024-05-12 10:59 | Electrocardiogram Report ---
Test Reason : Blood Pressure : / mmHG Vent. Rate : 109 BPM Atrial Rate : 109 BPM P-R Int : 154 ms QRS Dur : 082 ms QT Int : 348 ms P-R-T Axes : 047 -18 015 degrees QTc Int : 468 ms Sinus tachycardia Nonspecific ST and T wave abnormality Abnormal ECG When compared with ECG of 10-MAR-2024 14:33, No significant change was found Confirmed by Gareth Nunez ([id number]) on 05/12/2024 10:59:23 AM Referred By: REFERRED SELF Confirmed By:Gareth Nunez
--- NOTE | 2024-05-12 14:48 | Hospitalist Progress Note ---
Date of Service May 12, 2024 Assessment & Plan (1) Sepsis: (2) Acute UTI: Plan: Patient presented with generalized weakness, abdominal discomfort and poor symptoms. Also reported dysuria Urine culture from April 24 showed ESBL Klebsiella; treated with Macrobid Urinalysis urine suggestive of infection Leukocytosis present Continue on ertapenem. Will follow-up on final urine culture results and blood culture results Diet advance Chronic conditions; hypertension,- continue losartan hyperlipidemia, on statin Rx - continue DM2 on oral medications, well-controlled as of recent hemoglobin A1c of 7 last March 2024 left breast cancer status post surgery/radiation status post tamoxifen Rx, in remission Discussed with patient's at bedside Please note the above document was generated using voice recognition software. It may contain grammatical, syntax or spelling errors. Any formal questions or concerns about the content, text or information contained within the body of this dictation should be directly addressed to the provider for clarification Admission and Anticipated Discharge Date Admission Date: May 11, 2024 Subjective Patient seen and examined at bedside. She is comfortable lying in the bed; not in distress. She is sitting up on the bed eating lunch. She reports urinary urgency; denies fever or chills Tmax of 38 C Review of Systems Review of Systems: All systems reviewed & are unremarkable except as noted in Subjective Physical Exam Physical Exam: Constitutional: WD/WN, vitals as above, NAD, sitting up in bed, pleasant, conversing easily Respiratory: normal respiratory effort, lungs clear to auscultation, no wheeze, rales, rhonchi. Normal insp/exp effort, no accessory muscle use Cardiovascular: RRR, no murmur, no edema Vessels: no JVD or carotid bruit Chest: normal inspection of chest Abdomen: Soft, nontender. Skin: no rashes, warm and dry normal turgor Neurologic: PERRL, EOMI, accommodation nl, no face palsy, no dysarthria CN's II- XI intact bilaterally and moves all extremities Psychiatric: A+Ox3, euthymic affect Results & Data Results & Data Vital Signs (Past 12 Hours) Vital Signs Pulse Pulse Resp BP BP Pulse Ox O2 Del Method 05/12/24 13:30 85 22 96 Room Air 05/12/24 12:09 66 16 111/54 L 95 Room Air 05/12/24 11:00 78 25 H 106/71 94 Room Air 05/12/24 10:00 94 H 20 139/77 94 Room Air 05/12/24 09:00 90 20 112/66 91 Room Air 05/12/24 08:27 73 18 114/75 99 Room Air 05/12/24 08:00 88 16 98 Nasal Cannula 05/12/24 07:00 93 Nasal Cannula 05/12/24 06:52 81 05/12/24 06:30 75 19 109/77 99 Nasal Cannula 05/12/24 04:53 87 L Room Air 05/12/24 04:00 94 H 20 144/95 H 94 Room Air 05/12/24 02:45 95 H 18 130/75 93 Room Air O2 Flow Rate 05/12/24 13:30 05/12/24 12:09 05/12/24 11:00 05/12/24 10:00 05/12/24 09:00 05/12/24 08:27 05/12/24 08:00 2 05/12/24 07:00 2 05/12/24 06:52 05/12/24 06:30 2 05/12/24 04:53 05/12/24 04:00 05/12/24 02:45 (1) Sepsis Sepsis acute organ dysfunction status: unspecified Sepsis type: sepsis due to unspecified organism Qualified Code(s): A41.9 - Sepsis, unspecified organism
[2024-05-12] MEDS: ERTAPENEM SODIUM 1,000 MG in SYRINGE 0 ML IV SCH (23:42)
[2024-05-13 06:56] LABS: Basophils # (auto) 0.03 K/uL (0.00-0.20); Basophils % (auto) 0.5 %; Eosinophils # (auto) 0.61 K/uL (0.00-0.50); Eosinophils % (auto) 9.3 %; Hematocrit (blood only) 37.5 % (37.0-47.0); Immature Granulocytes # (auto) 0.01 K/uL (0.01-0.20); Immature Granulocytes % (auto) 0.2 %; Lymphocytes # (auto) 1.53 K/uL (1.20-3.40); Lymphocytes % (auto) 23.4 %; Mean Corpuscular Hemoglobin 30.1 pg (25.0-34.0); Mean Platelet Volume 10.1 fL (9.4-12.4); Monocytes # (auto) 0.85 K/uL (0.11-0.59); Neutrophils # (auto) 3.52 K/uL (1.40-6.50); Neutrophils % (auto) 53.6 %; Platelet Count 203 K/uL (130-400); RDW Coefficient of Variation 12.9 % (11.5-14.5); RDW Standard Deviation 44.3 fL (36.4-46.3); Red Blood Count 3.99 M/uL (4.20-5.40); White Blood Count 6.55 K/ul (4.8-10.8)
[2024-05-13 07:30] LABS: Calcium 8.5 mg/dl (8.6-10.3); Est GFR (African American) 85.7 ml/min; Potassium 4.1 mmol/L (3.5-5.1)
--- NOTE | 2024-05-13 14:30 | Hospitalist Progress Note ---
Date of Service May 13, 2024 Assessment & Plan (1) Sepsis: (2) Acute UTI: Plan: Patient presented with generalized weakness, abdominal discomfort and poor symptoms. Also reported dysuria Urine culture from April 24 showed ESBL Klebsiella; treated with Macrobid Urinalysis urine suggestive of infection Urine culture growing ESBL Klebsiella pneumoniae Leukocytosis present on admission, improved Continue on ertapenem D2. Follow up on blood culture Chronic conditions; hypertension,- continue losartan hyperlipidemia, on statin Rx - continue DM2 on oral medications, well-controlled as of recent hemoglobin A1c of 7 last March 2024 left breast cancer status post surgery/radiation status post tamoxifen Rx, in remission Discussed with patient's at bedside Full code DVT prophylaxis Lovenox Dispositioncontinues to be hospitalized for IV antibiotics for ESBL Klebsiella UTI Please note the above document was generated using voice recognition software. It may contain grammatical, syntax or spelling errors. Any formal questions or concerns about the content, text or information contained within the body of this dictation should be directly addressed to the provider for clarification Admission and Anticipated Discharge Date Admission Date: May 11, 2024 Subjective patient seen and examined at bedside. Comfortable; not in distress. Denies fever, chills, chest pain, shortness of breath, abdominal pain or urinary symptoms. No significant overnight events Review of Systems Review of Systems: All systems reviewed & are unremarkable except as noted in Subjective Physical Exam Physical Exam: Constitutional: WD/WN, vitals as above, NAD, sitting up in bed, pleasant, conversing easily Respiratory: normal respiratory effort, lungs clear to auscultation, no wheeze, rales, rhonchi. Normal insp/exp effort, no accessory muscle use Cardiovascular: RRR, no murmur, no edema Vessels: no JVD or carotid bruit Chest: normal inspection of chest Abdomen: Soft, nontender. Skin: no rashes, warm and dry normal turgor Neurologic: PERRL, EOMI, accommodation nl, no face palsy, no dysarthria CN's II- XI intact bilaterally and moves all extremities Psychiatric: A+Ox3, euthymic affect Results & Data Results & Data Vital Signs (Past 12 Hours) Vital Signs Temp Pulse Pulse Pulse Resp BP Pulse Ox 05/13/24 11:36 36.9 C 76 18 117/78 92 05/13/24 07:29 36.8 C 75 18 147/82 H 91 05/13/24 07:25 05/13/24 07:12 73 05/13/24 04:13 36.5 C 66 20 123/77 95 O2 Del Method 05/13/24 11:36 Room Air 05/13/24 07:29 Room Air 05/13/24 07:25 Room Air 05/13/24 07:12 05/13/24 04:13 Room Air (1) Sepsis Sepsis acute organ dysfunction status: unspecified Sepsis type: sepsis due to unspecified organism Qualified Code(s): A41.9 - Sepsis, unspecified organism
[2024-05-14] MEDS: PROMETHAZINE HCL 6.25 MG in SODIUM CHLORIDE 0.9% 50 ML IV PRN (06:40)
[2024-05-14 06:55] LABS: Basophils # (auto) 0.03 K/uL (0.00-0.20); Basophils % (auto) 0.4 %; Eosinophils # (auto) 0.55 K/uL (0.00-0.50); Eosinophils % (auto) 7.6 %; Hematocrit (blood only) 39.7 % (37.0-47.0); Hemoglobin 13.1 g/dl (12.0-16.0); Immature Granulocytes # (auto) 0.02 K/uL (0.01-0.20); Immature Granulocytes % (auto) 0.3 %; Lymphocytes # (auto) 1.65 K/uL (1.20-3.40); Lymphocytes % (auto) 22.8 %; Mean Corpuscular Hemoglobin 30.3 pg (25.0-34.0); Mean Corpuscular Volume 91.9 fL (80.0-100.0); Mean Platelet Volume 9.8 fL (9.4-12.4); Monocytes # (auto) 0.83 K/uL (0.11-0.59); Monocytes % (auto) 11.5 %; Neutrophils # (auto) 4.16 K/uL (1.40-6.50); Neutrophils % (auto) 57.4 %; Platelet Count 235 K/uL (130-400); RDW Coefficient of Variation 12.8 % (11.5-14.5); RDW Standard Deviation 43.3 fL (36.4-46.3); Red Blood Count 4.32 M/uL (4.20-5.40); White Blood Count 7.24 K/ul (4.8-10.8)
[2024-05-14 07:13] LABS: BUN Creatinine Ratio 13.2 (10-20); Calcium 8.9 mg/dl (8.6-10.3); Creatinine Clr Calc Pharmacy 54.7 ml/min; Est GFR (African American) 87.1 ml/min; Est GFR (Non-African American) 75.1 ml/min; Potassium 4.1 mmol/L (3.5-5.1)
--- NOTE | 2024-05-14 14:07 | Hospitalist Progress Note ---
Date of Service May 14, 2024 Assessment & Plan (1) Sepsis: (2) Acute UTI: Plan: Patient presented with generalized weakness, abdominal discomfort and poor symptoms. Also reported dysuria Urine culture from April 24 showed ESBL Klebsiella; treated with Macrobid Urinalysis urine suggestive of infection Urine culture growing ESBL Klebsiella pneumoniae Leukocytosis present on admission, improved Continue on ertapenem D3. Plan to treat for 5 days. Chronic conditions; hypertension,- continue losartan hyperlipidemia, on statin Rx - continue DM2 on oral medications, well-controlled as of recent hemoglobin A1c of 7 last March 2024 left breast cancer status post surgery/radiation status post tamoxifen Rx, in remission mood disorder- continue duloxetine and buspirone Discussed with patient's at bedside Full code DVT prophylaxis Lovenox Dispositioncontinues to be hospitalized for IV antibiotics for ESBL Klebsiella UTI. possible dc in next few days. Please note the above document was generated using voice recognition software. It may contain grammatical, syntax or spelling errors. Any formal questions or concerns about the content, text or information contained within the body of this dictation should be directly addressed to the provider for clarification Admission and Anticipated Discharge Date Admission Date: May 11, 2024 Subjective Patient seen and examined at bedside. Comfortable; not in distress. Denies fever, chills, chest pain, shortness of breath, abdominal pain or urinary symptoms. No significant overnight events Review of Systems Review of Systems: All systems reviewed & are unremarkable except as noted in Subjective Physical Exam Physical Exam: Constitutional: WD/WN, vitals as above, NAD, sitting up in bed, pleasant, conversing easily Respiratory: normal respiratory effort, lungs clear to auscultation, no wheeze, rales, rhonchi. Normal insp/exp effort, no accessory muscle use Cardiovascular: RRR, no murmur, no edema Vessels: no JVD or carotid bruit Chest: normal inspection of chest Abdomen: Soft, nontender. Skin: no rashes, warm and dry normal turgor Neurologic: PERRL, EOMI, accommodation nl, no face palsy, no dysarthria CN's II- XI intact bilaterally and moves all extremities Psychiatric: A+Ox3, euthymic affect Results & Data Results & Data Vital Signs (Past 12 Hours) Vital Signs Temp Pulse Pulse Resp BP Pulse Ox O2 Del Method 05/14/24 11:10 36.6 C 82 18 131/84 92 Room Air 05/14/24 08:40 Room Air 05/14/24 07:15 80 05/14/24 07:09 36.6 C 78 18 144/76 H 92 Room Air 05/14/24 03:55 36.8 C 80 18 126/76 95 Room Air (1) Sepsis Sepsis acute organ dysfunction status: unspecified Sepsis type: sepsis due to unspecified organism Qualified Code(s): A41.9 - Sepsis, unspecified organism
--- NOTE | 2024-05-15 08:21 | Hospitalist Progress Note ---
Date of Service May 15, 2024 Assessment & Plan (1) Sepsis: (2) Acute UTI: Plan: Urosepsis: Acute Patient presented with generalized weakness, abdominal discomfort and poor symptoms. Also reported dysuria. Urine culture from April 24 showed ESBL Klebsiella; treated with Macrobid. Urinalysis urine suggestive of infection. Urine culture growing ESBL Klebsiella pneumoniae. Leukocytosis present on admission, improved; last one 05/14 7.24 Continue on ertapenem D3. Plan to treat for 5 days. Will hold Vesicare for now HTN: Chronic Continue losartan Hyperlipidemia: Chronic Takes atorvastatin; continue DM 2: Chronic 04/14 A1c 7 Hold home agents Placed on sliding scale ACHS while here History of left breast CA status post surgery/radiation: status post tamoxifen Chronic In remission Depression: Chronic Takes duloxetine and BuSpar; continue Disposition: CODE STATUS: Full code DVT prophylaxis: Lovenox subcu Pending PT/OT evals would benefit from inpatient rehab due to being wheelchair- bound and no family caregiver at home Please note the above document was generated using voice recognition software. It may contain grammatical, syntax or spelling errors. Any formal questions or concerns about the content, text or information contained within the body of this dictation should be directly addressed to the provider for clarification I spent a total of 87 minutes coordinating, documenting, and providing care for this patient excluding time spent in the performance of separately billed services. All of the aforementioned completed while collaborating with the assigned attending physician for a full treatment plan. Please see their addendum for further details. Admission and Anticipated Discharge Date Admission Date: May 11, 2024 Supervising Physician Co-Signing Physician Notes Patient seen and examined independently. Discussed with above provider. Patient is doing much better. She denies any fever, chills, suprapubic pain, urinary urgency or frequency. She is on day 4 of antibiotics Plan to continue for 1 more day PT OT eval done; recommend rehab. Case management on board. I have reviewed the advanced practitioner's documentation, and I agree with, and take responsibility for the plan of care I spent a total of 20 minutes coordinating, documenting, and providing care for this patient excluding time spent in the performance of separately billed services. All of the aforementioned completed while collaborating with the assigned advanced practitioner for a full treatment plan Subjective Patient sitting in her hospital bed in no apparent distress Patient reports adequate appetite Discussed with patient starting PT/OT for possible rehab post discharge Discussed with Veena daughter over the phone, , with regards to complicating discharge plan due to patient being wheelchair-bound and inpatient Patient has [facility] at [facility] and [facility] in the past; preferences and [facility] if eligible. Dispo pending PT/OT evals Daughter in the process of relocating from [facility] to [place]; will be here for the rest of this week; has to return to [facility] for her home settlement Review of Systems Review of Systems: Neuro: (-) Falls, trauma, slurred speech HEENT: (-) SCHWARTZ, dizziness, dysphagia, visual or auditory changes CV: (-) CP, palpitations, swelling Resp: (-) SOB GI: (-) appetite changes, N/V/D, bowel changes : (-) urinary changes Skin: (-) rashes Psych: (-) anxiety, depression Physical Exam Physical Exam: Neuro: AAOx4, PERRLA, no aphagia, memory changes, CNII-XII grossly intact HEENT: head normocephalic, moist mucus membranes CV: S1/S2, (-) M/G/R, (-) edema, cap refill < 3 seconds Resp: Lungs CTA in all sullivan. On RA GI: Abdomen S/NT/ND, Ax4 bowel sounds, (-) CVA tenderness Musculoskeletal: 5/5 B/L UE strength, 5/5 B/L LE strength. No gait disturbance Skin: (-) rashes , (-) erythema. Psych: euthymic mood Results & Data Results & Data Vital Signs (Past 12 Hours) Vital Signs Temp Pulse Pulse Resp BP Pulse Ox O2 Del Method 05/15/24 07:14 74 05/15/24 07:12 36.7 C 76 14 133/84 92 Room Air 05/15/24 03:23 36.6 C 80 18 152/94 H 94 Room Air 05/14/24 22:45 36.6 C 85 18 144/89 H 93 Room Air 05/14/24 21:54 83 (1) Sepsis Sepsis acute organ dysfunction status: unspecified Sepsis type: sepsis due to unspecified organism Qualified Code(s): A41.9 - Sepsis, unspecified organism
[2024-05-15] MEDS: DULoxetine HCL 60 MG CAP PO SCH (09:48)
[2024-05-15] MEDS: busPIRone 5 MG TAB PO SCH (09:48)
[2024-05-15] MEDS: ASPIRIN 81 MG ECTAB PO SCH (09:48)
[2024-05-15] MEDS: LOSARTAN POTASSIUM 25 MG TAB PO SCH (09:48)
[2024-05-15] MEDS: ATORVASTATIN 40 MG TAB PO SCH (09:49)
[2024-05-15] MEDS: DONEPEZIL HCL 10 MG TAB PO SCH (16:17)
[2024-05-16 06:33] LABS: Hematocrit (blood only) 39.4 % (37.0-47.0); Mean Corpuscular Hemoglobin 30.1 pg (25.0-34.0); Mean Corpuscular Volume 91.2 fL (80.0-100.0); Mean Platelet Volume 9.7 fL (9.4-12.4); Platelet Count 270 K/uL (130-400); RDW Coefficient of Variation 12.3 % (11.5-14.5); RDW Standard Deviation 41.1 fL (36.4-46.3); Red Blood Count 4.32 M/uL (4.20-5.40); White Blood Count 7.21 K/ul (4.8-10.8)
[2024-05-16 06:47] LABS: BUN Creatinine Ratio 18.7 (10-20); Creatinine Clr Calc Pharmacy 55.4 ml/min; Est GFR (African American) 88.5 ml/min; Est GFR (Non-African American) 76.3 ml/min; Potassium 4.1 mmol/L (3.5-5.1)
--- NOTE | 2024-05-16 07:41 | Hospitalist Progress Note ---
Date of Service May 16, 2024 Assessment & Plan (1) Sepsis: (2) Acute UTI: Plan: Urosepsis: Acute Patient presented with generalized weakness, abdominal discomfort and poor symptoms. Also reported dysuria. Urine culture from April 24 showed ESBL Klebsiella; treated with Macrobid. Urinalysis urine suggestive of infection. Urine culture growing ESBL Klebsiella pneumoniae. Leukocytosis present on admission, improved; last one 05/14 7.24 Continue on ertapenem D3. Plan to treat for 5 days. Will hold Vesicare for now HTN: Chronic Continue losartan Hyperlipidemia: Chronic Takes atorvastatin; continue DM 2: Chronic 04/14 A1c 7 Hold home agents Placed on sliding scale ACHS while here History of left breast CA status post surgery/radiation: status post tamoxifen Chronic In remission Depression: Chronic Takes duloxetine and BuSpar; continue Disposition: CODE STATUS: Full code DVT prophylaxis: Lovenox subcu Pending PT/OT evleah would benefit from inpatient rehab due to being wheelchair- bound and no family caregiver at home Please note the above document was generated using voice recognition software. It may contain grammatical, syntax or spelling errors. Any formal questions or concerns about the content, text or information contained within the body of this dictation should be directly addressed to the provider for clarification I spent a total of 87 minutes coordinating, documenting, and providing care for this patient excluding time spent in the performance of separately billed services. All of the aforementioned completed while collaborating with the assigned attending physician for a full treatment plan. Please see their addendum for further details. Admission and Anticipated Discharge Date Admission Date: May 11, 2024 Subjective Patient sitting in her hospital bed in no apparent distress Patient reports adequate appetite Discussed with patient starting PT/OT for possible rehab post discharge Discussed with Veena, daughter over the phone, , with regards to complicating discharge plan due to patient being wheelchair-bound and inpatient Patient has been at [facility] and [facility] in the past; preferences and [facility] if eligible. Dispo pending PT/OT evals Daughter in the process of relocating from [facility] to [place]; will be here for the rest of this week; has to return to [facility] for her home settlement Review of Systems Review of Systems: Neuro: (-) Falls, trauma, slurred speech HEENT: (-) SCHWARTZ, dizziness, dysphagia, visual or auditory changes CV: (-) CP, palpitations, swelling Resp: (-) SOB GI: (-) appetite changes, N/V/D, bowel changes : (-) urinary changes Skin: (-) rashes Psych: (-) anxiety, depression Physical Exam Physical Exam: Neuro: AAOx4, PERRLA, no aphagia, memory changes, CNII-XII grossly intact HEENT: head normocephalic, moist mucus membranes CV: S1/S2, (-) M/G/R, (-) edema, cap refill < 3 seconds Resp: Lungs CTA in all sullivan. On RA GI: Abdomen S/NT/ND, Ax4 bowel sounds, (-) CVA tenderness Musculoskeletal: 5/5 B/L UE strength, 5/5 B/L LE strength. No gait disturbance Skin: (-) rashes , (-) erythema. Psych: euthymic mood Results & Data Results & Data Vital Signs (Past 12 Hours) Vital Signs Temp Pulse Pulse Resp BP Pulse Ox O2 Del Method 05/16/24 07:36 80 05/16/24 02:35 36.6 C 86 18 151/97 H 95 Room Air 05/16/24 01:49 84 05/15/24 23:19 36.5 C 83 16 124/75 95 Room Air 05/15/24 22:03 Room Air 05/15/24 19:51 36.4 C L 103 H 18 135/90 99 Room Air (1) Sepsis Sepsis acute organ dysfunction status: unspecified Sepsis type: sepsis due to unspecified organism Qualified Code(s): A41.9 - Sepsis, unspecified organism
--- NOTE | 2024-05-16 15:13 | Discharge Summary ---
Date of Service May 16, 2024 Admission HPI Per Admitting Provider History obtained from patient, family, and records. Patient is a fair historian. Medical history significant for hypertension, hyperlipidemia, DM2 on oral medications, left breast cancer status post surgery/radiation status post tamoxifen Rx, mixed incontinence, recurrent UTIs, history ESBL Klebsiella UTI, dementia, anxiety/mood disorder. Last confinement January 2024 Klebsiella UTI status post antibiotic Rx. Patient also noted to have COVID-19 illness during confinement. Patient seen at [facility] urologist office on follow-up visit 2 weeks ago. Persistent incontinence symptoms verbalized during visit. Outpatient UA later grew ESBL Klebsiella. Patient prescribed Macrodantin course. Admission Exam Per Admitting Provider GENERAL: Oriented to place, pleasant, obese, no respiratory distress SKIN: Normal color, warm HEENT: [place] palpebral conjunctivae, no ptosis, dry buccal mucosa NECK : Supple, no tenderness CHEST : CTA, no tenderness HEART : Tachycardic, no obvious murmurs ABDOMEN: Some distention, minimal hypogastric tenderness EXTREMITIES : No LE swelling/tenderness, no other conspicuous deformities noted NEUROLOGIC : Oriented to place, no facial asymmetry, gait and stance not assessed Principal Diagnosis UTI Discharge Exam Neuro: AAOx4, PERRLA, no aphagia, memory changes, CNII-XII grossly intact HEENT: head normocephalic, moist mucus membranes CV: S1/S2, (-) M/G/R, (-) edema, cap refill < 3 seconds Resp: Lungs CTA in all [place]. On RA GI: Abdomen S/NT/ND, Ax4 bowel sounds, (-) CVA tenderness Musculoskeletal: 5/5 B/L UE strength, 5/5 B/L LE strength. No gait disturbance Skin: (-) rashes , (-) erythema. Psych: euthymic mood Discharge Data Allergies Allergy/AdvReac Type Severity Reaction Status Date / Time walnut Allergy Severe mouth Unverified 01/18/24 11:59 blisters Consultations 05/11/24 22:25 ED Decision to Admit Stat Ordered Studies 05/11/24 20:59 CT stones [CT abd pelvis wo con] Stat Hospital Course (1) Acute UTI: (2) Weakness: Plan Patient was admitted on 05/11 with a urinary tract infection and your urine culture revealed ESBL Klebsiella and she underwent a five day antibiotic course of Ertapenem. She progressively had weakness and started to work with PT/OT and it is recommended that she continue inpatient acute rehabilitation. Initially she had leukocytosis WBC 15.02, has trended down nicely to 7.21. She has a PMH that includes: DM2, depression, HLD, overactive bladder, Diagnostic imaging performed on 05/11: Abdomen/Pelvis CT: Nonobstructive right-sided intrarenal stones, largest measuring 4.3 mm. Bilateral simple renal cysts as described above with no further follow-up imaging recommended. Remainder of abdominal viscera are unremarkable. Patient to hold Vesicare until she follows up with Urology. Thank you kindly in continuing her care after leaving the [facility]. Total Time Total Time Spent Total Time Spent (In Minutes): I spent a total of 56 minutes coordinating, documenting, and providing care for this patient excluding time spent in the performance of separately billed services. All of the aforementioned completed while collaborating with the assigned attending physician for a full treatment plan. Please see their addendum for further details. Discharge Plan Discharge Items Patient Disposition: Transfer Inpatient Rehab Fac Reason For Visit: SEPSIS Discharge Diagnosis: UTI Activity: Resume your previous activity Non-emergency contact: Primary Care Provider and Urologist Call non-emergency contact if: you have any medication questions Follow-up/Referrals: Mar Lovelace MD [Primary Care Provider] - Diet: Carb Consistent or DM2 and Heart Healthy Addtl Attending Provider Instructions: You were admitted and diagnosed with a urinary tract infection and initially met sepsis criteria during your admission. Your urine culture revealed ESBL Klebsiella and you failed outpatient antibiotic treatment. You completed a five day antibiotic course of Ertapenem. You experienced weakness due to your hospitalization and started to work with PT/OT. You will continue your inpatient stay at a acute care rehab facility. We wish you well in your recovery and thank you kindly for allowing us to care for you. Pending Studies at Discharge: No Stand-Alone Forms: My [facility] Skilled Items Patient informed of condition?: Yes DNR: No Discharge Level of Care: Acute rehab Communicable Disease: No Discharge Prognosis: Stable Lines: None Urinary Catheter: No Medications and DC Order Prescriptions: Continued (DME) Wheeled Walker Misc See Rx Instructions .ROUTE .MEDSUPPLY Qty: 1 0RF Rx Instructions: As directed (DME) Wheeled Walker Misc See Rx Instructions .ROUTE .MEDSUPPLY Qty: 1 0RF Rx Instructions: As directed (DME) Wheeled Walker [facility] [place] Rx Instructions .ROUTE .MEDSUPPLY Qty: 1 0RF Rx Instructions: As directed (DME) Wheeled Walker [facility] [place] Rx Instructions .ROUTE .MEDSUPPLY Qty: 1 0RF Rx Instructions: As directed aspirin [Adult Aspirin Regimen] 81 mg tablet,delayed release (DR/EC) 81 mg PO QAM Patient Comments: chewable meloxicam 7.5 mg tablet 7.5 mg PO QAM PRN (Reason: Pain) meclizine 25 mg tablet 25 mg PO TID PRN (Reason: dizziness) Qty: 30 0RF amoxicillin 500 mg capsule 2,000 mg PO DIRECTED PRN (Reason: ONE HOUR PRIOR TO DENTAL VISITS.) atorvastatin 40 mg tablet 40 mg PO QAM donepezil 10 mg tablet 10 mg PO QDD alendronate 70 mg tablet 70 mg PO WK Rx Instructions: MONDAYS acetaminophen [Tylenol Extra Strength] 500 mg Tablet 1,000 mg PO TID PRN (Reason: Pain) bismuth subsalicylate [Pepto-Bismol] 262 mg/15 mL Suspension 524 mg PO Q4H PRN (Reason: HEARTBURN/NAUSEA) duloxetine 60 mg capsule,delayed release(DR/EC) 60 mg PO QAM buspirone 5 mg tablet 5 mg PO AMHS losartan 25 mg tablet 12.5 mg PO QAM glipizide 2.5 mg tablet extended release 24hr 2.5 mg PO DAILYBB calcium carbonate [Calcium 600] 600 mg calcium (1,500 mg) Tablet 1,200 mg PO BID Held solifenacin 10 mg tablet 10 mg PO QAM Hold Instructions: Hold until further instructions from your Primary Care Physician Discontinued nitrofurantoin monohyd/m-cryst 100 mg capsule 100 mg PO BID Rx Instructions: take with food...ordered 04/28/24 take for 15 days Discharge Orders: Discharge Order (Routine); Ordered 05/16/24 Ordered By: Margie Shrestha Admission Data Admit Date/Time: 05/11/24 23:04 Attending Provider: Aarsh Ritter Admit Provider: Bud Garza Primary Care Provider: Mar Lovelace Other Providers: O[place]er,Bud N.; [facility] Supervising Physician Co-Signing Physician Notes Patient seen and examined independently. Discussed with above provider. Patient completed 5-day course of antibiotics She is comfortable alert oriented x 3. Vitals are stable Plan to discharge to [facility]. I have reviewed the advanced practitioner's documentation, and I agree with, and take responsibility for the plan of care I spent a total of 15 minutes coordinating, documenting, and providing care for this patient excluding time spent in the performance of separately billed services. All of the aforementioned completed while collaborating with the assigned advanced practitioner for a full treatment plan
== END 2024-05-16 18:39 | DRG 872 ==
LOC: ED 20:11 → EDINP 23:04 → 2W 23:40 → 2N 05-14 06:19

== ENCOUNTER 2024-08-08 13:03 | Inpatient (IN) ==
--- NOTE | 2024-08-08 13:27 | Emergency Department Note ---
History of Present Illness General Chief complaint: Vomiting Stated complaint: NAUSEA, VOMITING Time Seen by Provider: 08/08/24 13:17 History of Present Illness This is a 78-year-old female that presents to the emergency department via EMS with complaints of "UTI, vomiting". Patient notes that she is experiencing nausea and vomiting that began this morning and was recently diagnosed with a UTI. She notes dysuria. No abdominal pain. She does feel overall weak. She denies any fever. Per review of recent visit patient was treated with fosfomycin secondary to previous urine cultures. Per review of recent urinary culture, pansensitive E. coli noted. Home Medications Medication Instructions Recorded Confirmed Type aspirin 81 mg tablet,delayed 81 mg PO QAM 01/01/20 08/08/24 History release (Adult Aspirin Regimen) Wheeled Walker #1 ea 01/30/20 05/11/24 Rx Wheeled Walker #1 ea 05/16/20 05/11/24 Rx Wheeled Walker #1 ea 05/29/20 05/11/24 Rx Wheeled Walker #1 ea 05/29/20 05/11/24 Rx meclizine 25 mg tablet 25 mg PO TID PRN dizziness #30 tabs 01/03/21 08/08/24 Rx meloxicam 7.5 mg tablet 7.5 mg PO QAM PRN Pain 01/03/21 08/08/24 History amoxicillin 500 mg capsule 2,000 mg PO DIRECTED PRN ONE 01/31/22 08/08/24 History HOUR PRIOR TO DENTAL VISITS. atorvastatin 40 mg tablet 40 mg PO QAM 01/31/22 08/08/24 History acetaminophen 500 mg tablet 1,000 mg PO TID PRN Pain 12/25/23 08/08/24 History (Tylenol Extra Strength) alendronate 70 mg tablet 70 mg PO WK 12/25/23 08/08/24 History bismuth subsalicylate 262 mg/15 mL 524 mg PO Q4H PRN HEARTBURN/NAUSEA 12/25/23 08/08/24 History oral suspension (Pepto-Bismol) donepezil 10 mg tablet (Aricept) 10 mg PO PM 12/25/23 08/08/24 History duloxetine 60 mg capsule,delayed 60 mg PO QAM 12/25/23 08/08/24 History release solifenacin 10 mg tablet 10 mg PO QAM 12/25/23 08/08/24 History buspirone 5 mg tablet 5 mg PO AMHS 05/11/24 08/08/24 History calcium carbonate (Calcium 600) 600 mg PO BID 05/11/24 08/08/24 History glipizide 2.5 mg tablet, extended 2.5 mg PO DAILYBB 05/11/24 08/08/24 History release 24 hr losartan 25 mg tablet 12.5 mg PO QAM 05/11/24 08/08/24 History Allergies Allergy/AdvReac Type Severity Reaction Status Date / Time walnut Allergy Severe mouth Unverified 01/18/24 11:59 blisters Past Med/Surg History Problem List (Updated 08/09/24 @ 09:04 by Dillan Emery PA-C) Urinary tract infection (Acute) Acute UTI (Acute) Weakness (Acute) Sepsis (Acute) COVID-19 (Acute) Vomiting (Acute) Generalized weakness (Acute) Acute UTI (urinary tract infection) (Acute) Falls frequently (Acute) Posterior tibial tendon dysfunction, left Chest pain (Acute) Costochondritis (Acute) Rib pain (Acute) Right knee pain Right knee DJD Encounter for pre-operative examination 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 Lumbar stenosis (Acute) Medical History Vomiting Obesity Bronchitis hx (no recent issues) Prediabetes PCP monitoring, labs drawn for PCP on 12/26 show A1C 6.5%-decision to monitor/diet control History of left breast cancer dx 1999; sx + radiation Heartburn symptom diet controlled Arthritis Anxiety Hypertension Hyperlipidemia Surgical History History of cataract surgery RT History of tooth extraction reason for current abx Nausea and vomiting after administration of anesthetic agent History of colonoscopy History of hysterectomy History of arthroscopy of right knee History of lumpectomy of left breast WITH LYMPH NODES - PT DENIES LIMB RESTRICTION-1999 Family History Father Family history of diabetes mellitus Mother Family history of diabetes mellitus Other No family history of adverse response to anesthesia Patient's father is Patient's mother is Social History Smoking Status: Never smoker Second Hand Exposure: No; Do You Dip or Chew Tobacco: No; Hx Alcohol Use: No Hx Substance Use: No Preferred Language: Frisian Communication Ability: Effective 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 Beliefs That Will Affect Care: None marital status: Current Living Situation: Spouse Current Living Situation Comment: Tereso Velazquez Other Information That Helps Us Care for You: No Feels Safe at Home: Yes Safety Concerns: Feels Safe At This Time Assistive Devices: Cane, Walker and Wheelchair Review of Systems A total of 10 systems reviewed and were otherwise negative Physical Exam Vital Signs Vital Signs - 24 hr 08/08/24 13:06 08/08/24 13:12 08/08/24 13:12 Temperature 37 C Temperature Source Oral Pulse Rate 100 H 102 H 101 H Pulse Rate [Right Finger] Pulse Rhythm Regular Pulse Rhythm [Right Finger] Pulse Strength [Right Finger] Respiratory Rate 20 18 Respiratory Effort / Characteristics Non-Labored Spontaneous Respiratory Depth Normal Respiratory Pattern Blood Pressure 141/97 H Blood Pressure [Left Arm] Blood Pressure Mean 111 Blood Pressure Mean [Left Arm] Blood Pressure Position [Left Arm] Pulse Oximetry 91 91 Oxygen Delivery Method Nasal Cannula Room Air Sepsis Recent Fever Within 48 Hours No Sepsis New/Unexplained Change in Mental Status No Sepsis Action Taken by Nursing No Action Required 08/08/24 13:42 08/08/24 15:11 08/08/24 16:11 Temperature 37.3 C Temperature Source Oral Pulse Rate 92 H Pulse Rate [Right Finger] 103 H 100 H Pulse Rhythm Pulse Rhythm [Right Finger] Regular Regular Pulse Strength [Right Finger] Normal Normal Respiratory Rate 27 H 25 H 29 H Respiratory Effort / Characteristics Non-Labored Non-Labored Respiratory Depth Normal Normal Respiratory Pattern Regular Regular Blood Pressure 146/83 H Blood Pressure [Left Arm] 134/90 132/82 Blood Pressure Mean 104 Blood Pressure Mean [Left Arm] 104 98 Blood Pressure Position [Left Arm] Lying Lying Pulse Oximetry 92 94 93 Oxygen Delivery Method Room Air Room Air Sepsis Recent Fever Within 48 Hours Sepsis New/Unexplained Change in Mental Status Sepsis Action Taken by Nursing VITAL SIGNS - Vital signs and nursing notes were reviewed. Stable and afebrile. GENERAL -78-year-old female appearing her stated age who is in no acute distress but tired in appearance. Communicates well with provider and answers questions appropriately. SKIN - Without rashes. No meningeal or petechial rash. HEAD - NC/AT. EYES - PERRL with EOMI bilaterally. Sclera anicteric. EARS - No deformities of external structures noted on gross examination bilaterally. NOSE - Midline and without cyanosis. No epistaxis or purulent drainage noted. MOUTH/OROPHARYNX - Without perioral cyanosis. NECK - Neck with FROM. No nuchal rigidity. LUNGS -clear to auscultation. CARDIAC -regular rate and rhythm. Normoactive all four quadrants. No tenderness, palpable masses, hepatosplenomegaly, or ascites noted. EXTREMITIES - No clubbing or peripheral cyanosis. +5/5 strength noted in UE/LE bilaterally. NEUROLOGIC - Cranial nerves II through XII grossly intact. PSYCH -alert, oriented and pleasant on examination. Course Administered Medications Aspirin (Aspirin 81 Mg Ectab) 81 mg PO QAM [facility] Stop: 09/08/24 08:59 Last Admin: 08/09/24 08:34 Dose: 81 mg Documented By: JACKSON Atorvastatin Calcium (Atorvastatin 40 Mg Tab) 40 mg PO QAM [facility] Stop: 09/08/24 08:59 Last Admin: 08/09/24 08:34 Dose: 40 mg Documented By: JACKSON Buspirone HCl (Buspirone 5 Mg Tab) 5 mg PO AMHS [facility] Stop: 09/07/24 20:59 Last Admin: 08/09/24 08:33 Dose: 5 mg Documented By: Admin: 08/08/24 22:46 Dose: 5 mg Documented By: MIKE Donepezil HCl (Donepezil Hcl 10 Mg Tab) 10 mg PO PM [facility]ON Stop: 09/07/24 20:59 Last Admin: 08/08/24 22:46 Dose: 10 mg Documented By: MIKE Duloxetine HCl (Duloxetine Hcl 60 Mg Cap) 60 mg PO QAM [facility] Stop: 09/08/24 08:59 Last Admin: 08/09/24 08:34 Dose: 60 mg Documented By: JACKSON Heparin Sodium (Porcine) (Heparin Sod 5,000 Unit/0.5 Ml Vial) 5,000 units SQ Q12 [facility] Stop: 09/07/24 20:59 Last Admin: 08/09/24 08:37 Dose: 5,000 units Documented By: Admin: 08/08/24 22:46 Dose: 5,000 units Documented By: MIKE Ertapenem 1,000 mg/ Syringe 10 mls @ 2 mls/min IV Q24H [facility]ADON Stop: 08/18/24 20:29 Last Admin: 08/08/24 20:40 Dose: 2 mls/min Documented By: SIM Sodium Chloride (Nss) 1,000 mls @ 60 mls/hr IV .[id number] [facility]ADON Stop: 08/09/24 09:54 Last Admin: 08/08/24 20:14 Dose: 60 mls/hr Documented By: SIM Lactobacillus Acidophilus (Advanced Probiotic 625 Mg Capsule) 1,250 mg PO DAILY [facility]ON Stop: 09/08/24 08:59 Last Admin: 08/09/24 08:34 Dose: 1,250 mg Documented By: JACKSON Losartan Potassium (Losartan Potassium 25 Mg Tab) 12.5 mg PO QAM [facility] Stop: 09/08/24 08:59 Last Admin: 08/09/24 08:34 Dose: 12.5 mg Documented By: JACKSON Oxybutynin Chloride (Oxybutynin Chloride Xl 5 Mg Tabcr) 10 mg PO QAM [facility] Stop: 09/08/24 08:59 Last Admin: 08/09/24 08:35 Dose: 10 mg Documented By: JACKSON Discontinued Medications Sodium Chloride (Nss) 500 mls @ 500 mls/hr IV .Q1H ONE Stop: 08/08/24 14:23 Last Infusion: 08/08/24 14:20 Dose: Infused Documented By: Admin: 08/08/24 13:35 Dose: 500 mls/hr Documented By: JARVIS Ceftriaxone Sodium (Rocephin) 2,000 mg in 50 mls @ 100 mls/hr IV NOW STA Stop: 08/08/24 13:55 Last Infusion: 08/08/24 14:20 Dose: Infused Documented By: Admin: 08/08/24 13:54 Dose: 100 mls/hr Documented By: REID Medical Decision Making Laboratory Data 08/09/24 07:41 08/09/24 07:41 Lab Results 08/08/24 08/08/24 Range/Units 13:06 13:42 WBC 14.08 H (4.8-10.8) K/ul RBC 4.80 (4.20-5.40) M/uL Hgb 14.5 (12.0-16.0) g/dl Hct 43.9 (37.0-47.0) % MCV 91.5 (80.0-100.0) fL MCH 30.2 (25.0-34.0) pg MCHC 33.0 (32.0-36.0) g/dL RDW Std Deviation 43.4 (36.4-46.3) fL RDW Coeff of Andrea 13.0 (11.5-14.5) % Plt Count 230 (130-400) K/uL MPV 10.0 (9.4-12.4) fL Immature Gran % (Auto) 0.4 % Neut % (Auto) 90.9 % Lymph % (Auto) 4.0 % [place] % (Auto) 4.5 % Eos % (Auto) 0.1 % Baso % (Auto) 0.1 % Neut # (Auto) 12.78 H (1.40-6.50) K/uL Lymph # (Auto) 0.56 L (1.20-3.40) K/uL [place] # (Auto) 0.64 H (0.11-0.59) K/uL Eos # (Auto) 0.02 (0.00-0.50) K/uL Baso # (Auto) 0.02 (0.00-0.20) K/uL Immature Gran # (Auto) 0.06 (0.01-0.20) K/uL Toxic Vacuolation 1+ Polychromasia 1+ Sodium 134 L (136-145) mmol/L Potassium 4.4 (3.5-5.1) mmol/L Chloride 99 (98-107) mmol/L Carbon Dioxide 27 (21-32) mmol/L Anion Gap 8 (3-11) BUN 12 (6-23) mg/dl Creatinine 0.87 (0.6-1.2) mg/dl Est Cr Clr Drug Dosing 54.1 ml/min Est GFR ( Amer) 74.0 ml/min Est GFR (Non-Af Amer) 63.8 ml/min BUN/Creatinine Ratio 13.8 (10-20) Glucose 159 H (70-99(Fasting)) mg/dl Lactate 1.7 (0.4-2.0) mmol/L Calcium 9.5 (8.6-10.3) mg/dl Total Bilirubin 0.7 (0.2-1.0) mg/dl AST 20 (13-39) U/L ALT 24 (7-52) U/L Alkaline Phosphatase 66 (34-104) U/L Total Protein 7.4 (6.0-8.3) gm/dl Albumin 4.2 (3.4-5.0) gm/dl Globulin 3.2 (2.5-4.0) gm/dl Albumin/Globulin Ratio 1.3 (0.9-2) Lipase 15 (11-82) U/L Procalcitonin 0.08 (0-0.5) ng/ml MDM Narrative Patient was seen and evaluated as above in room B09. Review was performed of triage nursing notes and vital signs. I did review pertinent previous visits and patient history. After obtaining a thorough history and physical examination the above work up was performed. Patient presents to us today for assessment of nausea, vomiting in the setting of recent UTI. Patient tired appearing on examination. Patient is not hypotensive. However, is noted to be tachycardic rate around 100. Pansensitive E. coli noted on recent urine culture however previous urine cultures did reveal some resistances. Based on recent culture however noting yost sensitivity will proceed with IV ceftriaxone which was ordered. Options of care were discussed with the patient. IV access with established. Labs were drawn. Mild leukocytosis 14,000. No anemia. No emergent metabolic disturbance. Procalcitonin 0.08. Although the nausea and vomiting certainly may be secondary to persistent UTI, I will proceed with CT scan of the abdomen/pelvis to further evaluate. This reveals bladder wall thickening with adjacent fat stranding consistent with a cystitis. This does correlate clinically. There is stable right sided nephrolithiasis. No ureteral stones. No hydronephrosis. My concern was perhaps she may have had an obstructing ureteral stone that was now infected but that is not the case. Appendix is normal. There is no bowel wall thickening or obstruction. Patient does require hospitalization at this time. We will proceed with IV fluids here as well to hydrate. Case discussed with the hospitalist service. Please refer to further documentation regarding her stay. GCS: 15 In the evaluation and treatment of this patient the following differential diagnoses were entertained: UTI, pyelonephritis, obstructing ureteral stone, bowel obstruction, perforation, among others Impression & Plan Acute UTI (urinary tract infection), Vomiting, Weakness Discharge Plan Visit Data Chief Complaint: Vomiting Stated Complaint: NAUSEA, VOMITING ED Provider: Malorie Mazariegos ED Midlevel Provider: Dillan Emery Discharge Problem: Acute UTI (urinary tract infection), Vomiting, Weakness Patient Disposition: Admitted As Inpatient Condition: Good Discharge Instructions Interventions: ED Discharge Assessment Last Done: 08/08/24 20:29
[2024-08-08] MEDS: SODIUM CHLORIDE 0.9% 500 ML IV ONE (13:35)
[2024-08-08 13:37] LABS: Hematocrit (blood only) 43.9 % (37.0-47.0); Hemoglobin 14.5 g/dl (12.0-16.0); Mean Corpuscular Hemoglobin 30.2 pg (25.0-34.0); Mean Corpuscular Volume 91.5 fL (80.0-100.0); Platelet Count 230 K/uL (130-400); RDW Standard Deviation 43.4 fL (36.4-46.3); White Blood Count 14.08 K/ul (4.8-10.8)
[2024-08-08] MEDS: cefTRIAXone SODIUM 2,000 MG/50 ML BAG IV STA (13:54)
[2024-08-08 13:59] LABS: Albumin Globulin Ratio 1.3 (0.9-2); Albumin Level 4.2 gm/dl (3.4-5.0); BUN Creatinine Ratio 13.8 (10-20); Bilirubin,Total 0.7 mg/dl (0.2-1.0); Calcium 9.5 mg/dl (8.6-10.3); Creatinine Clr Calc Pharmacy 54.1 ml/min; Est GFR (Non-African American) 63.8 ml/min; Globulin 3.2 gm/dl (2.5-4.0); Potassium 4.4 mmol/L (3.5-5.1); Total Protein 7.4 gm/dl (6.0-8.3)
[2024-08-08 14:03] LABS: Basophils # (auto) 0.02 K/uL (0.00-0.20); Basophils % (auto) 0.1 %; Eosinophils # (auto) 0.02 K/uL (0.00-0.50); Eosinophils % (auto) 0.1 %; Immature Granulocytes # (auto) 0.06 K/uL (0.01-0.20); Immature Granulocytes % (auto) 0.4 %; Lymphocytes # (auto) 0.56 K/uL (1.20-3.40); Monocytes # (auto) 0.64 K/uL (0.11-0.59); Monocytes % (auto) 4.5 %; Neutrophils # (auto) 12.78 K/uL (1.40-6.50); Neutrophils % (auto) 90.9 %; Polychromasia 1+; Toxic Vacuolation 1+
--- NOTE | 2024-08-08 15:52 | CT Scan Report ---
ABDOMEN AND PELVIS CT WITHOUT CONTRAST CT DOSE: 1214.2 mGy.cm HISTORY: uti, nausea, vomiting TECHNIQUE: Multiaxial CT images of the abdomen and pelvis were performed without contrast. A dose lo wering technique was utilized adhering to the principles of ALARA. COMPARISON STUDY: Abdomen and pelvis CT 05/11/2024. FINDINGS: The lung bases are clear. No pneumoperitoneum. No pneumatosis. No acute fractures. The unen hanced liver, gallbladder, pancreas, spleen, and adrenal glands are unremarkable. Bilateral renal hyp odense lesions remain stable and favor cysts. There are few left peripelvic renal cysts also noted. T here are 2 stones within the right kidney with the largest in the upper pole measuring 5 mm. These re main unchanged. No ureteral stones. No hydronephrosis. No left-sided nephrolithiasis. Mild calcified plaque within the normal caliber abdominal aorta. No retroperitoneal or pelvic lymphadenopathy. No pe lvic free fluid. Mild bladder wall thickening with adjacent fat stranding. This is consistent with a cystitis. Prior hysterectomy. Suboptimal evaluation for bowel pathology due to the lack of intravenou s and oral contrast. However, there is no definite bowel wall thickening or obstruction. Normal appen dyana. Moderate fecal retention. IMPRESSION: 1. Bladder wall thickening with adjacent fat stranding consistent with a cystitis. Recommend correlat ion with urinalysis. 2. Stable right-sided nephrolithiasis. No ureteral stones. No hydronephrosis. 3. Normal appendix. 4. No bowel wall thickening or obstruction. ACT 112: Negative or not required by law. Electronically signed by: Logan Burgess M.D. 08/08/2024 3:50 PM
--- NOTE | 2024-08-08 16:28 | Emergency Department Note ---
ED Visit Note I was consulted by the Advanced Practice Provider. I approved the management plan and take responsibility for the patient management. This includes the aspects of: -History/Physical -MDM -I independently interpreted the following studies:Studies and results .
[2024-08-08] MEDS ORDERED: MECLIZINE HCL 25 MG TAB PO PRN (17:01)
[2024-08-08] MEDS ORDERED: ONDANSETRON INJ 2 MG/ML 2 ML VIAL IV PRN (17:10)
[2024-08-08] MEDS ORDERED: ALUMINUM/MAGNESIUM SUSP 30 ML UDC PO PRN (17:10)
[2024-08-08] MEDS ORDERED: MAGNESIUM HYDROXIDE SUSP 30 ML UDC PO PRN (17:10)
--- NOTE | 2024-08-08 17:11 | History & Physical Report ---
Date of Service August 08, 2024 Assessment & Plan (1) Urinary tract infection: Plan Complicated UTI Sepsis POA: Secondary to complicated UTI. Elevated WBC/respiratory rate/pulse rate at presentation. History of recurrent UTI Patient coming in with failed outpatient antibiotic therapy for UTI, continued pain and burning with passing urine. Will get urine culture, will get blood culture. Admitting CTAP with cystitis. Patient received a dose of Rocephin in the ED, given history of ESBL Klebsiella, will start her on ertapenem. Add probiotic. Follow cultures. gentle ivf. Other chronic medical conditions: CAD, HLD, HTN, dizziness---- continue with/resume home meds as and when able. DVT prophylaxis: Heparin subcu Full code History of Present Illness Chief Complaint: Progressive weakness Primary Care Provider: Mar Lovelace MD 78-year-old lady with PMH of recurrent UTI, T2DM, HLD, HTN, mild vascular dementia with anxiety, major neurocognitive disorder due to Alzheimer's disease, generalized anxiety disorder presented to the ED due to continued pain and burning while passing urine despite outpatient antibiotic therapy. Patient reports that she started having pain and burning while passing urine since , she was evaluated in the ED on Wednesday and treated with fosfomycin, she continued to have pain and burning while passing urine, was prescribed nitrofurantoin yesterday, she took 1 dose last evening. She had increasing weakness and continued symptoms with now nausea and vomiting today morning and hence he presented to the ED. She has dementia at baseline, she is oriented x 2 at baseline per patient's daughter and at bedside. Patient denies sore throat/cough/chest pain/palpitation/belly pain. Patient reports decreasing appetite, some nausea and vomiting, increasing weakness. Increasing dizziness. Patient denies diarrhea or headache. Patient denies smoking/alcohol/recreational drug use. Medications reviewed with the patient and her at bedside. Plan of care discussed in detail with patient and her family at bedside, they voiced understanding. Full code. Allergies Allergy/AdvReac Type Severity Reaction Status Date / Time walnut Allergy Severe mouth Unverified 01/18/24 11:59 blisters Home Medications Medication Instructions Recorded Confirmed Type aspirin 81 mg tablet,delayed 81 mg PO QAM 01/01/20 08/08/24 History release (Adult Aspirin Regimen) Wheeled Walker #1 ea 01/30/20 05/11/24 Rx Wheeled Walker #1 ea 05/16/20 05/11/24 Rx Wheeled Walker #1 ea 05/29/20 05/11/24 Rx Wheeled Walker #1 ea 05/29/20 05/11/24 Rx meclizine 25 mg tablet 25 mg PO TID PRN dizziness #30 tabs 01/03/21 08/08/24 Rx meloxicam 7.5 mg tablet 7.5 mg PO QAM PRN Pain 01/03/21 08/08/24 History amoxicillin 500 mg capsule 2,000 mg PO DIRECTED PRN ONE 01/31/22 08/08/24 History HOUR PRIOR TO DENTAL VISITS. atorvastatin 40 mg tablet 40 mg PO QAM 01/31/22 08/08/24 History acetaminophen 500 mg tablet 1,000 mg PO TID PRN Pain 12/25/23 08/08/24 History (Tylenol Extra Strength) alendronate 70 mg tablet 70 mg PO WK 12/25/23 08/08/24 History bismuth subsalicylate 262 mg/15 mL 524 mg PO Q4H PRN HEARTBURN/NAUSEA 12/25/23 08/08/24 History oral suspension (Pepto-Bismol) donepezil 10 mg tablet (Aricept) 10 mg PO PM 12/25/23 08/08/24 History duloxetine 60 mg capsule,delayed 60 mg PO QAM 12/25/23 08/08/24 History release solifenacin 10 mg tablet 10 mg PO QAM 12/25/23 08/08/24 History buspirone 5 mg tablet 5 mg PO AMHS 05/11/24 08/08/24 History calcium carbonate (Calcium 600) 600 mg PO BID 05/11/24 08/08/24 History glipizide 2.5 mg tablet, extended 2.5 mg PO DAILYBB 05/11/24 08/08/24 History release 24 hr losartan 25 mg tablet 12.5 mg PO QAM 05/11/24 08/08/24 History Past Med/Surg History Problem List (Updated 08/05/24 @ 16:35 by Eric Myers DO) Urinary tract infection (Acute) Acute UTI (Acute) Weakness (Acute) Sepsis (Acute) COVID-19 (Acute) Vomiting (Acute) Generalized weakness (Acute) Acute UTI (urinary tract infection) (Acute) Falls frequently (Acute) Posterior tibial tendon dysfunction, left Chest pain (Acute) Costochondritis (Acute) Rib pain (Acute) Right knee pain Right knee DJD Encounter for pre-operative examination 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 Lumbar stenosis (Acute) Medical History Obesity Bronchitis hx (no recent issues) Prediabetes PCP monitoring, labs drawn for PCP on 12/26 show A1C 6.5%-decision to monitor/diet control History of left breast cancer dx 1999; sx + radiation Heartburn symptom diet controlled Arthritis Anxiety Hypertension Hyperlipidemia Surgical History History of cataract surgery RT History of tooth extraction reason for current abx Nausea and vomiting after administration of anesthetic agent History of colonoscopy History of hysterectomy History of arthroscopy of right knee History of lumpectomy of left breast WITH LYMPH NODES - PT DENIES LIMB RESTRICTION-1999 Family History Father Family history of diabetes mellitus Mother Family history of diabetes mellitus Other No family history of adverse response to anesthesia Patient's father is Patient's mother is Social History Smoking Status: Never smoker Second Hand Exposure: No; Do You Dip or Chew Tobacco: No; Hx Alcohol Use: Yes Alcohol type: wine Hx Substance Use: No Preferred Language: Khmer Communication Ability: Effective Air Surveillance Operator Required: No Beliefs That Will Affect Care: None marital status: Current Living Situation: Significant Other Current Living Situation Comment: Tereso Velazquez Feels Safe at Home: Yes Assistive Devices: Walker and Wheelchair Review of Systems Review of Systems: Negative otherwise mentioned in HPI. Physical Exam Physical Exam: GENERAL: Alert and oriented x2. NAD, on RA. Elderly, weak/frail appearing. Pleasant lady. HEENT: No pallor, no icterus. Pupils equal, round and reactive to light. Oral mucosa moist. NECK: No JVD, no neck masses. HEART: S1 and S2 heard. Regular rate and rhythm. No murmur, no gallop. RESPIRATORY SYSTEM: Normal AP diameter. No accessory muscle use. No wheezing, no crackles. ABDOMEN: Soft, bowel sounds present, nontender, no distention. CENTRAL NERVOUS SYSTEM: No facial droop. Speech is clear. Obeys simple commands. Moves extremities. EXTREMITIES: No edema, no erythema seen. Results & Data Results & Data Vital Signs (Past 12 Hours) Vital Signs Temp Pulse Pulse Resp BP BP Pulse Ox 08/08/24 16:11 100 H 29 H 132/82 93 08/08/24 15:11 37.3 C 103 H 25 H 134/90 94 08/08/24 13:42 92 H 27 H 146/83 H 92 08/08/24 13:12 101 H 08/08/24 13:12 102 H 18 91 08/08/24 13:06 37 C 100 H 20 141/97 H 91 O2 Del Method 08/08/24 16:11 Room Air 08/08/24 15:11 Room Air 08/08/24 13:42 08/08/24 13:12 08/08/24 13:12 Room Air 08/08/24 13:06 Nasal Cannula (1) Urinary tract infection Urinary tract infection type: site unspecified
[2024-08-08] MEDS: SODIUM CHLORIDE 0.9% 1,000 ML IV SCH (20:14)
[2024-08-08] MEDS: ERTAPENEM SODIUM 1,000 MG in SYRINGE 0 ML IV SCH (20:40)
[2024-08-08] MEDS: busPIRone 5 MG TAB PO SCH (22:46)
[2024-08-08] MEDS: HEPARIN SOD 5,000 UNIT/0.5 ML VIAL SQ SCH (22:46)
[2024-08-08] MEDS: DONEPEZIL HCL 10 MG TAB PO SCH (22:46)
--- OUTSIDE RECORDS SUMMARY | 2024-08-08 23:07 | External Medical Summary ---
Author Name Unknown Address Unknown Organization [id number]:[facility] [place] [address] [facility] [address] Laboratory Report Ordering Provider Test Date Status LISA BRYANT 08/04/2024 10:10:09 Final <10,000 colonies/ml mixed no rmal dino Observation Date Value Abnormality Reference (Units ) Status Bacteria identified in Specimen by Culture 08/04/2024 10:10:09 [id number]^ESCHE RICHIA COLI Abnormal Final 10,000 to 100,000 colonies/m L Escherichia coli Performing Location [facility] [place] [address] [facility] [address] Ordering Provider Test Date Status LISA BRYANT 08/04/2024 10:10:09 Final Observation Date Value Abnormality Reference (Units ) Status Ampicillin 08/04/2024 10:10:09 <=2 Susceptible Final Cefazolin 08/04/2024 10:10:09 <=4 Susceptible Final Cefepime susceptibility 08/04/2024 10:10:09 <=1 Susceptible Final Ceftriaxone suceptibility 08/04/2024 10:10:09 <=1 Susceptible Final Ciprofloxacin 08/04/2024 10:10:09 <=0.25 Susceptible Final Due to serious side effects, the FDA has advised against using Ciprofloxacin to treat uncomplicated UTIs and respiratory tract infections unless there are no alternative treatment options. Gentamicin susceptibility 08/04/2024 10:10:09 <=1 Susc eptible Final Nitrofurantoin susceptibility 08/04/2024 10:10:09 <=16 Susceptible Final Piperacillin + Tazobactamsusceptibility 08/04/2024 10:10:09 <=4 Susceptible Final TMP-SMZ susceptibility 08/04/2024 10:10:09 <=20 Suscept ible Final Test: Culture, Urine, Quanti tative
Specimen Source: Urine, Clean Catch
Specimen Type: Urine
Specimen Date: 08/04/2024 1010
Result Date: 08/06/2024 1323
Result Status: Final result
Abnormal: Yes
Resulting Lab: [facility] [place]
[address]
[facility] [address]

CULTURE

10,000 to 100,000 colonies/mL Escherichia coli (Abnormal)

<10,000 colonies/ml mixed normal dino

SUSCEPTIBILITY

Escherichia coli
METHOD MICROBROTH
DILUTIONS

AMPICILLIN <=2 Susceptible
CEFAZOLIN <=4 Susceptible
CEFEPIME <=1 Susceptible
CEFTRIAXONE <=1 Susceptible
CIPROFLOXACIN <=0.25 Susceptible
[1]
GENTAMICIN <=1 Susceptible
NITROFURANTOIN <=16 Susceptible
PIPERACILLIN TAZOBACTAM <=4 Susceptible
TRIMETH/SULFAMETHOXAZOLE <=20 Susceptible

[1] Due to serious side effects, the FDA has advised against using
Ciprofloxacin to treat uncomplicated UTIs and respiratory tract infections
unless there are no alternative treatment options.

null Performing Location [facility] [place] [address] [facility] [address]
[2024-08-09 03:43] LABS: Appearance Urine Clear (Clear); Bacteria Urine Automated None Seen (None Seen); Bilirubin Urine Negative (Negative); Blood Urine Negative (Negative); Cast Urine Automated 0-2 /lpf (0-2); Color Urine Yellow; Epithelial Cell Urine Auto 0-2 /hpf (0-2); Glucose Urine UA Negative (Negative); Ketones Urine 1+ (Negative); Leukocyte Esterase Urine 2+ (Negative); Nitrite Urine Negative (Negative); Protein Urine Trace (Negative); RBC Urine Automated 0-2 /hpf (0-2); Specific Gravity Urine 1.016 (1.000-1.030); Urobilinogen Urine Negative (Negative); pH Urine 6.5 (4.5-7.5)
[2024-08-09 08:24] LABS: Hematocrit (blood only) 36.4 % (37.0-47.0); Hemoglobin 11.8 g/dl (12.0-16.0); Mean Corpuscular Hemoglobin 29.7 pg (25.0-34.0); Mean Corpuscular Hgb Conc 32.4 g/dL (32.0-36.0); Mean Corpuscular Volume 91.7 fL (80.0-100.0); Mean Platelet Volume 9.7 fL (9.4-12.4); Platelet Count 212 K/uL (130-400); RDW Coefficient of Variation 13.4 % (11.5-14.5); RDW Standard Deviation 45.2 fL (36.4-46.3); Red Blood Count 3.97 M/uL (4.20-5.40); White Blood Count 7.49 K/ul (4.8-10.8)
[2024-08-09] MEDS: ADVANCED PROBIOTIC 625 MG CAPSULE PO SCH (08:34)
[2024-08-09] MEDS: ASPIRIN 81 MG ECTAB PO SCH (08:34)
[2024-08-09] MEDS: LOSARTAN POTASSIUM 25 MG TAB PO SCH (08:34)
[2024-08-09] MEDS: ATORVASTATIN 40 MG TAB PO SCH (08:34)
[2024-08-09] MEDS: DULoxetine HCL 60 MG CAP PO SCH (08:34)
[2024-08-09] MEDS: OXYBUTYNIN CHLORIDE XL 5 MG TABCR PO SCH (08:35)
[2024-08-09 08:43] LABS: BUN Creatinine Ratio 13.9 (10-20); Calcium 8.1 mg/dl (8.6-10.3); Creatinine Clr Calc Pharmacy 60.3 ml/min; Est GFR (Non-African American) 80.2 ml/min; Magnesium 1.9 mg/dl (1.7-2.4); Phosphorus 2.4 mg/dl (2.5-4.9); Potassium 3.7 mmol/L (3.5-5.1)
[2024-08-09] MEDS: ACETAMINOPHEN 325 MG TAB PO PRN (10:40)
[2024-08-09 11:44] LABS: Hemoglobin 12.6 g/dl (12.0-16.0)
--- OUTSIDE RECORDS SUMMARY | 2024-08-09 15:42 | External Medical Summary | Summary of Care ---
Author Name Unknown Organization [facility] Address [address] [place] [address] Phone [phone] Care Team Providers Care Collection Manager Name Role Phone Mar Lovelace MD Primary Care Provider [phone] Reason for Visit * Reason Onset Date Comments Medication Refill 08/07/2024 Encounter Details Date Type Department Care Team (Late st Contact Info) Description 08/07/2024 Refill General Internal Medicine [facility] [address] [address] Carli Mercado MD [address] [place] [address] Allergies No known active allergiesdocumented as of this encounter (statuses as of 08/08/2024) Medications Medication Sig Dispensed Refills Start Date End Date Status TYLENOL 325 MG PO TABS Take 1,000 mg by mouth 3 times a day as needed for Pain, Mild. 06/09/2020 Active ASPIRIN 81 MG PO CHEWIndications:Dys lipidemia, goal to be determined,HTN, goal below 140/90 Take 1 Tablet by mouth in the morning. 100 5 06/09/2020 Active Bismuth Subsalicylate 262 MG/15ML Oral Suspension Take 30 mL by mouth every 4 hours as needed for Heartburn or Nausea. Active Meclizine HCl 25 MG Oral Tablet (Antivert) TAKE 1 TABLET BY MOUTH THREE TIMES DAILY NEEDED FOR DIZZINESS 01/03/2021 Active Alendronate Sodium 70 MG Oral Tablet [...] a day. Active Meloxicam 7.5 MG Oral TabletIndications:D DD (degenerative disc disease), lumbar Take 1 Tablet by mouth daily as needed for Pain, Moderate. With food for pain. 90 Tablet 1 09/24/2023 Active Atorvastatin Calcium 40 MG Oral Tablet [...] mouth in the morning. 90 Tablet 3 06/07/2024 Active Nitrofurantoin Monohyd Macro 100 MG Oral Capsule (Macrobid) Take 1 Capsule by mouth in the morning and 1 Capsule before bedtime. With food.. 20 Capsule 08/07/2024 Active Donepezil HCl 10 MG Oral Tablet (Aricept) Take with supper daily 90 Tablet 08/08/2024 Active Donepezil HCl 10 MG Oral Tablet (Aricept) Take with supper daily 90 Tablet 3 11/29/2023 Discontinu ed(Refill) documented as of this encounter (statuses as of 08/08/2024) Active Problems Problem Noted Date Diagnosed Date [...] as of this encounter (statuses as of 08/08/2024) Immunizations Name Administration Dates Next Due COVID-19 mRNA, LNP-s, No Pre serve, 2-Dose Series (flikdate) 03/24/2022,09/19/2021,02/03/2021,12/30 Covid-19, Mrna, Lnp-s, Pf, B ivalent, 30 Mcg, IM, 12 yrs and above (Pfizer) 04/30/2023,09/23/2022 Pneumococcal Conjugate Vacc, 13 Valent (Prevnar) 07/01/2016 Pneumococcal Polysaccharide PPV23 (Pneumovax) 01/19/2011 Seasonal Influenza, PF, 6 M & above, IM , (FluLaval or Fluzone) 09/24/2023,08/18/2022,10/09/2021,08/29,02/21/2019,09/06/2017 Seasonal Influenza, Quadriva lent Hd (Fluzone Hd) 09/24/2023,08/18/2022,10/09/2021 Seasonal Influenza, Quadriva lent, No Preserve, IM 08/26/2016,01/03/2016 Seasonal Influenza, Trivalen t, (IIV3), PF, (Fluzone) 10/04/2009 Seasonal Influenza, Trivalen t, (IIV3), with Preserv, (Fluzone) 11/30/2014,10/24/2013,08/08/2012,10/30,12/13/2008 Seasonal Influenza, Trivalen t, Adjuvanted, 65+ YRS, PF, (Fluad) 08/29/2020,08/30/2019 TDAP (age 10 and older)(Boostrix) 08/21/2019, [...] money to get more. Never true 02/07/2024 Childcare Answer Date Recorded Do you feel overwhelmed with taking care of a child, family member or friend? No 02/07/2024 Does your family need help f inding childcare? (Household - for ages 0-17 years) Not on file 02/07/2024 Clothing Answer Date Recorded Have you been unable to get clothing when it was really needed? No 02/07/2024 Is your family able to get c lothes or diapers when needed? (Household - for ages 0-17 years) Not on file 02/07/2024 Personal Safety Answer Date Recorded Do you feel unsafe or have concerns for your saf ety? No 02/07/2024 Do you have concerns for you r family's safety? (Household - for ages 0-17 years) Not on file 02/07/2024 Utilities Answer Date Recorded Do you have trouble paying y our heating, water, or electric bill? No 02/07/2024 Is your family able to pay t he heat, water, or electric bill? (Household - for ages 0-17 years) Not on file 02/07/2024 Does your family have access to good internet? (Household - for ages 0-17 years) Not on file 02/07/2024 Employment Status Answer Date Recorded Are you unemployed or without regular income? No 02/07/2024 Does the household have a re gular source of income? (Household - for ages 0-17 years) Not on file 02/07/2024 Social Connections Answer Date Recorded How often do you feel lonely or isolated from th ose around you? Never 02/07/2024 Financial Resource Strain Answer Date R ecorded Do you have any trouble payi ng for your medications, or do you think you might in the future? No 02/07/2024 Does your family have troubl e paying for medicine? (Household - for ages 0-17 years) Not on file 02/07/2024 Transportation Needs Answer Date Record ed READ ONLY Do you have troubl e getting a ride to medical visits or work? Never True 02/07/2024 Does your family have a hard time getting a ride to doctors visits? (Household - for ages 0-17 years) Not on file 02/07/2024 Has lack of transportation k ept you from medical appointments, meetings, work, or from getting things needed for daily living? Check all that apply. (Adult - for ages 18 years and over) Not on file 02/07/2024 Do you (or your family) have trouble finding or paying for a ride (transportation)? (Household - for ages 0-17 years) Not on file 02/07/2024 Housing Stability Answer Date Recorded Do you currently live in a s helter or have no steady place to sleep at night? No 02/07/2024 READ ONLY Do you think you a re at risk of becoming homeless? No 02/07/2024 Does your family worry about paying for your home or becoming homeless? (Household - for ages 0-17 years) Not on file 0 02/07/2024 Are you homeless or worried that you might be in the future? (Adult - for ages 18 years and over) Not on file Are you (or your family) delicia eless or worried that you might be in the future? (Household - for ages 0-17 years) Not on file Food Insecurity Answer Date Recorded Do you need food for this week? No 02/07/2024 Are you able to get enough f ood for your family? (Household - for ages 0-17 years) Not on file 02/07/2024 Does your family need food t his week? (Household - for ages 0-17 years) Not on file 02/07/2024 Do you always have enough fo od for your family? (Household - for ages 0-17 years) Not on file 02/07/2024 Sex and Gender Information Value Date Recorded Sex Assigned at Female 03/15/2019 12:23 PM EDT Gender Identity Female 03/15/2019 12:23 PM EDT Sexual Orientation Straight 03/15/2019 12 :23 PM EDT Job Start Date Occupation Industry Not on file Not on file Not on file documented as of this encounter Miscellaneous Notes * Telephone Encounter - Carli Mercado MD - 08/08/2024 3:30 PM EDTSigned Prescriptions: Disp Refills Donepezil HCl 10 MG Oral Tablet (Aricept) 90 Tab*0 Sig: Take with supper daily Authorizing Provider: CARLI MERCADO * Telephone Encounter - Michael Tierney CMA - 08/08/2024 1:16 PM EDTPending Prescriptions: Disp Refills Donepezil HCl 10 MG Oral Tablet (Aricept) 90 Tab*3 Sig: Take with supper daily * Telephone Encounter - Michael Tierney CMA - 08/08/2024 1:15 PM EDT Did you pend patient's preferred pharmacy and medication before forwarding?yes Pharmacy: [facility] [address] [place] [address] Pending Prescriptions: Disp Refills Donepezil HCl 10 MG Oral Tablet (Aricept) 90 Tab*3 Sig: Take with supper daily Last Visit: 06/07/2024 (in office), 01/06/2021 (telemedicine) Next Visit: 08/10/2024 If no future appointments scheduled, and last appointment is greater than a year ago, please schedule patient for a follow-up appointment Last date the medication was ordered: 11.29.2023 Is this request for a controlled substance?No Urine Drug Screen:No results found for this or any previous visit. Patient Phone Numbers Labs: Lab Results Component Value Date/Time CREAT 0.9 05/31/2024 05:48 AM CREAT 0.8 12/06/2020 09:18 AM POTASSIUM 4.6 05/31/2024 05:48 AM POTASSIUM 4.6 12/06/2020 09:18 AM TSH 1.32 10/05/2022 10:44 AM TSH 1.16 12/30/2016 09:20 AM LDL 68 03/22/2024 11:10 AM LDL 72 12/06/2020 09:18 AM LDL NOT APPLICABLE 12/06/2020 09:18 AM ALT 30 03/22/2024 11:10 AM ALT 23 12/06/2020 09:18 AM HGBA1C 7.0 (H) 03/22/2024 11:10 AM HGBA1C 6.7 (H) 06/15/2023 09:34 AM HGBA1C 6.2 (H) 12/06/2020 09:18 AM * Telephone Encounter - Ant Ramos - 08/07/2024 10:58 PM EDTPending Prescriptions: Disp Refills Donepezil HCl 10 MG Oral Tablet (Aricept) 90 Tab*3 Sig: Take with supper daily documented in this encounter Plan of Treatment Upcoming Encounters Date Type Department Care Team (Late st Contact Info) Description 08/10/2024 11:00 AM EDT Office Visit General Internal Medicine [facility] [place] [address] [place] [address] Mar Lovelace MD [address] [place] [address] 08/18/2024 9:40 AM EDT Office Visit General Internal Medicine [facility] [place] [address] [place] [address] Mar Lovelace MD [address] [place] [address] 09/19/2024 3:30 PM EDT Procedure Only Urology, [facility] [address] [place] [address] Dandy Bashir MD [address] [place] [address] 12/13/2024 12:00 PM EST Office Visit General Internal Medicine [facility] [address] [facility] [place] [address] Mar Lovelace MD [address] [facility] [place] [address] 06/25/2025 11:20 AM EDT Office Visit Neurology [facility] [address] [facility] [place] [address] Anton Kumar MD [address] [facility] [place] [address] Scheduled Procedures Name Priority Associated Diagnoses Date/Ti me COLONOSCOPY FLEXIBLE PROXIMA L DIAGNOSTIC Recall Special screening for malignant neoplasms, colon Health Maintenance Due Date Last Done Comments Adult Wellness Visit 01/14/2023 01/14/2022 Diabetic Eye Exam 05/10/2024 05/10/2023, , 05/04/2022, Additional history exists COVID-19 Vaccine ( season) 2024 04/30/2023, 09/23/2022, 03/24/2022, Additional history exists Influenza Vaccine (FLU shot) (#1) 2024 09/24/2023, 09/24/2023, 08/18/2022, Additional history exists Diabetic Foot Exam 09/10/2024 09/10/2023 (D one elsewhere), 02/18/2023, 03/13/2022, Additional history exists HbA1c 09/22/2024 03/22/2024, 11/0 01/2023, 06/15/2023, Additional history exists Depression Monitoring 02/06/2025 02/07/2024 GFR 05/31/2025 05/31/2024, 07/0 01/2024, 05/17/2024, Additional history exists Albumin/Creatinine Ratio 07/12/2025 024, 06/14/2024, 08/18/2022, Additional history exists DTap/Tdap Vaccines (4 - Td or Tdap) 08/21/2029 08/21/2019, 04/13/2019, 12/27/2008 DXA Scan 06/28/2030 06/28/2023, 080 05/2023, 06/10/2016, Additional history exists Pneumococcal Vaccine: 65+ Years Completed 07/01/2016, 01/19/2011 Zoster Vaccines Completed 02/29/2024, 0 07/2023, 11/03/2012 HPV (Gardasil) Vaccine Aged Out No lo nger eligible based on patient's age to complete this topic Hepatitis B Vaccine Aged Out No longe r eligible based on patient's age to complete this topic MENINGOCOCCAL (MENACTRA/MENVEO) Aged Out No longer eligible based on patient's age to complete this topic documented as of this encounter Medical Devices Not on filedocumented as of this encounter Advance Directives Documents on File Type Date Recorded 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
--- NOTE | 2024-08-09 16:04 | Hospitalist Progress Note ---
Date of Service August 09, 2024 Assessment & Plan (1) Urinary tract infection: Plan Complicated UTI Sepsis POA: Secondary to complicated UTI. Elevated WBC/respiratory rate/pulse rate at presentation. History of recurrent UTI Patient coming in with failed outpatient antibiotic therapy for UTI, continued pain and burning with passing urine. F/u urine culture and blood culture. Admitting CTAP with cystitis. Patient received a dose of Rocephin in the ED, given history of ESBL Klebsiella, was started on ertapenem 08/08, continue. Pt reports feeling better. Other chronic medical conditions: CAD, HLD, HTN, dizziness---- continue with/resume home meds as and when able. DVT prophylaxis: Heparin subcu Full code Admission and Anticipated Discharge Date Admission Date: August 08, 2024 Subjective Patient was seen and examined at bedside. Patient was lying in bed, on room air, NAD, resting comfortably. Patient reports feeling better, denies abdominal pain. Patient reports 3 loose stools today, still feels weak, denies other complaints. Physical Exam Physical Exam: GENERAL: Alert and oriented x2. NAD, on RA. Elderly, weak/frail appearing. Pleasant lady. HEENT: No pallor, no icterus. Pupils equal, round and reactive to light. Oral mucosa moist. NECK: No JVD, no neck masses. HEART: S1 and S2 heard. Regular rate and rhythm. No murmur, no gallop. RESPIRATORY SYSTEM: Normal AP diameter. No accessory muscle use. No wheezing, no crackles. ABDOMEN: Soft, bowel sounds present, nontender, no distention. CENTRAL NERVOUS SYSTEM: No facial droop. Speech is clear. Obeys simple commands. Moves extremities. EXTREMITIES: No edema, no erythema seen. Results & Data Results & Data Vital Signs (Past 12 Hours) Vital Signs Temp Pulse Resp BP Pulse Ox O2 Del Method 08/09/24 14:19 36.6 C 82 16 124/80 94 Room Air 08/09/24 08:01 37.0 C 84 16 125/83 92 Room Air (1) Urinary tract infection Urinary tract infection type: site unspecified
[2024-08-09] MEDS: POT PHOSPHATE MONOBASIC W/ SOD TAB PO SCH (17:32)
[2024-08-10 07:43] LABS: Hematocrit (blood only) 36.5 % (37.0-47.0); Hemoglobin 12.2 g/dl (12.0-16.0); Mean Corpuscular Hgb Conc 33.4 g/dL (32.0-36.0); Mean Corpuscular Volume 89.9 fL (80.0-100.0); Mean Platelet Volume 9.6 fL (9.4-12.4); Platelet Count 205 K/uL (130-400); RDW Coefficient of Variation 13.2 % (11.5-14.5); RDW Standard Deviation 44.2 fL (36.4-46.3); Red Blood Count 4.06 M/uL (4.20-5.40); White Blood Count 5.69 K/ul (4.8-10.8)
[2024-08-10 07:55] LABS: BUN Creatinine Ratio 12.9 (10-20); Calcium 8.3 mg/dl (8.6-10.3); Est GFR (African American) 96.2 ml/min; Magnesium 2.1 mg/dl (1.7-2.4); Phosphorus 2.8 mg/dl (2.5-4.9); Potassium 3.7 mmol/L (3.5-5.1)
--- NOTE | 2024-08-10 15:55 | Hospitalist Progress Note ---
Date of Service August 10, 2024 Assessment & Plan (1) Urinary tract infection: Plan Complicated UTI Sepsis POA: Secondary to complicated UTI. Elevated WBC/respiratory rate/pulse rate at presentation. History of recurrent UTI Patient coming in with failed outpatient antibiotic therapy for UTI, continued pain and burning with passing urine. F/u urine culture and blood culture. Admitting CTAP with cystitis. Patient received a dose of Rocephin in the ED, given history of ESBL Klebsiella, was started on ertapenem 08/08, continue. Pt reports feeling better. follow up final urine c/s. Other chronic medical conditions: CAD, HLD, HTN, dizziness---- continue with/resume home meds as and when able. DVT prophylaxis: Heparin subcu Full code PT/OT, likely will need rehab. Admission and Anticipated Discharge Date Admission Date: August 08, 2024 Subjective Patient was seen and examined at bedside. Patient was lying in bed, on room air, NAD, resting comfortably. Patient reports feeling better, denies abdominal pain. Patient reports no more loose stools today, denies other complaints. Physical Exam Physical Exam: GENERAL: Alert and oriented x2. NAD, on RA. Elderly, weak/frail appearing. Pleasant lady. HEENT: No pallor, no icterus. Pupils equal, round and reactive to light. Oral mucosa moist. NECK: No JVD, no neck masses. HEART: S1 and S2 heard. Regular rate and rhythm. No murmur, no gallop. RESPIRATORY SYSTEM: Normal AP diameter. No accessory muscle use. No wheezing, no crackles. ABDOMEN: Soft, bowel sounds present, nontender, no distention. CENTRAL NERVOUS SYSTEM: No facial droop. Speech is clear. Obeys simple commands. Moves extremities. EXTREMITIES: No edema, no erythema seen. Results & Data Results & Data Vital Signs (Past 12 Hours) Vital Signs Temp Pulse Resp BP BP Pulse Ox O2 Del Method 08/10/24 15:26 36.6 C 93 H 18 103/67 92 Room Air 08/10/24 07:19 36.3 C L 78 17 144/83 H 91 Room Air (1) Urinary tract infection Urinary tract infection type: site unspecified
[2024-08-10 19:56] VITALS: O2SAT 95
[2024-08-11 07:50] LABS: Hematocrit (blood only) 37.4 % (37.0-47.0); Hemoglobin 12.3 g/dl (12.0-16.0); Mean Corpuscular Hemoglobin 30.1 pg (25.0-34.0); Mean Corpuscular Hgb Conc 32.9 g/dL (32.0-36.0); Mean Corpuscular Volume 91.4 fL (80.0-100.0); Mean Platelet Volume 9.4 fL (9.4-12.4); Platelet Count 207 K/uL (130-400); RDW Coefficient of Variation 13.2 % (11.5-14.5); RDW Standard Deviation 44.4 fL (36.4-46.3); Red Blood Count 4.09 M/uL (4.20-5.40); White Blood Count 5.68 K/ul (4.8-10.8)
[2024-08-11 08:04] LABS: BUN Creatinine Ratio 11.8 (10-20); Calcium 8.1 mg/dl (8.6-10.3); Est GFR (African American) 97.1 ml/min; Est GFR (Non-African American) 83.8 ml/min; Potassium 3.9 mmol/L (3.5-5.1)
[2024-08-11 08:14] VITALS: BP 136/87; PULSE 74; RESP 16; TEMP 98.1
--- NOTE | 2024-08-11 11:44 | Discharge Summary ---
Date of Service August 11, 2024 Admission HPI Per Admitting Provider 78-year-old lady with PMH of recurrent UTI, T2DM, HLD, HTN, mild vascular dementia with anxiety, major neurocognitive disorder due to Alzheimer's disease, generalized anxiety disorder presented to the ED due to continued pain and burning while passing urine despite outpatient antibiotic therapy. Patient reports that she started having pain and burning while passing urine since , she was evaluated in the ED on Wednesday and treated with fosfomycin, she continued to have pain and burning while passing urine, was prescribed nitrofurantoin yesterday, she took 1 dose last evening. She had increasing weakness and continued symptoms with now nausea and vomiting today morning and hence he presented to the ED. She has dementia at baseline, she is oriented x 2 at baseline per patient's daughter and at bedside. Patient denies sore throat/cough/chest pain/palpitation/belly pain. Patient reports decreasing appetite, some nausea and vomiting, increasing weakness. Increasing dizziness. Patient denies diarrhea or headache. Patient denies smoking/alcohol/recreational drug use. Medications reviewed with the patient and her at bedside. Plan of care discussed in detail with patient and her family at bedside, they voiced understanding. Full code. Admission Exam Per Admitting Provider GENERAL: Alert and oriented x2. NAD, on RA. Elderly, weak/frail appearing. Pleasant lady. HEENT: No pallor, no icterus. Pupils equal, round and reactive to light. Oral mucosa moist. NECK: No JVD, no neck masses. HEART: S1 and S2 heard. Regular rate and rhythm. No murmur, no gallop. RESPIRATORY SYSTEM: Normal AP diameter. No accessory muscle use. No wheezing, no crackles. ABDOMEN: Soft, bowel sounds present, nontender, no distention. CENTRAL NERVOUS SYSTEM: No facial droop. Speech is clear. Obeys simple commands. Moves extremities. EXTREMITIES: No edema, no erythema seen. Principal Diagnosis Complicated UTI Sepsis POA History of recurrent UTI Discharge Exam GENERAL: Alert and oriented x2. NAD, on RA. Elderly, weak/frail appearing. Pleasant lady. HEENT: No pallor, no icterus. Pupils equal, round and reactive to light. Oral mucosa moist. NECK: No JVD, no neck masses. HEART: S1 and S2 heard. Regular rate and rhythm. No murmur, no gallop. RESPIRATORY SYSTEM: Normal AP diameter. No accessory muscle use. No wheezing, no crackles. ABDOMEN: Soft, bowel sounds present, nontender, no distention. CENTRAL NERVOUS SYSTEM: No facial droop. Speech is clear. Obeys simple commands. Moves extremities. EXTREMITIES: No edema, no erythema seen. Discharge Data Allergies Allergy/AdvReac Type Severity Reaction Status Date / Time walnut Allergy Severe mouth Unverified 01/18/24 11:59 blisters Consultations 08/08/24 16:08 ED Decision to Admit Stat Ordered Studies 08/08/24 13:24 CT abd pelvis wo con Stat Hospital Course (1) Urinary tract infection: Plan 78 yo F was managed for the following: Complicated UTI Sepsis POA: Secondary to complicated UTI. Elevated WBC/respiratory rate/pulse rate at presentation. History of recurrent UTI Patient coming in with failed outpatient antibiotic therapy for UTI, continued pain and burning with passing urine. F/u urine culture and blood culture. Admitting CTAP with cystitis. Patient received a dose of Rocephin in the ED, given history of ESBL Klebsiella, was started on ertapenem 08/08, Admitting UCx came back no growth, hence will dc her based on OP Urine c/s. Pt reports feeling better. will dc on cefidinir to complete the course for UTI. Other chronic medical conditions: CAD, HLD, HTN, dizziness---- continue with/resume home meds as and when able. DVT prophylaxis: Heparin subcu Full code PT/OT, likely will need rehab. PT/OT recommending rehab. Family [ and daughter] believes that they have strong support at home and caregivers and they have outpatient [facility] with [facility] and they feel the patient will be best served at home. Patient is being discharged home with following instruction at the point of discharge: Follow-up with your primary care physician within a week time and likely you will need labs CBC/CMP/magnesium/phosphorus. You will be discharged on antibiotic to complete the course for your UTI. Probiotics will be added. Take your medications as prescribed. Please make sure that you are able to get your medications today by calling your pharmacy before you leave the hospital so that your treatment continuity is not broken. Home Health Attestation I certify that this patient is under my care and that I, or a physicians as sistant working with me, had a face to-face encounter that meets the home health [id number] encounter requirements with this patient. The encounter with the patient was in whole, or in part, for the following medical condition, which is the primary reason for home health care (list medical condition): I certify that, based on my findings, the following services are medically necessary home health services: My clinical findings support the need for the above services because: Further, I certify that my clinical findings support that this patient is homebound (i.e. absences from home require considerable and taxing effort and are for medical reasons or zoroastrian services or infrequently or of short duration when for other reasons) because: Certification for Home Health Services: Based on the above findings, I certify that this patient is confined to the home and needs intermittent halfway care, physical therapy and/or speech therapy or continues to need occupational therapy. The patient is under my care, and I have initiated the establishment of the plan of care. This patient will be followed by a physician who will periodically review the plan of care. Total Time Total Time Spent Total Time Spent (In Minutes): 40 Discharge Plan Discharge Items Patient Disposition: Home - Self-Care Reason For Visit: PROGRESSIVE WEAKNESS Discharge Diagnosis: Complicated UTI Sepsis POA History of recurrent UTI Condition on Discharge: Good Activity: Resume your previous activity Non-emergency contact: Primary Care Provider Call non-emergency contact if: you have any medication questions, your symptoms worsen, your pain is worsening and your temperature is above 101 Follow-up/Referrals: Mar Lovelace MD [Primary Care Provider] - (Date & Time 08/18/2024 9:40 AM Provider Mar Lovelace MD Department General Internal Medicine [facility] ) Diet: Heart Healthy Addtl Attending Provider Instructions: Follow-up with your primary care physician within a week time and likely you will need labs CBC/CMP/magnesium/phosphorus. You will be discharged on antibiotic to complete the course for your UTI. Probiotics will be added. Take your medications as prescribed. Please make sure that you are able to get your medications today by calling your pharmacy before you leave the hospital so that your treatment continuity is not broken. Pending Studies at Discharge: Yes Stand-Alone Forms: My [employer], Smoking Cessation Medications and DC Order Prescriptions: New Advanced Probiotic 625 mg (10 billion cell) Capsule 1 cap PO DAILY 7 Days Qty: 7 0RF cefdinir 300 mg capsule 300 mg PO BID 3 Days Qty: 6 0RF Continued (DME) Wheeled Walker Misc See Rx Instructions .ROUTE .MEDSUPPLY Qty: 1 0RF Rx Instructions: As directed (DME) Wheeled Walker Misc See Rx Instructions .ROUTE .MEDSUPPLY Qty: 1 0RF Rx Instructions: As directed (DME) Wheeled Walker Misc See Rx Instructions .ROUTE .MEDSUPPLY Qty: 1 0RF Rx Instructions: As directed (DME) Wheeled Walker Misc See Rx Instructions .ROUTE .MEDSUPPLY Qty: 1 0RF Rx Instructions: As directed aspirin [Adult Aspirin Regimen] 81 mg tablet,delayed release (DR/EC) 81 mg PO QAM Patient Comments: chewable meloxicam 7.5 mg tablet 7.5 mg PO QAM PRN (Reason: Pain) meclizine 25 mg tablet 25 mg PO TID PRN (Reason: dizziness) Qty: 30 0RF amoxicillin 500 mg capsule 2,000 mg PO DIRECTED PRN (Reason: ONE HOUR PRIOR TO DENTAL VISITS.) atorvastatin 40 mg tablet 40 mg PO QAM donepezil [Aricept] 10 mg tablet 10 mg PO PM alendronate 70 mg tablet 70 mg PO WK Rx Instructions: MONDAYS acetaminophen [Tylenol Extra Strength] 500 mg Tablet 1,000 mg PO TID PRN (Reason: Pain) bismuth subsalicylate [Pepto-Bismol] 262 mg/15 mL Suspension 524 mg PO Q4H PRN (Reason: HEARTBURN/NAUSEA) duloxetine 60 mg capsule,delayed release(DR/EC) 60 mg PO QAM solifenacin 10 mg tablet 10 mg PO QAM Hold Instructions: Resume on 05/23/24. hold until Urology follow up buspirone 5 mg tablet 5 mg PO [facility] losartan 25 mg tablet 12.5 mg PO QAM glipizide 2.5 mg tablet extended release 24hr 2.5 mg PO DAILYBB calcium carbonate [Calcium 600] 600 mg calcium (1,500 mg) Tablet 600 mg PO BID Discharge Orders: Discharge Order (Routine); Ordered 08/11/24 Ordered By: Noe Sears Admission Data Admit Date/Time: 08/10/24 13:58 Attending Provider: Noe Sears Admit Provider: Noe Sears Primary Care Provider: Mar Lovelace Other Providers: Noe Sears
== END 2024-08-11 13:35 | disposition home or self-care (01) | DRG 872 ==
LOC: ED 13:03 → 3N 13:03

== ENCOUNTER 2024-10-27 10:56 | Inpatient (IN) ==
[2024-10-27 11:28] LABS: Basophils # (auto) 0.04 K/uL (0.00-0.20); Basophils % (auto) 0.2 %; Eosinophils # (auto) 0.07 K/uL (0.00-0.50); Eosinophils % (auto) 0.4 %; Hematocrit (blood only) 39.8 % (37.0-47.0); Hemoglobin 13.6 g/dl (12.0-16.0); Immature Granulocytes # (auto) 0.09 K/uL (0.01-0.20); Immature Granulocytes % (auto) 0.5 %; Lymphocytes # (auto) 1.05 K/uL (1.20-3.40); Lymphocytes % (auto) 5.7 %; Mean Corpuscular Hemoglobin 30.6 pg (25.0-34.0); Mean Corpuscular Hgb Conc 34.2 g/dL (32.0-36.0); Mean Corpuscular Volume 89.6 fL (80.0-100.0); Monocytes # (auto) 0.68 K/uL (0.11-0.59); Monocytes % (auto) 3.7 %; Neutrophils # (auto) 16.62 K/uL (1.40-6.50); Neutrophils % (auto) 89.5 %; Platelet Count 232 K/uL (130-400); RDW Coefficient of Variation 12.8 % (11.5-14.5); RDW Standard Deviation 42.4 fL (36.4-46.3); Red Blood Count 4.44 M/uL (4.20-5.40); White Blood Count 18.55 K/ul (4.8-10.8)
--- NOTE | 2024-10-27 11:30 | XRay Report ---
XR chest 1V portable HISTORY: 79 years-old Female weakness COMPARISON: 09/03/2024 TECHNIQUE: AP view which FINDINGS: Cardiomediastinal and hilar silhouettes are unchanged. Chronic interstitial coarsening with subsegmen eris left basilar atelectasis versus scarring. Left axillary surgical clips. Degenerative changes of t he shoulders and spine. No pneumothorax or pleural effusion. IMPRESSION: No acute process. ACT 112: Negative or not required by law. The above report was generated using voice recognition software. It may contain grammatical, syntax o r spelling errors. Electronically signed by: Montez Azul M.D. 10/27/2024 11:28 AM
[2024-10-27 11:50] LABS: Albumin Globulin Ratio 1.2 (0.9-2); Albumin Level 3.8 gm/dl (3.4-5.0); BUN Creatinine Ratio 16.5 (10-20); Calcium 9.6 mg/dl (8.6-10.3); Creatinine Clr Calc Pharmacy 52.5 ml/min; Globulin 3.3 gm/dl (2.5-4.0); Total Protein 7.1 gm/dl (6.0-8.3)
[2024-10-27 12:16] LABS: Adenovirus PCR Not Detected (NotDetected); Bordetella parapertussis PCR Not Detected (NotDetected); Bordetella pertussis PCR Not Detected (NotDetected); Chlamydia pneumoniae PCR Not Detected (NotDetected); Coronavirus 229E PCR Not Detected (NotDetected); Coronavirus CoV-2 (COVID19)PCR Not Detected (NotDetected); Coronavirus HKU1 PCR Not Detected (NotDetected); Coronavirus NL63 PCR Not Detected (NotDetected); Coronavirus OC43PCR Not Detected (NotDetected); Human Metapneumovirus PCR Not Detected (NotDetected); Influenza A PCR Not Detected (NotDetected); Influenza B PCR Not Detected (NotDetected); Mycoplasma pneumoniae PCR Not Detected (NotDetected); Parainfluenza Virus 1 PCR Not Detected (NotDetected); Parainfluenza Virus 2 PCR Not Detected (NotDetected); Parainfluenza Virus 3 PCR Not Detected (NotDetected); Parainfluenza Virus 4 PCR Not Detected (NotDetected); Respiratory Syncytial VirusPCR Not Detected (NotDetected); Rhinovirus/Enterovirus PCR Not Detected (NotDetected)
--- NOTE | 2024-10-27 12:55 | Emergency Department Note ---
Impression & Plan Acute UTI (urinary tract infection), Generalized weakness, Vomiting, Diarrhea, Leukocytosis ED Provider Note NAME: MILLER BUTLER AGE: 79 SEX: F : 1945 ARRIVES VIA: Ambulance INFORMANT: Patient, ED PROVIDER(S): Kendal Caraballo MD CHIEF COMPLAINT: Weakness, lethargy HPI: This is a 79-year-old female presenting for increased lethargy/weakness. Patient was diagnosed with UTI on Wednesday. Urine culture revealed antibiotic that was prescribed would not work with this UTI. Was given new antibiotics. She is taken 2 doses and has now had diarrhea. She otherwise feels very weak, was unable to get into bed and had to sleep downstairs on the couch due to this weakness. They already have in-home help and this was not sufficient for her. She had emesis yesterday as well. Chills without fevers at home. ROS: See above HPI for pertinent positives & negatives. A total of 10 systems reviewed and were otherwise negative. PAST MEDICAL HISTORY: See Below PAST SURGICAL HISTORY: See Below FAMILY HISTORY: See Below SOCIAL HISTORY: See Below HOME MEDICATIONS: See Below ALLERGIES: See Below VITALS: See Below PHYSICAL EXAMINATION: General: resting comfortably in no acute distress Head: Normocephalic and atraumatic Eyes: Normal inspection, extraocular muscles intact Ear, nose, throat: Normal external exam Neck: Normal range of motion Respiratory: lungs clear to auscultation bilaterally Cardiovascular: Regular rate/rhythm, no murmur GI: soft, nontender, no guarding or rebound Extremities: nontender, moves all extremities Neuro: The patient awake and alert, appropriately conversive, no focal deficits, symmetric faces Skin: Warm, dry, and intact MEDICAL DECISION MAKING: This is a 79-year-old female presenting for increased lethargy/weakness. Will do screening blood work, urinalysis to assess for patient's increasing weakness. Consider sepsis, UTI, pyelonephritis, upper respiratory infection, pneumonia -Blood work is reviewed showing leukocytosis to 18.55, not seen previously 3 days ago. Otherwise urinalysis does show signs of persistent UTI. -Electrolytes/creatinine within normal limits. -Will admit for further weakness, new white count, likely persistent/worsening UTI, will give ceftriaxone IV -[facility] Differential diagnosis: sepsis, UTI, pyelonephritis, upper respiratory infection, pneumonia Independent History obtained from: Diagnostics interpreted by me: ECG: ECG independently interpreted by me with normal sinus rhythm, rate of 91, normal axis, normal IN, normal QRS, normal QTc, no ST segment elevations consistent with STEMI criteria Cardiac Monitoring: An order was placed for continuous cardiac monitoring. The monitor shows a rate of 86 with sinus rhythm. 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 Lumbar stenosis (Acute) Medical History Vomiting Obesity Bronchitis hx (no recent issues) Prediabetes PCP monitoring, labs drawn for PCP on 12/26 show A1C 6.5%-decision to monitor/diet control History of left breast cancer dx 1999; sx + radiation Heartburn symptom diet controlled Arthritis Anxiety Hypertension Hyperlipidemia Surgical History History of cataract surgery RT History of tooth extraction reason for current abx Nausea and vomiting after administration of anesthetic agent History of colonoscopy History of hysterectomy History of arthroscopy of right knee History of lumpectomy of left breast WITH LYMPH NODES - PT DENIES LIMB RESTRICTION-1999 Family History Father Family history of diabetes mellitus Mother Family history of diabetes mellitus Other No family history of adverse response to anesthesia Patient's father is Patient's mother is Social History Smoking Status: Never smoker Second Hand Exposure: No; Do You Dip or Chew Tobacco: No; Hx Alcohol Use: No Hx Substance Use: No Preferred Language: Stateless Communication Ability: Effective Panel Maker Required: No Beliefs That Will Affect Care: None marital status: Current Living Situation: Spouse Current Living Situation Comment: Tereso Velazquez Feels Safe at Home: Yes Assistive Devices: Walker and Wheelchair Allergies Allergies Allergy/AdvReac Type Severity Reaction Status Date / Time walnut Allergy Severe mouth Unverified 01/18/24 11:59 blisters Home Meds Home Medications Medication Instructions Recorded Confirmed aspirin 81 mg tablet,delayed 81 mg PO QAM 01/01/20 10/27/24 release (Adult Aspirin Regimen) amoxicillin 500 mg capsule 2,000 mg PO DIRECTED PRN ONE 01/31/22 10/27/24 HOUR PRIOR TO DENTAL VISITS. atorvastatin 40 mg tablet 40 mg PO QAM 01/31/22 10/27/24 acetaminophen 500 mg tablet 1,000 mg PO TID PRN Pain 12/25/23 10/27/24 (Tylenol Extra Strength) alendronate 70 mg tablet 70 mg PO WK 12/25/23 10/27/24 donepezil 10 mg tablet (Aricept) 10 mg PO PM 12/25/23 10/27/24 duloxetine 60 mg capsule,delayed 60 mg PO QAM 12/25/23 10/27/24 release solifenacin 10 mg tablet 10 mg PO QAM 12/25/23 10/27/24 buspirone 5 mg tablet 5 mg PO AMHS 05/11/24 10/27/24 glipizide 2.5 mg tablet, extended 2.5 mg PO DAILYBB 05/11/24 10/27/24 release 24 hr losartan 25 mg tablet 12.5 mg PO QAM 05/11/24 10/27/24 Macrobid 100 mg PO UD 10/27/24 10/27/24 Previous Rx's Medication Instructions Recorded Wheeled Walker #1 ea 01/30/20 Wheeled Walker #1 ea 05/16/20 Wheeled Walker #1 ea 05/29/20 Wheeled Walker #1 ea 05/29/20 Results & Data (ED) Vital Signs Vital Signs - 24 hr 10/27/24 11:15 10/27/24 11:15 10/27/24 11:15 Temperature 36.9 C Temperature Source Oral Pulse Rate 99 H Pulse Rate [Right Brachial] Pulse Rhythm Regular Pulse Rhythm [Right Brachial] Pulse Strength Normal Pulse Strength [Right Brachial] Respiratory Rate 12 Respiratory Effort / Characteristics Non-Labored Respiratory Depth Normal Respiratory Pattern Regular Blood Pressure 131/84 Blood Pressure [Right Arm] Blood Pressure Mean 99 Blood Pressure Mean [Right Arm] Blood Pressure Position Lying Blood Pressure Position [Right Arm] Pulse Oximetry 96 96 Oxygen Delivery Method Room Air Room Air Room Air Sepsis Recent Fever Within 48 Hours No Sepsis New/Unexplained Change in Mental Status No Sepsis Action Taken by Nursing No Action Required 10/27/24 13:00 10/27/24 15:00 Temperature Temperature Source Pulse Rate Pulse Rate [Right Brachial] 83 79 Pulse Rhythm Pulse Rhythm [Right Brachial] Regular Regular Pulse Strength Pulse Strength [Right Brachial] Normal Normal Respiratory Rate 16 18 Respiratory Effort / Characteristics Non-Labored Non-Labored Respiratory Depth Normal Normal Respiratory Pattern Regular Regular Blood Pressure Blood Pressure [Right Arm] 128/77 132/81 Blood Pressure Mean Blood Pressure Mean [Right Arm] 94 98 Blood Pressure Position Blood Pressure Position [Right Arm] Lying Lying Pulse Oximetry 96 96 Oxygen Delivery Method Room Air Room Air Sepsis Recent Fever Within 48 Hours Sepsis New/Unexplained Change in Mental Status Sepsis Action Taken by Nursing Laboratory Data 10/27/24 11:12 10/27/24 11:12 Lab Results 10/27/24 10/27/24 Range/Units 11:12 13:29 WBC 18.55 H (4.8-10.8) K/ul RBC 4.44 (4.20-5.40) M/uL Hgb 13.6 (12.0-16.0) g/dl Hct 39.8 (37.0-47.0) % MCV 89.6 (80.0-100.0) fL MCH 30.6 (25.0-34.0) pg MCHC 34.2 (32.0-36.0) g/dL RDW Std Deviation 42.4 (36.4-46.3) fL RDW Coeff of Andrea 12.8 (11.5-14.5) % Plt Count 232 (130-400) K/uL MPV 10.0 (9.4-12.4) fL Immature Gran % (Auto) 0.5 % Neut % (Auto) 89.5 % Lymph % (Auto) 5.7 % [place] % (Auto) 3.7 % Eos % (Auto) 0.4 % Baso % (Auto) 0.2 % Neut # (Auto) 16.62 H (1.40-6.50) K/uL Lymph # (Auto) 1.05 L (1.20-3.40) K/uL [place] # (Auto) 0.68 H (0.11-0.59) K/uL Eos # (Auto) 0.07 (0.00-0.50) K/uL Baso # (Auto) 0.04 (0.00-0.20) K/uL Immature Gran # (Auto) 0.09 (0.01-0.20) K/uL Sodium 136 (136-145) mmol/L Potassium 4.0 (3.5-5.1) mmol/L Chloride 101 (98-107) mmol/L Carbon Dioxide 26 (21-32) mmol/L Anion Gap 9 (3-11) BUN 13 (6-23) mg/dl Creatinine 0.79 (0.6-1.2) mg/dl Est Cr Clr Drug Dosing 52.5 ml/min eGFR 76.04 BUN/Creatinine Ratio 16.5 (10-20) Glucose 155 H (70-99(Fasting)) mg/dl Calcium 9.6 (8.6-10.3) mg/dl Total Bilirubin 1.0 (0.2-1.0) mg/dl AST 14 (13-39) U/L ALT 17 (7-52) U/L Alkaline Phosphatase 54 (34-104) U/L Total Protein 7.1 (6.0-8.3) gm/dl Albumin 3.8 (3.4-5.0) gm/dl Globulin 3.3 (2.5-4.0) gm/dl Albumin/Globulin Ratio 1.2 (0.9-2) Urine Color Yellow Urine Appearance Clear (Clear) Urine pH 6.0 (4.5-7.5) Ur Specific [place] 1.008 (1.000-1.030) Urine Protein Negative (Negative) Urine Glucose (UA) Negative (Negative) Urine Ketones Negative (Negative) Urine Blood 1+ H (Negative) Urine Nitrite Negative (Negative) Urine Bilirubin Negative (Negative) Urine Urobilinogen Negative (Negative) Ur Leukocyte Esterase 3+ H (Negative) Urine WBC (Auto) >50 H (0-5) /hpf Urine RBC (Auto) 0-2 (0-2) /hpf U Hyaline Cast (Auto) 0-2 (0-2) /lpf U Epithel Cells (Auto) 3-5 H (0-2) /hpf Urine Bacteria (Auto) None Seen (None Seen) Adenovirus (PCR) Not Detected (NotDetected) B. pertussis DNA (PCR) Not Detected (NotDetected) B.parapertussis DNA PCR Not Detected (NotDetected) C. pneumoniae DNA (PCR) Not Detected (NotDetected) Coronavirus OC43 (PCR) Not Detected (NotDetected) Coronavirus HKU1 (PCR) Not Detected (NotDetected) Coronavirus 229E (PCR) Not Detected (NotDetected) SARS-CoV-2 (PCR) Not Detected (NotDetected) Coronavirus NL63 (PCR) Not Detected (NotDetected) Human Metapneumovir PCR Not Detected (NotDetected) Influenza Type A (PCR) Not Detected (NotDetected) Influenza Type B (PCR) Not Detected (NotDetected) M. pneumoniae (PCR) Not Detected (NotDetected) Parainfluenza 1 (PCR) Not Detected (NotDetected) Parainfluenza 2 (PCR) Not Detected (NotDetected) Parainfluenza 3 (PCR) Not Detected (NotDetected) Parainfluenza 4 (PCR) Not Detected (NotDetected) RSV (PCR) Not Detected (NotDetected) Entero/Rhino (PCR) Not Detected (NotDetected) Administered Medications Discontinued Medications Ceftriaxone Sodium (Rocephin) 2,000 mg in 50 mls @ 100 mls/hr IV NOW STA Stop: 10/27/24 15:05 Last Infusion: 10/27/24 15:35 Dose: Infused Documented By: Admin: 10/27/24 15:05 Dose: 100 mls/hr Documented By: TREY Imaging Data Radiologist's Impression: Chest X-Ray 10/27/24 11:09 XR chest 1V portable HISTORY: 79 years-old Female weakness COMPARISON: 09/03/2024 TECHNIQUE: AP view which FINDINGS: Cardiomediastinal and hilar silhouettes are unchanged. Chronic interstitial coarsening with subsegmental left basilar atelectasis versus scarring. Left axillary surgical clips. Degenerative changes of the shoulders and spine. No pneumothorax or pleural effusion. IMPRESSION: No acute process. ACT 112: Negative or not required by law. The above report was generated using voice recognition software. It may contain grammatical, syntax or spelling errors. Electronically signed by: Montez Azul M.D. 10/27/2024 11:[address] 10/27/24 15:02 CT head/brain wo con CLINICAL HISTORY: 79 years-old Female with weakness. Acute weakness in a patient with history of dementia TECHNIQUE: Multiple axial CT images of the head were obtained without contrast. A dose lowering technique was utilized adhering to the principles of ALARA. CT DOSE: 547.75 mGy.cm COMPARISON: 03/10/2024, 12/25/2023, 01/03/2021. FINDINGS: No acute intracranial hemorrhage, midline shift, intracranial mass, acute territorial ischemia or abnormal extra-axial collection. Involutional changes with white matter hypodensity suggestive of chronic microvascular ischemic disease. Senescent calcifications in the lentiform nuclei. Persistent ventriculomegaly with transverse dimension of the lateral ventricles approximately 6 cm which has not significantly changed compared to 12/25/2023, however has progressed compared to 2020 where it measured 5.3 cm. The calvarium is intact. The paranasal sinuses, mastoid air cells, and middle ear cavities are clear. IMPRESSION: 1. No acute intracranial abnormality. 2. Ventriculomegaly is unchanged from 12/25/2023, however has progressed compared to 01/03/2021. Findings may be secondary to ex vacuo ventriculomegaly, however normal pressure hydrocephalus could have a similar appearance. ACT 112: Negative or not required by law. The above report was generated using voice recognition software. It may contain grammatical, syntax or spelling errors. Electronically signed by: Montez Azul M.D. 10/27/2024 4:00 PM Discharge Plan Visit Data Chief Complaint: Weakness ED Provider: Kendal Caraballo Discharge Problem: Acute UTI (urinary tract infection), Generalized weakness, Vomiting, Diarrhea, Leukocytosis
[2024-10-27 13:56] LABS: Appearance Urine Clear (Clear); Bacteria Urine Automated None Seen (None Seen); Bilirubin Urine Negative (Negative); Blood Urine 1+ (Negative); Cast Urine Automated 0-2 /lpf (0-2); Color Urine Yellow; Glucose Urine UA Negative (Negative); Ketones Urine Negative (Negative); Leukocyte Esterase Urine 3+ (Negative); Nitrite Urine Negative (Negative); Protein Urine Negative (Negative); RBC Urine Automated 0-2 /hpf (0-2); Specific Gravity Urine 1.008 (1.000-1.030); Urobilinogen Urine Negative (Negative); WBC Urine Automated >50 /hpf (0-5)
--- NOTE | 2024-10-27 15:00 | History & Physical Report ---
<Statement entered by Sebastián Gao DO - 10/27/24 20:30> I have seen and examined the patient and have discussed the case with the provider above. I have reviewed the advanced practitioner's documentation, and I agree with, and take responsibility for that plan of care. Patient seen and examined while still in ED. Family at bedside. Patient presents with partially treated UTI as outpatient. Suspect most of her presenting symptoms may be due to side effects of the Macrobid. Discussed plan of care as outlined below with KINDRA Date of Service October 27, 2024 Assessment & Plan (1) Acute UTI: (2) Diarrhea: (3) Generalized weakness: (4) Hypertension: (5) Hyperlipidemia: (6) Anxiety: (7) Diabetes mellitus, type II: Plan: Patient is 79 year old female with PMH HTN, HLD, left breast CA, DM II, depression, dementia, recurrent UTI presented to ER for UTI and progressive weakness. 10/24/2024 urine culture: Citrobacter And on 10/25/2024 patient was called and switched from cefdinir to nitrofurantoin. Since starting nitrofurantoin N/V/D and increased weakness. #UTI #Generalized Weakness WBC: 18.5 was WNL on 10/24/2024 Negative respiratory [employer] panel CT Head: No acute intracranial abnormality. Ventriculomegaly is unchanged from 12/25/2023, however has progressed compared to 01/03/2021. Findings may be secondary to ex vacuo ventriculomegaly, however normal pressure hydrocephalus could have a similar appearance. CXR: no acute infiltrate Blood cultures pending In ER given Rocephin Continue Rocephin Hold prior Macrobid CBC, BMP in am Chronic weakness and ambulatory dyfunction with some acute worsening possible secondary to underlying UTI, med side effect Fall precautions PT/OT eval #N/V/D Started after staring macrobid. Possible side effect. If recurrent diarrhea plan to obtain stool cultures and c-diff. If would develop abdominal pain consider imaging #DM II A1c: 6.9 on 08/15/24 Hold home glipizide NovoLog sliding scale per protocol #HTN Continue losartan #HLD Continue atorvastatin #Anxiety #Memory problems Continue home buspirone, duloxetine, donepezil DVT Prophylaxis Lovenox SQ Admit med tele Reports full code and would want initial resuscitation attempt however states would not want prolonged attempt. Also states if resuscitation successful would not want prolonged ventilator support. Follows with Dr Lovelace for routine care Pt was seen and care coordinated with Dr Gao. See addendum I spent a total of 78 minutes reviewing notes, outpatient records, labs, medication, coordinating, documenting and providing care for this patient excluding time spent in the performance of separately billed services. History of Present Illness Chief Complaint: weakness Primary Care Provider: Mar Lovelace MD Patient is 79 year old female with PMH HTN, HLD, left breast CA, DM II, depression, dementia, recurrent UTI presented to ER for UTI and progressive weakness. History obtained from chart review, patient and patient's . Patient's provides most of history. Patient was seen at [facility] ER on 10/24/24 for generalized weakness and foul-smelling urine. UA was suggestive of infection and was given dose of Rocephin and discharged on cefdinir. 10/24/2024 urine culture: Citrobacter And on 10/25/2024 patient was called and switched from cefdinir to nitrofurantoin. reports patient is at baseline mental status and she is typically forgetful and is oriented to person and place at baseline. Reports took 2 doses nitrofurantoin and after had nausea and vomited 3 times. Has had 2 episodes of yellow/brown diarrhea. Patient denies abdominal pain. Reports has home PT and OT once a week. Reports at baseline patient requires 1 assist for transfer. Sometimes uses walker but often uses wheelchair. States last night has been noted was progressively weak and required 2 people for transfers. Denies fall. Denies known fever/chills, melena, hematochezia, SCHWARTZ, dizziness, syncope, vision changes, neck pain, CP, SOB, palpitations, cough, sore throat, rhinorrhea, abdominal pain, flank pain, back pain, extremity edema, rashes, dysuria, hematuria. Allergies Allergy/AdvReac Type Severity Reaction Status Date / Time walnut Allergy Severe mouth Unverified 01/18/24 11:59 blisters Home Medications Medication Instructions Recorded Confirmed Type aspirin 81 mg tablet,delayed 81 mg PO QAM 01/01/20 10/27/24 History release (Adult Aspirin Regimen) Wheeled Walker #1 ea 01/30/20 10/27/24 Rx Wheeled Walker #1 ea 05/16/20 10/27/24 Rx Wheeled Walker #1 ea 05/29/20 10/27/24 Rx Wheeled Walker #1 ea 05/29/20 10/27/24 Rx amoxicillin 500 mg capsule 2,000 mg PO DIRECTED PRN ONE 01/31/22 10/27/24 History HOUR PRIOR TO DENTAL VISITS. atorvastatin 40 mg tablet 40 mg PO QAM 01/31/22 10/27/24 History acetaminophen 500 mg tablet 1,000 mg PO TID PRN Pain 12/25/23 10/27/24 History (Tylenol Extra Strength) alendronate 70 mg tablet 70 mg PO WK 12/25/23 10/27/24 History donepezil 10 mg tablet (Aricept) 10 mg PO PM 12/25/23 10/27/24 History duloxetine 60 mg capsule,delayed 60 mg PO QAM 12/25/23 10/27/24 History release solifenacin 10 mg tablet 10 mg PO QAM 12/25/23 10/27/24 History buspirone 5 mg tablet 5 mg PO AMHS 05/11/24 10/27/24 History glipizide 2.5 mg tablet, extended 2.5 mg PO DAILYBB 05/11/24 10/27/24 History release 24 hr losartan 25 mg tablet 12.5 mg PO QAM 05/11/24 10/27/24 History Macrobid 100 mg PO UD 10/27/24 10/27/24 History Past Med/Surg History Problem List (Updated 10/27/24 @ 20:27 by Keely Monte PA-C) Diabetes mellitus, type II Leukocytosis (Acute) Diarrhea (Acute) Acute UTI (Acute) Weakness (Acute) Sepsis (Acute) COVID-19 (Acute) Vomiting (Acute) Generalized weakness (Acute) Acute UTI (urinary tract infection) (Acute) Falls frequently (Acute) Posterior tibial tendon dysfunction, left Chest pain (Acute) Costochondritis (Acute) Rib pain (Acute) Right knee pain Right knee DJD Encounter for pre-operative examination 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 Lumbar stenosis (Acute) Medical History Vomiting Obesity Bronchitis hx (no recent issues) Prediabetes PCP monitoring, labs drawn for PCP on 12/26 show A1C 6.5%-decision to monitor/diet control History of left breast cancer dx 1999; sx + radiation Heartburn symptom diet controlled Arthritis Anxiety Hypertension Hyperlipidemia Surgical History History of cataract surgery RT History of tooth extraction reason for current abx Nausea and vomiting after administration of anesthetic agent History of colonoscopy History of hysterectomy History of arthroscopy of right knee History of lumpectomy of left breast WITH LYMPH NODES - PT DENIES LIMB RESTRICTION-1999 Family History Father Family history of diabetes mellitus Mother Family history of diabetes mellitus Other No family history of adverse response to anesthesia Patient's father is Patient's mother is Social History Smoking Status: Never smoker Second Hand Exposure: No; Do You Dip or Chew Tobacco: No; Hx Alcohol Use: Yes Alcohol type: wine Hx Substance Use: No Preferred Language: Montenegrin Communication Ability: Effective 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 Beliefs That Will Affect Care: None marital status: Current Living Situation: Spouse and Family Current Living Situation Comment: [facility] Other Information That Helps Us Care for You: No Feels Safe at Home: Yes Assistive Devices: Walker and Wheelchair Review of Systems Review of Systems: All systems reviewed & are unremarkable except as noted in HPI & below Physical Exam Physical Exam: General: no acute distress, obese elderly female Head: normocephalic, atraumatic Eyes: PERRL, EOM's intact, conjunctiva non-injected, anicteric ENT: normal inspection external ears, nose, mucous membranes moist Neck: supple, trachea midline Lungs: clear, no respiratory distress, no wheezing/rhonchi/rales CV: RRR, no pretibial edema Abd: normal BS, soft, non-tender, no CVA or flank tenderness to palpation Ext: no cyanosis, no calf tenderness Neuro: Alert, oriented to person and place. Often looks to for clarification of answers, no focal deficits noted, normal affect Skin: warm, dry Results & Data Results & Data Vital Signs (Past 12 Hours) Vital Signs Temp Pulse Pulse Resp BP BP Pulse Ox 10/27/24 13:00 83 16 128/77 96 12/06/24 11:15 96 10/27/24 11:15 10/27/24 11:15 36.9 C 99 H 12 131/84 96 O2 Del Method 10/27/24 13:00 Room Air 10/27/24 11:15 Room Air 10/27/24 11:15 Room Air 10/27/24 11:15 Room Air Laboratory Results Short CBC 10/27/24 Range/Units 11:12 WBC 18.55 H (4.8-10.8) K/ul Hgb 13.6 (12.0-16.0) g/dl Hct 39.8 (37.0-47.0) % Plt Count 232 (130-400) K/uL BMP 10/27/24 11:12 Sodium 136 Potassium 4.0 Chloride 101 Carbon Dioxide 26 BUN 13 Creatinine 0.79 Glucose 155 H Calcium 9.6 Liver Function 10/27/24 Range/Units 11:12 Total Bilirubin 1.0 (0.2-1.0) mg/dl AST 14 (13-39) U/L ALT 17 (7-52) U/L Alkaline Phosphatase 54 (34-104) U/L Albumin 3.8 (3.4-5.0) gm/dl Urine 10/27/24 Range/Units 13:29 Urine Color Yellow Urine Appearance Clear (Clear) Urine pH 6.0 (4.5-7.5) Ur Specific [place] 1.008 (1.000-1.030) Urine Protein Negative (Negative) Urine Glucose (UA) Negative (Negative) Diagnostic Findings Chest X-Ray 10/27/24 11:09 XR chest 1V portable HISTORY: 79 years-old Female weakness COMPARISON: 09/03/2024 TECHNIQUE: AP view which FINDINGS: Cardiomediastinal and hilar silhouettes are unchanged. Chronic interstitial coarsening with subsegmental left basilar atelectasis versus scarring. Left axillary surgical clips. Degenerative changes of the shoulders and spine. No pneumothorax or pleural effusion. IMPRESSION: No acute process. ACT 112: Negative or not required by law. The above report was generated using voice recognition software. It may contain grammatical, syntax or spelling errors. Electronically signed by: Montez Azul M.D. 10/27/2024 11:[address] 10/27/24 15:02 CT head/brain wo con CLINICAL HISTORY: 79 years-old Female with weakness. Acute weakness in a patient with history of dementia TECHNIQUE: Multiple axial CT images of the head were obtained without contrast. A dose lowering technique was utilized adhering to the principles of ALARA. CT DOSE: 547.75 mGy.cm COMPARISON: 03/10/2024, 12/25/2023, 01/03/2021. FINDINGS: No acute intracranial hemorrhage, midline shift, intracranial mass, acute territorial ischemia or abnormal extra-axial collection. Involutional changes with white matter hypodensity suggestive of chronic microvascular ischemic disease. Senescent calcifications in the lentiform nuclei. Persistent ventriculomegaly with transverse dimension of the lateral ventricles approximately 6 cm which has not significantly changed compared to 12/25/2023, however has progressed compared to 2020 where it measured 5.3 cm. The calvarium is intact. The paranasal sinuses, mastoid air cells, and middle ear cavities are clear. IMPRESSION: 1. No acute intracranial abnormality. 2. Ventriculomegaly is unchanged from 12/25/2023, however has progressed compared to 01/03/2021. Findings may be secondary to ex vacuo ventriculomegaly, however normal pressure hydrocephalus could have a similar appearance. ACT 112: Negative or not required by law. The above report was generated using voice recognition software. It may contain grammatical, syntax or spelling errors. Electronically signed by: Montez Azul M.D. 10/27/2024 4:00 PM ECG Additional Comments: sinus rhythm, nonspecific t wave changes per my interpretation
[2024-10-27] MEDS: cefTRIAXone SODIUM 2,000 MG/50 ML BAG IV STA (15:05)
--- NOTE | 2024-10-27 15:07 | Electrocardiogram Report ---
Test Reason : Blood Pressure : */* mmHG Vent. Rate : 91 BPM Atrial Rate : 91 BPM P-R Int : 166 ms QRS Dur : 94 ms QT Int : 390 ms P-R-T Axes : 54 10 27 degrees QTcB Int : 479 ms Normal sinus rhythm Nonspecific T wave abnormality Prolonged QT Abnormal ECG When compared with ECG of 24-Oct-2024 16:24, No significant change was found Confirmed by Gareth Nunez ([id number]) on 10/27/2024 3:07:09 PM Referred By: REFERRED SELF Confirmed By: Gareth Nunez
--- NOTE | 2024-10-27 16:03 | CT Scan Report ---
CT head/brain wo con CLINICAL HISTORY: 79 years-old Female with weakness. Acute weakness in a patient with history of dem entia TECHNIQUE: Multiple axial CT images of the head were obtained without contrast. A dose lowering tech nique was utilized adhering to the principles of ALARA. CT DOSE: 547.75 mGy.cm COMPARISON: 03/10/2024, 12/25/2023, 01/03/2021. FINDINGS: No acute intracranial hemorrhage, midline shift, intracranial mass, acute territorial ischemia or abn ormal extra-axial collection. Involutional changes with white matter hypodensity suggestive of chroni c microvascular ischemic disease. Senescent calcifications in the lentiform nuclei. Persistent ventri culomegaly with transverse dimension of the lateral ventricles approximately 6 cm which has not signi ficantly changed compared to 12/25/2023, however has progressed compared to 2020 where it measured 5.3 cm. The calvarium is intact. The paranasal sinuses, mastoid air cells, and middle ear cavities are cl ear. IMPRESSION: 1. No acute intracranial abnormality. 2. Ventriculomegaly is unchanged from 12/25/2023, however has progressed compared to 01/03/2021. Finding s may be secondary to ex vacuo ventriculomegaly, however normal pressure hydrocephalus could have a s imilar appearance. ACT 112: Negative or not required by law. The above report was generated using voice recognition software. It may contain grammatical, syntax o r spelling errors. Electronically signed by: Montez Azul M.D. 10/27/2024 4:00 PM
[2024-10-27] MEDS ORDERED: PROMETHAZINE 6.25 MG/50.25 ML BAG IV PRN (18:42)
[2024-10-27] MEDS ORDERED: POLYETHYLENE (MIRALAX) 17 GM PACK PO PRN (18:42)
[2024-10-27] MEDS ORDERED: GLUCOSE 10 TAB/TUBE PO PRN (20:26)
[2024-10-27] MEDS ORDERED: DEXTROSE 50% 50 ML SYRINGE IV PRN (20:26)
[2024-10-27] MEDS ORDERED: CARBOHYDRATES FOR HYPOGLYCEMIA PO PRN (20:26)
[2024-10-27] MEDS ORDERED: GLUCOSE 40% GEL 15 GM TUBE PO PRN (20:26)
[2024-10-27] MEDS ORDERED: GLUCAGON FOR INJ 1 MG VIAL SQ PRN (20:26)
[2024-10-27] MEDS: DONEPEZIL HCL 10 MG TAB PO SCH (21:07)
[2024-10-27] MEDS: busPIRone 5 MG TAB PO SCH (21:08)
[2024-10-27] MEDS: ENOXAPARIN INJ 40 MG/0.4 ML SYR SQ SCH (21:08)
[2024-10-27] MEDS: INSULIN ASPART PER UNIT CHARGE SC SCH (21:30)
[2024-10-28] MEDS: LOSARTAN POTASSIUM 25 MG TAB PO SCH (07:55)
[2024-10-28] MEDS: OXYBUTYNIN CHLORIDE XL 5 MG TABCR PO SCH (07:55)
[2024-10-28] MEDS: DULoxetine HCL 60 MG CAP PO SCH (07:55)
[2024-10-28] MEDS: ASPIRIN 81 MG ECTAB PO SCH (07:55)
[2024-10-28] MEDS: ATORVASTATIN 40 MG TAB PO SCH (07:55)
[2024-10-28 08:17] LABS: BUN Creatinine Ratio 18.1 (10-20); Calcium 8.9 mg/dl (8.6-10.3); Creatinine Clr Calc Pharmacy 48.5 ml/min; Potassium 3.7 mmol/L (3.5-5.1)
[2024-10-28 08:35] LABS: Basophils # (auto) 0.02 K/uL (0.00-0.20); Basophils % (auto) 0.3 %; Eosinophils # (auto) 0.57 K/uL (0.00-0.50); Eosinophils % (auto) 9.3 %; Hemoglobin 12.7 g/dl (12.0-16.0); Immature Granulocytes # (auto) 0.02 K/uL (0.01-0.20); Immature Granulocytes % (auto) 0.3 %; Lymphocytes # (auto) 1.41 K/uL (1.20-3.40); Lymphocytes % (auto) 22.9 %; Mean Corpuscular Hemoglobin 30.4 pg (25.0-34.0); Mean Corpuscular Hgb Conc 33.4 g/dL (32.0-36.0); Mean Corpuscular Volume 90.9 fL (80.0-100.0); Mean Platelet Volume 10.3 fL (9.4-12.4); Monocytes # (auto) 0.65 K/uL (0.11-0.59); Monocytes % (auto) 10.6 %; Neutrophils # (auto) 3.49 K/uL (1.40-6.50); Neutrophils % (auto) 56.6 %; Platelet Count 211 K/uL (130-400); RDW Coefficient of Variation 13.3 % (11.5-14.5); RDW Standard Deviation 44.6 fL (36.4-46.3); Red Blood Count 4.18 M/uL (4.20-5.40); White Blood Count 6.16 K/ul (4.8-10.8)
--- NOTE | 2024-10-28 09:33 | Hospitalist Progress Note ---
Date of Service October 28, 2024 Assessment & Plan (1) Acute UTI: Plan: This seems to be acute cystitis based on the degree of pyuria, urine culture is pending, previously she had grown Citrobacter freundii which has been pansensitive, follow with the result of culture, patient. Had some low-grade fever yesterday but no longer. WBC count on admission was 16,000 which improved to 6 today. (2) Diarrhea: Plan: This apparently has resolved, patient did not complain anymore. (3) Hyperlipidemia: Plan: Continue with Lipitor 40 mg daily. (4) Anxiety: Plan: Patient does have dementia and I think part of her movement deficit is due to , continue with home dose of Aricept, Cymbalta and buspirone. (5) Diabetes mellitus, type II: Plan: Blood sugars relatively stable adjusting for her age and condition, continue to manage with sliding scale coverage, upon discharge may transition back to home regimen. (6) Hypertension, essential: Plan: Blood pressure is relatively stable, continue losartan 12.5 mg daily. Plan Await the result of urine culture and PT and OT, case management will review the case for possible need for placement. Admission and Anticipated Discharge Date Admission Date: October 27, 2024 Subjective Patient is a very pleasant 79-year-old female with history of hypertension, hyperlipidemia, left breast cancer, diabetes mellitus type 2, depression and dementia who has been having issues with ambulation at home, patient came to the hospital because of generalized weakness, she was found to have leukocytosis of 18,000, on workup she was found to have urine tract infection, patient was empirically treated with ceftriaxone, prior records states that she did have Citrobacter infection which has been pretty much pansensitive. Patient was seen and examined, clinically at this time stable, based on the degree of weakness that I noticed during movement from bed to chair, PT OT evaluation will be done and if needed she will be sent to rehab, she is very interested in such. Physical Exam Physical Exam: VITALS: Reviewed. WEIGHT/BMI reviewed. GEN: Healthy appearing, well-developed, NAD. CV: RRR, no m/r/g. LUNGS: CTAB, no w/r/c. ABD: Soft, NT/ND, NBS, no masses or organomegaly. : N/A SKIN: Warm, well perfused. No skin rashes or abnormal lesions. MSK: No deformities, Normal gait. EXT: No clubbing, cyanosis, or edema. NEURO: Very mobility limited Results & Data Results & Data Vital Signs (Past 12 Hours) Vital Signs Temp Pulse Pulse Resp BP Pulse Ox O2 Del Method 10/28/24 08:08 Room Air 10/28/24 07:28 36.7 C 68 16 145/74 H 96 Room Air 10/28/24 05:53 75 10/28/24 02:51 36.6 C 73 18 136/78 94 Room Air 10/27/24 23:29 Room Air 10/27/24 23:00 36.7 C 83 18 125/78 91 Room Air 10/27/24 22:53 87 Laboratory Results Laboratory Results - last 24 hr 10/27/24 10/27/24 10/27/24 11:12 13:29 22:19 WBC 18.55 H RBC 4.44 Hgb 13.6 Hct 39.8 MCV 89.6 MCH 30.6 MCHC 34.2 RDW Std Deviation 42.4 RDW Coeff of Andrea 12.8 Plt Count 232 MPV 10.0 Immature Gran % (Auto) 0.5 Neut % (Auto) 89.5 Lymph % (Auto) 5.7 [place] % (Auto) 3.7 Eos % (Auto) 0.4 Baso % (Auto) 0.2 Neut # (Auto) 16.62 H Lymph # (Auto) 1.05 L [place] # (Auto) 0.68 H Eos # (Auto) 0.07 Baso # (Auto) 0.04 Immature Gran # (Auto) 0.09 Sodium 136 Potassium 4.0 Chloride 101 Carbon Dioxide 26 Anion Gap 9 BUN 13 Creatinine 0.79 Est Cr Clr Drug Dosing 52.5 eGFR 76.04 BUN/Creatinine Ratio 16.5 Glucose 155 H POC Glucose 159 H Calcium 9.6 Total Bilirubin 1.0 AST 14 ALT 17 Alkaline Phosphatase 54 Total Protein 7.1 Albumin 3.8 Globulin 3.3 Albumin/Globulin Ratio 1.2 Urine Color Yellow Urine Appearance Clear Urine pH 6.0 Ur Specific [place] 1.008 Urine Protein Negative Urine Glucose (UA) Negative Urine Ketones Negative Urine Blood 1+ H Urine Nitrite Negative Urine Bilirubin Negative Urine Urobilinogen Negative Ur Leukocyte Esterase 3+ H Urine WBC (Auto) >50 H Urine RBC (Auto) 0-2 U Hyaline Cast (Auto) 0-2 U Epithel Cells (Auto) 3-5 H Urine Bacteria (Auto) None Seen Adenovirus (PCR) Not Detected B. pertussis DNA (PCR) Not Detected B.parapertussis DNA PCR Not Detected C. pneumoniae DNA (PCR) Not Detected Coronavirus OC43 (PCR) Not Detected Coronavirus HKU1 (PCR) Not Detected Coronavirus 229E (PCR) Not Detected SARS-CoV-2 (PCR) Not Detected Coronavirus NL63 (PCR) Not Detected Human Metapneumovir PCR Not Detected Influenza Type A (PCR) Not Detected Influenza Type B (PCR) Not Detected M. pneumoniae (PCR) Not Detected Parainfluenza 1 (PCR) Not Detected Parainfluenza 2 (PCR) Not Detected Parainfluenza 3 (PCR) Not Detected Parainfluenza 4 (PCR) Not Detected RSV (PCR) Not Detected Entero/Rhino (PCR) Not Detected 10/28/24 10/28/24 07:03 08:10 WBC 6.16 D RBC 4.18 L Hgb 12.7 Hct 38.0 MCV 90.9 MCH 30.4 MCHC 33.4 RDW Std Deviation 44.6 RDW Coeff of Andrea 13.3 Plt Count 211 MPV 10.3 Immature Gran % (Auto) 0.3 Neut % (Auto) 56.6 Lymph % (Auto) 22.9 [place] % (Auto) 10.6 Eos % (Auto) 9.3 Baso % (Auto) 0.3 Neut # (Auto) 3.49 Lymph # (Auto) 1.41 [place] # (Auto) 0.65 H Eos # (Auto) 0.57 H Baso # (Auto) 0.02 Immature Gran # (Auto) 0.02 Sodium 139 Potassium 3.7 Chloride 106 Carbon Dioxide 26 Anion Gap 7 BUN 15 Creatinine 0.83 Est Cr Clr Drug Dosing 48.5 eGFR 71.67 BUN/Creatinine Ratio 18.1 Glucose 126 H POC Glucose 129 H Calcium 8.9 Total Bilirubin AST ALT Alkaline Phosphatase Total Protein Albumin Globulin Albumin/Globulin Ratio Urine Color Urine Appearance Urine pH Ur Specific [place] Urine Protein Urine Glucose (UA) Urine Ketones Urine Blood Urine Nitrite Urine Bilirubin Urine Urobilinogen Ur Leukocyte Esterase Urine WBC (Auto) Urine RBC (Auto) U Hyaline Cast (Auto) U Epithel Cells (Auto) Urine Bacteria (Auto) Adenovirus (PCR) B. pertussis DNA (PCR) B.parapertussis DNA PCR C. pneumoniae DNA (PCR) Coronavirus OC43 (PCR) Coronavirus HKU1 (PCR) Coronavirus 229E (PCR) SARS-CoV-2 (PCR) Coronavirus NL63 (PCR) Human Metapneumovir PCR Influenza Type A (PCR) Influenza Type B (PCR) M. pneumoniae (PCR) Parainfluenza 1 (PCR) Parainfluenza 2 (PCR) Parainfluenza 3 (PCR) Parainfluenza 4 (PCR) RSV (PCR) Entero/Rhino (PCR) Diagnostic Findings Chest X-Ray 10/27/24 11:09 XR chest 1V portable HISTORY: 79 years-old Female weakness COMPARISON: 09/03/2024 TECHNIQUE: AP view which FINDINGS: Cardiomediastinal and hilar silhouettes are unchanged. Chronic interstitial coarsening with subsegmental left basilar atelectasis versus scarring. Left axillary surgical clips. Degenerative changes of the shoulders and spine. No pneumothorax or pleural effusion. IMPRESSION: No acute process. ACT 112: Negative or not required by law. The above report was generated using voice recognition software. It may contain grammatical, syntax or spelling errors. Electronically signed by: Montez Azul M.D. 10/27/2024 11:[address] 10/27/24 15:02 CT head/brain wo con CLINICAL HISTORY: 79 years-old Female with weakness. Acute weakness in a patient with history of dementia TECHNIQUE: Multiple axial CT images of the head were obtained without contrast. A dose lowering technique was utilized adhering to the principles of ALARA. CT DOSE: 547.75 mGy.cm COMPARISON: 03/10/2024, 12/25/2023, 01/03/2021. FINDINGS: No acute intracranial hemorrhage, midline shift, intracranial mass, acute territorial ischemia or abnormal extra-axial collection. Involutional changes with white matter hypodensity suggestive of chronic microvascular ischemic disease. Senescent calcifications in the lentiform nuclei. Persistent ventriculomegaly with transverse dimension of the lateral ventricles approximately 6 cm which has not significantly changed compared to 12/25/2023, however has progressed compared to 2020 where it measured 5.3 cm. The calvarium is intact. The paranasal sinuses, mastoid air cells, and middle ear cavities are clear. IMPRESSION: 1. No acute intracranial abnormality. 2. Ventriculomegaly is unchanged from 12/25/2023, however has progressed compared to 01/03/2021. Findings may be secondary to ex vacuo ventriculomegaly, however normal pressure hydrocephalus could have a similar appearance. ACT 112: Negative or not required by law. The above report was generated using voice recognition software. It may contain grammatical, syntax or spelling errors. Electronically signed by: Montez Azul M.D. 10/27/2024 4:00 PM Medications Administered Current Inpatient Medications Acetaminophen (Acetaminophen 325 Mg Tab) 650 mg PO Q4H PRN PRN Reason: Pain or Fever Stop: 11/26/24 18:41 Aspirin (Aspirin 81 Mg Ectab) 81 mg PO QAM [facility] Stop: 11/27/24 08:59 Last Admin: 10/28/24 07:55 Dose: 81 mg Atorvastatin Calcium (Atorvastatin 40 Mg Tab) 40 mg PO QAM [facility] Stop: 11/27/24 08:59 Last Admin: 10/28/24 07:55 Dose: 40 mg Buspirone HCl (Buspirone 5 Mg Tab) 5 mg PO AMHS [facility] Stop: 11/26/24 20:59 Last Admin: 10/28/24 07:55 Dose: 5 mg Dextrose (Dextrose 50% 50 Ml Syringe) 25 - 50 ml IV UD PRN; Protocol PRN Reason: Hypoglycemia Protocol Stop: 11/26/24 20:25 Donepezil HCl (Donepezil Hcl 10 Mg Tab) 10 mg PO PM [facility] Stop: 11/26/24 20:59 Last Admin: 10/27/24 21:07 Dose: 10 mg Duloxetine HCl (Duloxetine Hcl 60 Mg Cap) 60 mg PO QAM [facility] Stop: 11/27/24 08:59 Last Admin: 10/28/24 07:55 Dose: 60 mg Enoxaparin Sodium (Enoxaparin Inj 40 Mg/0.4 Ml Syr) 40 mg SQ Q24H [facility] Stop: 11/26/24 18:59 Last Admin: 10/27/24 21:08 Dose: 40 mg Glucagon (Glucagon For Inj 1 Mg Vial) 1 mg SQ UD PRN; Protocol PRN Reason: Hypoglycemia Protocol Stop: 11/26/24 20:25 Glucose (Glucose 40% Gel 15 Gm Tube) 15 - 30 gm PO UD PRN; Protocol PRN Reason: Hypoglycemia Protocol Stop: 11/26/24 20:25 Glucose (Glucose 10 Tab/Tube) 4 - 8 tab PO UD PRN; Protocol PRN Reason: Hypoglycemia Protocol Stop: 11/26/24 20:25 Promethazine HCl (Phenergan) 6.25 mg in 50.25 mls @ 201 mls/hr IV Q6H PRN PRN Reason: Nausea And Vomiting Stop: 11/26/24 18:41 Ceftriaxone Sodium (Rocephin) 1,000 mg in 50 mls @ 100 mls/hr IV Q24H [facility] Stop: 11/02/24 14:59 Insulin Aspart (Insulin Aspart Per Unit Charge) 0 units SC ACHS [facility] Stop: 11/26/24 20:59 Last Admin: 10/28/24 08:58 Dose: Not Given Losartan Potassium (Losartan Potassium 25 Mg Tab) 12.5 mg PO QAM [facility] Stop: 11/27/24 08:59 Last Admin: 10/28/24 07:55 Dose: 12.5 mg Miscellaneous (Carbohydrates For Hypoglycemia ) 15 - 30 gm PO UD PRN PRN Reason: Hypoglycemia Protocol Stop: 11/26/24 20:25 Oxybutynin Chloride (Oxybutynin Chloride Xl 5 Mg Tabcr) 10 mg PO QAM [facility] Stop: 11/27/24 08:59 Last Admin: 10/28/24 07:55 Dose: 10 mg Polyethylene Glycol (Polyethylene (Miralax) 17 Gm Pack) 17 gm PO DAILY PRN PRN Reason: Constipation Stop: 11/26/24 18:41 (2) Diarrhea Diarrhea type: unspecified type Qualified Code(s): R19.7 - Diarrhea, unspecified (3) Hyperlipidemia Hyperlipidemia type: mixed hyperlipidemia Qualified Code(s): E78.2 - Mixed hyperlipidemia (5) Diabetes mellitus, type II 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
[2024-10-28 13:00] LABS: Adenovirus F 40/41 PCR Not Detected (NotDetected); Astrovirus PCR Not Detected (NotDetected); Campylobacter PCR Not Detected (NotDetected); Cryptosporidium PCR Not Detected (NotDetected); Cyclospora cayetanensis PCR Not Detected (NotDetected); Entamoeba histolytica PCR Not Detected (NotDetected); Enteroaggregative E.coli(EAEC) Not Detected (NotDetected); Enteropathogenic E.coli (EPEC) Not Detected (NotDetected); Enterotoxigenic E.coli (ETEC) Not Detected (NotDetected); Giardia lamblia PCR Not Detected (NotDetected); Norovirus GI/GII PCR Not Detected (NotDetected); Plesiomonas shigelloides PCR Not Detected (NotDetected); Rotavirus A PCR Not Detected (NotDetected); Salmonella PCR Not Detected (NotDetected); Sapovirus PCR Not Detected (NotDetected); Shiga-like Toxin E.coli (STEC) Not Detected (NotDetected); Shigella/Enteroinvasive E.coli Not Detected (NotDetected); Vibrio cholerae PCR Not Detected (NotDetected); Vibrio species PCR Not Detected (NotDetected); Yersinia enterocolitica PCR Not Detected (NotDetected)
[2024-10-28] MEDS: cefTRIAXone SODIUM 1,000 MG/50 ML BAG IV SCH (14:24)
--- NOTE | 2024-10-29 10:00 | Hospitalist Progress Note ---
Date of Service October 29, 2024 Assessment & Plan (1) Acute UTI: Plan: Will transition to cefdinir 300 mg p.o. twice daily for 5 more days ending 11/02/2024. Leukocytosis has resolved, patient is clinically stable. (2) Diarrhea: Plan: This apparently has resolved, patient did not complain anymore. (3) Hyperlipidemia: Plan: Continue with Lipitor 40 mg daily. (4) Anxiety: Plan: Patient does have dementia and I think part of her movement deficit is due to dementia, continue with home dose of Aricept, Cymbalta and buspirone. (5) Diabetes mellitus, type II: Plan: Blood sugars relatively stable adjusting for her age and condition, continue to manage with sliding scale coverage, upon discharge may transition back to home regimen. (6) Hypertension, essential: Plan: Blood pressure is stable, continue losartan 12.5 mg daily. Plan At this point we are waiting for case management to intervene for placement. Continue cefdinir 300 mg twice daily for total of 5 days ending 11/02/2024. Admission and Anticipated Discharge Date Admission Date: October 27, 2024 Subjective Patient is a very pleasant 79-year-old female with history of hypertension, hyperlipidemia, left breast cancer, diabetes mellitus type 2, depression and dementia who has been having issues with ambulation at home, patient came to the hospital because of generalized weakness, she was found to have leukocytosis of 18,000, on workup she was found to have urine tract infection, patient was empirically treated with ceftriaxone, prior records states that she did have Citrobacter infection which has been pretty much pansensitive. Patient seen and examined, she still has significant weakness generally, seen by PT and OT yesterday and plan for rehab placement, the results of urine culture was last reviewed, I would consider total of 5 more days of cefdinir 300 mg twice daily. Physical Exam Physical Exam: VITALS: Reviewed. WEIGHT/BMI reviewed. GEN: Healthy appearing, well-developed, NAD. CV: RRR, no m/r/g. LUNGS: CTAB, no w/r/c. ABD: Soft, NT/ND, NBS, no masses or organomegaly. Results & Data Results & Data Vital Signs (Past 12 Hours) Vital Signs Temp Pulse Pulse Resp BP Pulse Ox O2 Del Method 10/29/24 09:22 70 10/29/24 07:38 36.7 C 76 16 116/74 95 Room Air 10/29/24 07:23 Room Air 10/29/24 03:01 36.7 C 78 16 133/84 93 Room Air 10/28/24 23:12 36.6 C 81 16 121/71 91 Room Air Laboratory Results Laboratory Results - last 24 hr 10/28/24 10/28/24 10/28/24 11:33 12:21 17:16 POC Glucose 113 H 122 H Stl C. cayetanensis PCR Not Detected Stool Rotavirus A PCR Not Detected Stl Adenov F 40/41 PCR Not Detected Stool Astrovirus (PCR) Not Detected Stool Campylobacter PCR Not Detected Stl C. diff Tox B Gene Negative Cdiff Gene Stool Cryptosporidium PCR Not Detected Stl E.coli Shiga Tox PCR Not Detected Stl Enterotoxigenic E PCR Not Detected Stool EPEC (PCR) Not Detected Stool EAEC (PCR) Not Detected Stl E. histolytica PCR Not Detected Stool Giardia Lamblia PCR Not Detected Stool Salmonella PCR Not Detected Stool Sapovirus (PCR) Not Detected Stl P. shigelloides PCR Not Detected Stl Shigella/EIEC PCR Not Detected St Y.enterocolitica PCR Not Detected Stool Vibrio (PCR) Not Detected Stl Vibrio cholerae PCR Not Detected Stl Norovirus GI/GII PCR Not Detected 10/28/24 10/29/24 20:19 08:16 POC Glucose 139 H 132 H Stl C. cayetanensis PCR Stool Rotavirus A PCR Stl Adenov F 40/41 PCR Stool Astrovirus (PCR) Stool Campylobacter PCR Stl C. diff Tox B Gene Stool Cryptosporidium PCR Stl E.coli Shiga Tox PCR Stl Enterotoxigenic E PCR Stool EPEC (PCR) Stool EAEC (PCR) Stl E. histolytica PCR Stool Giardia Lamblia PCR Stool Salmonella PCR Stool Sapovirus (PCR) Stl P. shigelloides PCR Stl Shigella/EIEC PCR St Y.enterocolitica PCR Stool Vibrio (PCR) Stl Vibrio cholerae PCR Stl Norovirus GI/GII PCR Medications Administered Current Inpatient Medications Acetaminophen (Acetaminophen 325 Mg Tab) 650 mg PO Q4H PRN PRN Reason: Pain or Fever Stop: 11/26/24 18:41 Aspirin ([facility] 81 Mg [facility]) [facility] [place] Stop: 11/27/24 08:59 Last Admin: 10/29/24 07:59 Dose: 81 mg Atorvastatin Calcium (Atorvastatin 40 Mg Tab) 40 mg PO QAM [facility] Stop: 11/27/24 08:59 Last Admin: 10/29/24 07:59 Dose: 40 mg Buspirone HCl (Buspirone 5 Mg Tab) 5 mg PO AMHS [facility] Stop: 11/26/24 20:59 Last Admin: 10/29/24 07:59 Dose: 5 mg Cefdinir (Cefdinir 300 Mg Cap) 300 mg PO BID [facility]; Protocol Stop: 11/03/24 08:59 Dextrose (Dextrose 50% 50 Ml Syringe) 25 - 50 ml IV UD PRN; Protocol PRN Reason: Hypoglycemia Protocol Stop: 11/26/24 20:25 Donepezil HCl (Donepezil Hcl 10 Mg Tab) 10 mg PO PM [facility] Stop: 11/26/24 20:59 Last Admin: 10/28/24 20:23 Dose: 10 mg Duloxetine HCl (Duloxetine Hcl 60 Mg Cap) [facility] [place] Stop: 11/27/24 08:59 Last Admin: 10/29/24 07:59 Dose: 60 mg Enoxaparin Sodium (Enoxaparin Inj 40 Mg/0.4 Ml Syr) 40 mg SQ Q24H [facility] Stop: 11/26/24 18:59 Last Admin: 10/28/24 18:38 Dose: 40 mg Glucagon (Glucagon For Inj 1 Mg Vial) 1 mg SQ UD PRN; Protocol PRN Reason: Hypoglycemia Protocol Stop: 11/26/24 20:25 Glucose (Glucose 40% Gel 15 Gm Tube) 15 - 30 gm PO UD PRN; Protocol PRN Reason: Hypoglycemia Protocol Stop: 11/26/24 20:25 Glucose (Glucose 10 Tab/Tube) 4 - 8 tab PO UD PRN; Protocol PRN Reason: Hypoglycemia Protocol Stop: 11/26/24 20:25 Promethazine HCl (Phenergan) 6.25 mg in 50.25 mls @ 201 mls/hr IV Q6H PRN PRN Reason: Nausea And Vomiting Stop: 11/26/24 18:41 Insulin Aspart (Insulin Aspart Per Unit Charge) 0 units SC ACHS [facility] Stop: 11/26/24 20:59 Last Admin: 10/29/24 08:32 Dose: Not Given Losartan Potassium (Losartan Potassium 25 Mg Tab) 12.5 mg PO QAM [facility] Stop: 11/27/24 08:59 Last Admin: 10/29/24 07:59 Dose: 12.5 mg Miscellaneous (Carbohydrates For Hypoglycemia ) 15 - 30 gm PO UD PRN PRN Reason: Hypoglycemia Protocol Stop: 11/26/24 20:25 Oxybutynin Chloride (Oxybutynin Chloride Xl 5 Mg Tabcr) [facility] [place]: 11/27/24 08:59 Last Admin: 10/29/24 08:00 Dose: 10 mg Polyethylene Glycol (Polyethylene (Miralax) 17 Gm Pack) 17 gm PO DAILY PRN PRN Reason: Constipation Stop: 11/26/24 18:41 (2) Diarrhea Diarrhea type: unspecified type Qualified Code(s): R19.7 - Diarrhea, unspecified (3) Hyperlipidemia Hyperlipidemia type: mixed hyperlipidemia Qualified Code(s): E78.2 - Mixed hyperlipidemia (5) Diabetes mellitus, type II Diabetes mellitus jail insulin use: without jail use Diabetes mellitus complication status: with hyperglycemia Qualified Code(s): E11.65 - Type 2 diabetes mellitus with hyperglycemia
[2024-10-29] MEDS: CEFDINIR 300 MG CAP PO SCH (11:01)
[2024-10-30] MEDS: CIPROFLOXACIN 500 MG TAB PO SCH (09:54)
[2024-10-30 14:36] LABS: Hematocrit (blood only) 39.1 % (37.0-47.0); Hemoglobin 13.2 g/dl (12.0-16.0); Mean Corpuscular Hemoglobin 30.6 pg (25.0-34.0); Mean Corpuscular Hgb Conc 33.8 g/dL (32.0-36.0); Mean Corpuscular Volume 90.7 fL (80.0-100.0); Mean Platelet Volume 9.7 fL (9.4-12.4); Platelet Count 251 K/uL (130-400); RDW Coefficient of Variation 12.8 % (11.5-14.5); RDW Standard Deviation 42.8 fL (36.4-46.3); Red Blood Count 4.31 M/uL (4.20-5.40); White Blood Count 5.88 K/ul (4.8-10.8)
[2024-10-30 14:53] LABS: BUN Creatinine Ratio 15.5 (10-20); Creatinine Clr Calc Pharmacy 47.6 ml/min; Magnesium 2.1 mg/dl (1.7-2.4); Phosphorus 3.1 mg/dl (2.5-4.9); Potassium 4.2 mmol/L (3.5-5.1)
--- NOTE | 2024-10-30 16:01 | Hospitalist Progress Note ---
Date of Service October 30, 2024 Assessment & Plan (1) Acute UTI: Plan: (1) Acute UTI: (2) Diarrhea: (3) Generalized weakness: (4) Hypertension: (5) Hyperlipidemia: (6) Anxiety: (7) Diabetes mellitus, type II: Plan: Patient is 79 year old female with PMH HTN, HLD, left breast CA, DM II, depression, dementia, recurrent UTI presented to ER for UTI and progressive weakness. 10/24/2024 urine culture: Citrobacter And on 10/25/2024 patient was called and switched from cefdinir to nitrofurantoin. Since starting nitrofurantoin N/V/D and increased weakness. UTI Generalized Weakness WBC: 18.5 was WNL on 10/24/2024 Negative respiratory [employer] panel CT Head: No acute intracranial abnormality. Ventriculomegaly is unchanged from 12/25/2023, however has progressed compared to 01/03/2021. Findings may be s econdary to ex vacuo ventriculomegaly, however normal pressure hydrocephalus could have a similar appearance. CXR: no acute infiltrate Blood cultures negat. in 48 hrs In ER given Rocephin, which was continued Macrobid stopped (as symptoms seem to be secondary to macrobid) Leukocytosis resolved, WBC normalized Discussed w/ ID today (10/30) - dont use cephalosporins other than cefepime for citrobacter freudii given its high risk for induced resistance. Will cont. w/ ciprofloxacin. cefdinir discontinued Chronic weakness and ambulatory dysfunction with some acute worsening possible secondary to underlying UTI, med side effect Fall precautions PT/OT eval N/V/D - resolved Started after starting macrobid. Possible side effect. If recurrent diarrhea plan to obtain stool cultures and c-diff. If would develop abdominal pain consider imaging DM II A1c: 6.9 on 08/15/24 Hold home glipizide NovoLog sliding scale per protocol #HTN Continue losartan #HLD Continue atorvastatin #Anxiety #Memory problems Continue home buspirone, duloxetine, donepezil DVT Prophylaxis Lovenox SQ Dispo - med tele, plan to Dc to [facility], CM involved Code status - Reports full code and would want initial resuscitation attempt however states would not want prolonged attempt. Also states if resuscitation successful would not want prolonged ventilator support. PCP - Follows with Dr Lovelace for routine care Admission and Anticipated Discharge Date Admission Date: October 27, 2024 Subjective Pt seen in follow up of UTI Currently sitting up in bed in NAD, feeling well overall Pt's Anton at the bedside - wants to speak to CM about rehab options Pt denies any fever, chills, chest pain, shortness of breath, abd. pain , n/v Pt has dementia Discussed w/ ID abx options given her UTI --> switched to cipro Review of Systems Review of Systems: All systems reviewed & are unremarkable except as noted in Subjective Physical Exam Physical Exam: General: no acute distress, obese elderly female Head: normocephalic, atraumatic Eyes: PERRL, EOM's intact, conjunctiva non-injected, anicteric ENT: normal inspection external ears, nose, mucous membranes moist Neck: supple Lungs: clear, no respiratory distress, no wheezing/rhonchi/rales CV: RRR, no pretibial edema Abd: normal BS, soft, non-tender, no CVA or flank tenderness to palpation Ext: no calf tenderness Neuro: Alert, oriented to person and place. Often looks to for clarification of answers, no focal deficits noted, normal affect Skin: warm, dry Results & Data Results & Data Vital Signs (Past 12 Hours) Vital Signs Temp Pulse Pulse Resp BP Pulse Ox O2 Del Method 10/30/24 15:02 80 10/30/24 11:57 36.6 C 72 16 144/81 H 92 Room Air 10/30/24 08:34 36.7 C 74 16 143/89 H 93 Room Air 10/30/24 07:14 Room Air 10/30/24 07:08 64 Laboratory Results 10/30/24 10/30/24 10/30/24 Range/Units 14:12 12:20 08:06 WBC 5.88 (4.8-10.8) K/ul RBC 4.31 (4.20-5.40) M/uL Hgb 13.2 (12.0-16.0) g/dl Hct 39.1 (37.0-47.0) % MCV 90.7 (80.0-100.0) fL MCH 30.6 (25.0-34.0) pg MCHC 33.8 (32.0-36.0) g/dL RDW Std Deviation 42.8 (36.4-46.3) fL RDW Coeff of Andrea 12.8 (11.5-14.5) % Plt Count 251 (130-400) K/uL MPV 9.7 (9.4-12.4) fL Sodium 137 (136-145) mmol/L Potassium 4.2 (3.5-5.1) mmol/L Chloride 106 (98-107) mmol/L Carbon Dioxide 25 (21-32) mmol/L Anion Gap 6 (3-11) BUN 13 (6-23) mg/dl Creatinine 0.84 (0.6-1.2) mg/dl Est Cr Clr Drug Dosing 47.6 ml/min eGFR 70.64 BUN/Creatinine Ratio 15.5 (10-20) Glucose 124 H (70-99(Fasting)) mg/dl POC Glucose 122 H 119 H (70-99) mg/dl Calcium 9.0 (8.6-10.3) mg/dl Phosphorus 3.1 (2.5-4.9) mg/dl Magnesium 2.1 (1.7-2.4) mg/dl 10/29/24 10/29/24 Range/Units 20:09 17:04 WBC (4.8-10.8) K/ul RBC (4.20-5.40) M/uL Hgb (12.0-16.0) g/dl Hct (37.0-47.0) % MCV (80.0-100.0) fL MCH (25.0-34.0) pg MCHC (32.0-36.0) g/dL RDW Std Deviation (36.4-46.3) fL RDW Coeff of Andrea (11.5-14.5) % Plt Count (130-400) K/uL MPV (9.4-12.4) fL Sodium (136-145) mmol/L Potassium (3.5-5.1) mmol/L Chloride (98-107) mmol/L Carbon Dioxide (21-32) mmol/L Anion Gap (3-11) BUN (6-23) mg/dl Creatinine (0.6-1.2) mg/dl Est Cr Clr Drug Dosing ml/min eGFR BUN/Creatinine Ratio (10-20) Glucose (70-99(Fasting)) mg/dl POC Glucose 128 H 170 H (70-99) mg/dl Calcium (8.6-10.3) mg/dl Phosphorus (2.5-4.9) mg/dl Magnesium (1.7-2.4) mg/dl Medications Administered Current Inpatient Medications Acetaminophen (Acetaminophen 325 Mg Tab) 650 mg PO Q4H PRN PRN Reason: Pain or Fever Stop: 11/26/24 18:41 Aspirin (Aspirin 81 Mg Ectab) [facility] [place] Stop: 11/27/24 08:59 Last Admin: 10/30/24 07:56 Dose: 81 mg Atorvastatin Calcium (Atorvastatin 40 Mg Tab) 40 mg PO QAM [facility] Stop: 11/27/24 08:59 Last Admin: 10/30/24 07:57 Dose: 40 mg Buspirone HCl (Buspirone 5 Mg Tab) 5 mg PO [facility] Stop: 11/26/24 20:59 Last Admin: 10/30/24 07:56 Dose: 5 mg Ciprofloxacin (Ciprofloxacin 500 Mg Tab) 500 mg PO BID [facility]; Protocol Stop: 11/04/24 08:59 Last Admin: 10/30/24 09:54 Dose: 500 mg Dextrose (Dextrose 50% 50 Ml Syringe) 25 - 50 ml IV UD PRN; Protocol PRN Reason: Hypoglycemia Protocol Stop: 11/26/24 20:25 Donepezil HCl (Donepezil Hcl 10 Mg Tab) 10 mg PO PM [facility] Stop: 11/26/24 20:59 Last Admin: 10/29/24 22:05 Dose: 10 mg Duloxetine HCl (Duloxetine Hcl 60 Mg Cap) 60 mg PO QAM [facility] Stop: 11/27/24 08:59 Last Admin: 10/30/24 07:57 Dose: 60 mg Enoxaparin Sodium (Enoxaparin Inj 40 Mg/0.4 Ml Syr) 40 mg SQ Q24H [facility] Stop: 11/26/24 18:59 Last Admin: 10/29/24 18:33 Dose: 40 mg Glucagon (Glucagon For Inj 1 Mg Vial) 1 mg SQ UD PRN; Protocol PRN Reason: Hypoglycemia Protocol Stop: 11/26/24 20:25 Glucose (Glucose 40% Gel 15 Gm Tube) 15 - 30 gm PO UD PRN; Protocol PRN Reason: Hypoglycemia Protocol Stop: 11/26/24 20:25 Glucose (Glucose 10 Tab/Tube) 4 - 8 tab PO UD PRN; Protocol PRN Reason: Hypoglycemia Protocol Stop: 11/26/24 20:25 Promethazine HCl (Phenergan) 6.25 mg in 50.25 mls @ 201 mls/hr IV Q6H PRN PRN Reason: Nausea And Vomiting Stop: 11/26/24 18:41 Insulin Aspart (Insulin Aspart Per Unit Charge) 0 units SC [facility] Stop: 11/26/24 20:59 Last Admin: 10/30/24 12:32 Dose: Not Given Losartan Potassium (Losartan Potassium 25 Mg Tab) 12.5 mg PO QAM [facility] Stop: 11/27/24 08:59 Last Admin: 10/30/24 07:56 Dose: 12.5 mg Miscellaneous (Carbohydrates For Hypoglycemia ) 15 - 30 gm PO UD PRN PRN Reason: Hypoglycemia Protocol Stop: 11/26/24 20:25 Oxybutynin Chloride (Oxybutynin Chloride Xl 5 Mg Tabcr) 10 mg PO QAM [facility] Stop: 11/27/24 08:59 Last Admin: 10/30/24 07:56 Dose: 10 mg Polyethylene Glycol (Polyethylene (Miralax) 17 Gm Pack) 17 gm PO DAILY PRN PRN Reason: Constipation Stop: 11/26/24 18:41
[2024-10-30] MEDS: ACETAMINOPHEN 325 MG TAB PO PRN (18:06)
[2024-10-31 03:11] VITALS: O2SAT 93
[2024-10-31 07:39] VITALS: BP 133/84; RESP 16; TEMP 97.9
--- NOTE | 2024-10-31 09:51 | Discharge Summary ---
Date of Service October 31, 2024 Admission HPI Per Admitting Provider Patient is 79 year old female with PMH HTN, HLD, left breast CA, DM II, depression, dementia, recurrent UTI presented to ER for UTI and progressive weakness. History obtained from chart review, patient and patient's . Patient's provides most of history. Patient was seen at [facility] ER on 10/24/24 for generalized weakness and foul-smelling urine. UA was suggestive of infection and was given dose of Rocephin and discharged on cefdinir. 10/24/2024 urine culture: Citrobacter And on 10/25/2024 patient was called and switched from cefdinir to nitrofurantoin. reports patient is at baseline mental status and she is typically forgetful and is oriented to person and place at baseline. Reports took 2 doses nitrofurantoin and after had nausea and vomited 3 times. Has had 2 episodes of yellow/brown diarrhea. Patient denies abdominal pain. Reports has home PT and OT once a week. Reports at baseline patient requires 1 assist for transfer. Sometimes uses walker but often uses wheelchair. States last night has been noted was progressively weak and required 2 people for transfers. Denies fall. Denies known fever/chills, melena, hematochezia, SCHWARTZ, dizziness, syncope, vision changes, neck pain, CP, SOB, palpitations, cough, sore throat, rhinorrhea, abdominal pain, flank pain, back pain, extremity edema, rashes, dysuria, hematuria. Admission Exam Per Admitting Provider General: no acute distress, obese elderly female Head: normocephalic, atraumatic Eyes: PERRL, EOM's intact, conjunctiva non-injected, anicteric ENT: normal inspection external ears, nose, mucous membranes moist Neck: supple, trachea midline Lungs: clear, no respiratory distress, no wheezing/rhonchi/rales CV: RRR, no pretibial edema Abd: normal BS, soft, non-tender, no CVA or flank tenderness to palpation Ext: no cyanosis, no calf tenderness Neuro: Alert, oriented to person and place. Often looks to for clarification of answers, no focal deficits noted, normal affect Skin: warm, dry Principal Diagnosis UTI weakness Discharge Exam General: no acute distress, obese elderly female Head: normocephalic, atraumatic Eyes: PERRL, EOM's intact, conjunctiva non-injected, anicteric ENT: normal inspection external ears, nose, mucous membranes moist Neck: supple Lungs: clear, no respiratory distress, no wheezing/rhonchi/rales CV: RRR, no pretibial edema Abd: normal BS, soft, non-tender, no CVA or flank tenderness to palpation Ext: no calf tenderness Neuro: Alert, oriented to person and place. Often looks to for clarification of answers, no focal deficits noted, normal affect Skin: warm, dry Discharge Data Allergies Allergy/AdvReac Type Severity Reaction Status Date / Time walnut Allergy Severe mouth Unverified 01/18/24 11:59 blisters Ordered Studies 10/27/24 15:02 CT head/brain wo con Stat IMPRESSION: 1. No acute intracranial abnormality. 2. Ventriculomegaly is unchanged from 12/25/2023, however has progressed compared to 01/03/2021. Findings may be secondary to ex vacuo ventriculomegaly, however normal pressure hydrocephalus could have a similar appearance. Hospital Course (1) Acute UTI: (1) Acute UTI: (2) Diarrhea: (3) Generalized weakness: (4) Hypertension: (5) Hyperlipidemia: (6) Anxiety: (7) Diabetes mellitus, type II: Plan: Patient is 79 year old female with PMH HTN, HLD, left breast CA, DM II, depression, dementia, recurrent UTI presented to ER for UTI and progressive weakness. 10/24/2024 urine culture: Citrobacter And on 10/25/2024 patient was called and switched from cefdinir to nitrofurantoin. Since starting nitrofurantoin N/V/D and increased weakness. UTI Generalized Weakness WBC: 18.5 was WNL on 10/24/2024 Negative respiratory [employer] panel CT Head: No acute intracranial abnormality. Ventriculomegaly is unchanged from 12/25/2023, however has progressed compared to 01/03/2021. Findings may be secondary to ex vacuo ventriculomegaly, however normal pressure hydrocephalus could have a similar appearance. CXR: no acute infiltrate Blood cultures negat. in 48 hrs In ER given Rocephin, which was continued Macrobid stopped (as symptoms seem to be secondary to macrobid) Leukocytosis resolved, WBC normalized Discussed w/ ID on (10/30) - dont use cephalosporins other than cefepime for citrobacter freudii given its high risk for induced resistance. Will cont. w/ ciprofloxacin. cefdinir discontinued Chronic weakness and ambulatory dysfunction with some acute worsening possible secondary to underlying UTI, med side effect Fall precautions PT/OT eval N/V/D - resolved Started after starting macrobid. Possible side effect. If recurrent diarrhea plan to obtain stool cultures and c-diff. If would develop abdominal pain consider imaging DM II A1c: 6.9 on 08/15/24 Hold home glipizide NovoLog sliding scale per protocol #HTN Continue losartan #HLD Continue atorvastatin #Anxiety #Memory problems Continue home buspirone, duloxetine, donepezil Dispo - [facility] PCP - Follows with Dr Lovelace for routine care Total Time Total Time Spent Total Time Spent (In Minutes): 40 Discharge Plan Discharge Items Patient Disposition: Transfer Inpatient Rehab Fac Reason For Visit: WEAKNESS, UTI Discharge Diagnosis: UTI weakness Activity: Per Instructions section Non-emergency contact: Primary Care Provider Call non-emergency contact if: you have any medication questions and your symptoms worsen Follow-up/Referrals: Mar Lovelace MD [Primary Care Provider] - Diet: Carb Consistent or DM2 Addtl Attending Provider Instructions: Follow up with primary care doctor within 1 week. Finish antibiotic treatment as prescribed - take ciprofloxacin (do not take macrobid). Pending Studies at Discharge: Yes Studies:: final blood cultx results Stand-Alone Forms: [facility] Skilled Items Patient informed of condition?: Yes DNR: No Discharge Level of Care: Acute rehab Communicable Disease: No Discharge Prognosis: Stable Lines: None Urinary Catheter: No Medications and DC Order Prescriptions: New ciprofloxacin HCl 500 mg Tablet 500 mg PO BID 3 Days Qty: 6 0RF Continued (DME) Wheeled Walker Misc See Rx Instructions .ROUTE .MEDSUPPLY Qty: 1 0RF Rx Instructions: As directed (DME) Wheeled Walker Misc See Rx Instructions .ROUTE .MEDSUPPLY Qty: 1 0RF Rx Instructions: As directed (DME) Wheeled Walker Misc See Rx Instructions .ROUTE .MEDSUPPLY Qty: 1 0RF Rx Instructions: As directed (DME) Wheeled Walker Misc See Rx Instructions .ROUTE .MEDSUPPLY Qty: 1 0RF Rx Instructions: As directed aspirin [Adult Aspirin Regimen] 81 mg tablet,delayed release (DR/EC) 81 mg PO QAM Patient Comments: chewable amoxicillin 500 mg capsule 2,000 mg PO DIRECTED PRN (Reason: ONE HOUR PRIOR TO DENTAL VISITS.) atorvastatin 40 mg tablet 40 mg PO QAM donepezil [Aricept] 10 mg tablet 10 mg PO PM alendronate 70 mg tablet 70 mg PO WK Rx Instructions: MONDAYS acetaminophen [Tylenol Extra Strength] 500 mg Tablet 1,000 mg PO TID PRN (Reason: Pain) duloxetine 60 mg capsule,delayed release(DR/EC) 60 mg PO QAM solifenacin 10 mg tablet 10 mg PO QAM Hold Instructions: Resume on 05/23/24. hold until Urology follow up buspirone 5 mg tablet 5 mg PO [facility] losartan 25 mg tablet 12.5 mg PO QAM glipizide 2.5 mg tablet extended release 24hr 2.5 mg PO DAILYBB Discontinued Macrobid 100 mg PO UD Rx Instructions: bid for 5 days. Spouse isn't sure if it's 100 mg because he doesn't have the bottle but that's what he thinks it is. Discharge Orders: Discharge Order (Routine); Ordered 10/31/24 Ordered By: Juan Pablo Francis Admission Data Admit Date/Time: 10/27/24 16:02 Attending Provider: Juan Pablo Francis Admit Provider: Sebastián Gao Primary Care Provider: Mar Lovelace Other Providers: Walt Hays; [facility]
[2024-10-31 11:12] VITALS: PULSE 80
== END 2024-10-31 13:01 | DRG 690 ==
LOC: ED 10:56 → 2W 16:02 → SUATTDRO 16:02 → 2W 20:47

== ENCOUNTER 2025-01-10 18:10 | Inpatient (IN) ==
--- NOTE | 2025-01-10 18:47 | XRay Report ---
EXAM: X-ray chest one-view portable CLINICAL HISTORY: Weakness PRIORS: 10/27/2024 TECHNIQUE: Frontal view chest FINDINGS: The chest is well-expanded. No airspace consolidation, effusion or congestive changes. Heart size is normal. No pneumothorax. Moderate atherosclerotic disease of the aortic knob. Trachea is patent. Osseous structures demonstrate no acute abnormality. Surgical clips in the left axilla. IMPRESSION: No plain film evidence of an acute cardiopulmonary process. Electronically signed by Dayna Tuttle 01-10-2025 6:46 PM
[2025-01-10 18:48] LABS: Basophils # (auto) 0.04 K/uL (0.00-0.20); Basophils % (auto) 0.6 %; Eosinophils % (auto) 1.6 %; Hematocrit (blood only) 45.1 % (37.0-47.0); Immature Granulocytes # (auto) 0.01 K/uL (0.01-0.20); Immature Granulocytes % (auto) 0.2 %; Lymphocytes # (auto) 1.56 K/uL (1.20-3.40); Lymphocytes % (auto) 24.9 %; Mean Corpuscular Hemoglobin 30.1 pg (25.0-34.0); Mean Corpuscular Hgb Conc 33.3 g/dL (32.0-36.0); Mean Corpuscular Volume 90.6 fL (80.0-100.0); Mean Platelet Volume 10.2 fL (9.4-12.4); Monocytes % (auto) 9.6 %; Neutrophils # (auto) 3.95 K/uL (1.40-6.50); Neutrophils % (auto) 63.1 %; Platelet Count 270 K/uL (130-400); RDW Coefficient of Variation 12.8 % (11.5-14.5); RDW Standard Deviation 42.1 fL (36.4-46.3); Red Blood Count 4.98 M/uL (4.20-5.40); White Blood Count 6.26 K/ul (4.8-10.8)
[2025-01-10 19:10] LABS: Albumin Globulin Ratio 1.3 (0.9-2); Albumin Level 4.3 gm/dl (3.4-5.0); BUN Creatinine Ratio 18.8 (10-20); Bilirubin,Total 0.5 mg/dl (0.2-1.0); Creatinine Clr Calc Pharmacy 52.3 ml/min; Globulin 3.2 gm/dl (2.5-4.0); Potassium 4.1 mmol/L (3.5-5.1); Total Protein 7.5 gm/dl (6.0-8.3)
[2025-01-10 19:10] LABS: Appearance Urine Cloudy (Clear); Bacteria Urine Automated None Seen (None Seen); Bilirubin Urine Negative (Negative); Blood Urine 1+ (Negative); Color Urine Yellow; Glucose Urine UA Negative (Negative); Ketones Urine Negative (Negative); Leukocyte Esterase Urine Trace (Negative); Nitrite Urine Negative (Negative); Protein Urine Negative (Negative); Urobilinogen Urine Negative (Negative); WBC Urine Automated 0-5 /hpf (0-5)
[2025-01-10 19:25] LABS: Thyroid Stimulating Hormone 1.959 uIu/ml (0.300-4.500)
[2025-01-10 19:26] LABS: Adenovirus PCR Not Detected (NotDetected); Bordetella parapertussis PCR Not Detected (NotDetected); Bordetella pertussis PCR Not Detected (NotDetected); Chlamydia pneumoniae PCR Not Detected (NotDetected); Coronavirus 229E PCR Not Detected (NotDetected); Coronavirus CoV-2 (COVID19)PCR Not Detected (NotDetected); Coronavirus HKU1 PCR Not Detected (NotDetected); Coronavirus NL63 PCR Not Detected (NotDetected); Coronavirus OC43PCR Not Detected (NotDetected); Human Metapneumovirus PCR Not Detected (NotDetected); Influenza A PCR Not Detected (NotDetected); Influenza B PCR Not Detected (NotDetected); Mycoplasma pneumoniae PCR Not Detected (NotDetected); Parainfluenza Virus 1 PCR Not Detected (NotDetected); Parainfluenza Virus 2 PCR Not Detected (NotDetected); Parainfluenza Virus 3 PCR Not Detected (NotDetected); Parainfluenza Virus 4 PCR Not Detected (NotDetected); Respiratory Syncytial VirusPCR Not Detected (NotDetected); Rhinovirus/Enterovirus PCR Not Detected (NotDetected)
--- NOTE | 2025-01-10 19:34 | Emergency Department Note ---
Impression & Plan Acute UTI (urinary tract infection) ED Provider Note NAME: MILLER BUTLER AGE: 79 SEX: F : 1945 ARRIVES VIA: Ambulance INFORMANT: Patient, ED PROVIDER(S): Kendal Caraballo MD CHIEF COMPLAINT: Confusion HPI: This is a 79-year-old female presenting for confusion. Patient has history of dementia and over the past 1 day has had increasing confusion. She status with UTI. She is taken 1 dose at home. Family states that she is having difficulty with ambulation and going up stairs due to weakness. She was too confused to get up stairs. She was sent here by her [facility] PCP. ROS: See above HPI for pertinent positives & negatives. A total of 10 systems reviewed and were otherwise negative. PAST MEDICAL HISTORY: See Below PAST SURGICAL HISTORY: See Below FAMILY HISTORY: See Below SOCIAL HISTORY: See Below HOME MEDICATIONS: See Below ALLERGIES: See Below VITALS: See Below PHYSICAL EXAMINATION: General: resting comfortably in no acute distress Head: Normocephalic and atraumatic Eyes: Normal inspection, extraocular muscles intact Ear, nose, throat: Normal external exam Neck: Normal range of motion Respiratory: lungs clear to auscultation bilaterally Cardiovascular: Regular rate/rhythm, no murmur GI: soft, nontender, no guarding or rebound Extremities: nontender, moves all extremities Neuro: The patient awake and alert, appropriately conversive, no focal deficits, symmetric faces, not oriented Skin: Warm, dry, and intact MEDICAL DECISION MAKING: This is a pleasantly demented 79-year-old female presenting for confusion. Patient does not recognize the family is in the room, including her and daughter. They do state this is somewhat normal but increasingly more commonly when she has UTIs. She has had increased confusion and unable to do daily daily activities at home. -Bloodwork is reviewed showing no significant leukocytosis, anemia, electrolyte or creatinine abnormality -Urinalysis weakly positive for UTI, she does take medicine however -Discussed option with family including admission versus discharge. They state that because the patient confusion and weakness, they would rather have her stay in the hospital until she gets her strength back and is less confused. Differential diagnosis: UTI, cephalopathy, sepsis Independent History obtained from: , daughter Diagnostics interpreted by me: ECG: None Cardiac Monitoring: An order was placed for continuous cardiac monitoring. The monitor shows a rate of 74 with sinus rhythm. 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 Lumbar stenosis (Acute) Medical History Vomiting Obesity Bronchitis hx (no recent issues) Prediabetes PCP monitoring, labs drawn for PCP on 12/26 show A1C 6.5%-decision to monitor/diet control History of left breast cancer dx 1999; sx + radiation Heartburn symptom diet controlled Arthritis Anxiety Hypertension Hyperlipidemia Surgical History History of cataract surgery RT History of tooth extraction reason for current abx Nausea and vomiting after administration of anesthetic agent History of colonoscopy History of hysterectomy History of arthroscopy of right knee History of lumpectomy of left breast WITH LYMPH NODES - PT DENIES LIMB RESTRICTION-1999 Family History Father Family history of diabetes mellitus Mother Family history of diabetes mellitus Other No family history of adverse response to anesthesia Patient's father is Patient's mother is Social History Smoking Status: Unknown if ever smoked Second Hand Exposure: No; Do You Dip or Chew Tobacco: No; Hx Alcohol Use: No Hx Substance Use: No Preferred Language: [place]ar[place] Communication Ability: Effective Sql Ssrs Developer Required: No Beliefs That Will Affect Care: None marital status: Current Living Situation: Spouse Current Living Situation Comment: [facility] Other Information That Helps Us Care for You: No Feels Safe at Home: Yes Safety Concerns: Feels Safe At This Time Assistive Devices: Walker and Wheelchair Allergies Allergies Allergy/AdvReac Type Severity Reaction Status Date / Time walnut Allergy Severe mouth Verified 01/10/25 22:37 blisters Home Meds Home Medications Medication Instructions Recorded Confirmed aspirin 81 mg tablet,delayed 81 mg PO QAM 01/01/20 01/10/25 release (Adult Aspirin Regimen) amoxicillin 500 mg capsule 2,000 mg PO DIRECTED PRN ONE 01/31/22 01/10/25 HOUR PRIOR TO DENTAL VISITS. atorvastatin 40 mg tablet 40 mg PO QAM 01/31/22 01/10/25 acetaminophen 500 mg tablet 1,000 mg PO TID PRN Pain 12/25/23 01/10/25 (Tylenol Extra Strength) alendronate 70 mg tablet 70 mg PO WK 12/25/23 01/10/25 donepezil 10 mg tablet (Aricept) 10 mg PO PM 12/25/23 01/10/25 duloxetine 60 mg capsule,delayed 60 mg PO QAM 12/25/23 01/10/25 release solifenacin 10 mg tablet 10 mg PO QAM 12/25/23 01/10/25 buspirone 5 mg tablet 5 mg PO AMHS 05/11/24 01/10/25 glipizide 2.5 mg tablet, extended 2.5 mg PO DAILYBB 05/11/24 01/10/25 release 24 hr calcium carbonate (Calcium 600) 600 mg PO QPM 01/10/25 01/10/25 losartan 25 mg tablet 25 mg PO QAM 01/10/25 01/10/25 Previous Rx's Medication Instructions Recorded Wheeled Walker #1 ea 01/30/20 Wheeled Walker #1 ea 05/16/20 Wheeled Walker #1 ea 05/29/20 Wheeled Walker #1 ea 05/29/20 Results & Data (ED) Vital Signs Vital Signs - 24 hr 01/10/25 18:04 01/10/25 18:14 01/10/25 18:14 Temperature 36.7 C Temperature Source Oral Pulse Rate 92 H Pulse Rate [Apical] Respiratory Rate 18 18 Blood Pressure 167/109 H Blood Pressure [Right Arm] Blood Pressure Mean 128 Blood Pressure Mean [Right Arm] Pulse Oximetry 96 Oxygen Delivery Method Room Air Sepsis Recent Fever Within 48 Hours No Sepsis New/Unexplained Change in Mental Status N/A Sepsis Action Taken by Nursing No Action Required 01/10/25 18:19 01/10/25 18:19 01/10/25 19:14 Temperature Temperature Source Pulse Rate 95 H Pulse Rate [Apical] 83 Respiratory Rate 16 Blood Pressure Blood Pressure [Right Arm] 145/96 H Blood Pressure Mean Blood Pressure Mean [Right Arm] 112 Pulse Oximetry 96 Oxygen Delivery Method Room Air Sepsis Recent Fever Within 48 Hours Sepsis New/Unexplained Change in Mental Status Sepsis Action Taken by Nursing 01/10/25 20:00 Temperature Temperature Source Pulse Rate Pulse Rate [Apical] 84 Respiratory Rate 19 Blood Pressure Blood Pressure [Right Arm] 150/92 H Blood Pressure Mean Blood Pressure Mean [Right Arm] 111 Pulse Oximetry Oxygen Delivery Method Room Air Sepsis Recent Fever Within 48 Hours Sepsis New/Unexplained Change in Mental Status Sepsis Action Taken by Nursing Laboratory Data 01/10/25 16:24 01/10/25 16:24 Lab Results 01/10/25 01/10/25 Range/Units 16:24 18:39 WBC 6.26 (4.8-10.8) K/ul RBC 4.98 (4.20-5.40) M/uL Hgb 15.0 (12.0-16.0) g/dl Hct 45.1 (37.0-47.0) % MCV 90.6 (80.0-100.0) fL MCH 30.1 (25.0-34.0) pg MCHC 33.3 (32.0-36.0) g/dL RDW Std Deviation 42.1 (36.4-46.3) fL RDW Coeff of Andrea 12.8 (11.5-14.5) % Plt Count 270 (130-400) K/uL MPV 10.2 (9.4-12.4) fL Immature Gran % (Auto) 0.2 % Neut % (Auto) 63.1 % Lymph % (Auto) 24.9 % [place] % (Auto) 9.6 % Eos % (Auto) 1.6 % Baso % (Auto) 0.6 % Neut # (Auto) 3.95 (1.40-6.50) K/uL Lymph # (Auto) 1.56 (1.20-3.40) K/uL [place] # (Auto) 0.60 H (0.11-0.59) K/uL Eos # (Auto) 0.10 (0.00-0.50) K/uL Baso # (Auto) 0.04 (0.00-0.20) K/uL Immature Gran # (Auto) 0.01 (0.01-0.20) K/uL Sodium 138 (136-145) mmol/L Potassium 4.1 (3.5-5.1) mmol/L Chloride 102 (98-107) mmol/L Carbon Dioxide 29 (21-32) mmol/L Anion Gap 7 (3-11) BUN 16 (6-23) mg/dl Creatinine 0.85 (0.6-1.2) mg/dl Est Cr Clr Drug Dosing 52.3 ml/min eGFR 69.65 BUN/Creatinine Ratio 18.8 (10-20) Glucose 197 H (70-99(Fasting)) mg/dl Calcium 10.0 (8.6-10.3) mg/dl Total Bilirubin 0.5 (0.2-1.0) mg/dl AST 16 (13-39) U/L ALT 19 (7-52) U/L Alkaline Phosphatase 73 (34-104) U/L Total Protein 7.5 (6.0-8.3) gm/dl Albumin 4.3 (3.4-5.0) gm/dl Globulin 3.2 (2.5-4.0) gm/dl Albumin/Globulin Ratio 1.3 (0.9-2) TSH 1.959 (0.300-4.500) uIu/ml Urine Color Yellow Urine Appearance Cloudy A (Clear) Urine pH 6.0 (4.5-7.5) Ur Specific [place] 1.010 (1.000-1.030) Urine Protein Negative (Negative) Urine Glucose (UA) Negative (Negative) Urine Ketones Negative (Negative) Urine Blood 1+ H (Negative) Urine Nitrite Negative (Negative) Urine Bilirubin Negative (Negative) Urine Urobilinogen Negative (Negative) Ur Leukocyte Esterase Trace H (Negative) Urine WBC (Auto) 0-5 (0-5) /hpf Urine RBC (Auto) 6-10 H (0-2) /hpf U Hyaline Cast (Auto) 11-20 H (0-2) /lpf U Epithel Cells (Auto) 11-20 H (0-2) /hpf Urine Bacteria (Auto) None Seen (None Seen) Adenovirus (PCR) Not Detected (NotDetected) B. pertussis DNA (PCR) Not Detected (NotDetected) B.parapertussis DNA PCR Not Detected (NotDetected) C. pneumoniae DNA (PCR) Not Detected (NotDetected) Coronavirus OC43 (PCR) Not Detected (NotDetected) Coronavirus HKU1 (PCR) Not Detected (NotDetected) Coronavirus 229E (PCR) Not Detected (NotDetected) SARS-CoV-2 (PCR) Not Detected (NotDetected) Coronavirus NL63 (PCR) Not Detected (NotDetected) Human Metapneumovir PCR Not Detected (NotDetected) Influenza Type A (PCR) Not Detected (NotDetected) Influenza Type B (PCR) Not Detected (NotDetected) M. pneumoniae (PCR) Not Detected (NotDetected) Parainfluenza 1 (PCR) Not Detected (NotDetected) Parainfluenza 2 (PCR) Not Detected (NotDetected) Parainfluenza 3 (PCR) Not Detected (NotDetected) Parainfluenza 4 (PCR) Not Detected (NotDetected) RSV (PCR) Not Detected (NotDetected) Entero/Rhino (PCR) Not Detected (NotDetected) Administered Medications Sodium Chloride (Nss) 1,000 mls @ 60 mls/hr IV .[id number] ONE Stop: 01/11/25 14:40 Last Admin: 01/10/25 22:49 Dose: 60 mls/hr Documented By: PROSPER Insulin Aspart (Insulin Aspart Per Unit Charge) 0 units SC ACHS JADON Stop: 02/09/25 23:21 Last Admin: 01/11/25 00:08 Dose: Not Given Documented By: CANDIF Discontinued Medications Ceftriaxone Sodium (Rocephin) 2,000 mg in 50 mls @ 100 mls/hr IV NOW STA Stop: 01/10/25 21:19 Last Infusion: 01/10/25 21:30 Dose: Infused Documented By: Admin: 01/10/25 21:00 Dose: 100 mls/hr Documented By: PROSPER Ertapenem (Invanz 1000mg) 1,000 mg in 10 mls @ 2 mls/min IV NOW STA Stop: 01/10/25 22:12 Last Admin: 01/10/25 22:47 Dose: 2 mls/min Documented By: PROSPER Losartan Potassium (Losartan Potassium 25 Mg Tab) 25 mg PO NOW STA Stop: 01/10/25 21:58 Last Admin: 01/10/25 22:48 Dose: 25 mg Documented By: PROSPER Imaging Data Radiologist's Impression: Chest X-Ray 01/10/25 18:19 EXAM: X-ray chest one-view portable CLINICAL HISTORY: Weakness PRIORS: 10/27/2024 TECHNIQUE: Frontal view chest FINDINGS: The chest is well-expanded. No airspace consolidation, effusion or congestive changes. Heart size is normal. No pneumothorax. Moderate atherosclerotic disease of the aortic knob. Trachea is patent. Osseous structures demonstrate no acute abnormality. Surgical clips in the left axilla. IMPRESSION: No plain film evidence of an acute cardiopulmonary process. Electronically signed by Dayna Tuttle 01-10-2025 6:46 PM Discharge Plan Visit Data Chief Complaint: Confusion Stated Complaint: CONFUSION ED Provider: Kendal Caraballo Discharge Problem: Acute UTI (urinary tract infection) Patient Disposition: Admitted As Inpatient Discharge Instructions Interventions: ED Discharge Assessment Last Done: 01/10/25 23:01
[2025-01-10] MEDS: cefTRIAXone SODIUM 2,000 MG/50 ML BAG IV STA (21:00)
--- NOTE | 2025-01-10 21:55 | History & Physical Report ---
Date of Service January 10, 2025 Assessment & Plan (1) Encephalopathy: Plan: Delirium on dementia History recurrent complicated UTIs History of mixed incontinence [place] UA Patient not septic Cough symptoms as per outpatient records which patient denies, rule out viral RTI hypertension, elevated secondary illness hyperlipidemia, on statin Rx DM2 on oral medications, well-controlled as of recent hemoglobin A1c of 6.9 last July 2024 left breast cancer status post surgery/radiation status post tamoxifen Rx, in remission Admit to medical telemetry CS, Ertapenem given prior history ESBL organism Check CXR, BioFire respiratory panel given cough symptoms as per outpatient urgent care note Additional losartan for now Basal bolus insulin, ISS BG goal 1 10-1 40, carb count coverage DVT prophylaxis. Lovenox subcu Full code Patient requesting updates providers. Mr. Anton Simms, contact #[phone]. Text document was generated using NeoReach voice recognition software. It may contain grammatical or spelling errors. Kindly contact undersigned for clarification of any documentation item in question. History of Present Illness Chief Complaint: UTI Primary Care Provider: Mar Lovelace MD History obtained from patient, family, and records. Limited history from patient secondary to dementia. Medical history significant for hypertension, hyperlipidemia, DM2 on oral medications, left breast cancer status post surgery/radiation status post tamoxifen Rx, mixed incontinence, recurrent UTIs, history ESBL Klebsiella UTI, dementia, anxiety/mood disorder. Last confinement October 2024 for Citrobacter UTI status post antibiotic Rx. Patient noted to have increasing weakness since last night. Patient increasingly confused and lethargic at home today by family. Patient complaining of bladder discomfort. Family worried about UTI. Patient brought to urgent care center for evaluation. Cough and SOB symptoms as per outpatient records which patient currently denies. Patient denies chest pain, SOB, headache, abdominal/flank pain. 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 atorvastatin 40 mg tablet 40 mg PO QAM 01/31/22 01/10/25 History acetaminophen 500 mg tablet 1,000 mg PO TID PRN Pain 12/25/23 01/10/25 History (Tylenol Extra Strength) alendronate 70 mg tablet 70 mg PO WK 12/25/23 01/10/25 History donepezil 10 mg tablet (Aricept) 10 mg PO PM 12/25/23 01/10/25 History duloxetine 60 mg capsule,delayed 60 mg PO QAM 12/25/23 01/10/25 History release solifenacin 10 mg tablet 10 mg PO QAM 12/25/23 01/10/25 History buspirone 5 mg tablet 5 mg PO AMHS 05/11/24 01/10/25 History glipizide 2.5 mg tablet, extended 2.5 mg PO DAILYBB 05/11/24 01/10/25 History release 24 hr calcium carbonate (Calcium 600) 600 mg PO QPM 01/10/25 01/10/25 History losartan 25 mg tablet 25 mg PO QAM 01/10/25 01/10/25 History Past Med/Surg History Problem List (Updated 01/11/25 @ 08:33 by Bud Garza MD) Encephalopathy Hypertension, essential Diabetes mellitus, type II Leukocytosis (Acute) Diarrhea (Acute) Acute UTI (Acute) Weakness (Acute) Sepsis (Acute) COVID-19 (Acute) Vomiting (Acute) Generalized weakness (Acute) Acute UTI (urinary tract infection) (Acute) Falls frequently (Acute) Posterior tibial tendon dysfunction, left Chest pain (Acute) Costochondritis (Acute) Rib pain (Acute) Right knee pain Right knee DJD Encounter for pre-operative examination 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 Lumbar stenosis (Acute) Medical History Vomiting Obesity Bronchitis hx (no recent issues) Prediabetes PCP monitoring, labs drawn for PCP on 12/26 show A1C 6.5%-decision to monitor/diet control History of left breast cancer dx 1999; sx + radiation Heartburn symptom diet controlled Arthritis Anxiety Hypertension Hyperlipidemia Surgical History History of cataract surgery RT History of tooth extraction reason for current abx Nausea and vomiting after administration of anesthetic agent History of colonoscopy History of hysterectomy History of arthroscopy of right knee History of lumpectomy of left breast WITH LYMPH NODES - PT DENIES LIMB RESTRICTION-1999 Family History Father Family history of diabetes mellitus Mother Family history of diabetes mellitus Other No family history of adverse response to anesthesia Patient's father is Patient's mother is Social History Smoking Status: Unknown if ever smoked Second Hand Exposure: No; Do You Dip or Chew Tobacco: No; Hx Alcohol Use: No Hx Substance Use: No Preferred Language: [place] Communication Ability: Effective Speech Pathologist Required: No Beliefs That Will Affect Care: None marital status: Current Living Situation: Spouse Current Living Situation Comment: [facility] Other Information That Helps Us Care for You: No Feels Safe at Home: Yes Safety Concerns: Feels Safe At This Time Assistive Devices: Walker and Wheelchair Review of Systems Review of Systems: Could not be reliably obtained secondary to dementia Physical Exam Physical Exam: GENERAL: Demented, pleasant, obese, no respiratory distress SKIN: Normal color, warm HEENT: [place] palpebral conjunctivae, no ptosis, dry buccal mucosa NECK : Supple, no tenderness CHEST : CTA, no tenderness HEART : RRR, no obvious murmurs ABDOMEN: Some distention, no tenderness EXTREMITIES : No LE swelling/tenderness, no other conspicuous deformities noted NEUROLOGIC : Demented, no facial asymmetry, gait and stance not assessed Results & Data Results & Data Vital Signs (Past 12 Hours) Vital Signs Temp Pulse Pulse Resp BP BP Pulse Ox 01/10/25 20:00 84 19 150/92 H 01/10/25 19:14 83 16 145/96 H 01/10/25 18:19 95 H 01/10/25 18:19 96 01/10/25 18:14 18 01/10/25 18:14 01/10/25 18:04 36.7 C 92 H 18 167/109 H 96 O2 Del Method 01/10/25 20:00 Room Air 01/10/25 19:14 Room Air 01/10/25 18:19 01/10/25 18:19 01/10/25 18:14 01/10/25 18:14 Room Air 01/10/25 18:04 Laboratory Results Laboratory Results WBC 6.26 K/ul (4.8-10.8) 01/10/25 16:24 RBC 4.98 M/uL (4.20-5.40) 01/10/25 16:24 Hgb 15.0 g/dl (12.0-16.0) 01/10/25 16:24 Hct 45.1 % (37.0-47.0) 01/10/25 16:24 MCV 90.6 fL (80.0-100.0) 01/10/25 16:24 MCH 30.1 pg (25.0-34.0) 01/10/25 16:24 MCHC 33.3 g/dL (32.0-36.0) 01/10/25 16:24 RDW Std Deviation 42.1 fL (36.4-46.3) 01/10/25 16:24 RDW Coeff of Andrea 12.8 % (11.5-14.5) 01/10/25 16:24 Plt Count 270 K/uL (130-400) 01/10/25 16:24 MPV 10.2 fL (9.4-12.4) 01/10/25 16:24 Immature Gran % (Auto) 0.2 % 01/10/25 16:24 Neut % (Auto) 63.1 % 01/10/25 16:24 Lymph % (Auto) 24.9 % 01/10/25 16:24 [place] % (Auto) 9.6 % 01/10/25 16:24 Eos % (Auto) 1.6 % 01/10/25 16:24 Baso % (Auto) 0.6 % 01/10/25 16:24 Neut # (Auto) 3.95 K/uL (1.40-6.50) 01/10/25 16:24 Lymph # (Auto) 1.56 K/uL (1.20-3.40) 01/10/25 16:24 [place] # (Auto) 0.60 K/uL (0.11-0.59) H 01/10/25 16:24 Eos # (Auto) 0.10 K/uL (0.00-0.50) 01/10/25 16:24 Baso # (Auto) 0.04 K/uL (0.00-0.20) 01/10/25 16:24 Immature Gran # (Auto) 0.01 K/uL (0.01-0.20) 01/10/25 16:24 Sodium 138 mmol/L (136-145) 01/10/25 16:24 Potassium 4.1 mmol/L (3.5-5.1) 01/10/25 16:24 Chloride 102 mmol/L (98-107) 01/10/25 16:24 Carbon Dioxide 29 mmol/L (21-32) 01/10/25 16:24 Anion Gap 7 (3-11) 01/10/25 16:24 BUN 16 mg/dl (6-23) 01/10/25 16:24 Creatinine 0.85 mg/dl (0.6-1.2) 01/10/25 16:24 Est Cr Clr Drug Dosing 52.3 ml/min 01/10/25 16:24 eGFR 69.65 01/10/25 16:24 BUN/Creatinine Ratio 18.8 (10-20) 01/10/25 16:24 Glucose 197 mg/dl (70-99(Fasting)) H 01/10/25 16:24 Calcium 10.0 mg/dl (8.6-10.3) 01/10/25 16:24 Total Bilirubin 0.5 mg/dl (0.2-1.0) 01/10/25 16:24 AST 16 U/L (13-39) 01/10/25 16:24 ALT 19 U/L (7-52) 01/10/25 16:24 Alkaline Phosphatase 73 U/L (34-104) 01/10/25 16:24 Total Protein 7.5 gm/dl (6.0-8.3) 01/10/25 16:24 Albumin 4.3 gm/dl (3.4-5.0) 01/10/25 16:24 Globulin 3.2 gm/dl (2.5-4.0) 01/10/25 16:24 Albumin/Globulin Ratio 1.3 (0.9-2) 01/10/25 16:24 TSH 1.959 uIu/ml (0.300-4.500) 01/10/25 16:24 Urine Color Yellow 01/10/25 18:39 Urine Appearance Cloudy (Clear) A 01/10/25 18:39 Urine pH 6.0 (4.5-7.5) 01/10/25 18:39 Ur Specific [place] 1.010 (1.000-1.030) 01/10/25 18:39 Urine Protein Negative (Negative) 01/10/25 18:39 Urine Glucose (UA) Negative (Negative) 01/10/25 18:39 Urine Ketones Negative (Negative) 01/10/25 18:39 Urine Blood 1+ (Negative) H 01/10/25 18:39 Urine Nitrite Negative (Negative) 01/10/25 18:39 Urine Bilirubin Negative (Negative) 01/10/25 18:39 Urine Urobilinogen Negative (Negative) 01/10/25 18:39 Ur Leukocyte Esterase Trace (Negative) H 01/10/25 18:39 Urine WBC (Auto) 0-5 /hpf (0-5) 01/10/25 18:39 Urine RBC (Auto) 6-10 /hpf (0-2) H 01/10/25 18:39 U Hyaline Cast (Auto) 11-20 /lpf (0-2) H 01/10/25 18:39 U Epithel Cells (Auto) 11-20 /hpf (0-2) H 01/10/25 18:39 Urine Bacteria (Auto) None Seen (None Seen) 01/10/25 18:39 Adenovirus (PCR) Not Detected (NotDetected) 01/10/25 16:24 B. pertussis DNA (PCR) Not Detected (NotDetected) 01/10/25 16:24 B.parapertussis DNA PCR Not Detected (NotDetected) 01/10/25 16:24 C. pneumoniae DNA (PCR) Not Detected (NotDetected) 01/10/25 16:24 Coronavirus OC43 (PCR) Not Detected (NotDetected) 01/10/25 16:24 Coronavirus HKU1 (PCR) Not Detected (NotDetected) 01/10/25 16:24 Coronavirus 229E (PCR) Not Detected (NotDetected) 01/10/25 16:24 SARS-CoV-2 (PCR) Not Detected (NotDetected) 01/10/25 16:24 Coronavirus NL63 (PCR) Not Detected (NotDetected) 01/10/25 16:24 Human Metapneumovir PCR Not Detected (NotDetected) 01/10/25 16:24 Influenza Type A (PCR) Not Detected (NotDetected) 01/10/25 16:24 Influenza Type B (PCR) Not Detected (NotDetected) 01/10/25 16:24 M. pneumoniae (PCR) Not Detected (NotDetected) 01/10/25 16:24 Parainfluenza 1 (PCR) Not Detected (NotDetected) 01/10/25 16:24 Parainfluenza 2 (PCR) Not Detected (NotDetected) 01/10/25 16:24 Parainfluenza 3 (PCR) Not Detected (NotDetected) 01/10/25 16:24 Parainfluenza 4 (PCR) Not Detected (NotDetected) 01/10/25 16:24 RSV (PCR) Not Detected (NotDetected) 01/10/25 16:24 Entero/Rhino (PCR) Not Detected (NotDetected) 01/10/25 16:24 Impressions Chest X-Ray 01/10/25 18:19 EXAM: X-ray chest one-view portable CLINICAL HISTORY: Weakness PRIORS: 10/27/2024 TECHNIQUE: Frontal view chest FINDINGS: The chest is well-expanded. No airspace consolidation, effusion or congestive changes. Heart size is normal. No pneumothorax. Moderate atherosclerotic disease of the aortic knob. Trachea is patent. Osseous structures demonstrate no acute abnormality. Surgical clips in the left axilla. IMPRESSION: No plain film evidence of an acute cardiopulmonary process. Electronically signed by Dayna Tuttle 01-10-2025 6:46 PM
[2025-01-10] MEDS ORDERED: ACETAMINOPHEN 325 MG TAB PO PRN (22:01)
[2025-01-10] MEDS ORDERED: PROMETHAZINE 6.25 MG/50.25 ML BAG IV PRN (22:01)
[2025-01-10] MEDS ORDERED: CARBOHYDRATES FOR HYPOGLYCEMIA PO PRN ×2 (22:15→23:22)
[2025-01-10] MEDS ORDERED: GLUCOSE 10 TAB/TUBE PO PRN ×2 (22:15→23:22)
[2025-01-10] MEDS ORDERED: GLUCAGON FOR INJ 1 MG VIAL SQ PRN ×2 (22:15→23:22)
[2025-01-10] MEDS ORDERED: DEXTROSE 50% 50 ML SYRINGE IV PRN ×2 (22:15→23:22)
[2025-01-10] MEDS ORDERED: GLUCOSE 40% GEL 15 GM TUBE PO PRN ×2 (22:15→23:22)
[2025-01-10] MEDS: ERTAPENEM 1000MG 1,000 MG/10 ML SYR IV STA (22:47)
[2025-01-10] MEDS: LOSARTAN POTASSIUM 25 MG TAB PO STA (22:48)
[2025-01-10] MEDS: SODIUM CHLORIDE 0.9% 1,000 ML IV ONE (22:49)
[2025-01-11] MEDS: INSULIN ASPART PER UNIT CHARGE SC SCH (00:08)
--- OUTSIDE RECORDS SUMMARY | 2025-01-11 03:30 | External Medical Summary | Summary of Care ---
Author Name Unknown Organization [facility] Address [address] [facility] [place] [address] Phone [phone] Care Team Providers Care Assistant Product Manager Name Role Phone Jackie Lovelace MD Primary Care Provider [phone] Reason for Visit * Reason Comments eRx-Medication Refill Encounter Details Date Type Department Care Team (Late st Contact Info) Description 12/24/2024 Refill General Internal Medicine [facility] [address] [place] [address] Jackie Lovelace MD [address] [facility] [address] Mild vascular dementia with anxiety (HCC); Major neurocognitive disorder due to Alzheimer's disease, with behavioral disturbance (HCC); Generalized anxiety disorder; Current mild episode of major depressive disorder without prior episode (HCC) Allergies No known active allergiesdocumented as of this encounter (statuses as of 12/26/2024) Medications TYLENOL 325 MG PO TABS Take 1,000 mg by mouth 3 times a day as needed for Pain, Mild. 06/09/20 20 Active ASPIRIN 81 MG PO CHEWIndications:D yslipidemia, goal to be determined,HTN, goal below 140/90 Take 1 Tablet by mouth in the morning. 100 5 06/09/20 20 Active Meclizine HCl 25 MG Oral Tablet (Antivert) TAKE 1 TABLET BY MOUTH THREE TIMES DAILY NEEDED FOR DIZZINESS 01/03/20 21 Active Meloxicam 7.5 MG Oral TabletIndications :DDD (degenerative disc disease), lumbar Take 1 Tablet by mouth daily as needed for Pain, Moderate. With food for pain. 90 Tablet 1 09/24/20 23 Active Atorvastatin Calcium 40 MG Oral Tablet (Lipitor)Indicati ons:Dyslipidemia, goal LDL below 130 Take 1 Tablet by mouth in the morning. 90 Tablet 3 12/01/19 24 Active DULoxetine HCl 60 MG Oral Capsule Delayed Release Particles (Cymbalta) Take 1 Capsule by mouth in the morning. Do not cut, crush or chew. With Breakfast. 90 Capsule 3 04/24/20 24 Active Solifenacin Succinate 10 MG Oral Tablet (VESIcare) Take 1 Tablet by mouth in the morning. 90 Tablet 3 06/07/20 24 Active Alendronate Sodium 70 MG Oral Tablet (Fosamax)Indicati ons:Age-related osteoporosis without current pathological fracture Take 1 Tablet by mouth once a week. with 8 oz. water 30 minutes before first meal of the day. Remain upright for 30 min after taking tablet 5 Tablet 11 08/29/20 24 Active glipiZIDE ER 2.5 MG Oral Tablet Extended Release 24 Hour (Glucotrol XL)Indications:Ty pe 2 diabetes mellitus with hemoglobin A1c goal of less than 7.0% ([facility]) TAKE 1 TABLET BY MOUTH IN THE MORNING 30 MINUTES BEFORE A MEAL 90 Tablet 3 08/30/20 24 Active Losartan Potassium 25 MG Oral Tablet (Cozaar)Indicatio ns:Essential hypertension with goal blood pressure less than 140/90 Take 0.5 Tablets by mouth in the morning. Hold until next time. 11/16/20 24 Active Estrogens Conjugated 0.625 MG/GM Vaginal Cream (Premarin)Indicat ions:Recurrent UTI Apply 0.5 gm to urethral and vulva twice a week 30 g 5 11/16/20 24 Active Donepezil HCl 10 MG Oral Tablet (Aricept)Indicati ons:Mild vascular dementia with anxiety (HCC) Take with supper daily 90 Tablet 11/21/20 24 Active busPIRone HCl 5 MG Oral Tablet (Buspar)Indicatio ns:Mild vascular dementia with anxiety (HCC),Major neurocognitive disorder due to Alzheimer's disease, with behavioral disturbance (HCC),Generalized anxiety disorder,Current mild episode of major depressive disorder without prior episode (HCC) TAKE 1 TABLET BY MOUTH IN THE MORNING AND 1 AT BEDTIME 180 Tablet 3 12/25/19 25 Active busPIRone HCl 5 MG Oral Tablet (Buspar)Indicatio ns:Mild vascular dementia with anxiety (HCC),Major neurocognitive disorder due to Alzheimer's disease, with behavioral disturbance (HCC),Generalized anxiety disorder,Current mild episode of major depressive disorder without prior episode (HCC) TAKE 1 TABLET BY MOUTH IN THE MORNING AND 1 AT BEDTIME 60 Tablet 3 08/17/20 24 025 Discontinued documented as of this encounter (statuses as of 12/26/2024) Active Problems Problem Noted Date Diagnosed Date [...] as of this encounter (statuses as of 12/26/2024) Immunizations Name Administration Dates Next Due COVID-19 mRNA, LNP-s, No Pre serve, 2-Dose Series ([employer]) 03/24/2022,09/19/2021,02/03/2021,12/30 COVID-19, MRNA-LNP, 24-25, P F, 50 MCG/0.5ML, IM, 12 YRS & ABOVE (Moderna - Spikevax) 09/02/2024 Covid-19, Mrna, Lnp-s, Pf, B ivalent, 30 Mcg, IM, 12 yrs and above (Pfizer) 04/30/2023,09/23/2022 Pneumococcal Conjugate Vacc, 13 Valent (Prevnar) 07/01/2016 Pneumococcal Polysaccharide PPV23 (Pneumovax) 01/19/2011 Seasonal Influenza Vac., MDV , IM, 0.5 mL (Fluzone) 11/30/2014,10/24/2013,08/08/2012,10/30,12/13/2008 Seasonal Influenza, High Dos e, Trivalent, PF, IM (Fluzone HD) 08/15/2024 Seasonal Influenza, PF, 6 M & above, IM , (FluLaval or Fluzone) 09/24/2023,08/18/2022,10/09/2021,08/29,02/21/2019,09/06/2017 Seasonal Influenza, Quadriva lent Hd (Fluzone Hd) 09/24/2023,08/18/2022,10/09/2021 Seasonal Influenza, Quadriva lent, No Preserve, IM 08/26/2016,01/03/2016 Seasonal Influenza, Trivalen t, (IIV3), PF, (Fluzone) 10/04/2009 Seasonal Influenza, Trivalen t, Adjuvanted, 65+ YRS, [...] 02/07/2024 Does the household have a re lar source of income? (Household - for ages [...] ages 0-17 years) Not on file 02/07/2024 Comments No Sex and Gender Information Value Date Recorded Sex Assigned at Female 03/15/2019 12:23 PM EDT Legal Sex Female 6:40 AM EST Gender Identity Female 03/15/2019 12:23 PM EDT Sexual Orientation Straight 03/15/2019 12 :23 PM EDT documented as of this encounter Miscellaneous Notes * Telephone Encounter - Jackie Lovelace MD - 12/25/2024 3:46 PM ESTSigned Prescriptions: Disp Refills busPIRone HCl 5 MG Oral Tablet (Buspar) 180 Ta*3 Sig: TAKE 1 TABLET BY MOUTH IN THE MORNING AND 1 AT BEDTIME Authorizing Provider: JACKIE LOVELACE * Telephone Encounter - Antonia Melendez [facility] - 12/25/2024 3:24 PM EST Pending Prescriptions: Disp Refills busPIRone HCl 5 MG Oral Tablet 60 Tab*0 Sig: TAKE 1 TABLET BY MOUTH IN THE MORNING AND 1 AT BEDTIME * Telephone Encounter - Antonia Melendez [facility] - 12/25/2024 3:24 PM EST [facility] is currently not authorized to approve refills for the pended medication(s) per refill protocol. Please approve if appropriate. Thank you, Antonia Melendez, PharmD, [facility] Clinical Pharmacist [facility] ([facility]) 12/25/24 3:24 PM [phone] documented in this encounter Plan of Treatment Upcoming Encounters Date Type Department Care Team (Late st Contact Info) Description 02/07/2025 3:15 PM EDT Office Visit Urology, [address] [place] [address] Dandy Bashir MD [address] [place] [address] 02/21/2025 12:00 PM EDT Office Visit General Internal Medicine [facility] [place] [address] [facility] [place] [address] Jackie Lovelace MD [address] [facility] [place] [address] 06/25/2025 11:20 AM EDT Office Visit Neurology [facility] [place] [address] [facility] [place] [address] Anton Kumar MD [address] [facility] [place] [address] Scheduled Procedures Name Priority Associated Diagnoses Date/Ti me COLONOSCOPY FLEXIBLE PROXIMA L DIAGNOSTIC Recall Special screening for malignant neoplasms, colon Health Maintenance Due Date Last Done Comments Adult Wellness Visit 01/14/2023 01/14/2022 Diabetic Foot Exam 09/10/2024 09/10/2023 (D one elsewhere), 02/18/2023, 03/13/2022, Additional history exists COVID-19 Vaccine ( season) 2024 09/02/2024, 09/02/2024, 04/30/2023, Additional history exists Depression Monitoring 02/06/2025 02/07/2024 HbA1c 02/12/2025 08/15/2024, 05/0 11/2023, 09/24/2023, Additional history exists Albumin/Creatinine Ratio 07/12/2025 024, 06/14/2024, 08/18/2022, Additional history exists Diabetic Eye Exam 08/18/2025 08/18/2024, , 05/10/2023, Additional history exists GFR 11/01/2025 11/01/2024, 07/24, 05/31/2024, Additional history exists DTap/Tdap Vaccines (4 - Td or Tdap) 08/21/2029 08/21/2019, 04/13/2019, 12/27/2008 DXA Scan 06/28/2030 06/28/2023, 05/2023, 06/10/2016, Additional history exists Pneumococcal Vaccine: 50+ Years Completed 07/01/2016, 01/19/2011 Zoster Vaccines Completed 02/29/2024, 07/2023, 11/03/2012 Influenza Vaccine (FLU shot) Completed , 09/24/2023, 09/24/2023, Additional history exists HPV (Gardasil) Vaccine Aged Out No lo [...] as of this encounter Visit Diagnoses Diagnosis 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, with behavioral disturbance (HCC) Generalized anxiety disorder Current mild episode of major depressive disorder without prior episode (HCC) documented in this encounter Advance Directives Documents on File Type Date Recorded 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
--- OUTSIDE RECORDS SUMMARY | 2025-01-11 03:31 | External Medical Summary | Summary of Care ---
Author Name Unknown Organization [facility] Address [address] [facility] [place] [address] Phone [phone] Care Team Providers Care Developer Advocate Name Role Phone Mar Lovelace MD Primary Care Provider [phone] Reason for Visit * Reason Comments Outpatient Testing Encounter Details Date Type Department Care Team (Late st Contact Info) Description 11/20/2024 2:40 PM EST Laboratory Laboratory, [facility] [address] [facility] [place] [address] [place], Specimen Drop Off [facility] [address] [place] [address] Mixed stress and urge urinary incontinence; OAB (overactive bladder); Recurrent UTI Allergies No known active allergiesdocumented as of this encounter (statuses as of 11/20/2024) Medications TYLENOL 325 MG PO TABS Take 1,000 mg by mouth 3 times a day as needed for Pain, Mild. 0 Active ASPIRIN 81 MG PO CHEWIndications:Dy slipidemia, goal to be determined,HTN, goal below 140/90 Take 1 Tablet by mouth in the morning. 100 5 0 Active Meclizine HCl 25 MG Oral Tablet (Antivert) TAKE 1 TABLET BY MOUTH THREE TIMES DAILY NEEDED FOR DIZZINESS 1 Active Meloxicam 7.5 MG Oral TabletIndications: DDD (degenerative disc disease), lumbar Take 1 Tablet by mouth daily as needed for Pain, Moderate. With food for pain. 90 Tablet 1 3 Active Atorvastatin Calcium 40 MG Oral Tablet (Lipitor)Indicatio ns:Dyslipidemia, goal LDL below 130 Take 1 Tablet by mouth in the morning. 90 Tablet 3 4 Active DULoxetine HCl 60 MG Oral Capsule Delayed Release Particles (Cymbalta) Take 1 Capsule by mouth in the morning. Do not cut, crush or chew. With Breakfast. 90 Capsule 3 4 Active Solifenacin Succinate 10 MG Oral Tablet (VESIcare) Take 1 Tablet by mouth in the morning. 90 Tablet 3 4 Active Donepezil HCl 10 MG Oral Tablet (Aricept) Take with supper daily 90 Tablet 4 Active busPIRone HCl 5 MG Oral Tablet (Buspar)Indication s:Mild vascular dementia with anxiety (HCC),Major neurocognitive disorder due to Alzheimer's disease, with behavioral disturbance (HCC),Generalized anxiety disorder,Current mild episode of major depressive disorder without prior episode (HCC) TAKE 1 TABLET BY MOUTH IN THE MORNING AND 1 AT BEDTIME 60 Tablet 3 4 Active Alendronate Sodium 70 MG Oral Tablet (Fosamax)Indicatio ns:Age-related osteoporosis without current pathological fracture Take 1 Tablet by mouth once a week. with 8 oz. water 30 minutes before first meal of the day. Remain upright for 30 min after taking tablet 5 Tablet 11 4 Active glipiZIDE ER 2.5 MG Oral Tablet Extended Release 24 Hour (Glucotrol XL)Indications:Typ e 2 diabetes mellitus with hemoglobin A1c goal of less than 7.0% ([facility]) TAKE 1 TABLET BY MOUTH IN THE MORNING 30 MINUTES BEFORE A MEAL 90 Tablet 3 4 Active Losartan Potassium 25 MG Oral Tablet (Cozaar)Indication s:Essential hypertension with goal blood pressure less than 140/90 Take 0.5 Tablets by mouth in the morning. Hold until next time. 4 Active Estrogens Conjugated 0.625 MG/GM Vaginal Cream (Premarin)Indicati ons:Recurrent UTI Apply 0.5 gm to urethral and vulva twice a week 30 g 5 4 Active documented as of this encounter (statuses as of 11/20/2024) Active Problems Problem Noted Date Diagnosed Date [...] as of this encounter (statuses as of 11/20/2024) Immunizations Name Administration Dates Next Due COVID-19 mRNA, LNP-s, No Pre serve, 2-Dose Series ([employer] 03/24/2022,09/19/2021,02/03/2021,12/30 COVID-19, MRNA-LNP, 24-25, P F, 50 MCG/0.5ML, IM, 12 YRS & ABOVE (Moderna - Spikevax) 09/02/2024 Covid-19, Mrna, Lnp-s, Pf, B ivalent, 30 Mcg, IM, 12 yrs and above ([employer] 04/30/2023,09/23/2022 Pneumococcal Conjugate Vacc, 13 Valent (Prevnar) [...] No 02/07/2024 Does the household have a apex medical centerr source of income? (Household - for ages [...] PM EDT documented as of this encounter Plan of Treatment Upcoming Encounters Date Type Department Care Team (Late st Contact Info) Description 12/13/2024 12:00 PM EST Office Visit General Internal Medicine [facility] [place] [address] [place] [address] Mar Lovelace MD [address] [facility] [place] [address] 02/07/2025 3:15 PM EDT Office Visit Urology, [facility] [address] [facility] [place] [address] Dandy Bashir MD 27 [place] [address] 02/21/2025 12:00 PM EDT Office Visit General Internal Medicine [facility] [address] [facility] [address] [place] [address] Mar Lovelace MD [address] [facility] [place] [address] 06/25/2025 11:20 AM EDT Office Visit Neurology [facility] [address] [facility] [place] [address] Anton Kumar MD [address] [facility] [place] [address] Pending Results Name Type Priority Associated Diagnoses Date /Time CULTURE, URINE, QUANTITATIVE Lab Routine Mixed stress and urge urinary incontinence OAB (overactive bladder) Recurrent UTI 11/20/2024 2:36 PM EST Scheduled Procedures Name Priority Associated Diagnoses Date/Ti [...] Diagnoses Diagnosis Mixed stress and urge urinary incontinence Mixed incontinence urge and stress (male)(female) OAB (overactive bladder) Hypertonicity of bladder Recurrent UTI Urinary tract infection, site not specified documented in this encounter Advance Directives Documents on File Type Date 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
--- OUTSIDE RECORDS SUMMARY | 2025-01-11 03:31 | External Medical Summary | Summary of Care ---
Author Name Unknown Organization [facility] Address [address] [facility] [place] [address] Phone [phone] Care Team Providers Care [employer] Name Role Phone Mar Lovelace MD Primary Care Provider [phone] Encounter Details Date Type Department Care Team (Late st Contact Info) Description 12/14/2024 Population Health External Data Unspecified Department Allergies No known active allergiesdocumented as of this encounter (statuses as of 12/14/2024) Medications TYLENOL 325 MG PO TABS Take [...] the morning. 90 Tablet 3 4 Active busPIRone HCl 5 MG Oral [...] hemoglobin A1c goal of less than 7.0% ([facility]) TAKE 1 TABLET BY MOUTH IN THE [...] a week 30 g 5 4 Active Donepezil HCl 10 MG Oral Tablet (Aricept)Indicatio ns:Mild vascular dementia with anxiety (HCC) Take with supper daily 90 Tablet 4 Active documented as of this encounter (statuses as of 12/14/2024) Active Problems Problem Noted Date Diagnosed Date [...] as of this encounter (statuses as of 12/14/2024) Immunizations Name Administration Dates Next Due COVID-19 mRNA, LNP-s, No Pre serve, 2-Dose Series ([employer]) 03/24/2022,09/19/2021,02/03/2021,12/30 COVID-19, MRNA-LNP, 24-25, P F, 50 MCG/0.5ML, IM, 12 YRS & ABOVE (Moderna - Spikevax) 09/02/2024 Covid-19, Mrna, Lnp-s, Pf, B ivalent, 30 Mcg, IM, 12 yrs and above ([employer]) 04/30/2023,09/23/2022 Pneumococcal Conjugate Vacc, 13 Valent (Prevnar) [...] 02/07/2025 3:15 PM EDT Office Visit Urology, [facility] [address] [facility] [place] [address] Dandy Bashir MD [address] [place] [address] 02/21/2025 12:00 PM EDT Office Visit General Internal Medicine [facility] [address] [place] [address] Mar Lovelace MD [address] [place] [address] 06/25/2025 11:20 AM EDT Office Visit Neurology [facility] [place] [address] [place] [address] Anton Kumar MD [address] [place] [address] Scheduled Procedures Name Priority Associated Diagnoses Date/Ti [...] Completed 07/01/2016, 01/19/2011 Zoster Vaccines Completed 02/29/2024, 06/0 07/2023, 11/03/2012 Influenza Vaccine (FLU shot) Completed [...] Documents on File Type Date Recorded 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
--- OUTSIDE RECORDS SUMMARY | 2025-01-11 03:31 | External Medical Summary | Summary of Care ---
Author Name Unknown Organization [facility] Address [address] [facility] [place] [address] Phone [phone] Care Team Providers Care Web Site Developer Name Role Phone Mar Lovelace MD Primary Care Provider [phone] Reason for Visit * Reason Onset Date Comments Hospital Follow-Up Hospital Follow-Up 11/16/2024 Encounter Details Date Type Department Care Team (Latest Contact Info) Description 11/16/2024 11:00 AM EST Office Visit General Internal Medicine [address] [place] [address] [place] [address] Mar Lovelace MD [address] [place] [address] Recurrent UTI*; Hospital discharge follow-up; Generalized weakness; Type 2 diabetes mellitus with hemoglobin A1c goal of less than 7.0% (HCC); Palpitations; Major neurocognitive disorder due to Alzheimer's disease, without behavioral disturbance (HCC); Mild vascular dementia with anxiety (HCC); Major depressive disorder, recurrent episode, moderate (HCC); History of breast cancer; Generalized anxiety disorder; Pain in joint of right shoulder; Imbalance; Essential hypertension with goal blood pressure less than 140/90; Dyslipidemia, goal LDL below 130; BMI 30.0-30.9,adult; Current mild episode of major depressive disorder [...] morning. 90 Tablet 3 06/07/20 24 Active Donepezil HCl 10 MG Oral Tablet (Aricept) Take with supper daily 90 Tablet 08/08/20 24 Active busPIRone HCl 5 MG Oral Tablet (Buspar)Indicatio ns:Mild vascular dementia with anxiety (HCC),Major neurocognitive disorder due to Alzheimer's disease, with behavioral disturbance (HCC),Generalized anxiety disorder,Current mild episode of major depressive disorder without prior episode (HCC) TAKE 1 TABLET BY MOUTH IN THE MORNING AND 1 AT BEDTIME 60 Tablet 3 08/17/20 24 Active Alendronate Sodium 70 MG Oral [...] A1c goal of less than 7.0% (HCC) TAKE 1 TABLET BY MOUTH IN [...] week 30 g 5 11/16/20 24 Active Estrogens Conjugated 0.625 MG/GM Vaginal Cream (Premarin)Indicat ions:Recurrent UTI Apply 0.5 gm to urethral and vulva twice a week 30 g 5 01/26/20 24 2023 Discontinued(R efill) Losartan Potassium 25 MG Oral Tablet (Cozaar)Indicatio ns:Essential hypertension with goal blood pressure less than 140/90 Take 0.5 Tablets by mouth in the morning. 03/22/20 24 2023 Discontinued Cephalexin 500 MG Oral CapsuleIndication s:Recurrent UTI Take 1 Capsule by mouth in the morning and 1 Capsule at noon and 1 Capsule before bedtime. Do all this for 7 days. Start at the onset of UTI after urine sample. 21 Capsule 1 08/15/20 24 2023 documented as of this encounter (statuses as [...] mRNA, LNP-s, No Pre serve, 2-Dose Series (CH4e) 03/24/2022,09/19/2021,02/03/2021,12/30 COVID-19, MRNA-LNP, 24-25, P F, 50 [...] PM EDT documented as of this encounter Last Filed Vital Signs Vital Sign Reading Time Taken Comments Blood Pressure 115/76 11/16/2024 11:07 AM EST Pulse 96 11/16/2024 11:07 AM EST Temperature 37.2 C (98.9 F) 11/16/2024 1 1:07 AM EST Respiratory Rate - - Oxygen Saturation - - Inhaled Oxygen Concentration - - Weight 69.3 kg (152 lb 11.2 oz) 024 11:07 AM EST Height - - Body Mass Index 29.82 06/07/2024 10:26 AM EDT documented in this encounter Progress Notes * Mar Lovelace MD - 11/16/2024 11:16 AM EST SUBJECTIVE: Ruby Simms is a 79 year old female. Chief Complaint Patient presents with Hospital Follow-Up HPI: 78 YOF with HTN, Hyperlipidemia, borderline sugar, left breast ca in 00 s/p lumpectomy, chemo presents here for hospital and [facility] follow up. Pt was having confusion and generalized weakness , taken to hospital for evaluation due to previoushistory of recurrent UTI and she was found to have abnormal urine confusion. Admitted to hospital on 10/27/24 where she was found to have UTI again with worsening of her weakness and confusion. Labs were overall normal except WBC slightly up and abnormal urine and Imaging CT of the head and chest x-ray was okay.. She was seen by physical therapist and recommended to sent to rehab for strengthening. She was discharged to [facility] On October 31, 2024 . She did well overall. PT /OT was helpful .She was sent home few days ago on home medication. Since discharge feeling better . Hospital and Rehab records reviewed and updated. The patient's medication list was reviewed and updated as needed. Current issues now- -urinary incontinence and leakage has not improved but hopefully it will be with estrogen cream -weakness is ongoing and patient is not progressing with physical therapy and still needs full support. Has caregiver that comes 5 days a week and trying to get her work out as much they can -appetite good and sleeping okay Patient Active Problem List Diagnosis Essential hypertension [...] moderate (HCC) Recurrent UTI Imbalance Generalized weakness Current Outpatient Medications Medication Sig Dispense Refill TYLENOL 325 MG PO TABS Take 1,000 mg by mouth 3 times a day as needed for Pain, Mild. ASPIRIN 81 MG PO CHEW Take 1 Tablet by mouth in the morning. 100 5 Meclizine HCl 25 MG Oral Tablet (Antivert) TAKE 1 TABLET BY MOUTH THREE TIMES DAILY NEEDED FOR DIZZINESS Meloxicam 7.5 MG Oral Tablet Take 1 Tablet by mouth daily as needed for Pain, Moderate. With food for pain. 90 Tablet 1 Atorvastatin Calcium 40 MG Oral Tablet (Lipitor) Take 1 Tablet by mouth in the morning. 90 Tablet 3 Estrogens Conjugated 0.625 MG/GM Vaginal Cream (Premarin) Apply 0.5 gm to urethral and vulva twice a week 30 g 5 Losartan Potassium 25 MG Oral Tablet (Cozaar) Take 0.5 Tablets by mouth in the morning. DULoxetine HCl 60 MG Oral Capsule Delayed Release Particles (Cymbalta) Take 1 Capsule by mouth in the morning. Do not cut, crush or chew. With Breakfast. 90 Capsule 3 Solifenacin Succinate 10 MG Oral Tablet (VESIcare) Take 1 Tablet by mouth in the morning. 90 Tablet3 Donepezil HCl 10 MG Oral Tablet (Aricept) Take with supper daily 90 Tablet 0 busPIRone HCl 5 MG Oral Tablet (Buspar) TAKE 1 TABLET BY MOUTH IN THE MORNING AND 1 AT BEDTIME 60 Tablet 3 Alendronate Sodium 70 MG Oral Tablet (Fosamax) Take 1 Tablet by mouth once a week. with 8 oz. water30 minutes before first meal of the day. Remain upright for 30 min after taking tablet 5 Tablet 11 glipiZIDE ER 2.5 MG Oral Tablet Extended Release 24 Hour (Glucotrol XL) TAKE 1 TABLET BY MOUTH IN THE MORNING 30 MINUTES BEFORE A MEAL 90 Tablet 3 Cephalexin 500 MG Oral Capsule Take 1 Capsule by mouth in the morning and 1 Capsule at noon and 1 Capsule before bedtime. Do all this for 7 days. Start at the onset of UTI after urine sample. 21 Capsule 1 No current facility-administered medications for this visit. Review of patient's allergies indicates: No Known Allergies Past Medical History: Diagnosis Date Breast cancer [...] performed by Suzanne Barth DO at ENDOSCOPY [facility] COLONOSCOPY, OUTSIDE PROCEDURE 2004 CYSTOSCOPY 12/31/2014 MASTECTOMY, PARTIAL Left 11/2000 positive with SLNB (-) STRESS ECHO (DOBUTAMINE) 2005 negative TOTAL HYSTERECTOMY 2000 total TOTAL KNEE REPLACEMENT EDU. Right 06/07/2020 Family History Problem Relation Name Age of Onset Diabetes Mother Heart Disorder Mother Diabetes Father Heart Disorder Father 66 from [place] Social History Socioeconomic History Marital status: Tobacco Use Smoking status: Never Smokeless tobacco: Never Vaping Use Vaping status: Never Used Substance and Sexual Activity Alcohol use: Yes Comment: rare, every few months Drug use: No Sexual activity: Yes Partners: Male Social Needs Financial Resource Strain: Low Risk (02/07/2024) Financial Resource Strain Do you have any trouble paying for your medications, or do you think you might in the future? (Adult - for ages 18 years and over): No Food Insecurity: No Food Insecurity (02/07/2024) Food Insecurity Do you need food for this week? (Adult - for ages 18 years and over): No Transportation Needs: No Transportation Needs (02/07/2024) Transportation Needs Do you have trouble getting a ride to medical visits or work? (Adult - for ages 18 years and over):Never True Social Connections: Socially Integrated (02/07/2024) Social Connections How often do you feel lonely or isolated from those around you? (Adult - for ages 18 years and over): Never Housing Stability: Low Risk (02/07/2024) Housing Stability Do you currently live in a chcf or have no steady place to sleep at night? (Adult - for ages 18 years and over): No Do you think you are at risk of becoming homeless? (Adult - for ages 18 years and over): No Family History Problem Relation Name Age of Onset Diabetes Mother Heart Disorder Mother Diabetes Father Heart Disorder Father 66 from [place] REVIEW OF SYSTEMS: All 10 systems reviewed and negative except mentioned in HPI OBJECTIVE: BP 115/76 | Pulse 96 | Temp 98.9 F (37.2 C) | Wt 152 lb 11.2 oz (69.3 kg) | LMP 01/19/2001 | BMI 29.82 kg/m | BSA 1.71 m PHYSICAL EXAM: General: alert, healthy, demented with posture leaning to the right side and no distress Head: Normocephalic, No masses, lesions, tenderness or [...] clear to auscultation Abdomen: abdomen soft, non-tender, and normal bowel sounds Extremities: less than 2 second capillary refill, no joint deformities, effusion, or inflammation ASSESSMENT AND PLAN Recurrent UTI (Primary) - DISCH MED RECON CUR MED LIS - Estrogens Conjugated 0.625 MG/GM Vaginal Cream (Premarin); Apply 0.5 gm to urethral and vulva twice a week Continue follow up with Urology Hospital discharge follow-up - DISCH MED RECON CUR MED LIS Generalized weakness - DISCH MED RECON CUR MED LIS Continue with physical therapy has been set up [facility]. Discussed very important to do her as many exercise she can with her caregiver as well on the side Type 2 diabetes mellitus with hemoglobin A1c goal of less than 7.0% (HCC) - HEMOGLOBIN A1C; Future; Expected date: 02/03/2025 Palpitations Major neurocognitive disorder due to Alzheimer's disease, without behavioral disturbance (HCC) Continue current meds Mild vascular dementia with anxiety (HCC) Major depressive disorder, recurrent episode, moderate (HCC) History of breast cancer Generalized anxiety disorder Pain in joint of right shoulder Imbalance Essential hypertension with goal blood pressure less than 140/90 - COMPREHENSIVE METABOLIC PANEL; Future; Expected date: 02/03/2025 Dyslipidemia, goal LDL below 130 - COMPREHENSIVE METABOLIC PANEL; Future; Expected date: 02/03/2025 - LIPID PANEL WITH DIRECT LDL IF TG IS HIGH; Future; Expected date: 02/03/2025 BMI 30.0-30.9,adult Current mild episode of major depressive disorder without prior episode (HCC) Stable Continue current treatment as directed Follow Up: Return in about 3 months (around 02/14/2025) for recheck. | For: recheck Treatment and plan discussed with patient and was given opportunity to ask questions which were answered . Patient verbalized understanding. This note was prepared with the help of fluency and if there is any mis-spelled words , sentences or something which doesn't represent the content of the subject that could be technical error and please refer to the author for clarification. Mar Lovelace MD 11:16 AM 11/16/2024 documented in this encounter Nursing Notes * Lindsey Nicole CCMA - 11/16/2024 10:57 AM EST Pt is here today for hospital follow up was [facility] on 10/31 then [facility] Pt stated she has a rash between the legs and privite area is putting meds on rash and getting better documented in this encounter Plan of Treatment Upcoming Encounters Date Type Department Care Team (Late st Contact Info) Description 12/13/2024 12:00 PM EST Office Visit General Internal Medicine [address] [place] [address] [place] [address] Mar Lovelace MD [address] [facility] [place] [address] 02/07/2025 3:15 PM EDT Office Visit Urology, [facility] [address] [place] [address] Dandy Bashir MD [address] [place] [address] 02/21/2025 12:00 PM EDT Office Visit General Internal Medicine [facility] [address] [facility] [place] [address] Mar Lovelace MD [address] [facility] [place] [address] 06/25/2025 11:20 AM EDT Office Visit Neurology [facility] [address] [facility] [place] [address] Anton Kumar MD [address] [facility] [place] [address] Scheduled Orders Name Type Priority Associated Diagnoses Orde r Schedule COMPREHENSIVE METABOLIC PANEL Lab Routine Essential hypertension with goal blood pressure less than 140/90 Dyslipidemia, goal LDL below 130 Expected: 02/03/2025, Expires: 11/16/2025 HEMOGLOBIN A1C Lab Routine Type 2 diabetes mellitus with hemoglobin A1c goal of less than 7.0% (HCC) Expected: 02/03/2025, Expires: 11/16/2025 LIPID PANEL WITH DIRECT LDL IF TG IS HIGH Lab Routine Dyslipidemia, goal LDL below 130 Expected: 02/03/2025, Expires: 11/16/2025 Scheduled Procedures Name Priority Associated Diagnoses Date/Ti [...] Completed 07/01/2016, 01/19/2011 Zoster Vaccines Completed 02/29/2024, 060 07/2023, 11/03/2012 Influenza Vaccine (FLU shot) Completed [...] Primary Urinary tract infection, site not specified Hospital discharge follow-up Other follow-up examination Generalized weakness Other malaise and fatigue Type 2 diabetes mellitus with hemoglobin A1c goal of less than 7.0% (HCC) Palpitations Major neurocognitive disorder due to Alzheimer's disease, without behavioral disturbance (HCC) Mild vascular dementia with anxiety (HCC) Major depressive disorder, recurrent episode, moderate (HCC) Major depressive disorder, recurrent episode, moderate History of breast cancer Personal history of malignant neoplasm of breast Generalized anxiety disorder Pain in joint of right shoulder Pain in joint, shoulder region Imbalance Abnormality of gait Essential hypertension with goal blood pressure less than 140/90 Dyslipidemia, goal LDL below 130 Other and unspecified hyperlipidemia BMI 30.0-30.9,adult Body Mass Index 30.0-30.9, adult Current mild episode of major depressive disorder without prior episode (HCC) documented in this encounter Advance Directives Documents on File Type Date Recorded 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
--- OUTSIDE RECORDS SUMMARY | 2025-01-11 03:31 | External Medical Summary | Summary of Care ---
Author Name Unknown Organization [facility] Address [address] [facility] [place] [address] Phone [phone] Care Team Providers Care Recovery Coach Name Role Phone Mar Lovelace MD Primary Care Provider [phone] Reason for Visit * Reason Onset Date Comments Medication Question 10/27/2024 Advice 10/27/2024 Encounter Details Date Type Department Care Team (Late st Contact Info) Description 10/27/2024 Telephone General Internal Medicine [facility] [place] [address] [facility] [place] [id number] Mar Lovelace MD [address] [facility] [place] [address] Medication Question; Advice Allergies No known active allergiesdocumented as of this encounter (statuses as of 11/10/2024) Medications TYLENOL 325 MG PO TABS Take [...] a week 30 g 5 4 Active Losartan Potassium 25 MG Oral Tablet (Cozaar)Indication s:Essential hypertension with goal blood pressure less than 140/90 Take 0.5 Tablets by mouth in the morning. 4 Active DULoxetine HCl 60 MG Oral [...] A MEAL 90 Tablet 3 4 Active documented as of this encounter (statuses as of 11/10/2024) Active Problems Problem Noted Date Diagnosed Date [...] as of this encounter (statuses as of 11/10/2024) Immunizations Name Administration Dates Next Due COVID-19 mRNA, LNP-s, No Pre serve, 2-Dose Series (Incap) 03/24/2022,09/19/2021,02/03/2021,12/30 COVID-19, MRNA-LNP, 24-25, P F, 50 [...] encounter Miscellaneous Notes * Telephone Encounter - Mar Lovelace MD - 10/27/2024 11:41 AM EST Noted and agreed * Telephone Encounter - Dipika Paredes LPN - 10/27/2024 9:50 AM EST Bernie calling from [facility] [employer]. Patient's caregiver Went to [facility] ER on 10/24/24 Discharged on Cefdinir. Got a call from the ER that It doesn't cover the organism that came back in the urine. Placed on Macrobid instead. Had a dose yesterday about 6 pm last night of the Macrobid. Later in the evening had vomiting. This morning she has diarrhea. Taking sips of fluids. No appetite She is very weak and lethargic, but can be awoken and will answer questions. Has a little tenting of the skin on the back of her hand. She did not receive fluids in the ER on Wednesday. Her breathing is fine. Not clammy. Called the office. Spoke to Fariba. She spoke to Dr. Lovelace and with the patients history would recommend that she return to the ER. Bernie informed. Verbalized understanding. * Telephone Encounter - Angelina Bhatti OSA - 10/27/2024 9:47 AM EST Reason for patient's call: Bernie, caregiver with [facility] [employer], called and asked for a nurse as patient has diarrhea and vomiting. Caller was transferred to Jenny Beltran at the nurse line. * Telephone Encounter - Shara Fox CPhT - 10/27/2024 9:12 AM EST Patient was in [facility] ED for a UTI and was prescribed Nitrofurantoin 100mg she is having side affects of vomiting and no Appetite Thank you, Shara Fox Chief Mechanical Officer II [facility] ([facility]) 10/27/2024 9:13 AM documented in this encounter Plan of Treatment Upcoming Encounters Date Type Department Care Team (Late st Contact Info) Description 11/16/2024 11:00 AM EST Office Visit General Internal [place] [address] [address] Mar Lovelace MD [address] [place] [address] 12/13/2024 12:00 PM EST Office Visit General Internal Medicine [address] [place], [place] [address] Mar Lovelace MD [address] [facility] [place], [place] [address] 02/07/2025 3:15 PM EDT Office Visit Urology, [facility] [address] [place] [address] Dandy Bashir MD [address] [place] [address] 06/25/2025 11:20 AM EDT Office Visit Neurology [facility] [address] [place] [address] Anton Kumar MD [address] [facility] [place] [address] Scheduled Procedures Name Priority Associated Diagnoses Date/Ti [...] Documents on File Type Date Recorded 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
--- OUTSIDE RECORDS SUMMARY | 2025-01-11 03:31 | External Medical Summary ---
Author Name Unknown Address Unknown Organization K09:[facility] [place] [address] Laboratory Report Ordering Provider Test Date Status JAVIER HERNANDEZ 11/01/2024 06:49:15 Final Observation Date Value Abnormality Reference (Units ) Status WBC, Total 11/01/2024 06:49:15 6.55 4.00-10.8 0 (K/uL) Final RBC 11/01/2024 06:49:15 4.46 3.85-5.15 (M/uL) Final Hemoglobin 11/01/2024 06:49:15 13.5 12.0-15.3 (g/dL) Final HCT 11/01/2024 06:49:15 41.7 36.0-45.2 (%) Final MCV 11/01/2024 06:49:15 93.5 81.5-97.5 (fL) Final MCH 11/01/2024 06:49:15 30.3 27.0-34.0 (pg) Final MCHC 11/01/2024 06:49:15 32.4 32.0-36.0 (g/dL) Final RDW 11/01/2024 06:49:15 13.1 11.5-15.5 (%) Final Platelets 11/01/2024 06:49:15 263 140-400 (K /uL) Final MPV 11/01/2024 06:49:15 9.8 6.6-11.1 ( fL) Final Performing Location [facility] [place] [address]
--- OUTSIDE RECORDS SUMMARY | 2025-01-11 03:31 | External Medical Summary | Summary of Care ---
Author Name Unknown Organization [facility] Address [address] [facility] [place] [address] Phone [phone] Care Team Providers Care State Manager Name Role Phone Mar Lovelace MD Primary Care Provider [phone] Reason for Referral * Medication Prior Authorization - Pending Review Specialty Diagnoses / Procedures Referred By Roselia linn Referred To Contact Diagnoses Mild vascular dementia with anxiety (HCC) Crut Miller MD [address] [facility] [place] [address] Phone: tel: fax: Referral ID Status Reason Start Date Expiration Date V isits Requested Visits Authorized [id number] Pending Review [phone] Reason for Visit * Reason Onset Date Comments Medication Refill 11/19/2024 Encounter Details Date Type Department Care Team (Late st Contact Info) Description 11/19/2024 Refill General Internal Medicine [facility] [address] [facility] [place] [address] Carli Mercado MD [address] [place] [address] Mild vascular dementia with anxiety (HCC)* Allergies No known active allergiesdocumented as of this encounter (statuses as of 11/23/2024) Medications TYLENOL 325 MG PO TABS Take 1,000 mg by mouth 3 times a day as needed for Pain, Mild. 06/09/20 20 Active ASPIRIN 81 MG PO CHEWIndications:Dy slipidemia, goal to be determined,HTN, goal below 140/90 Take 1 Tablet by mouth in the morning. 100 5 06/09/20 20 Active Meclizine HCl 25 MG Oral Tablet (Antivert) TAKE 1 TABLET BY MOUTH THREE TIMES DAILY NEEDED FOR DIZZINESS 01/03/20 21 Active Meloxicam 7.5 MG Oral TabletIndications: DDD [...] morning. 90 Tablet 3 06/07/20 24 Active busPIRone HCl 5 MG Oral [...] supper daily 90 Tablet 11/21/20 24 Active Donepezil HCl 10 MG Oral Tablet (Aricept) Take with supper daily 90 Tablet 08/08/20 24 024 Discontin ued(Refil l) documented as of this encounter (statuses as of 11/23/2024) Active Problems Problem Noted Date Diagnosed Date Imbalance 03/22/2024 Generalized weakness 03/22/2024 Recurrent UTI 01/26/2024 Major depressive disorder, recurrent episode, mo derate 10/25/2023 Major neurocognitive disorde r due to Alzheimer's disease, without behavioral disturbance 06/15/2023 Mild vascular dementia with anxiety 02/18/2023 Current mild episode of ujlia r depressive disorder without prior episode 08/18/2022 [...] as of this encounter (statuses as of 11/23/2024) Immunizations Name Administration Dates Next Due COVID-19 mRNA, LNP-s, No Pre serve, 2-Dose Series ([employer]) 03/24/2022,09/19/2021,02/03/2021,12/30 COVID-19, MRNA-LNP, 24-25, P F, 50 [...] Telephone Encounter - Carli Mercado MD - 11/23/2024 10:47 AM ESTSigned Prescriptions: Disp Refills Donepezil HCl 10 MG Oral Tablet (Aricept) 90 Tab*0 Sig: Take with supper dailyAuthorizing Provider: CURT MILLER * Telephone Encounter - Mar Lovelace MD - 11/21/2024 10:24 AM ESTPending Prescriptions: Disp Refills Donepezil HCl 10 MG Oral Tablet (Aricept) 90 Tab*0 Sig: Take with supper daily * Telephone Encounter - Shereen Riggs RPh - 11/21/2024 9:27 AM EST Pending Prescriptions: Disp Refills Donepezil HCl 10 MG Oral Tablet (Aricept) 90 Tab*0 Sig: Take with supper daily documented in this encounter Plan of Treatment Upcoming Encounters Date Type Department Care Team ([facility] Info) Description 12/13/2024 12:00 PM EST Office Visit General Internal Medicine [facility] [address] [place] [address] Mar Lovelace MD [address] [place] [address] 02/07/2025 3:15 PM EDT Office Visit Urology, [facility] [address] [facility] [place] [id number] Dandy Bashir MD [address] [place] [address] 02/21/2025 12:00 PM EDT Office Visit General Internal Medicine [facility] [address] [place] [address] Mar Lovelace MD [address] [facility] [place] [address] 06/25/2025 11:20 AM EDT Office Visit Neurology [facility] [address] [place] [address] Curt Miller MD [address] [facility] [place], [place] [address] Scheduled Procedures Name Priority Associated Diagnoses Date/Ti [...] 11/2023, 09/24/2023, Additional history exists Albumin/Creatinine Ratio 07/12/20252 024, 06/14/2024, 08/18/2022, Additional history exists Diabetic [...] Diagnoses Diagnosis Mild vascular dementia with anxiety (HCC)- Primary documented in this encounter Advance Directives Documents on File Type Date Recorded 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
--- OUTSIDE RECORDS SUMMARY | 2025-01-11 03:31 | External Medical Summary | Summary of Care ---
Author Name Unknown Organization [facility] Address [address] [facility] [address] Phone [phone] Care Team Providers Care Chimney Mechanic Name Role Phone Mar Lovelace MD Primary Care Provider [phone] Reason for Referral * Medication Prior Authorization - Pending Review Specialty Diagnoses / Procedures Referred By Roselia linn Referred To Contact Diagnoses Mild vascular dementia with anxiety (HCC) Anton Kumar MD 200 [place] [address] Phone: tel: fax: Referral ID Status Reason Start Date Expiration Date V isits Requested Visits Authorized [id number] Pending Review [phone] Reason for Visit * Reason Onset Date Comments Medication Refill 11/19/2024 Encounter Details Date Type Department Care Team (Late st Contact Info) Description 11/19/2024 Refill General [facility] [address] [place] [address] Carli Mercado MD [address] [place] [address] Mild vascular dementia with anxiety (HCC)* Allergies No known active allergiesdocumented as of this encounter (statuses as of 11/21/2024) Medications TYLENOL 325 MG PO TABS Take [...] as of this encounter (statuses as of 11/21/2024) Active Problems Problem Noted Date Diagnosed Date [...] as of this encounter (statuses as of 11/21/2024) Immunizations Name Administration Dates Next Due COVID-19 mRNA, LNP-s, No Pre serve, 2-Dose Series ([employer]) 03/24/2022,09/19/2021,02/03/2021,12/30 COVID-19, MRNA-LNP, 24-25, P F, 50 [...] daily * Telephone Encounter - Shereen Riggs formerly [facility] - 11/21/2024 9:27 AM EST Pending Prescriptions: Disp Refills Donepezil HCl 10 MG Oral Tablet (Aricept) 90 Tab*0 Sig: Take with supper daily documented in this encounter Plan of Treatment Upcoming Encounters Date Type Department Care Team (Late st Contact Info) Description 12/13/2024 12:00 PM EST Office Visit General Internal Medicine [facility] [address] [place], [place] [address] Mar Lovelace MD [address] [place] [address] 02/07/2025 3:15 PM EDT Office Visit Urology, [facility] [address] [facility] [place] [address] Dandy Bashir MD [address] [place] [address] 02/21/2025 12:00 PM EDT Office Visit General Internal Medicine [facility] [address] [facility] [place] [address] Mar Lovelace MD [address] [facility] [place] [address] 06/25/2025 11:20 AM EDT Office Visit Neurology [facility] [place] [address] [place] [address] Anton Kumar MD [address] [facility] [place] [address] Scheduled Procedures Name Priority Associated Diagnoses Date/Ti [...] Documents on File Type Date Recorded 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
--- OUTSIDE RECORDS SUMMARY | 2025-01-11 03:31 | External Medical Summary ---
Author Name Unknown Address Unknown Organization [id number]:[facility] [place] - [address] [place] [id number] Laboratory Report Ordering Provider Test Date Status LISA BRYANT 11/20/2024 14:36:19 Final Observation Date Value Abnormality Reference (Units) Status Bacteria identified in Specimen by Culture 11/20/2024 14:36:19 No significant growth Final Test: Culture, Urine, Quanti tative
Specimen Source: Urine, Clean Catch
Specimen Type: Urine
Specimen Date: 11/20/2024 1436
Result Date: 11/22/2024 0825
Result Status: Final result
Resulting Lab: [facility] [place]
[address]
[place] [address]

CULTURE

No significant growth

null Performing Location [facility] [place] - [address] [facility] [address]
--- OUTSIDE RECORDS SUMMARY | 2025-01-11 03:31 | External Medical Summary ---
Author Name Unknown Address Unknown Organization K09:[facility] [place] [id number] Laboratory Report Ordering Provider Test Date Status JAVIER HERNANDEZ 11/01/2024 06:49:15 Final Observation Date Value Abnormality Reference (Units ) Status BUN 11/01/2024 06:49:15 12 6-20 (mg/dL) Final Creatinine 11/01/2024 06:49:15 0.9 0.5-1.0 (mg/dL) Final Glomerular filtration rate/1.73 sq M.predicted [Volume Rate/Area] in Serum, Plasma or Blood by Creatinine-based formula (CKD-EPI) 11/01/2024 06:49:15 67 >=60 (mL/min) Final eGFR is calculated based on the CKD-EPI 2020 equation. Sodium 11/01/2024 06:49:15 142 135-146 (m mol/L) Final Potassium 11/01/2024 06:49:15 4.2 3.5-5.1 (m mol/L) Final Cl 11/01/2024 06:49:15 106 98-107 (mm ol/L) Final CO2 11/01/2024 06:49:15 24 22-32 (mmo l/L) Final Anion gap 11/01/2024 06:49:15 12 7-15 (mmol /L) Final Glucose 11/01/2024 06:49:15 115 70-120 (mg /dL) Final Calcium 11/01/2024 06:49:15 9.3 8.4-10.2 ( mg/dL) Final Performing Location [facility] [place] [address]
--- OUTSIDE RECORDS SUMMARY | 2025-01-11 05:12 | External Medical Summary | Summary of Care ---
Author Name Unknown Organization [facility] Address [address] [facility] [place] [address] Phone [phone] Care Team Providers Care International Student Counselor Name Role Phone Mar Lovelace MD Primary Care Provider [phone] Reason for Visit * Reason Comments Outpatient Testing Encounter Details Date Type Department Care Team (Late st Contact Info) Description 01/10/2025 3:20 PM EST Laboratory Laboratory, [facility] [address] [facility] [place] [address] [place], Specimen Drop Off [facility] 132 [place] [address] Mixed stress and urge urinary incontinence; OAB (overactive bladder); Recurrent UTI Allergies No known active allergiesdocumented as of this encounter (statuses as of 01/10/2025) Medications TYLENOL 325 MG PO TABS Take [...] the morning. 90 Tablet 3 4 Active Alendronate Sodium 70 [...] hemoglobin A1c goal of less than 7.0% ([facility]) TAKE 1 TABLET BY MOUTH [...] AND 1 AT BEDTIME 180 Tablet 3 5 Active documented as of this encounter (statuses as of 01/10/2025) Active Problems Problem Noted Date Diagnosed Date [...] as of this encounter (statuses as of 01/10/2025) Immunizations Name Administration Dates Next Due COVID-19 mRNA, LNP-s, No Pre serve, 2-Dose Series ([employer]) 03/24/2022,09/19/2021,02/03/2021,12/30 COVID-19, MRNA-LNP, 24-25, P F, 50 MCG/0.5ML, IM, 12 YRS & ABOVE (Moderna - Spikevax) 09/02/2024 Covid-19, Mrna, Lnp-s, Pf, B ivalent, 30 Mcg, IM, 12 yrs and above ([employer]) 04/30/2023,09/23/2022 Pneumococcal Conjugate Vacc, 13 Valent (Prevnar) [...] No 02/07/2024 Does the household have a [facility] source of income? (Household - for ages [...] ages 0-17 years) Not on file 02/07/2024 Food Insecurity Answer Date Recorded Within the past 12 months, y ou worried that your food would run out before you got the money to buy more. Never true 02/07/20 24 Within the past 12 months, t he food you bought just didn't last and you didn't have money to get more. Never true 02/07/2024 Do you need food for this week? No 02/07/2024 Comments No Sex and Gender Information [...] 02/07/2025 3:15 PM EDT Office Visit Urology, [facility] [address] [facility] [place] [address] Dandy Bashir MD [address] [place] [address] 02/21/2025 12:00 PM EDT Office Visit General Internal Medicine [facility] [address] [facility] [place] [address] Mar Lovelace MD [address] [facility] [place] [address] 06/25/2025 11:20 AM EDT Office Visit Neurology [facility] [address] [facility] [place] [address] Anton Kumar MD [address] [facility] [place] [address] Pending Results Name Type Priority Associated Diagnoses Date /Time CULTURE, URINE, QUANTITATIVE Lab Routine Mixed stress and urge urinary incontinence OAB (overactive bladder) Recurrent UTI 01/10/2025 3:23 PM EST Scheduled Procedures Name Priority Associated [...] 11/2023, 09/24/2023, Additional history exists Albumin/Creatinine Ratio 07/12/202507/12/2 024, 06/14/2024, 08/18/2022, Additional history exists Diabetic [...] on patient's age to complete this topic Meningitis B Vaccine (Bexsero/Trumemba) Aged Out No longer eligible based on [...] Documents on File Type Date Recorded 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
[2025-01-11] MEDS: ATORVASTATIN 40 MG TAB PO SCH (07:37)
[2025-01-11] MEDS: DULoxetine HCL 60 MG CAP PO SCH (07:38)
[2025-01-11] MEDS: OXYBUTYNIN CHLORIDE XL 5 MG TABCR PO SCH (07:38)
[2025-01-11] MEDS: ENOXAPARIN INJ 40 MG/0.4 ML SYR SQ SCH (07:38)
[2025-01-11] MEDS: ASPIRIN 81 MG ECTAB PO SCH (07:38)
[2025-01-11] MEDS: LOSARTAN POTASSIUM 25 MG TAB PO SCH (07:38)
[2025-01-11 07:55] LABS: Basophils # (auto) 0.05 K/uL (0.00-0.20); Basophils % (auto) 0.7 %; Eosinophils # (auto) 0.11 K/uL (0.00-0.50); Eosinophils % (auto) 1.6 %; Hematocrit (blood only) 40.3 % (37.0-47.0); Hemoglobin 13.5 g/dl (12.0-16.0); Immature Granulocytes # (auto) 0.02 K/uL (0.01-0.20); Immature Granulocytes % (auto) 0.3 %; Lymphocytes # (auto) 1.65 K/uL (1.20-3.40); Lymphocytes % (auto) 23.9 %; Mean Corpuscular Hemoglobin 30.5 pg (25.0-34.0); Mean Corpuscular Hgb Conc 33.5 g/dL (32.0-36.0); Mean Corpuscular Volume 91.2 fL (80.0-100.0); Mean Platelet Volume 9.8 fL (9.4-12.4); Monocytes # (auto) 0.84 K/uL (0.11-0.59); Monocytes % (auto) 12.2 %; Neutrophils # (auto) 4.23 K/uL (1.40-6.50); Neutrophils % (auto) 61.3 %; Platelet Count 223 K/uL (130-400); RDW Coefficient of Variation 12.7 % (11.5-14.5); RDW Standard Deviation 42.2 fL (36.4-46.3); Red Blood Count 4.42 M/uL (4.20-5.40)
[2025-01-11 08:25] LABS: BUN Creatinine Ratio 15.7 (10-20); Creatinine Clr Calc Pharmacy 62.5 ml/min
[2025-01-11] MEDS: LANTUS PER UNIT CHARGE SQ SCH (08:44)
--- NOTE | 2025-01-11 09:48 | XRay Report ---
XR chest 1V portable CLINICAL HISTORY: Cough. COMPARISON STUDY: Chest CT March 06, 2023. Chest radiograph January 10, 2025. FINDINGS: Lung volumes are normal. Lungs are clear. There is no pneumothorax or pleural effusion. Car diac size is normal. Mediastinal contours are normal. There is no evidence for pulmonary edema. Left axillary surgical clips are incidentally noted. IMPRESSION: No acute cardiopulmonary findings. ACT 112: Negative or not required by law. Electronically signed by: Milind Lugo M.D. 01/11/2025 9:47 AM
[2025-01-11 10:23] LABS: Adenovirus PCR Not Detected (NotDetected); Bordetella parapertussis PCR Not Detected (NotDetected); Bordetella pertussis PCR Not Detected (NotDetected); Chlamydia pneumoniae PCR Not Detected (NotDetected); Coronavirus 229E PCR Not Detected (NotDetected); Coronavirus CoV-2 (COVID19)PCR Not Detected (NotDetected); Coronavirus HKU1 PCR Not Detected (NotDetected); Coronavirus NL63 PCR Not Detected (NotDetected); Coronavirus OC43PCR Not Detected (NotDetected); Human Metapneumovirus PCR Not Detected (NotDetected); Influenza A PCR Not Detected (NotDetected); Influenza B PCR Not Detected (NotDetected); Mycoplasma pneumoniae PCR Not Detected (NotDetected); Parainfluenza Virus 1 PCR Not Detected (NotDetected); Parainfluenza Virus 2 PCR Not Detected (NotDetected); Parainfluenza Virus 3 PCR Not Detected (NotDetected); Parainfluenza Virus 4 PCR Not Detected (NotDetected); Respiratory Syncytial VirusPCR Not Detected (NotDetected); Rhinovirus/Enterovirus PCR Not Detected (NotDetected)
--- NOTE | 2025-01-11 15:34 | Hospitalist Progress Note ---
Date of Service January 11, 2025 Assessment & Plan (1) Encephalopathy: Plan Pt is a 79yoF with past medical history significant for dementia, hypertension, hyperlipidemia, DM2 on oral medications, left breast cancer status post surgery/radiation status post tamoxifen Rx, mixed incontinence, recurrent UTIs, history ESBL Klebsiella UTI, anxiety/mood disorder presenting from home with concern for increasing confusion and weakness at home. Acute on chronic metabolic encephalopathy Delirium on dementia History of recurrent UTIs UA on admission bland Urine culture pending Continue empiric Invanz Not currently septic TSH normal Consider further workup with head CT respiratory viral panel negative chest x-ray unremarkable Delirium precautions. Frequent reorientation, avoid sedating medications as able PT/OT Continue home donepezil Continue to monitor hypertension likely elevated due to secondary illness Additional losartan for now Improved hyperlipidemia on statin Rx DM2 on oral medications well-controlled as of recent hemoglobin A1c of 6.9 last July 2024 Basal bolus insulin, ISS BG goal 1 10-1 40, carb count coverage left breast cancer status post surgery/radiation status post tamoxifen Rx currently in remission Diet: HH/DMII DVT prophylaxis. Lovenox subcu Full code Dispo: per PT/OT recs Admission and Anticipated Discharge Date Admission Date: January 10, 2025 Subjective Patient was seen sitting up in bed Pleasantly demented Denies any acute concerns but talkative called and updated. Review of Systems Review of Systems: All systems reviewed & are unremarkable except as noted in Subjective Physical Exam Physical Exam: General: Alert. No acute distress Skin: No noted rashes or bruises Neuro: pleasantly demented HEENT: NC/AT CV: RRR Resp: Breath sounds clear bilaterally, no increased effort of breathing Abdomen: Soft, nontender Extremities: No edema in lower extremities bilaterally. Results & Data Results & Data Vital Signs (Past 12 Hours) Vital Signs Temp Pulse Pulse Resp BP Pulse Ox O2 Del Method 01/11/25 14:26 37 C 78 18 137/88 99 Room Air 01/11/25 14:19 84 01/11/25 11:18 36.8 C 83 18 137/76 95 Room Air 01/11/25 07:20 36.4 C L 83 18 167/83 H 95 Room Air 01/11/25 07:05 81 01/11/25 05:02 36.6 C 80 20 142/86 H 96 Room Air Diagnostic Findings Chest X-Ray 01/10/25 18:19 EXAM: X-ray chest one-view portable CLINICAL HISTORY: Weakness PRIORS: 10/27/2024 TECHNIQUE: Frontal view chest FINDINGS: The chest is well-expanded. No airspace consolidation, effusion or congestive changes. Heart size is normal. No pneumothorax. Moderate atherosclerotic disease of the aortic knob. Trachea is patent. Osseous structures demonstrate no acute abnormality. Surgical clips in the left axilla. IMPRESSION: No plain film evidence of an acute cardiopulmonary process. Electronically signed by Dayna Tuttle 01-10-2025 6:46 PM Chest X-Ray 01/11/25 08:39 XR chest 1V portable CLINICAL HISTORY: Cough. COMPARISON STUDY: Chest CT March 06, 2023. Chest radiograph January 10, 2025. FINDINGS: Lung volumes are normal. Lungs are clear. There is no pneumothorax or pleural effusion. Cardiac size is normal. Mediastinal contours are normal. There is no evidence for pulmonary edema. Left axillary surgical clips are incidentally noted. IMPRESSION: No acute cardiopulmonary findings. ACT 112: Negative or not required by law. Electronically signed by: Milind Lugo M.D. 01/11/2025 9:47 AM
[2025-01-11] MEDS: DONEPEZIL HCL 10 MG TAB PO SCH (20:24)
[2025-01-11] MEDS: ERTAPENEM 1000MG 1,000 MG/10 ML SYR IV SCH (20:24)
[2025-01-12 06:26] LABS: Basophils # (auto) 0.04 K/uL (0.00-0.20); Basophils % (auto) 0.7 %; Eosinophils # (auto) 0.17 K/uL (0.00-0.50); Eosinophils % (auto) 2.9 %; Hematocrit (blood only) 39.6 % (37.0-47.0); Hemoglobin 13.2 g/dl (12.0-16.0); Immature Granulocytes # (auto) 0.02 K/uL (0.01-0.20); Immature Granulocytes % (auto) 0.3 %; Lymphocytes # (auto) 1.51 K/uL (1.20-3.40); Lymphocytes % (auto) 25.8 %; Mean Corpuscular Hemoglobin 30.2 pg (25.0-34.0); Mean Corpuscular Hgb Conc 33.3 g/dL (32.0-36.0); Mean Corpuscular Volume 90.6 fL (80.0-100.0); Mean Platelet Volume 9.8 fL (9.4-12.4); Monocytes # (auto) 0.69 K/uL (0.11-0.59); Monocytes % (auto) 11.8 %; Neutrophils # (auto) 3.43 K/uL (1.40-6.50); Neutrophils % (auto) 58.5 %; Platelet Count 203 K/uL (130-400); RDW Standard Deviation 42.6 fL (36.4-46.3); Red Blood Count 4.37 M/uL (4.20-5.40); White Blood Count 5.86 K/ul (4.8-10.8)
[2025-01-12 06:41] LABS: BUN Creatinine Ratio 14.1 (10-20); Calcium 8.7 mg/dl (8.6-10.3); Creatinine Clr Calc Pharmacy 56.2 ml/min; Phosphorus 3.3 mg/dl (2.5-4.9); Potassium 4.1 mmol/L (3.5-5.1)
--- NOTE | 2025-01-12 11:16 | Hospitalist Progress Note ---
Date of Service January 12, 2025 Assessment & Plan (1) Encephalopathy: Plan Pt is a 79yoF with past medical history significant for dementia, hypertension, hyperlipidemia, DM2 on oral medications, left breast cancer status post surgery/radiation status post tamoxifen Rx, mixed incontinence, recurrent UTIs, history ESBL Klebsiella UTI, anxiety/mood disorder presenting from home with concern for increasing confusion and weakness at home. Acute on chronic metabolic encephalopathy Delirium on dementia History of recurrent UTIs UA on admission bland Urine culture growing strep and lactobacillus Transitioned from empiric Invanz to po cefdinir Not currently septic TSH normal Consider further workup with head CT Respiratory viral panel negative chest x-ray unremarkable Delirium precautions. Frequent reorientation, avoid sedating medications as abl e PT/OT Continue home donepezil Continue to monitor hypertension likely elevated due to secondary illness Additional losartan for now Improved hyperlipidemia on statin Rx DM2 on oral medications well-controlled as of recent hemoglobin A1c of 6.9 last July 2024 Basal bolus insulin, ISS BG goal 1 10-1 40, carb count coverage left breast cancer status post surgery/radiation status post tamoxifen Rx currently in remission Diet: HH/DMII DVT prophylaxis. Lovenox subcu Full code Dispo: per PT/OT recs Admission and Anticipated Discharge Date Admission Date: January 10, 2025 Subjective patient was seen laying in bed Having difficulty eating breakfast but otherwise denying acute concerns Review of Systems Review of Systems: All systems reviewed & are unremarkable except as noted in Subjective Physical Exam Physical Exam: General: Alert. No acute distress Skin: No noted rashes or bruises Neuro: pleasantly demented HEENT: NC/AT CV: RRR Resp: Breath sounds clear bilaterally, no increased effort of breathing Abdomen: Soft, nontender Extremities: No edema in lower extremities bilaterally. Results & Data Results & Data Vital Signs (Past 12 Hours) Vital Signs Temp Pulse Pulse Pulse Resp BP Pulse Ox 01/12/25 10:46 36.5 C 71 16 131/84 94 01/12/25 07:59 01/12/25 07:23 36.7 C 73 18 153/82 H 97 01/12/25 07:00 65 01/12/25 03:33 36.6 C 65 18 136/76 95 O2 Del Method 01/12/25 10:46 Room Air 01/12/25 07:59 Room Air 01/12/25 07:23 Room Air 01/12/25 07:00 01/12/25 03:33 Room Air
--- NOTE | 2025-01-12 18:10 | Electrocardiogram Report ---
Test Reason : Blood Pressure : */* mmHG Vent. Rate : 88 BPM Atrial Rate : 88 BPM P-R Int : 174 ms QRS Dur : 98 ms QT Int : 374 ms P-R-T Axes : 42 -16 14 degrees QTcB Int : 452 ms Normal sinus rhythm Incomplete right bundle branch block Minimal voltage criteria for LVH, may be normal variant Borderline ECG When compared with ECG of 27-Oct-2024 11:02, Nonspecific T wave abnormality, improved in Anterior leads Confirmed by Iain Barahona ([id number]) on 01/12/2025 6:10:02 PM Referred By: REFERRED SELF Confirmed By: Iain Barahona
[2025-01-12] MEDS: CEFDINIR 300 MG CAP PO SCH (20:51)
[2025-01-13 08:09] VITALS: RESP 16
[2025-01-13 08:33] LABS: Basophils # (auto) 0.04 K/uL (0.00-0.20); Basophils % (auto) 0.6 %; Eosinophils # (auto) 0.19 K/uL (0.00-0.50); Eosinophils % (auto) 2.9 %; Hematocrit (blood only) 41.4 % (37.0-47.0); Hemoglobin 13.8 g/dl (12.0-16.0); Immature Granulocytes # (auto) 0.02 K/uL (0.01-0.20); Immature Granulocytes % (auto) 0.3 %; Lymphocytes # (auto) 1.27 K/uL (1.20-3.40); Lymphocytes % (auto) 19.1 %; Mean Corpuscular Hemoglobin 30.1 pg (25.0-34.0); Mean Corpuscular Hgb Conc 33.3 g/dL (32.0-36.0); Mean Corpuscular Volume 90.2 fL (80.0-100.0); Monocytes # (auto) 0.59 K/uL (0.11-0.59); Monocytes % (auto) 8.9 %; Neutrophils # (auto) 4.55 K/uL (1.40-6.50); Neutrophils % (auto) 68.2 %; Platelet Count 225 K/uL (130-400); RDW Standard Deviation 42.5 fL (36.4-46.3); Red Blood Count 4.59 M/uL (4.20-5.40); White Blood Count 6.66 K/ul (4.8-10.8)
[2025-01-13 08:51] LABS: BUN Creatinine Ratio 15.4 (10-20); Calcium 9.1 mg/dl (8.6-10.3); Creatinine Clr Calc Pharmacy 55.3 ml/min; Magnesium 2.1 mg/dl (1.7-2.4); Phosphorus 3.3 mg/dl (2.5-4.9)
[2025-01-13 10:58] VITALS: BP 132/80; TEMP 98.2; O2SAT 96
--- NOTE | 2025-01-13 13:57 | Discharge Summary ---
Discharge Summary Date of Service January 13, 2025 Principal Dx & Hospital Course #1 = Principal Diagnosis (1) Encephalopathy: Plan Pt is a 79yoF with past medical history significant for dementia, hypertension, hyperlipidemia, DM2 on oral medications, left breast cancer status post surgery/radiation status post tamoxifen Rx, mixed incontinence, recurrent UTIs, history ESBL Klebsiella UTI, anxiety/mood disorder presenting from home with concern for increasing confusion and weakness at home. Acute on chronic metabolic encephalopathy Delirium on dementia History of recurrent UTIs UA on admission bland Urine culture growing strep anginosus and lactobacillus Transitioned from empiric Invanz to po cefdinir. Discharged with 8 more days. Not currently septic TSH normal Respiratory viral panel negative chest x-ray unremarkable Delirium precautions. Frequent reorientation, avoid sedating medications as able PT/OT- recommending continued PT on discharge Continue home donepezil On the day of discharge, pt is back to mental status baseline per and daughter present at bedside. Family declining acute rehab for her generalized weakness, stating that they have home health services including PT at home. Pt was discharged home with home health services. Hypertension Likely elevated due to secondary illness Continue losartan hyperlipidemia on statin Rx DM2 on oral medications well-controlled as of recent hemoglobin A1c of 6.9 last July 2024 Basal bolus insulin, ISS BG goal 1 10-1 40, carb count coverage PCP follow up left breast cancer status post surgery/radiation status post tamoxifen Rx currently in remission Notes For Next Care Provider Pt's family requesting to go home with home health services, will need followup of her generalized weakness Per family, back to baseline mental status on the day of discharge Medication Changes From Visit cefdinir 300mg BID x 8 days Probiotic Admission HPI Per Admitting Provider History obtained from patient, family, and records. Limited history from patient secondary to dementia. Medical history significant for hypertension, hyperlipidemia, DM2 on oral medications, left breast cancer status post surgery/radiation status post tamoxifen Rx, mixed incontinence, recurrent UTIs, history ESBL Klebsiella UTI, dementia, anxiety/mood disorder. Last confinement October 2024 for Citrobacter UTI status post antibiotic Rx. Patient noted to have increasing weakness since last night. Patient increasingly confused and lethargic at home today by family. Patient complaining of bladder discomfort. Family worried about UTI. Patient brought to urgent care center for evaluation. Cough and SOB symptoms as per outpatient records which patient currently denies. Patient denies chest pain, SOB, headache, abdominal/flank pain. 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 No acute distress Neuro: pleasantly demented HEENT: NC/AT CV: RRR Resp: Breath sounds clear bilaterally, no increased effort of breathing Abdomen: Soft, nontender Extremities: No edema in lower extremities bilaterally. Updated Medication List Medication Instructions Recorded Confirmed Type aspirin 81 mg tablet,delayed 81 mg PO QAM 01/01/20 01/10/25 History release (Adult Aspirin Regimen) Wheeled Walker #1 ea 01/30/20 10/27/24 Rx Wheeled Walker #1 ea 05/16/20 10/27/24 Rx Wheeled Walker #1 ea 05/29/20 10/27/24 Rx Wheeled Walker #1 ea 05/29/20 10/27/24 Rx amoxicillin 500 mg capsule 2,000 mg PO DIRECTED PRN ONE 01/31/22 01/10/25 History HOUR PRIOR TO DENTAL VISITS. atorvastatin 40 mg tablet 40 mg PO QAM 01/31/22 01/10/25 History acetaminophen 500 mg tablet 1,000 mg PO TID PRN Pain 12/25/23 01/10/25 History (Tylenol Extra Strength) alendronate 70 mg tablet 70 mg PO WK 12/25/23 01/10/25 History donepezil 10 mg tablet (Aricept) 10 mg PO PM 12/25/23 01/10/25 History duloxetine 60 mg capsule,delayed 60 mg PO QAM 12/25/23 01/10/25 History release solifenacin 10 mg tablet 10 mg PO QAM 12/25/23 01/10/25 History buspirone 5 mg tablet 5 mg PO [facility] 05/11/24 01/10/25 History glipizide 2.5 mg tablet, extended 2.5 mg PO DAILYBB 05/11/24 01/10/25 History release 24 hr calcium carbonate (Calcium 600) 600 mg PO QPM 01/10/25 01/10/25 History losartan 25 mg tablet 25 mg PO QAM 01/10/25 01/10/25 History Saccharomyces boulardii 250 mg 250 mg PO BID #60 caps 01/13/25 Rx capsule (Florastor) cefdinir 300 mg capsule 300 mg PO BID #16 caps 01/13/25 Rx Hospital Stay Data Diagnostic Imagining Performed Chest X-Ray 01/10/25 18:19 EXAM: X-ray chest one-view portable CLINICAL HISTORY: Weakness PRIORS: 10/27/2024 TECHNIQUE: Frontal view chest FINDINGS: The chest is well-expanded. No airspace consolidation, effusion or congestive changes. Heart size is normal. No pneumothorax. Moderate atherosclerotic disease of the aortic knob. Trachea is patent. Osseous structures demonstrate no acute abnormality. Surgical clips in the left axilla. IMPRESSION: No plain film evidence of an acute cardiopulmonary process. Electronically signed by Dayna Tuttle 01-10-2025 6:46 PM Chest X-Ray 01/11/25 08:39 XR chest 1V portable CLINICAL HISTORY: Cough. COMPARISON STUDY: Chest CT March 06, 2023. Chest radiograph January 10, 2025. FINDINGS: Lung volumes are normal. Lungs are clear. There is no pneumothorax or pleural effusion. Cardiac size is normal. Mediastinal contours are normal. There is no evidence for pulmonary edema. Left axillary surgical clips are incidentally noted. IMPRESSION: No acute cardiopulmonary findings. ACT 112: Negative or not required by law. Electronically signed by: Milind Lugo M.D. 01/11/2025 9:47 AM Pending Results Patient Have Any Pending Studies at Discharge: No Discharge Instructions Given to Patient (Per Discharging Provider) Ayaz Beltran were seen and treated for acute confusion. We are treating you for a recurrent urinary tract infection. Please continue with the antibiotic cefdinir for an additional 8 days as well as the probiotic prescribed. You are opting to go home with home health services. Please continue with those services at home. Please keep close follow up with your primary care provider after discharge. Please do not hesitate to come back to the emergency room if your symptoms worsen or return. It was a pleasure taking care of you while you were here. Total Time Total Time Spent Total Time Spent (In Minutes): 60
[2025-01-13 15:27] VITALS: PULSE 111
== END 2025-01-13 15:40 | disposition home health service (06) | DRG 689 ==
LOC: ED 18:10 → 2W 21:58

== ENCOUNTER 2025-01-13 19:59 | Inpatient (IN) ==
--- OUTSIDE RECORDS SUMMARY | 2025-01-13 20:08 | External Medical Summary | Summary of Care ---
Author Name Unknown Organization [facility] Address [address] [facility] [place] [address] Phone [phone] Care Team Providers Care Ultrasound Tech Name Role Phone Mar Lovelace MD Primary Care Provider [phone] Reason for Visit * Reason Comments Other Increased confusion and lethary today with increased weakness noted last night Encounter Details Date Type Department Care Team (Latest Contact Info) Description 01/10/2025 5:15 PM EST Convenient Care Visit [facility] [address] [place] [address] Ke Franco PA-C [address] [place] [address] Altered mental status, unspecified altered mental status type*; Type 2 diabetes mellitus with other specified complication, unspecified whether long term care administrator insulin use (HCC); Mild vascular dementia with anxiety (HCC); Major neurocognitive disorder due to Alzheimer's disease, without behavioral disturbance (HCC) Allergies No known active allergiesdocumented as of this encounter (statuses as of 01/11/2025) Medications TYLENOL 325 MG PO TABS Take [...] 7.0% ([facility]) TAKE 1 TABLET BY MOUTH IN [...] AND 1 AT BEDTIME 180 Tablet 3 Active Calcium Carbonate 600 MG Oral Tablet (Calcium 600) Take 1 Tablet by mouth 2 times a day with morning and evening meals. Active documented as of this encounter (statuses as of 01/11/2025) Active Problems Problem Noted Date Diagnosed Date [...] as of this encounter (statuses as of 01/11/2025) Immunizations Name Administration Dates Next Due COVID-19 mRNA, LNP-s, No Pre serve, 2-Dose Series ([employer]) 03/24/2022,09/19/2021,02/03/2021,12/30 COVID-19, MRNA-LNP, 24-25, P F, 50 MCG/0.5ML, IM, 12 YRS & ABOVE (Moderna - Spikevax) 09/02/2024 Covid-19, Mrna, Lnp-s, Pf, B ivalent, 30 Mcg, IM, 12 yrs and above ([employer]) 04/30/2023,09/23/2022 Pneumococcal Conjugate Vacc, 13 Valent (Prevnar) [...] Sign Reading Time Taken Comments Blood Pressure 138/90 01/10/2025 4:53 PM EST Pulse 102 01/10/2025 4:53 PM EST Temperature 36.1 C (97 F) 01/10/2025 4:53 PM EST Respiratory Rate 16 01/10/2025 4:53 PM EST Oxygen Saturation 96% 01/10/2025 4:53 PM EST Inhaled Oxygen Concentration - - Weight 70.3 kg (155 lb) 01/10/2025 4:53 PM EST Height 152.4 cm (5') 01/10/2025 4:53 PM EST Body Mass Index 30.27 01/10/2025 4:53 PM EST documented in this encounter Progress Notes * Ke Franco PA-C - 01/10/2025 5:31 PM EST Nursing Notes: Sherine Yo LPN 01/10/25 1704 Signed Ruby Simms is a 79 year old female who presents to walk-in clinic today complaining of Chief Complaint Patient presents with Other Increased confusion and lethary today with increased weakness noted last night OTC treatments tried:pt started antibiotic today for possible UTI-standing order from Patient is accompanied by spouse and daughter for today's visit. Subjective Ruby Simms is a 79 year old female with a PMH of DM2, DLD, HTN, Palpitations, recurrent UTIs, vascular dementia, CINDY, MDD, Alzheimer's that presents for Other (Increased confusion and lethary today with increased weakness noted last night) Altered Mental Status Presenting symptoms: behavior changes, confusion, disorientation, lethargy and memory loss Presenting symptoms: no combativeness, no partial responsiveness and no unresponsiveness Presenting symptoms comment: She has a lot of these at baseline, but markedly worse in the last dayor two. Daughter and also note inappropriate responses Severity: Unable to specify Most recent episode: Yesterday Episode history: Continuous Timing: Constant Progression: Unchanged Chronicity: New Context: dementia Context: not head injury, taking medications as prescribed, not fpc resident, not recent change in medication and not recent infection Associated symptoms: bladder incontinence (baseline, in depends) and weakness Associated symptoms: no abdominal pain, no difficulty breathing, no fever, no light-headedness, no nausea, no palpitations, no slurred speech and no vomiting Family members note that she gets like this with UTIs. As she is incontinent of urine, 2/2 to her dementia, she wears depends, they have standing orders for Urine culture. They provided this earlier today and then started their standing Rx for keflex through PCP Her home healthcare worker told her to come in. She also reports cough, chest congestion, some sputum and feeling some SOB x the last few days. Objective BP 138/90 | Pulse 102 | Temp 36.1 C (97 F) (Tympanic) | Resp 16 | Ht 1.524 m (5') | Wt 70.3 kg (155 lb) | LMP 01/19/2001 | SpO2 96% | BMI 30.27 kg/m | BSA 1.73 m Body mass index is 30.27 kg/m. BP Readings from Last 3 Encounters: 01/10/25 138/90 11/16/24 115/76 08/15/24 116/70 Wt Readings from Last 3 Encounters: 01/10/25 70.3 kg (155 lb) 11/16/24 69.3 kg (152 lb 11.2 oz) 08/15/24 70 kg (154 lb 6.4 oz) Physical Exam Vitals and nursing note reviewed. Constitutional: General: She is not in acute distress. Appearance: She is well-developed. She is not ill-appearing, toxic-appearing or diaphoretic. HENT: Head: Normocephalic and atraumatic. Right Ear: External ear normal. Nose: Nose normal. Mouth/Throat: Mouth: Mucous membranes are moist. Pharynx: Oropharynx is clear. Eyes: General: No visual field deficit. Extraocular Movements: Extraocular movements intact. Conjunctiva/sclera: Conjunctivae normal. Neck: Vascular: No JVD. Trachea: No tracheal deviation. Cardiovascular: Rate and Rhythm: Regular rhythm. Tachycardia present. Pulses: Radial pulses are 2+ on the right side and 2+ on the left side. Heart sounds: Normal heart sounds. No murmur heard. No friction rub. No gallop. Pulmonary: Effort: No accessory muscle usage. Breath sounds: Rales (R sided) present. No decreased breath sounds, wheezing or rhonchi. Chest: Chest wall: No mass, deformity, tenderness or crepitus. Abdominal: General: Bowel sounds are normal. Palpations: Abdomen is soft. There is no hepatomegaly or splenomegaly. Tenderness: There is no abdominal tenderness. There is no right CVA tenderness, left CVA tenderness, guarding or rebound. Musculoskeletal: General: Normal range of motion. Cervical back: Normal range of motion and neck supple. Right lower leg: No tenderness. No edema. Left lower leg: No tenderness. No edema. Skin: General: Skin is warm and dry. Capillary Refill: Capillary refill takes less than 2 seconds. Nails: There is no clubbing. Neurological: General: No focal deficit present. Mental Status: She is alert. She is disoriented. GCS: GCS eye subscore is 4. GCS verbal subscore is 5. GCS motor subscore is 6. Cranial Nerves: No cranial nerve deficit, dysarthria or facial asymmetry. Motor: Weakness and tremor present. No seizure activity. Gait: Gait abnormal. Comments: She is oriented to self, and place but not time. Unable to identify year, month, or president. Psychiatric: Attention and Perception: She is inattentive. Mood and Affect: Mood normal. Mood is not anxious or depressed. Behavior: Behavior is slowed. Behavior is not agitated. Cognition and Memory: Cognition is impaired. Memory is impaired. She exhibits impaired recent memory and impaired remote memory. Assessment and plan Altered mental status, unspecified altered mental status type (Primary) - GLUCOSE METER, POINT OF CARE (ENTER/EDIT) Type 2 diabetes mellitus with other specified complication, unspecified whether mcfp insulin use (HCC) - GLUCOSE METER, POINT OF CARE (ENTER/EDIT) 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, without behavioral disturbance (HCC) Unclear if this is 2/2 UTI, PNA, metabolic process, infectious, or progression of baseline dementia. POC glucose 164 UA was not done, but culture in process With increased lethargy, weakness, confusion, AMS, all increased from baseline, now with concerns for UTI and adventitious lung sounds, recommend further work- up and management at ED. Recommend EMS for transfer. Pt and family agree. 911 called for EMS transport. EMS arrived, Care transferred. Pt in stable condition at transfer Follow up To ED via EMS The above was discussed and understanding was expressed. Ke Franco PA-C documented in this encounter Nursing Notes * Sherine Yo LPN - 01/10/2025 5:03 PM EST Ruby Simms is a 79 year old female who presents to walk-in clinic today complaining of Chief Complaint Patient presents with Other Increased confusion and lethary today with increased weakness noted last night OTC treatments tried:pt started antibiotic today for possible UTI-standing order from Patient is accompanied by spouse and daughter for today's visit. documented in this encounter Plan of Treatment Upcoming Encounters Date Type Department Care Team (Late st Contact Info) Description 02/07/2025 3:15 PM EDT Office Visit Urology, [facility] [address] [facility] [place] [address] Dandy Bashir MD [address] [place] [address] 02/21/2025 12:00 PM EDT Office Visit General Internal Medicine [facility] [address] [facility] [place] [address] Mar Lovelace MD [address] [facility] [place] [address] 06/25/2025 11:20 AM EDT Office Visit Neurology [facility] [address] [facility] [place] [address] Anton Kumar MD [address] [facility] [place] [address] Scheduled Procedures Name Priority Associated Diagnoses Date/Ti [...] Procedure Name Priority Date/Time Associated Diagnosis Comments GLUCOSE METER, POINT OF CARE (ENTER/EDIT) Routine 01/10/2025 5:10 PM EST Altered mental status, unspecified altered mental status type Type 2 diabetes mellitus with other specified complication, unspecified whether long term care administrator insulin use (HCC) documented in this encounter Results * GLUCOSE METER, POINT OF CARE (ENTER/EDIT) (01/10/2025 5:10 PM EST) Glucose - POCT 164 70 - 120 mg/dL Blood 01/10/2025 5:10 PM EST Ke Franco PA-C LAB POINT OF CARE TEST ENTER/EDIT ORDERABLES Final Result documented in this encounter Visit Diagnoses Diagnosis Altered mental status, unspecified altered mental status type- Primary Type 2 diabetes mellitus with other specified complication, unspecified whether mcfp insulin use (HCC) 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, without behavioral disturbance (HCC) documented in this encounter Advance Directives Documents on File Type Date Recorded 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
--- OUTSIDE RECORDS SUMMARY | 2025-01-13 20:08 | External Medical Summary | Summary of Care ---
Author Name Unknown Organization [facility] Address [address] [facility] [place] [address] Phone [phone] Care Team Providers Care Physiotherapist'S Assistant Name Role Phone Mar Lovelace MD Primary Care Provider Reason for Visit * Reason Onset Date Comments Health Maintenance 01/11/2025 Encounter Details Date Type Department Care Team (Late st Contact Info) Description 01/11/2025 Telephone General Internal Medicine [facility] [address] [facility] [place] [address] Mar Lovelace MD [address] [place] [address] Health Maintenance Allergies No known active allergiesdocumented [...] less than 7.0% ([facility]) TAKE 1 TABLET BY MOUTH [...] AND 1 AT BEDTIME 180 Tablet 3 02/03/202 5 Active Calcium Carbonate 600 MG Oral Tablet [...] mRNA, LNP-s, No Pre serve, 2-Dose Series ([employer]) 03/24/2022,09/19/2021,02/03/2021,12/30 COVID-19, MRNA-LNP, 24-25, P F, 50 MCG/0.5ML, IM, 12 YRS & ABOVE (Moderna - Spike[employer]ax) 09/02/2024 Covid-19, Mrna, Lnp-s, Pf, B ivalent, 30 Mcg, IM, 12 yrs and above ([employer]) 04/30/2023,09/23/2022 Pneumococcal Conjugate Vacc, 13 Valent (Prevnar) [...] No 02/07/2024 Does the household have a [facility] source of income? (Household - for ages [...] Notes * Telephone Encounter - Florence Ji LPN - 01/11/2025 3:25 PM EST Care Gaps Comprehensive Care Outreach Last Office/Telemedicine Visit: 11/16/2024 (in office), 01/06/2021 (telemedicine) Next Office Visit: 02/21/2025 Hemoglobin AIC Results: Lab Results Component Value Date/Time HEMOGLOBIN A1C - [facility] 6.9 (H) 08/15/2024 12:11 PM HEMOGLOBIN A1C - [facility] 7.0 (H) 03/22/2024 11:10 AM HEMOGLOBIN A1C - [facility] 6.7 (H) 09/24/2023 11:42 AM HEMOGLOBIN A1C - [facility] 6.2 (H) 12/06/2020 09:18 AM HEMOGLOBIN A1C - [facility] 6.5 (H) 12/26/2019 08:59 AM HEMOGLOBIN A1C - [facility] 6.6 (H) 10/05/2019 08:39 AM HEMOGLOBIN A1C POCT - [facility] 6.7 (H) 06/15/2023 09:34 AM BP Readings from Last 1 Encounters: 01/10/25 138/90 Reviewed Health Maintenance below: Health Maintenance Topic Date Due Adult Wellness Visit 01/14/2023 Diabetic Foot Exam 09/10/2024 COVID-19 Vaccine ( season) 2024 Depression Monitoring 02/06/2025 HbA1c 02/12/2025 Lab already ordered awv Care Gap Outreach Action Taken: Thumbt message sent documented in this encounter Plan of Treatment Upcoming Encounters Date Type Department Care Team (Late st Contact Info) Description 02/07/2025 3:15 PM EDT Office Visit Urology, [facility] [address] [facility] [place] [address] Dandy Bashir MD [address] [place] [address] 02/21/2025 12:00 PM EDT Office Visit General Internal Medicine [facility] [place] [address] [place] [address] Mar Lovelace MD [address] [place] [address] 06/25/2025 11:20 AM EDT Office Visit [facility] [place] [address] Anton Kumar MD [address] [facility] [place] [address] Scheduled Procedures Name Priority Associated Diagnoses Date/Ti [...] 0805/2023, 06/10/2016, Additional history exists Pneumococcal Vaccine: 50+ [...] Documents on File Type Date Recorded 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
--- OUTSIDE RECORDS SUMMARY | 2025-01-13 20:08 | External Medical Summary ---
Author Name Unknown Address Unknown Organization [id number][place] [place] [address] [place] [phone] Laboratory Report Ordering Provider Test Date Status LISA BRYANT 01/10/2025 15:23:11 Final Observation Date Value Abnormality Reference (Units) Status Bacteria identified in Specimen by Culture 01/10/2025 15:23:11 Multiple dino suggests contamination or colonization Final Test: Culture, Urine, Quanti tative
Specimen Source: Urine, Clean Catch
Specimen Type: Urine
Specimen Date: 01/10/2025 1523
Result Date: 01/11/2025 1818
Result Status: Final result
Resulting Lab: [facility] [place]
[address]
[place] [address]

CULTURE

Multiple dino suggests contamination or colonization

null Performing Location [facility] [place] [address] [facility] [address]
[2025-01-13 20:29] LABS: Basophils # (auto) 0.04 K/uL (0.00-0.20); Basophils % (auto) 0.4 %; Eosinophils # (auto) 0.08 K/uL (0.00-0.50); Eosinophils % (auto) 0.8 %; Hematocrit (blood only) 47.5 % (37.0-47.0); Hemoglobin 15.5 g/dl (12.0-16.0); Immature Granulocytes # (auto) 0.03 K/uL (0.01-0.20); Immature Granulocytes % (auto) 0.3 %; Lymphocytes # (auto) 1.48 K/uL (1.20-3.40); Lymphocytes % (auto) 15.1 %; Mean Corpuscular Hemoglobin 29.5 pg (25.0-34.0); Mean Corpuscular Hgb Conc 32.6 g/dL (32.0-36.0); Mean Corpuscular Volume 90.5 fL (80.0-100.0); Mean Platelet Volume 10.1 fL (9.4-12.4); Monocytes # (auto) 0.79 K/uL (0.11-0.59); Neutrophils # (auto) 7.41 K/uL (1.40-6.50); Neutrophils % (auto) 75.4 %; Platelet Count 261 K/uL (130-400); RDW Standard Deviation 42.5 fL (36.4-46.3); Red Blood Count 5.25 M/uL (4.20-5.40); White Blood Count 9.83 K/ul (4.8-10.8)
--- NOTE | 2025-01-13 20:44 | Emergency Department Note ---
Impression & Plan Generalized weakness, Acute confusion ED Provider Note NAME: MILLER BUTLER AGE: 79 SEX: F : 1945 ARRIVES VIA: Ambulance INFORMANT: Patient, the patient's family ED PROVIDER(S): Gareth Patten DO CHIEF COMPLAINT: Altered mental status and weakness HPI: The patient is a 79-year-old female who has a history of dementia who presented to the emergency department by ambulance for not being able to ambulate. The patient was discharged in our facility today. She was admitted for similar complaints. She was diagnosed with a urine infection and is currently taking antibiotics. The patient herself offers no complaints. ROS: See above HPI for pertinent positives & negatives. A total of 10 systems reviewed and were otherwise negative. PAST MEDICAL HISTORY: See Below PAST SURGICAL HISTORY: See Below FAMILY HISTORY: See Below SOCIAL HISTORY: See Below HOME MEDICATIONS: See Below ALLERGIES: See Below VITALS: See Below PHYSICAL EXAMINATION: GENERAL: The patient is awake and alert. The patient is nonanxious appearing. EYES: The conjunctivae are clear. The pupils are round and reactive. EARS, NOSE, MOUTH AND THROAT: The nose is without any evidence of any deformity. NECK: The neck is nontender and supple. RESPIRATORY: Normal respiratory effort is noted there is no evidence of wheezing rhonchi or rales CARDIOVASCULAR: Regular rate and rhythm noted there no murmurs rubs or gallops normal S1 normal S2. GASTROINTESTINAL: The abdomen is soft. Abdomen is nontender. MUSCULOSKELETAL/EXTREMITIES: There is no evidence of gross deformity full range of motion is noted in the hips and shoulders. SKIN: There is no obvious evidence of any rash. There are no petechiae, pallor or cyanosis noted. NEUROLOGIC: Patient is awake alert and oriented to person place and situation. She recognizes her family members. Strength was symmetric but diminished. MEDICAL DECISION MAKING: The patient is a 79-year-old female who presented to the emergency department with family for an evaluation of altered mental status and generalized weakness. The patient has had ongoing symptoms recently. The patient was admitted to our facility and was just discharged today. They did offer an evaluation for possible inpatient rehab bed time they denied the need for this. The patient returns tonight and is requesting evaluation for inpatient treatment. I discussed the patient's condition with the on-call [facility] hospitalist. They have agreed to evaluate the patient in the emergency department. Triage Nursing notes reviewed. Prior medical records reviewed Vital Signs: reviewed and remarkable for no significant abnormalities Differential diagnosis: Infection, dehydration, metabolic abnormality, hypo/hyperglycemia, electrolyte disturbance, anemia, hypoxia, cardiac sources, intracerebral event, toxicologic, neurologic, as well as other pathologies. ER treatment provided: See below Diagnostics interpreted by me: ECG: EKG was obtained in the emergency department. My interpretation is normal sinus rhythm at 94 bpm. There is no ectopy. There is no acute ST segment abnormalities noted. This was compared to a tracing from January 10, 2025. No changes were noted. Cardiac Monitoring: An order was placed for continuous cardiac monitoring. The monitor shows a rate of exactly 91 bpm with sinus rhythm. Laboratory studies: As stated above and show below. Imaging studies: See below. Radiographic imaging was reviewed by myself Consultation(s): I discussed this case with Dr. Garza who is on-call for the [facility] hospitalist group. 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 Lumbar stenosis (Acute) Medical History Vomiting Obesity Bronchitis hx (no recent issues) Prediabetes PCP monitoring, labs drawn for PCP on 12/26 show A1C 6.5%-decision to monitor/diet control History of left breast cancer dx 1999; sx + radiation Heartburn symptom diet controlled Arthritis Anxiety Hypertension Hyperlipidemia Surgical History History of cataract surgery RT History of tooth extraction reason for current abx Nausea and vomiting after administration of anesthetic agent History of colonoscopy History of hysterectomy History of arthroscopy of right knee History of lumpectomy of left breast WITH LYMPH NODES - PT DENIES LIMB RESTRICTION-1999 Family History Father Family history of diabetes mellitus Mother Family history of diabetes mellitus Other No family history of adverse response to anesthesia Patient's father is Patient's mother is Social History Smoking Status: Never smoker Second Hand Exposure: No; Do You Dip or Chew Tobacco: No; Hx Alcohol Use: No Hx Substance Use: No Preferred Language: Spanish Communication Ability: Effective Forestry 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 Required: No Beliefs That Will Affect Care: None marital status: Current Living Situation: Spouse Current Living Situation Comment: [facility] Feels Safe at Home: Yes Assistive Devices: Wheelchair Allergies Allergies Allergy/AdvReac Type Severity Reaction Status Date / Time walnut Allergy Severe mouth Verified 01/10/25 22:37 blisters Home Meds Home Medications Medication Instructions Recorded Confirmed aspirin 81 mg tablet,delayed 81 mg PO QAM 01/01/20 01/10/25 release (Adult Aspirin Regimen) amoxicillin 500 mg capsule 2,000 mg PO DIRECTED PRN ONE 01/31/22 01/10/25 HOUR PRIOR TO DENTAL VISITS. atorvastatin 40 mg tablet 40 mg PO QAM 01/31/22 01/10/25 acetaminophen 500 mg tablet 1,000 mg PO TID PRN Pain 12/25/23 01/10/25 (Tylenol Extra Strength) alendronate 70 mg tablet 70 mg PO WK 12/25/23 01/10/25 donepezil 10 mg tablet (Aricept) 10 mg PO PM 12/25/23 01/10/25 duloxetine 60 mg capsule,delayed 60 mg PO QAM 12/25/23 01/10/25 release solifenacin 10 mg tablet 10 mg PO QAM 12/25/23 01/10/25 buspirone 5 mg tablet 5 mg PO AMHS 05/11/24 01/10/25 glipizide 2.5 mg tablet, extended 2.5 mg PO DAILYBB 05/11/24 01/10/25 release 24 hr calcium carbonate (Calcium 600) 600 mg PO QPM 01/10/25 01/10/25 losartan 25 mg tablet 25 mg PO QAM 01/10/25 01/10/25 Previous Rx's Medication Instructions Recorded Wheeled Walker #1 ea 01/30/20 Wheeled Walker #1 ea 05/16/20 Wheeled Walker #1 ea 05/29/20 Wheeled Walker #1 ea 05/29/20 Saccharomyces boulardii 250 mg 250 mg PO BID #60 caps 01/13/25 capsule (Florastor) cefdinir 300 mg capsule 300 mg PO BID #16 caps 01/13/25 Results & Data (ED) Vital Signs Vital Signs - 24 hr 01/13/25 20:04 01/13/25 20:04 01/13/25 20:04 Temperature 36.6 C 36.6 C Temperature Source Oral Oral Pulse Rate 96 H Pulse Rate [Apical] 94 H Pulse Rhythm Regular Pulse Rhythm [Apical] Regular Pulse Strength Normal Pulse Strength [Apical] Normal Respiratory Rate 19 21 Respiratory Effort / Characteristics Non-Labored Spontaneous Non-Labored Spontaneous Respiratory Depth Normal Normal Respiratory Pattern Regular Regular Blood Pressure 130/95 Blood Pressure [Left Arm] 130/95 Blood Pressure Mean 106 Blood Pressure Mean [Left Arm] 106 Pulse Oximetry 97 97 97 Oxygen Delivery Method Room Air Room Air Room Air Sepsis Recent Fever Within 48 Hours No Sepsis New/Unexplained Change in Mental Status No Sepsis Action Taken by Nursing No Action Required 01/13/25 20:22 01/13/25 20:25 01/13/25 21:12 Temperature Temperature Source Pulse Rate 96 H 96 H 91 H Pulse Rate [Apical] Pulse Rhythm Regular Pulse Rhythm [Apical] Pulse Strength Pulse Strength [Apical] Respiratory Rate 21 20 Respiratory Effort / Characteristics Respiratory Depth Respiratory Pattern Blood Pressure 128/91 Blood Pressure [Left Arm] Blood Pressure Mean 103 Blood Pressure Mean [Left Arm] Pulse Oximetry 97 93 Oxygen Delivery Method Room Air Sepsis Recent Fever Within 48 Hours Sepsis New/Unexplained Change in Mental Status Sepsis Action Taken by [place] Medications Current Medication List: was personally reviewed by me Laboratory Data Attestation: I reviewed the patient's lab results. 01/13/25 20:11 01/13/25 20:11 Lab Results 01/13/25 01/13/25 Range/Units 20:11 21:05 WBC 9.83 (4.8-10.8) K/ul RBC 5.25 (4.20-5.40) M/uL Hgb 15.5 (12.0-16.0) g/dl Hct 47.5 H (37.0-47.0) % MCV 90.5 (80.0-100.0) fL MCH 29.5 (25.0-34.0) pg MCHC 32.6 (32.0-36.0) g/dL RDW Std Deviation 42.5 (36.4-46.3) fL RDW Coeff of Andrea 13.0 (11.5-14.5) % Plt Count 261 (130-400) K/uL MPV 10.1 (9.4-12.4) fL Immature Gran % (Auto) 0.3 % Neut % (Auto) 75.4 % Lymph % (Auto) 15.1 % [place] % (Auto) 8.0 % Eos % (Auto) 0.8 % Baso % (Auto) 0.4 % Neut # (Auto) 7.41 H (1.40-6.50) K/uL Lymph # (Auto) 1.48 (1.20-3.40) K/uL [place] # (Auto) 0.79 H (0.11-0.59) K/uL Eos # (Auto) 0.08 (0.00-0.50) K/uL Baso # (Auto) 0.04 (0.00-0.20) K/uL Immature Gran # (Auto) 0.03 (0.01-0.20) K/uL Sodium 136 (136-145) mmol/L Potassium 4.2 (3.5-5.1) mmol/L Chloride 103 (98-107) mmol/L Carbon Dioxide 26 (21-32) mmol/L Anion Gap 7 (3-11) BUN 18 (6-23) mg/dl Creatinine 0.96 (0.6-1.2) mg/dl Est Cr Clr Drug Dosing 44.3 ml/min eGFR 60.18 BUN/Creatinine Ratio 18.8 (10-20) Glucose 114 H (70-99(Fasting)) mg/dl Calcium 9.7 (8.6-10.3) mg/dl Magnesium 2.1 (1.7-2.4) mg/dl Total Bilirubin 0.6 (0.2-1.0) mg/dl AST 15 (13-39) U/L ALT 16 (7-52) U/L Alkaline Phosphatase 79 (34-104) U/L Troponin I High Sens 4.2 (0-14) pg/ml Total Protein 7.6 (6.0-8.3) gm/dl Albumin 4.3 (3.4-5.0) gm/dl Globulin 3.3 (2.5-4.0) gm/dl Albumin/Globulin Ratio 1.3 (0.9-2) TSH 1.986 (0.300-4.500) uIu/ml Urine Color Yellow Urine Appearance Clear (Clear) Urine pH 6.0 (4.5-7.5) Ur Specific [place] 1.016 (1.000-1.030) Urine Protein Negative (Negative) Urine Glucose (UA) Negative (Negative) Urine Ketones Trace H (Negative) Urine Blood 1+ H (Negative) Urine Nitrite Negative (Negative) Urine Bilirubin Negative (Negative) Urine Urobilinogen Negative (Negative) Ur Leukocyte Esterase Trace H (Negative) Urine WBC (Auto) 0-5 (0-5) /hpf Urine RBC (Auto) 11-20 H (0-2) /hpf U Hyaline Cast (Auto) 0-2 (0-2) /lpf U Epithel Cells (Auto) 0-2 (0-2) /hpf Urine Bacteria (Auto) None Seen (None Seen) Imaging Data Attestation: I personally reviewed and interpreted this imaging study as follows: My Impression: 1 view chest x-ray was obtained in the emergency department. My interpretation is no free air or definite infiltrate, final report pending. Discharge Plan Visit Data Chief Complaint: Weakness Stated Complaint: Weakness ED Provider: Gareth Patten Discharge Problem: Generalized weakness, Acute confusion Patient Disposition: Being Evaluated by Hospitalist Forms Stand Alone Forms: My [facility] Prescriptions Prescriptions: No Action (DME) Wheeled Walker Misc See Rx Instructions .ROUTE .MEDSUPPLY Qty: 1 0RF Rx Instructions: As directed (DME) Wheeled Walker Misc See Rx Instructions .ROUTE .MEDSUPPLY Qty: 1 0RF Rx Instructions: As directed (DME) Wheeled Walker Misc See Rx Instructions .ROUTE .MEDSUPPLY Qty: 1 0RF Rx Instructions: As directed (DME) Wheeled Walker Misc See Rx Instructions .ROUTE .MEDSUPPLY Qty: 1 0RF Rx Instructions: As directed aspirin [Adult Aspirin Regimen] 81 mg tablet,delayed release (DR/EC) 81 mg PO QAM Patient Comments: chewable amoxicillin 500 mg capsule 2,000 mg PO DIRECTED PRN (Reason: ONE HOUR PRIOR TO DENTAL VISITS.) atorvastatin 40 mg tablet 40 mg PO QAM donepezil [Aricept] 10 mg tablet 10 mg PO PM alendronate 70 mg tablet 70 mg PO WK Rx Instructions: MONDAYS acetaminophen [Tylenol Extra Strength] 500 mg Tablet 1,000 mg PO TID PRN (Reason: Pain) duloxetine 60 mg capsule,delayed release(DR/EC) 60 mg PO QAM solifenacin 10 mg tablet 10 mg PO QAM Hold Instructions: Resume on 05/23/24. hold until Urology follow up buspirone 5 mg tablet 5 mg PO AMHS glipizide 2.5 mg tablet extended release 24hr 2.5 mg PO DAILYBB calcium carbonate [Calcium 600] 600 mg calcium (1,500 mg) Tablet 600 mg PO QPM losartan 25 mg tablet 25 mg PO QAM cefdinir 300 mg Capsule 300 mg PO BID Qty: 16 0RF Saccharomyces boulardii [Florastor] 250 mg capsule 250 mg PO BID Qty: 60 0RF Referrals Referrals: Mar Lovelace MD [Primary Care Provider] -
[2025-01-13 20:58] LABS: Albumin Globulin Ratio 1.3 (0.9-2); Albumin Level 4.3 gm/dl (3.4-5.0); BUN Creatinine Ratio 18.8 (10-20); Bilirubin,Total 0.6 mg/dl (0.2-1.0); Calcium 9.7 mg/dl (8.6-10.3); Creatinine Clr Calc Pharmacy 44.3 ml/min; Globulin 3.3 gm/dl (2.5-4.0); Magnesium 2.1 mg/dl (1.7-2.4); Potassium 4.2 mmol/L (3.5-5.1); Total Protein 7.6 gm/dl (6.0-8.3)
[2025-01-13 21:05] LABS: Troponin I High Sensitivity 4.2 pg/ml (0-14)
[2025-01-13 21:14] LABS: Thyroid Stimulating Hormone 1.986 uIu/ml (0.300-4.500)
[2025-01-13 21:28] LABS: Appearance Urine Clear (Clear); Bacteria Urine Automated None Seen (None Seen); Bilirubin Urine Negative (Negative); Blood Urine 1+ (Negative); Cast Urine Automated 0-2 /lpf (0-2); Color Urine Yellow; Epithelial Cell Urine Auto 0-2 /hpf (0-2); Glucose Urine UA Negative (Negative); Ketones Urine Trace (Negative); Leukocyte Esterase Urine Trace (Negative); Nitrite Urine Negative (Negative); Protein Urine Negative (Negative); Specific Gravity Urine 1.016 (1.000-1.030); Urobilinogen Urine Negative (Negative); WBC Urine Automated 0-5 /hpf (0-5)
--- NOTE | 2025-01-13 21:59 | History & Physical Report ---
Date of Service January 13, 2025 Assessment & Plan (1) Ambulatory dysfunction: Plan: Ambulatory dysfunction hx dementia hypertension, stable hyperlipidemia, on statin Rx DM2 on oral medications, well-controlled as of recent hemoglobin A1c of 6.9 last July 2024 left breast cancer status post surgery/radiation status post tamoxifen Rx, in remission Streptococcus anginosus UTI ongoing cefdinir Rx, history recurrent complicated UTIs, hx mixed incontinence Admit to medical Fall precautions PT OT eval Social service re: placement (Family has cited [facility] as potential facilities.) Basal bolus insulin, ISS BG goal 1 10-1 40, carb count coverage DVT prophylaxis. Lovenox subcu Full code Patient requesting updates providers. Mr. Anton Simms, contact #[phone]. Text document was generated using [employer] voice recognition software. It may contain grammatical or spelling errors. Kindly contact undersigned for clarification of any documentation item in question. History of Present Illness Chief Complaint: Slid down, could not get up Primary Care Provider: Mar Lovelace MD History obtained from patient, family, and records. Limited history from patient secondary to dementia. Medical history significant for hypertension, hyperlipidemia, DM2 on oral medications, left breast cancer status post surgery/radiation status post tamoxifen Rx, mixed incontinence, recurrent UTIs, history ESBL Klebsiella UTI, dementia, anxiety/mood disorder. 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 Family declined acute rehab recommendation. Patient discharged home today. Patient had trouble getting out of the vehicle upon arrival at home. Patient later slid down to the ground. No head trauma, chest pain, SOB, syncope. EMS called to patient's home because and daughter could not get patient up. Patient brought to ER for evaluation. Family requesting for patient placement due to advancing dementia/debility. 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 atorvastatin 40 mg tablet 40 mg PO QAM 01/31/22 01/13/25 History acetaminophen 500 mg tablet 1,000 mg PO TID PRN Pain 12/25/23 01/13/25 History (Tylenol Extra Strength) alendronate 70 mg tablet 70 mg PO WK 12/25/23 01/13/25 History donepezil 10 mg tablet (Aricept) 10 mg PO PM 12/25/23 01/13/25 History duloxetine 60 mg capsule,delayed 60 mg PO QAM 12/25/23 01/13/25 History release solifenacin 10 mg tablet 10 mg PO QAM 12/25/23 01/13/25 History buspirone 5 mg tablet 5 mg PO AMHS 05/11/24 01/13/25 History glipizide 2.5 mg tablet, extended 2.5 mg PO DAILYBB 05/11/24 01/13/25 History release 24 hr calcium carbonate (Calcium 600) 600 mg PO QPM 01/10/25 01/13/25 History losartan 25 mg tablet 25 mg PO QAM 01/10/25 01/13/25 History Saccharomyces boulardii 250 mg 250 mg PO BID #60 caps 01/13/25 01/13/25 Rx capsule (Florastor) cefdinir 300 mg capsule 300 mg PO BID #16 caps 01/13/25 01/13/25 Rx Past Med/Surg History Problem List (Updated 01/14/25 @ 07:45 by Bud Garza MD) Ambulatory dysfunction Acute confusion (Acute) Generalized weakness (Acute) Encephalopathy Hypertension, essential Diabetes mellitus, type II Leukocytosis (Acute) Diarrhea (Acute) Acute UTI (Acute) Weakness (Acute) Sepsis (Acute) COVID-19 (Acute) Vomiting (Acute) Generalized weakness (Acute) Acute UTI (urinary tract infection) (Acute) Falls frequently (Acute) Posterior tibial tendon dysfunction, left Chest pain (Acute) Costochondritis (Acute) Rib pain (Acute) Right knee pain Right knee DJD Encounter for pre-operative examination 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 Lumbar stenosis (Acute) Medical History Vomiting Obesity Bronchitis hx (no recent issues) Prediabetes PCP monitoring, labs drawn for PCP on 12/26 show A1C 6.5%-decision to monitor/diet control History of left breast cancer dx 1999; sx + radiation Heartburn symptom diet controlled Arthritis Anxiety Hypertension Hyperlipidemia Surgical History History of cataract surgery RT History of tooth extraction reason for current abx Nausea and vomiting after administration of anesthetic agent History of colonoscopy History of hysterectomy History of arthroscopy of right knee History of lumpectomy of left breast WITH LYMPH NODES - PT DENIES LIMB RESTRICTION-1999 Family History Father Family history of diabetes mellitus Mother Family history of diabetes mellitus Other No family history of adverse response to anesthesia Patient's father is Patient's mother is Social History Smoking Status: Unknown if ever smoked Second Hand Exposure: No; Do You Dip or Chew Tobacco: No; Hx Alcohol Use: No Hx Substance Use: No Preferred Language: Honduran Communication Ability: Effective Client Solutions Manager Required: No Beliefs That Will Affect Care: None marital status: Current Living Situation: Spouse Current Living Situation Comment: [facility] Other Information That Helps Us Care for You: No Feels Safe at Home: Yes Safety Concerns: Feels Safe At This Time Assistive Devices: Wheelchair Review of Systems Review of Systems: Could not be reliably obtained secondary to dementia Physical Exam Physical Exam: GENERAL: Demented, pleasant, obese, no respiratory distress SKIN: Normal color, warm HEENT: [place] palpebral conjunctivae, no ptosis, dry buccal mucosa NECK : Supple, no tenderness CHEST : CTA, no tenderness HEART : RRR, no obvious murmurs ABDOMEN: Some distention, no tenderness EXTREMITIES : No LE swelling/tenderness, no other conspicuous deformities noted NEUROLOGIC : Demented, no facial asymmetry, gait and stance not assessed Results & Data Results & Data Vital Signs (Past 12 Hours) Vital Signs Temp Pulse Pulse Resp BP BP Pulse Ox 01/13/25 21:12 91 H 20 128/91 93 02/22/25 20:25 96 H 21 97 01/13/25 20:22 96 H 01/13/25 20:04 36.6 C 94 H 21 130/95 97 01/13/25 20:04 97 01/13/25 20:04 36.6 C 96 H 19 130/95 97 O2 Del Method 01/13/25 21:12 01/13/25 20:25 Room Air 01/13/25 20:22 01/13/25 20:04 Room Air 01/13/25 20:04 Room Air 01/13/25 20:04 Room Air Laboratory Results Laboratory Results WBC 9.83 K/ul (4.8-10.8) 01/13/25 20:11 RBC 5.25 M/uL (4.20-5.40) 01/13/25 20:11 Hgb 15.5 g/dl (12.0-16.0) 01/13/25 20:11 Hct 47.5 % (37.0-47.0) H 01/13/25 20:11 MCV 90.5 fL (80.0-100.0) 01/13/25 20:11 MCH 29.5 pg (25.0-34.0) 01/13/25 20:11 MCHC 32.6 g/dL (32.0-36.0) 01/13/25 20:11 RDW Std Deviation 42.5 fL (36.4-46.3) 01/13/25 20:11 RDW Coeff of Andrea 13.0 % (11.5-14.5) 01/13/25 20:11 Plt Count 261 K/uL (130-400) 01/13/25 20:11 MPV 10.1 fL (9.4-12.4) 01/13/25 20:11 Immature Gran % (Auto) 0.3 % 01/13/25 20:11 Neut % (Auto) 75.4 % 01/13/25 20:11 Lymph % (Auto) 15.1 % 01/13/25 20:11 [place] % (Auto) 8.0 % 01/13/25 20:11 Eos % (Auto) 0.8 % 01/13/25 20:11 Baso % (Auto) 0.4 % 01/13/25 20:11 Neut # (Auto) 7.41 K/uL (1.40-6.50) H 01/13/25 20:11 Lymph # (Auto) 1.48 K/uL (1.20-3.40) 01/13/25 20:11 [place] # (Auto) 0.79 K/uL (0.11-0.59) H 01/13/25 20:11 Eos # (Auto) 0.08 K/uL (0.00-0.50) 01/13/25 20:11 Baso # (Auto) 0.04 K/uL (0.00-0.20) 01/13/25 20:11 Immature Gran # (Auto) 0.03 K/uL (0.01-0.20) 01/13/25 20:11 Sodium 136 mmol/L (136-145) 01/13/25 20:11 Potassium 4.2 mmol/L (3.5-5.1) 01/13/25 20:11 Chloride 103 mmol/L (98-107) 01/13/25 20:11 Carbon Dioxide 26 mmol/L (21-32) 01/13/25 20:11 Anion Gap 7 (3-11) 01/13/25 20:11 BUN 18 mg/dl (6-23) 01/13/25 20:11 Creatinine 0.96 mg/dl (0.6-1.2) 01/13/25 20:11 Est Cr Clr Drug Dosing 44.3 ml/min 01/13/25 20:11 eGFR 60.18 01/13/25 20:11 BUN/Creatinine Ratio 18.8 (10-20) 01/13/25 20:11 Glucose 114 mg/dl (70-99(Fasting)) H 01/13/25 20:11 Calcium 9.7 mg/dl (8.6-10.3) 01/13/25 20:11 Magnesium 2.1 mg/dl (1.7-2.4) 01/13/25 20:11 Total Bilirubin 0.6 mg/dl (0.2-1.0) 01/13/25 20:11 AST 15 U/L (13-39) 01/13/25 20:11 ALT 16 U/L (7-52) 01/13/25 20:11 Alkaline Phosphatase 79 U/L (34-104) 01/13/25 20:11 Troponin I High Sens 4.2 pg/ml (0-14) 01/13/25 20:11 Total Protein 7.6 gm/dl (6.0-8.3) 01/13/25 20:11 Albumin 4.3 gm/dl (3.4-5.0) 01/13/25 20:11 Globulin 3.3 gm/dl (2.5-4.0) 01/13/25 20:11 Albumin/Globulin Ratio 1.3 (0.9-2) 01/13/25 20: TSH 1.986 uIu/ml (0.300-4.500) 01/13/25 20:11 Urine Color Yellow 01/13/25 21: Urine Appearance Clear (Clear) 01/13/25 21: Urine pH 6.0 (4.5-7.5) 01/13/25 21:05 Ur Specific [place] 1.016 (1.000-1.030) 01/13/25 21: Urine Protein Negative (Negative) 01/13/25 21: Urine Glucose (UA) Negative (Negative) 01/13/25 21: Urine Ketones Trace (Negative) H 01/13/25 21: Urine Blood 1+ (Negative) H 01/13/25 21: Urine Nitrite Negative (Negative) 01/13/25 21: Urine Bilirubin Negative (Negative) 01/13/25 21: Urine Urobilinogen Negative (Negative) 01/13/25 21:05 Ur Leukocyte Esterase Trace (Negative) H 01/13/25 21:05 Urine WBC (Auto) 0-5 /hpf (0-5) 01/13/25 21:05 Urine RBC (Auto) 11-20 /hpf (0-2) H 01/13/25 21:05 U Hyaline Cast (Auto) 0-2 /lpf (0-2) 01/13/25 21:05 U Epithel Cells (Auto) 0-2 /hpf (0-2) 01/13/25 21:05 Urine Bacteria (Auto) None Seen (None Seen) 01/13/25 21:05 Diagnostic Findings EKG as per my interpretation :Rate 95, NSR, LAD, LAFB, incomplete RBBB, T wave abnormalities inferior leads
[2025-01-13] MEDS ORDERED: PROMETHAZINE 6.25 MG/50.25 ML BAG IV PRN (22:02)
[2025-01-13] MEDS: SODIUM CHLORIDE 0.9% 1,000 ML IV ONE (22:42)
[2025-01-14] MEDS ORDERED: GLUCAGON FOR INJ 1 MG VIAL SQ PRN (00:08)
[2025-01-14] MEDS ORDERED: GLUCOSE 40% GEL 15 GM TUBE PO PRN (00:08)
[2025-01-14] MEDS ORDERED: GLUCOSE 10 TAB/TUBE PO PRN (00:08)
[2025-01-14] MEDS ORDERED: DEXTROSE 50% 50 ML SYRINGE IV PRN (00:08)
[2025-01-14] MEDS ORDERED: CARBOHYDRATES FOR HYPOGLYCEMIA PO PRN (00:08)
[2025-01-14] MEDS: INSULIN ASPART PER UNIT CHARGE SC SCH (00:33)
--- NOTE | 2025-01-14 01:20 | XRay Report ---
Exam(s): XR CXR 1 VIEW EXAM: XR Chest, 1 View CLINICAL HISTORY: Reason for exam: weakness. TECHNIQUE: Frontal view of the chest. COMPARISON: Chest radiograph on 01/11/2025 FINDINGS: Hardware: None. Lungs/pleura: Mildly prominent lung markings. No focal consolidation. No pleural effusion or pneumothorax. Heart/mediastinum: Atherosclerotic changes of the aorta. No cardiomegaly. Soft tissues: Surgical clips in the left axilla. Bones: No acute fracture. Elevation of the right humeral head is suggestive of chronic rotator cuff tears. Upper abdomen: Normal. IMPRESSION: Mildly prominent lung markings may be secondary to technique or chronic lung changes. No focal consolidation. Electronically signed by: Mahogany Ivey M.D. 01/14/25 01:19 AM
[2025-01-14] MEDS: ENOXAPARIN INJ 40 MG/0.4 ML SYR SQ SCH (08:11)
[2025-01-14] MEDS: ASPIRIN 81 MG ECTAB PO SCH (08:12)
[2025-01-14] MEDS: SACCHAROMYCES BOULARDII 250 MG CAP PO SCH (08:12)
[2025-01-14] MEDS: CEFDINIR 300 MG CAP PO SCH (08:13)
[2025-01-14] MEDS: ATORVASTATIN 40 MG TAB PO SCH (08:13)
[2025-01-14] MEDS: OXYBUTYNIN CHLORIDE XL 5 MG TABCR PO SCH (08:13)
[2025-01-14] MEDS: busPIRone 5 MG TAB PO SCH (08:14)
[2025-01-14] MEDS: DULoxetine HCL 60 MG CAP PO SCH (08:14)
[2025-01-14] MEDS: LOSARTAN POTASSIUM 25 MG TAB PO SCH (08:14)
--- NOTE | 2025-01-14 10:27 | Electrocardiogram Report ---
Test Reason : Blood Pressure : */* mmHG Vent. Rate : 94 BPM Atrial Rate : 94 BPM P-R Int : 182 ms QRS Dur : 94 ms QT Int : 360 ms P-R-T Axes : 58 -9 20 degrees QTcB Int : 450 ms Normal sinus rhythm Incomplete right bundle branch block Borderline ECG When compared with ECG of 10-Jan-2025 18:26, No significant change was found Confirmed by Gareth Nunez ([id number]) on 01/14/2025 10:26:55 AM Referred By: REFERRED SELF Confirmed By: Gareth Nunez
--- NOTE | 2025-01-14 14:10 | Hospitalist Progress Note ---
Date of Service January 14, 2025 Assessment & Plan (1) Ambulatory dysfunction: Plan: Plan Pt is a 79yoF with past medical history significant for dementia, hypertension, hyperlipidemia, DM2 on oral medications, left breast cancer status post surgery/radiation status post tamoxifen Rx, mixed incontinence, recurrent UTIs, history ESBL Klebsiella UTI, anxiety/mood disorder presenting for placement after recent discharge where family opted for discharge home with home health services. Ambulatory Dysfunction Per admitting provider: "...Recent confinement January 10 to 2024 for metabolic encephalopathy secondary to recurrent UTI Streptococcus anginosus on urine CS. Family declined acute rehab recommendation. Patient discharged home today. Patient had trouble getting out of the vehicle upon arrival at home. Patient later slid down to the ground. No head trauma, chest pain, SOB, syncope. EMS called to patient's home because and daughter could not get patient up. Patient brought to ER for evaluation. Family requesting for patient placement due to advancing dementia/debility..." PT/OT CM to assist with placement She was previously treated for the following: Acute on chronic metabolic encephalopathy Delirium on dementia History of recurrent UTIs Generalized Weakness UA on admission bland Urine culture growing strep anginosus and lactobacillus Transitioned from empiric Invanz to po cefdinir. Continue for a total of 10 days of treatment Not currently septic TSH normal Respiratory viral panel negative chest x-ray unremarkable Delirium precautions. Frequent reorientation, avoid sedating medications as able PT/OT- recommending continued PT on discharge Continue home donepezil Hypertension Likely elevated due to secondary illness Continue losartan hyperlipidemia on statin Rx DM2 on oral medications well-controlled as of recent hemoglobin A1c of 6.9 last July 2024 Basal bolus insulin, ISS BG goal 1 10-1 40, carb count coverage left breast cancer status post surgery/radiation status post tamoxifen Rx currently in remission Diet: HH/DMII DVT prophylaxis. Lovenox subcu Full code Dispo: awaiting placement Admission and Anticipated Discharge Date Admission Date: January 14, 2025 Subjective pt was seen eating ice cream in bed Pleasantly demented Denied acute concerns Review of Systems Review of Systems: All systems reviewed & are unremarkable except as noted in Subjective Physical Exam Physical Exam: General: Alertx2. No acute distress Neuro: pleasantly demented HEENT: NC/AT CV: RRR Resp: Breath sounds clear bilaterally, no increased effort of breathing Abdomen: Soft, nontender Extremities: No edema in lower extremities bilaterally. Results & Data Results & Data Vital Signs (Past 12 Hours) Vital Signs Temp Pulse Resp BP Pulse Ox O2 Del Method 01/14/25 07:13 36.8 C 88 16 133/78 93 Room Air Diagnostic Findings Chest X-Ray 01/13/25 20:14 Exam(s): XR CXR 1 VIEW EXAM: XR Chest, 1 View CLINICAL HISTORY: Reason for exam: weakness. TECHNIQUE: Frontal view of the chest. COMPARISON: Chest radiograph on 01/11/2025 FINDINGS: Hardware: None. Lungs/pleura: Mildly prominent lung markings. No focal consolidation. No pleural effusion or pneumothorax. Heart/mediastinum: Atherosclerotic changes of the aorta. No cardiomegaly. Soft tissues: Surgical clips in the left axilla. Bones: No acute fracture. Elevation of the right humeral head is suggestive of chronic rotator cuff tears. Upper abdomen: Normal. IMPRESSION: Mildly prominent lung markings may be secondary to technique or chronic lung changes. No focal consolidation. Electronically signed by: Mahogany Ivey M.D. 01/14/25 01:19 AM
[2025-01-14] MEDS: CALCIUM CARBONATE 500 MG CHEWABLE TAB PO SCH (20:43)
[2025-01-14] MEDS: DONEPEZIL HCL 10 MG TAB PO SCH (20:45)
[2025-01-15 06:38] LABS: Basophils # (auto) 0.04 K/uL (0.00-0.20); Basophils % (auto) 0.5 %; Eosinophils # (auto) 0.12 K/uL (0.00-0.50); Eosinophils % (auto) 1.4 %; Hematocrit (blood only) 37.1 % (37.0-47.0); Hemoglobin 12.2 g/dl (12.0-16.0); Immature Granulocytes # (auto) 0.02 K/uL (0.01-0.20); Immature Granulocytes % (auto) 0.2 %; Lymphocytes # (auto) 1.95 K/uL (1.20-3.40); Lymphocytes % (auto) 22.9 %; Mean Corpuscular Hemoglobin 29.9 pg (25.0-34.0); Mean Corpuscular Hgb Conc 32.9 g/dL (32.0-36.0); Mean Corpuscular Volume 90.9 fL (80.0-100.0); Monocytes # (auto) 1.08 K/uL (0.11-0.59); Monocytes % (auto) 12.7 %; Neutrophils # (auto) 5.31 K/uL (1.40-6.50); Neutrophils % (auto) 62.3 %; Platelet Count 207 K/uL (130-400); RDW Standard Deviation 42.9 fL (36.4-46.3); Red Blood Count 4.08 M/uL (4.20-5.40); White Blood Count 8.52 K/ul (4.8-10.8)
[2025-01-15 06:40] LABS: BUN Creatinine Ratio 15.8 (10-20); Calcium 8.4 mg/dl (8.6-10.3); Creatinine Clr Calc Pharmacy 52.4 ml/min; Potassium 3.9 mmol/L (3.5-5.1)
--- NOTE | 2025-01-15 17:34 | Hospitalist Progress Note ---
Date of Service January 15, 2025 Assessment & Plan (1) Ambulatory dysfunction: Plan: Plan Pt is a 79yoF with past medical history significant for dementia, hypertension, hyperlipidemia, DM2 on oral medications, left breast cancer status post surgery/radiation status post tamoxifen Rx, mixed incontinence, recurrent UTIs, history ESBL Klebsiella UTI, anxiety/mood disorder presenting for placement after recent discharge where family opted for discharge home with home health services. Ambulatory Dysfunction Per admitting provider: "...Recent confinement January 10 to 2024 for metabolic encephalopathy secondary to recurrent UTI Streptococcus anginosus on urine CS. Family declined acute rehab recommendation. Patient discharged home today. Patient had trouble getting out of the vehicle upon arrival at home. Patient later slid down to the ground. No head trauma, chest pain, SOB, syncope. EMS called to patient's home because and daughter could not get patient up. Patient brought to ER for evaluation. Family requesting for patient placement due to advancing dementia/debility..." PT/OT CM to assist with placement She was previously treated for the following: Acute on chronic metabolic encephalopathy Delirium on dementia History of recurrent UTIs Generalized Weakness UA on admission bland Urine culture growing strep anginosus and lactobacillus Transitioned from empiric Invanz to po cefdinir. Continue for a total of 10 days of treatment Not currently septic TSH normal Respiratory viral panel negative chest x-ray unremarkable Delirium precautions. Frequent reorientation, avoid sedating medications as able PT/OT- recommending continued PT on discharge Continue home donepezil Hypertension Likely elevated due to secondary illness Continue losartan hyperlipidemia on statin Rx DM2 on oral medications well-controlled as of recent hemoglobin A1c of 6.9 last July 2024 Basal bolus insulin, ISS BG goal 1 10-1 40, carb count coverage left breast cancer status post surgery/radiation status post tamoxifen Rx currently in remission Diet: HH/DMII DVT prophylaxis. Lovenox subcu Full code Dispo: awaiting placement Admission and Anticipated Discharge Date Admission Date: January 14, 2025 Subjective pt was seen laying in bed Pleasantly demented Denied acute concerns Review of Systems Review of Systems: All systems reviewed & are unremarkable except as noted in Subjective Physical Exam Physical Exam: General: Alertx2. No acute distress Neuro: pleasantly demented HEENT: NC/AT CV: RRR Resp: Breath sounds clear bilaterally, no increased effort of breathing Abdomen: Soft, nontender Extremities: No edema in lower extremities bilaterally. Results & Data Results & Data Vital Signs (Past 12 Hours) Vital Signs Temp Pulse Resp BP Pulse Ox O2 Del Method 01/15/25 14:02 36.7 C 84 16 128/75 93 Room Air 01/15/25 10:23 Room Air 01/15/25 07:21 36.8 C 86 16 130/76 92 Room Air Diagnostic Findings Chest X-Ray 01/13/25 20:14 Exam(s): XR CXR 1 VIEW EXAM: XR Chest, 1 View CLINICAL HISTORY: Reason for exam: weakness. TECHNIQUE: Frontal view of the chest. COMPARISON: Chest radiograph on 01/11/2025 FINDINGS: Hardware: None. Lungs/pleura: Mildly prominent lung markings. No focal consolidation. No pleural effusion or pneumothorax. Heart/mediastinum: Atherosclerotic changes of the aorta. No cardiomegaly. Soft tissues: Surgical clips in the left axilla. Bones: No acute fracture. Elevation of the right humeral head is suggestive of chronic rotator cuff tears. Upper abdomen: Normal. IMPRESSION: Mildly prominent lung markings may be secondary to technique or chronic lung changes. No focal consolidation. Electronically signed by: Mahogany Ivey M.D. 01/14/25 01:19 AM
[2025-01-16 06:55] LABS: Basophils # (auto) 0.04 K/uL (0.00-0.20); Basophils % (auto) 0.6 %; Eosinophils # (auto) 0.14 K/uL (0.00-0.50); Eosinophils % (auto) 2.1 %; Hematocrit (blood only) 37.4 % (37.0-47.0); Hemoglobin 12.3 g/dl (12.0-16.0); Immature Granulocytes # (auto) 0.03 K/uL (0.01-0.20); Immature Granulocytes % (auto) 0.5 %; Lymphocytes # (auto) 1.84 K/uL (1.20-3.40); Lymphocytes % (auto) 28.1 %; Mean Corpuscular Hemoglobin 30.1 pg (25.0-34.0); Mean Corpuscular Hgb Conc 32.9 g/dL (32.0-36.0); Mean Corpuscular Volume 91.7 fL (80.0-100.0); Monocytes # (auto) 0.89 K/uL (0.11-0.59); Monocytes % (auto) 13.6 %; Neutrophils % (auto) 55.1 %; Platelet Count 211 K/uL (130-400); RDW Coefficient of Variation 12.9 % (11.5-14.5); RDW Standard Deviation 42.7 fL (36.4-46.3); Red Blood Count 4.08 M/uL (4.20-5.40); White Blood Count 6.54 K/ul (4.8-10.8)
[2025-01-16 07:09] LABS: BUN Creatinine Ratio 14.7 (10-20); Calcium 8.9 mg/dl (8.6-10.3); Creatinine Clr Calc Pharmacy 53.1 ml/min; Potassium 4.2 mmol/L (3.5-5.1)
--- NOTE | 2025-01-16 15:44 | Hospitalist Progress Note ---
Date of Service January 16, 2025 Assessment & Plan (1) Dementia: (2) Ambulatory dysfunction: Plan: Ruby Simms is a 79y/o F with PMHx significant for HTN, HLD, DM type II, palpitations, recurrent UTIs, history of Klebsiella pneumoniae ESBL UTI, L breast cancer s/p surgery + radiation and tamoxifen therapy, mixed urinary incontinence, dementia with anxiety and depression who presented to the ED via EMS in the late evening on 01/13/25 as her family could not lift her off of the ground after she slid out of her wheelchair. Patient had been discharged home from our service earlier that afternoon after family declined rehab placement - which was recommend by therapy. CXR unremarkable on admission. Continue home donepezil. Family now requesting placement due to advancing dementia/debility. CM assisting with this process. Continue PT/OT while inpatient. (3) History of recurrent UTIs: Plan: UA last admission with trace LE, cloudy appearance. Urine culture grew Streptococcus anginosus and Lactobacillus gasseri. Was transitioned from empiric Invanz to po cefdinir last admission --> set to complete po cefdinir on 01/21/25 (total of 10 days). (4) Hypertension: Plan: BP stable. Continue losartan. Continue to routinely monitor BP. (5) Hyperlipidemia: Plan: Chronic, stable. Continue atorvastatin. (6) Diabetes mellitus, type II: Plan: Well-controlled as of recent Hgb A1c of 6.9% in July 2024. Will obtain updated Hgb A1c. SSI while inpatient. BSG checks ACHS with BSG goal of 110-160. DVT Prophylaxis: SQ Lovenox Code Status: FULL CODE PCP: Mar Lovelace MD Disposition: Medically stable for discharge once placement becomes available - CM assisting. Patient seen in collaboration with Dr. Edmonds. Please see addendum. I spent a total of 25 minutes coordinating, documenting, and providing care for this patient excluding time spent in the performance of separately billed services or time spent by another provider/QHP. This included personally reviewing all current laboratories and imaging studies, medical reconciliation, outpatient chart review and discussion with specialists. This chart was completed in part utilizing Speech Voice Recognition Software. Grammatical errors, random word insertions, pronoun errors, and incomplete sentences are an occasional consequence of this system due to software limit ations, ambient noise, and hardware issues. Any formal questions or concerns about the content, text, or information contained within the body of this dictation should be directly addressed to the provider for clarification. Admission and Anticipated Discharge Date Admission Date: January 14, 2025 Supervising Physician Co-Signing Physician Notes Pt was seen and examined by myself, Savita Edmonds MD on the day of service. Care was coordinated with Galina Bender PA-C. 79yoF pleasant, with known dementia currently awaiting placement after significant deconditioning in the setting of a UTI, currently being treated. Denies acute concerns. Otherwise as above. I spent a total [id number] coordinating, documenting, and providing care for this patient excluding time spent in the performance of separately billed services Subjective NAEO. Patient A&Ox2 to conversation and person this morning. Pleasantly demented. Answers direct questioning without issue. Endorses no complaints. Repo rts she ate breakfast this morning and slept well overnight. Still waiting on placement. Mentions will be in to see her later on this afternoon. Review of Systems Review of Systems: At least ten systems reviewed and negative, except as noted in the subjective section. Physical Exam Physical Exam: General: WD/WN, vitals as above, NAD, sitting up in bed, pleasantly demented. A+Ox2 to conversation and person. HEENT: Normocephalic, atraumatic. Conjunctivae normal. External ear and nose normal, oropharynx normal. Respiratory: Normal respiratory effort, lungs clear to auscultation, no wheeze/rales/rhonchi. No accessory muscle use. Cardiovascular: Regular rate, rhythm, normal peripheral pulses, no BLE edema. Abdomen/GI: Normal bowel sounds, soft, nondistended, nontender to palpation in all quadrants. Extremities/Musculoskeletal: No cyanosis or clubbing, extremities motor strength intact, moves all extremities. Neurologic: No overt focal deficits, CN's II-XI not formally tested but appear grossly intact bilaterally. Results & Data Results & Data Vital Signs (Past 12 Hours) Vital Signs Temp Pulse Resp BP Pulse Ox O2 Del Method 01/16/25 07:46 Room Air 01/16/25 07:30 36.6 C 86 14 156/86 H 94 Room Air Laboratory Results Short CBC 01/16/25 Range/Units 06:35 WBC 6.54 (4.8-10.8) K/ul Hgb 12.3 (12.0-16.0) g/dl Hct 37.4 (37.0-47.0) % Plt Count 211 (130-400) K/uL BMP 01/16/25 06:35 Sodium 141 Potassium 4.2 Chloride 109 H Carbon Dioxide 29 BUN 11 Creatinine 0.75 Glucose 110 H Calcium 8.9 (1) Dementia Dementia behavioral or psychological symptom: unspecified whether behavioral, psychotic, or mood disturbance or anxiety Dementia severity: unspecified severity Dementia type: unspecified type Qualified Code(s): F03.90 - Unspecified dementia, unspecified severity, without behavioral disturbance, psychotic disturbance, mood disturbance, and anxiety (4) Hypertension Hypertension type: unspecified Qualified Code(s): I10 - Essential (primary) hypertension (5) Hyperlipidemia Hyperlipidemia type: mixed hyperlipidemia Qualified Code(s): E78.2 - Mixed hyperlipidemia (6) Diabetes mellitus, type II Diabetes mellitus complication status: with hyperglycemia Diabetes mellitus ocean transportation intermediary insulin use: without ocean transportation intermediary use Qualified Code(s): E11.65 - Type 2 diabetes mellitus with hyperglycemia
--- NOTE | 2025-01-17 06:55 | Hospitalist Progress Note ---
Date of Service January 17, 2025 Assessment & Plan (1) Dementia: (2) Ambulatory dysfunction: Plan: Ruby Simms is a 79y/o F with PMHx significant for HTN, HLD, DM type II, palpitations, recurrent UTIs, history of Klebsiella pneumoniae ESBL UTI, L breast cancer s/p surgery + radiation and tamoxifen therapy, mixed urinary incontinence, dementia with anxiety and depression who presented to the ED via EMS in the late evening on 01/13/25 as her family could not lift her off of the ground after she slid out of her wheelchair. Patient had been discharged home from our service earlier that afternoon after family declined rehab placement - which was recommend by therapy. CXR unremarkable on admission. Continue home donepezil. Family now requesting placement due to advancing dementia/debility. CM assisting with this process. Continue PT/OT while inpatient. (3) History of recurrent UTIs: Plan: UA last admission with trace LE, cloudy appearance. Urine culture grew Streptococcus anginosus and Lactobacillus gasseri. Was transitioned from empiric Invanz to po cefdinir last admission --> set to complete po cefdinir on 01/21/25 (total of 10 days). (4) Hypertension: Plan: BP stable. Continue losartan. Continue to routinely monitor BP. (5) Hyperlipidemia: Plan: Chronic, stable. Continue atorvastatin. (6) Diabetes mellitus, type II: Plan: Well-controlled as of recent Hgb A1c of 6.9% in July 2024. Hgb A1c 6.9% this admission. SSI while inpatient. BSG checks ACHS with BSG goal of 110-160. DVT Prophylaxis: SQ Lovenox Code Status: FULL CODE PCP: Mar Lovelace MD Disposition: Medically stable for discharge once placement becomes available. Possibly to [facility] tomorrow or Wednesday. Patient seen in collaboration with Dr. Ritter. Please see addendum. I spent a total of 20 minutes coordinating, documenting, and providing care for this patient excluding time spent in the performance of separately billed services or time spent by another provider/QHP. This included personally reviewing all current laboratories and imaging studies, medical reconciliation, outpatient chart review and discussion with specialists. This chart was completed in part utilizing Speech Voice Recognition Software. Grammatical errors, random word insertions, pronoun errors, and incomplete sentences are an occasional consequence of this system due to software limitations, ambient noise, and hardware issues. Any formal questions or concerns about the content, text, or information contained within the body of this dictation should be directly addressed to the provider for clarification. Admission and Anticipated Discharge Date Admission Date: January 14, 2025 Supervising Physician Co-Signing Physician Notes Patient seen and examined independently. Comfortable; not in distress. Denies fever, chills, chest pain, shortness of breath, abdominal pain or urinary symptoms. No significant overnight events I have reviewed the advanced practitioner's documentation, and I agree with, and take responsibility for the plan of care I spent a total of 15 minutes coordinating, documenting, and providing care for this patient excluding time spent in the performance of separately billed services. All of the aforementioned completed while collaborating with the assigned advanced practitioner for a full treatment plan Subjective NAEO. Patient A&Ox2 to conversation. Pleasantly demented. Answers direct questioning without issue. Sleepy but easily arousable this morning. Offers no complaints. Review of Systems Review of Systems: At least ten systems reviewed and negative, except as noted in the subjective section. Physical Exam Physical Exam: General: WD/WN, vitals as above, NAD, sitting up in bed, pleasantly demented. A+Ox2 to conversation and person. HEENT: Normocephalic, atraumatic. Conjunctivae normal. External ear and nose normal, oropharynx normal. Respiratory: Normal respiratory effort, lungs clear to auscultation, no wheeze/rales/rhonchi. No accessory muscle use. Cardiovascular: Regular rate, rhythm, normal peripheral pulses, no BLE edema. Abdomen/GI: Normal bowel sounds, soft, nondistended, nontender to palpation in all quadrants. Extremities/Musculoskeletal: No cyanosis or clubbing, extremities motor strength intact, moves all extremities. Neurologic: No overt focal deficits, CN's II-XI not formally tested but appear grossly intact bilaterally. Results & Data Results & Data Vital Signs (Past 12 Hours) Vital Signs Temp Pulse Resp BP Pulse Ox O2 Del Method 01/16/25 23:24 36.8 C 81 18 130/82 95 Room Air Laboratory Results Short CBC 01/17/25 Range/Units 06:50 WBC 6.60 (4.8-10.8) K/ul Hgb 12.8 (12.0-16.0) g/dl Hct 37.8 (37.0-47.0) % Plt Count 251 (130-400) K/uL BMP 01/17/25 06:50 Sodium 138 Potassium 4.0 Chloride 106 Carbon Dioxide 28 BUN 10 Creatinine 0.83 Glucose 121 H Calcium 9.2 (1) Dementia Dementia behavioral or psychological symptom: unspecified whether behavioral, psychotic, or mood disturbance or anxiety Dementia severity: unspecified severity Dementia type: unspecified type Qualified Code(s): F03.90 - Unspecified dementia, unspecified severity, without behavioral disturbance, psychotic disturbance, mood disturbance, and anxiety (4) Hypertension Hypertension type: unspecified Qualified Code(s): I10 - Essential (primary) hypertension (5) Hyperlipidemia Hyperlipidemia type: mixed hyperlipidemia Qualified Code(s): E78.2 - Mixed hyperlipidemia (6) Diabetes mellitus, type II Diabetes mellitus complication status: with hyperglycemia Diabetes mellitus fci insulin use: without assistant terminal manager use Qualified Code(s): E11.65 - Type 2 diabetes mellitus with hyperglycemia
[2025-01-17 07:12] LABS: Basophils # (auto) 0.03 K/uL (0.00-0.20); Basophils % (auto) 0.5 %; Eosinophils # (auto) 0.14 K/uL (0.00-0.50); Eosinophils % (auto) 2.1 %; Hematocrit (blood only) 37.8 % (37.0-47.0); Hemoglobin 12.8 g/dl (12.0-16.0); Immature Granulocytes # (auto) 0.02 K/uL (0.01-0.20); Immature Granulocytes % (auto) 0.3 %; Lymphocytes # (auto) 1.39 K/uL (1.20-3.40); Lymphocytes % (auto) 21.1 %; Mean Corpuscular Hemoglobin 30.4 pg (25.0-34.0); Mean Corpuscular Hgb Conc 33.9 g/dL (32.0-36.0); Mean Corpuscular Volume 89.8 fL (80.0-100.0); Monocytes # (auto) 0.82 K/uL (0.11-0.59); Monocytes % (auto) 12.4 %; Neutrophils % (auto) 63.6 %; Platelet Count 251 K/uL (130-400); RDW Coefficient of Variation 12.7 % (11.5-14.5); RDW Standard Deviation 41.6 fL (36.4-46.3); Red Blood Count 4.21 M/uL (4.20-5.40)
[2025-01-17 07:35] LABS: Calcium 9.2 mg/dl (8.6-10.3); Magnesium 1.8 mg/dl (1.7-2.4)
--- NOTE | 2025-01-18 08:11 | Hospitalist Progress Note ---
Date of Service January 18, 2025 Assessment & Plan (1) Dementia: (2) Ambulatory dysfunction: Plan: This is a 79y/o F with PMH of HTN, HLD, DM type II, palpitations, recurrent UTIs, history of Klebsiella pneumoniae ESBL UTI, L breast cancer (s/p surgery, radiation and tamoxifen therapy), mixed urinary incontinence, dementia with anxiety and depression who presented after fall. CXR unremarkable on admission Continue home donepezil Family now requesting placement due to advancing dementia/debility CM assisting with this process. Continue PT/OT while inpatient Fall precautions (3) History of recurrent UTIs: Plan: UA last admission with trace LE, cloudy appearance. Urine culture grew Streptococcus anginosus and Lactobacillus gasseri. Was transitioned from empiric Invanz to po cefdinir last admission --> set to complete po cefdinir on 01/21/25 (total of 10 days) (4) Hypertension: Plan: BP stable. Continue losartan (5) Hyperlipidemia: Plan: Chronic, stable. Continue atorvastatin (6) Diabetes mellitus, type II: Plan: Well-controlled as of recent Hgb A1c of 6.9% in July 2024 Hgb A1c 6.9% this admission. SSI while inpatient. BSG checks ACHS with BSG goal of 110-160 DVT Prophylaxis: SQ Lovenox Code Status: FULL CODE PCP: [place] Disposition: Medically stable for discharge once placement becomes available. Possibly to [facility] tomorrow I spent a total of 45 minutes coordinating, documenting, and providing care for this patient excluding time spent in the performance of separately billed services or time spent by another provider/QHP. Admission and Anticipated Discharge Date Admission Date: January 14, 2025 Subjective Seen and examined in 376-1. NAEO. Patient A&Ox2 to conversation. Sleepy but easily arousable this morning. Denies pain. Remainder of ROS difficult to obtain 2/2 dementia. Review of Systems Review of Systems: Unobtainable due to cognitive status Physical Exam Physical Exam: Gen: WD/WN, NAD, sleeping but awakens to questions, pleasantly confused HEENT: Normocephalic, atraumatic, mucous membranes moist Lung: Clear to Auscultation bilaterally Heart: Regular rate, regular rhythm Abdomen: Soft, NT, ND +BS x 4 Extremities: no edema Skin: Warm, no rash Results & Data Results & Data Vital Signs (Past 12 Hours) Vital Signs Temp Pulse Resp BP Pulse Ox O2 Del Method 01/17/25 20:48 37 C 76 16 131/79 94 Room Air (1) Dementia Dementia behavioral or psychological symptom: unspecified whether behavioral, psychotic, or mood disturbance or anxiety Dementia severity: unspecified severity Dementia type: unspecified type Qualified Code(s): F03.90 - Unspecified dementia, unspecified severity, without behavioral disturbance, psychotic disturbance, mood disturbance, and anxiety (4) Hypertension Hypertension type: unspecified Qualified Code(s): I10 - Essential (primary) hypertension (5) Hyperlipidemia Hyperlipidemia type: mixed hyperlipidemia Qualified Code(s): E78.2 - Mixed hyperlipidemia (6) Diabetes mellitus, type II Diabetes mellitus complication status: with hyperglycemia Diabetes mellitus fdc insulin use: without long term care social worker use Qualified Code(s): E11.65 - Type 2 diabetes mellitus with hyperglycemia
[2025-01-18] MEDS: ACETAMINOPHEN 325 MG TAB PO PRN (11:52)
[2025-01-18 20:41] VITALS: TEMP 97.7
[2025-01-19 07:21] VITALS: BP 161/90; PULSE 75; RESP 16; O2SAT 95
--- NOTE | 2025-01-19 12:41 | Discharge Summary ---
Discharge Summary Date of Service January 19, 2025 Principal Dx & Hospital Course #1 = Principal Diagnosis (1) Dementia: (2) Ambulatory dysfunction: This is a 79y/o F with PMH of HTN, HLD, DM type II, palpitations, recurrent UTIs, history of Klebsiella pneumoniae ESBL UTI, L breast cancer (s/p surgery, radiation and tamoxifen therapy), mixed urinary incontinence, dementia with anxiety and depression who presented after fall. CXR unremarkable on admission Family now requesting placement due to advancing dementia/debility Continue home donepezil CM assisting with this process. Continue PT/OT while inpatient -> discharging to [facility] for rehab Fall precautions (3) History of recurrent UTIs: UA last admission with trace LE, cloudy appearance. Urine culture grew Streptococcus anginosus and Lactobacillus gasseri Was transitioned from empiric Invanz to po cefdinir last admission --> continue oral cefdinir on 01/21/25 (total of 10 days) (4) Hypertension: BP stable. Continue losartan (5) Hyperlipidemia: Chronic, stable. Continue atorvastatin (6) Diabetes mellitus, type II: Well-controlled as of recent Hgb A1c of 6.9% in July 2024 Hgb A1c 6.9% this admission. SSI while inpatient. BSG checks ACHS with BSG goal of 110-160 Notes For Next Care Provider Continue oral antibiotic for UTI. Discharging to [facility] for rehab. Medication Changes From Visit Continue oral cefdinir until 01/21/25 Admission HPI Per Admitting Provider History obtained from patient, family, and records. Limited history from patient secondary to dementia. Medical history significant for hypertension, hyperlipidemia, DM2 on oral medications, left breast cancer status post surgery/radiation status post tamoxifen Rx, mixed incontinence, recurrent UTIs, history ESBL Klebsiella UTI, dementia, anxiety/mood disorder. 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 Family declined acute rehab recommendation. Patient discharged home today. Patient had trouble getting out of the vehicle upon arrival at home. Patient later slid down to the ground. No head trauma, chest pain, SOB, syncope. EMS called to patient's home because and daughter could not get patient up. Patient brought to ER for evaluation. Family requesting for patient placement due to advancing dementia/debility. 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 Admission Exam Per Admitting Provider GENERAL: Demented, pleasant, obese, no respiratory distress SKIN: Normal color, warm HEENT: [place] palpebral conjunctivae, no ptosis, dry buccal mucosa NECK : Supple, no tenderness CHEST : CTA, no tenderness HEART : RRR, no obvious murmurs ABDOMEN: Some distention, no tenderness EXTREMITIES : No LE swelling/tenderness, no other conspicuous deformities noted NEUROLOGIC : Demented, no facial asymmetry, gait and stance not assessed Discharge Exam Gen: WD/WN, NAD, sleeping but awakens to questions, pleasantly confused HEENT: Normocephalic, atraumatic, mucous membranes moist Lung: Clear to Auscultation bilaterally Heart: Regular rate, regular rhythm Abdomen: Soft, NT, ND +BS x 4 Extremities: no edema Skin: Warm, no rash Updated Medication List Medication Instructions Recorded Confirmed Type aspirin 81 mg tablet,delayed 81 mg PO QAM 01/01/20 01/13/25 History release (Adult Aspirin Regimen) Wheeled Walker #1 ea 05/29/20 01/13/25 Rx amoxicillin 500 mg capsule 2,000 mg PO DIRECTED PRN ONE 01/31/22 01/13/25 History HOUR PRIOR TO DENTAL VISITS. atorvastatin 40 mg tablet 40 mg PO QAM 01/31/22 01/13/25 History acetaminophen 500 mg tablet 1,000 mg PO TID PRN Pain 12/25/23 01/13/25 History (Tylenol Extra Strength) alendronate 70 mg tablet 70 mg PO WK 12/25/23 01/13/25 History donepezil 10 mg tablet (Aricept) 10 mg PO PM 12/25/23 01/13/25 History duloxetine 60 mg capsule,delayed 60 mg PO QAM 12/25/23 01/13/25 History release solifenacin 10 mg tablet 10 mg PO QAM 12/25/23 01/13/25 History buspirone 5 mg tablet 5 mg PO AMHS 05/11/24 01/13/25 History glipizide 2.5 mg tablet, extended 2.5 mg PO DAILYBB 05/11/24 01/13/25 History release 24 hr calcium carbonate (Calcium 600) 600 mg PO QPM 01/10/25 01/13/25 History losartan 25 mg tablet 25 mg PO QAM 01/10/25 01/13/25 History Saccharomyces boulardii 250 mg 250 mg PO BID #60 caps 01/13/25 01/13/25 Rx capsule (Florastor) cefdinir 300 mg capsule 300 mg PO BID #16 caps 01/13/25 01/13/25 Rx Hospital Stay Data Consultations 01/13/25 21:24 ED Decision to Admit Stat Pending Results Patient Have Any Pending Studies at Discharge: No Discharge Instructions Given to Patient (Per Discharging Provider) MEDICATION CHANGES: Continue Cefdinir course twice a day to complete course (EOT 01/21/25) You were admitted with ongoing weakness in the setting of urinary tract infection being treated. You are being discharged to [facility] for rehab to work on conditioning. PENDING TEST RESULTS: None RECOMMENDATIONS FOR FOLLOW-UP: Follow up with PCP as scheduled. Complete antibiotic in its entirety. Continue medication regimen as scheduled aside from changes noted above. OTHER INSTRUCTIONS: Seek medical attention if you have: * temperature above 101 * chest pain or trouble breathing * abdominal pain, nausea, vomiting * diarrhea, dark stools or bloody stools * any unanswered questions or concerns Call 911 if symptoms are severe. Please take good care of yourself. Call if you have any questions or problems. You can reach a [facility] hospitalist on duty at [facility] 24 hours a day by calling [phone]. Total Time Total Time Spent Total Time Spent (In Minutes): 40 Total Time Includes: Examination of the Patient, Discharge Planning, Medication Reconciliation, Communication With Other Providers and Other Supervising Physician Co-Signing Physician Notes Patient seen and examined independently. Discussed with above provider. Comfortable; not in distress. Denies fever, chills, chest pain, shortness of breath, abdominal pain or urinary symptoms. No significant overnight events Plan to discharge to rehab. I have reviewed the advanced practitioner's documentation, and I agree with, and take responsibility for the plan of care I spent a total of 20 minutes coordinating, documenting, and providing care for this patient excluding time spent in the performance of separately billed services. All of the aforementioned completed while collaborating with the assigned advanced practitioner for a full treatment plan
== END 2025-01-19 14:22 | DRG 884 ==
LOC: ED 19:59 → 3N 22:00 → SUATTDRO 01-14 00:08

== ENCOUNTER 2025-08-24 15:15 | Inpatient (IN) ==
[2025-08-24 15:45] LABS: Hematocrit (blood only) 39.5 % (37.0-47.0); Hemoglobin 13.3 g/dl (12.0-16.0); Immature Granulocytes # (auto) 0.10 K/uL (0.01-0.20); Immature Granulocytes % (auto) 0.5 %; Mean Corpuscular Hemoglobin 30.0 pg (25.0-34.0); Mean Corpuscular Volume 89.0 fL (80.0-100.0); Platelet Count 247 K/uL (130-400); RDW Standard Deviation 41.9 fL (36.4-46.3); Red Blood Count 4.44 M/uL (4.20-5.40); White Blood Count 19.28 K/ul (4.8-10.8)
[2025-08-24] MEDS: SODIUM CHLORIDE 0.9% 1,000 ML IV ONE (15:58)
--- NOTE | 2025-08-24 15:58 | XRay Report ---
XR chest 1V portable CLINICAL HISTORY: Chest pain, nonspecific COMPARISON STUDY: 07/20/2025 FINDINGS: Heart size and pulmonary vasculature are normal. Inspiration is shallow. There is mild stra nding at the left lung base. No other consolidation or pleural effusion. No pneumothorax. IMPRESSION: Likely atelectasis left lung base. ACT 112: Negative or not required by law. Electronically signed by: Mk Alvarado M.D. 08/24/2025 3:56 PM
[2025-08-24 16:06] LABS: Appearance Urine Turbid (Clear); Bacteria Urine Automated 2+ (None Seen); Glucose Urine UA 2+ (Negative); WBC Urine Automated >50 /hpf (0-5)
[2025-08-24 16:17] LABS: Alanine Aminotransferase 21.0 U/L (7-52); Albumin Globulin Ratio 1.1 (0.9-2); Albumin Level 3.7 gm/dl (3.4-5.0); Alkaline Phosphatase 66.0 U/L (34-104); Anion Gap 9.0 (3-11); Bilirubin,Total 0.7 mg/dl (0.2-1.0); Blood Urea Nitrogen 13.0 mg/dl (6-23); Calcium 9.2 mg/dl (8.6-10.3); Carbon Dioxide 24.0 mmol/L (21-32); Chloride 100.0 mmol/L (98-107); Creatinine Clr Calc Pharmacy 55.9 ml/min; Globulin 3.4 gm/dl (2.5-4.0); Glucose 301.0 mg/dl (70-99(Fasting)); Lipase 14.0 U/L (11-82); Magnesium 1.8 mg/dl (1.7-2.4); Potassium 4.0 mmol/L (3.5-5.1); Sodium 133.0 mmol/L (136-145); Total Protein 7.1 gm/dl (6.0-8.3)
[2025-08-24 16:19] LABS: INR 1.1 (0.9-1.1); Prothrombin Time 11.1 Seconds (9.0-12.0)
--- NOTE | 2025-08-24 16:48 | Emergency Department Note ---
Impression & Plan Acute UTI (urinary tract infection), Dementia, Generalized weakness, SIRS (systemic inflammatory response syndrome) ED Provider Note NAME: MILLER BUTLER AGE: 79 SEX: F : 1945 ARRIVES VIA: Ambulance INFORMANT: Patient ED PROVIDER(S): Kar Mckeon MD CHIEF COMPLAINT: Weakness, UTI PLAN: Disposition: Admit MEDICAL DECISION MAKING: The patient is a pleasant 79-year-old woman with a past medical history of Alzheimer's and vascular dementia, type 2 diabetes, hypertension, hyperlipidemia, recurrent UTIs, depression/anxiety, history of breast cancer status post lobectomy who presents to the emergency department via EMS and accompanied by her for evaluation of generalized weakness with fevers with concern for recurrence of UTI in the setting of history of recurrent urinary infections. He reports she has had a cough for the past month in the setting of respiratory illness that began at the beginning of the month. This is not acutely worse. Patient's also reports that he feels that she may be now at the point where she requires long-term care. He reports he had been in touch with [facility] about possible placement. On evaluation the patient no distress, afebrile with heart rate in the 100s and vital signs otherwise stable. She appears clinically dry. She exhibits generalized weakness without focal extremity weakness at this time. EKG without overt acute ischemia. CXR with question of atelectasis versus left lung infiltrate. WBC 19.2 K with neutrophilia but no left shift, H/H and platelets within normal limits. Chemistry without metabolic acidosis. Glucose is 301. Electrolytes LFTs unremarkable. High-sensitivity troponin 4.7, within normal limits. Lipase is normal. Procalcitonin is elevated at 3.5 and UA is consistent with infection with WBCs and 2+ bacteria albeit with epithelial cells present. Given the patient's history of complicated urinary tract infections patient's agrees with plan for admission at this time. Treatment initiated with IV cefepime. Case was discussed with Tuan Silverman, with [facility] hospitalist who will evaluate the patient for admission. Further management per admitting team. Triage Nursing notes reviewed and agree them. Prior/external medical records reviewed Vital Signs: reviewed Differential diagnosis: Infection, dehydration, metabolic abnormality, hypo/hyperglycemia, electrolyte disturbance, anemia, hypoxia, cardiac sources, intracerebral event, toxicologic, neurologic, as well as other pathologies. ER treatment provided: See below. Diagnostics interpreted by me: ECG: Sinus tachycardia, 107 p.m., no ectopy, nonspecific ST and T wave abnormality, no overt ST elevation or depression, QTc 445, QRS 88. Cardiac Monitoring: An order for continuous cardiac monitoring was placed and demonstrated Sinus tachycardia, 107 p.m., no ectopy. Laboratory studies: See below Imaging studies: See below Consultation(s): Tuan Silverman, with Dr. Cren[facility] hospitalist HPI: Per MDM. ROS: See above HPI for pertinent positives & negatives. A total of 10 systems reviewed and were otherwise negative. VITALS:See Below PHYSICAL EXAMINATION: GENERAL: Awake, alert, fatigued-appearing, in no distress HENT: Normocephalic, atraumatic. Oropharynx with dry mucous membranes and otherwise unremarkable. EYES: Normal conjunctiva. Sclera non-icteric. NECK: Supple. No nuchal rigidity. FROM. No JVD. RESPIRATORY: Clear to auscultation. CARDIAC: Tachycardic rate, normal rhythm. Extremities warm and well perfused. Pulses equal. ABDOMEN: Soft, non-distended. No tenderness to palpation. No rebound or guarding. No masses. MUSCULOSKELETAL: Chest examination reveals no tenderness. The back is symmetrical on inspection without obvious abnormality. There is no CVA tenderness to palpation. No joint edema. LOWER EXTREMITIES: Calves are equal size bilaterally and non-tender. No edema. No discoloration. NEURO: Pleasantly confused at baseline for dementia. Generalized weakness without focal extremity weakness. SKIN: No rash or jaundice noted. 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 Lumbar stenosis (Acute) Medical History Sepsis Breast cancer Posterior tibial tendon dysfunction, left Generalized weakness Vomiting COVID-19 Weakness Acute UTI Diarrhea Leukocytosis Hypertension, essential Encephalopathy Generalized weakness Acute confusion Ambulatory dysfunction Vomiting Obesity Bronchitis hx (no recent issues) Prediabetes PCP monitoring, labs drawn for PCP on 12/26 show A1C 6.5%-decision to monitor/diet control History of left breast cancer dx 1999; sx + radiation Heartburn symptom diet controlled Arthritis Anxiety Hypertension Surgical History H/O lumpectomy H/O: hysterectomy History of cataract surgery RT History of tooth extraction reason for current abx Nausea and vomiting after administration of anesthetic agent History of colonoscopy History of hysterectomy History of arthroscopy of right knee History of lumpectomy of left breast WITH LYMPH NODES - PT DENIES LIMB RESTRICTION-1999 Family History Father Family history of diabetes mellitus Mother Family history of diabetes mellitus Other No family history of adverse response to anesthesia Patient's father is Patient's mother is Social History Smoking Status: Never smoker Second Hand Exposure: No; Do You Dip or Chew Tobacco: No; Hx Alcohol Use: No Hx Substance Use: No Preferred Language: [place] Communication Ability: Effective Hearing Aid Consultant Required: No Beliefs That Will Affect Care: None marital status: Current Living Situation: Spouse Current Living Situation Comment: , daughter Feels Safe at Home: Yes Assistive Devices: Glasses and Wheelchair Allergies Allergies Allergy/AdvReac Type Severity Reaction Status Date / Time walnut Allergy Severe mouth Verified 01/10/25 22:37 blisters Home Meds Home Medications Medication Instructions Recorded Confirmed aspirin 81 mg tablet,delayed 81 mg PO QAM 01/01/20 08/24/25 release (Adult Aspirin Regimen) amoxicillin 500 mg capsule 2,000 mg PO DIRECTED PRN ONE 01/31/22 07/20/25 HOUR PRIOR TO DENTAL VISITS. atorvastatin 40 mg tablet 40 mg PO QAM 01/31/22 08/24/25 acetaminophen 500 mg tablet 1,000 mg PO TID PRN Pain 12/25/23 07/20/25 (Tylenol Extra Strength) alendronate 70 mg tablet 70 mg PO WK 12/25/23 08/24/25 donepezil 10 mg tablet (Aricept) 10 mg PO PM 12/25/23 08/24/25 duloxetine 60 mg capsule,delayed 60 mg PO QAM 12/25/23 08/24/25 release buspirone 5 mg tablet 5 mg PO AMHS 05/11/24 08/24/25 glipizide 2.5 mg tablet, extended 2.5 mg PO DAILYBB 05/11/24 08/24/25 release 24 hr calcium carbonate (Calcium 600) 600 mg PO QPM 01/10/25 08/24/25 losartan 25 mg tablet 0 mg PO QAM 01/10/25 08/24/25 nitrofurantoin 100 mg PO BID 08/24/25 08/24/25 monohydrate/macrocrystals 100 mg capsule (Macrobid) senna-docusate sodium tablet 1 tab PO DAILY 08/24/25 08/24/25 Previous Rx's Medication Instructions Recorded Wheeled Walker #1 ea 05/29/20 ciprofloxacin HCl 500 mg tablet 500 mg PO Q12H #12 tabs 07/22/25 Results & Data (ED) Vital Signs Vital Signs - 24 hr 08/24/25 15:18 08/24/25 15:26 08/24/25 16:00 Temperature 37.5 C Temperature Source Oral Pulse Rate 113 H 96 H Respiratory Rate 20 25 H Blood Pressure 131/96 139/99 Blood Pressure Mean 107 104 Pulse Oximetry 91 93 Oxygen Delivery Method Room Air Room Air Sepsis Recent Fever Within 48 Hours No Sepsis New/Unexplained Change in Mental Status No Sepsis Action Taken by Nursing No Action Required 08/24/25 16:05 08/24/25 16:30 08/24/25 17:00 Temperature Temperature Source Pulse Rate 101 H 97 H 90 Respiratory Rate 21 22 Blood Pressure 128/82 131/76 Blood Pressure Mean 99 102 Pulse Oximetry 95 95 Oxygen Delivery Method Sepsis Recent Fever Within 48 Hours Sepsis New/Unexplained Change in Mental Status Sepsis Action Taken by Nursing Laboratory Data Attestation: I reviewed the patient's lab results. 08/24/25 15:30 08/24/25 15:30 Lab Results 08/24/25 08/24/25 08/24/25 Range/Units 15:30 15:36 15:43 WBC 19.28 H (4.8-10.8) K/ul RBC 4.44 (4.20-5.40) M/uL Hgb 13.3 (12.0-16.0) g/dl POC Hgb 13.6 (12.0-16.0) g/dl Hct 39.5 (37.0-47.0) % POC Hct 40 (37-47) % MCV 89.0 (80.0-100.0) fL MCH 30.0 (25.0-34.0) pg MCHC 33.7 (32.0-36.0) g/dL RDW Std Deviation 41.9 (36.4-46.3) fL RDW Coeff of Andrea 13.0 (11.5-14.5) % Plt Count 247 (130-400) K/uL MPV 9.8 (9.4-12.4) fL Immature Gran % (Auto) 0.5 % Neut % (Auto) 88.2 % Lymph % (Auto) 6.6 % Newton % (Auto) 4.3 % Eos % (Auto) 0.2 % Baso % (Auto) 0.2 % Neut # (Auto) 17.01 H (1.40-6.50) K/uL Lymph # (Auto) 1.27 (1.20-3.40) K/uL Newton # (Auto) 0.83 H (0.11-0.59) K/uL Eos # (Auto) 0.04 (0.00-0.50) K/uL Baso # (Auto) 0.03 (0.00-0.20) K/uL Immature Gran # (Auto) 0.10 (0.01-0.20) K/uL PT 11.1 (9.0-12.0) Seconds INR 1.1 (0.9-1.1) POC Sodium 135 (135-144) mmol/L Sodium 133 L (136-145) mmol/L POC Potassium 4.0 (3.3-5.0) mmol/L Potassium 4.0 (3.5-5.1) mmol/L POC Chloride 100 L (101-112) mmol/L Chloride 100 (98-107) mmol/L Carbon Dioxide 24 (21-32) mmol/L POC Total CO2 23 L (24-31) mmol/L Anion Gap 9 (3-11) POC Anion Gap 16.0 (16-25) mmol/L POC BUN 12 (7-18) mg/dl BUN 13 (6-23) mg/dl Creatinine 0.82 (0.6-1.2) mg/dl POC Creatinine 0.8 (0.6-1.3) mg/dl Est Cr Clr Drug Dosing 55.9 ml/min eGFR 72.72 BUN/Creatinine Ratio 15.9 (10-20) Glucose 301 H* (70-99(Fasting)) mg/dl POC Glucose (other) 302 H (70-99) mg/dl Lactate (0.4-2.0) mmol/L Calcium 9.2 (8.6-10.3) mg/dl POC Ioniz Calcium Pranav 1.16 (1.12-1.32) mmol/l Magnesium 1.8 (1.7-2.4) mg/dl Total Bilirubin 0.7 (0.2-1.0) mg/dl AST 14 (13-39) U/L ALT 21 (7-52) U/L Alkaline Phosphatase 66 (34-104) U/L Troponin I High Sens 4.7 (0-14) pg/ml Total Protein 7.1 (6.0-8.3) gm/dl Albumin 3.7 (3.4-5.0) gm/dl Globulin 3.4 (2.5-4.0) gm/dl Albumin/Globulin Ratio 1.1 (0.9-2) Lipase 14 (11-82) U/L Procalcitonin 3.52 H (0-0.5) ng/ml Urine Color Yellow Urine Appearance Turbid A (Clear) Urine pH 5.5 (4.5-7.5) Ur Specific [place] 1.025 (1.000-1.030) Urine Protein 2+ H (Negative) Urine Glucose (UA) 2+ H (Negative) Urine Ketones Trace H (Negative) Urine Blood 2+ H (Negative) Urine Nitrite Negative (Negative) Urine Bilirubin Negative (Negative) Urine Urobilinogen Negative (Negative) Ur Leukocyte Esterase 3+ H (Negative) Urine WBC (Auto) >50 H (0-5) /hpf Urine RBC (Auto) 6-10 H (0-2) /hpf U Hyaline Cast (Auto) 11-20 H (0-2) /lpf U Epithel Cells (Auto) 11-20 H (0-2) /hpf Urine Bacteria (Auto) 2+ H (None Seen) Urine Comment 08/24/25 Range/Units 17:05 WBC (4.8-10.8) K/ul RBC (4.20-5.40) M/uL Hgb (12.0-16.0) g/dl POC Hgb (12.0-16.0) g/dl Hct (37.0-47.0) % POC Hct (37-47) % MCV (80.0-100.0) fL MCH (25.0-34.0) pg MCHC (32.0-36.0) g/dL RDW Std Deviation (36.4-46.3) fL RDW Coeff of Andrea (11.5-14.5) % Plt Count (130-400) K/uL MPV (9.4-12.4) fL Immature Gran % (Auto) % Neut % (Auto) % Lymph % (Auto) % Newton % (Auto) % Eos % (Auto) % Baso % (Auto) % Neut # (Auto) (1.40-6.50) K/uL Lymph # (Auto) (1.20-3.40) K/uL Newton # (Auto) (0.11-0.59) K/uL Eos # (Auto) (0.00-0.50) K/uL Baso # (Auto) (0.00-0.20) K/uL Immature Gran # (Auto) (0.01-0.20) K/uL PT (9.0-12.0) Seconds INR (0.9-1.1) POC Sodium (135-144) mmol/L Sodium (136-145) mmol/L POC Potassium (3.3-5.0) mmol/L Potassium (3.5-5.1) mmol/L POC Chloride (101-112) mmol/L Chloride (98-107) mmol/L Carbon Dioxide (21-32) mmol/L POC Total CO2 (24-31) mmol/L Anion Gap (3-11) POC Anion Gap (16-25) mmol/L POC BUN (7-18) mg/dl BUN (6-23) mg/dl Creatinine (0.6-1.2) mg/dl POC Creatinine (0.6-1.3) mg/dl Est Cr Clr Drug Dosing ml/min eGFR BUN/Creatinine Ratio (10-20) Glucose (70-99(Fasting)) mg/dl POC Glucose (other) (70-99) mg/dl Lactate 2.6 H* (0.4-2.0) mmol/L Calcium (8.6-10.3) mg/dl POC Ioniz Calcium Pranav (1.12-1.32) mmol/l Magnesium (1.7-2.4) mg/dl Total Bilirubin (0.2-1.0) mg/dl AST (13-39) U/L ALT (7-52) U/L Alkaline Phosphatase (34-104) U/L Troponin I High Sens (0-14) pg/ml Total Protein (6.0-8.3) gm/dl Albumin (3.4-5.0) gm/dl Globulin (2.5-4.0) gm/dl Albumin/Globulin Ratio (0.9-2) Lipase (11-82) U/L Procalcitonin (0-0.5) ng/ml Urine Color Urine Appearance (Clear) Urine pH (4.5-7.5) Ur Specific [place] (1.000-1.030) Urine Protein (Negative) Urine Glucose (UA) (Negative) Urine Ketones (Negative) Urine Blood (Negative) Urine Nitrite (Negative) Urine Bilirubin (Negative) Urine Urobilinogen (Negative) Ur Leukocyte Esterase (Negative) Urine WBC (Auto) (0-5) /hpf Urine RBC (Auto) (0-2) /hpf U Hyaline Cast (Auto) (0-2) /lpf U Epithel Cells (Auto) (0-2) /hpf Urine Bacteria (Auto) (None Seen) Urine Comment Administered Medications Acetaminophen (Acetaminophen 325 Mg Tab) 650 mg PO Q4H PRN PRN Reason: pain/fever Stop: 09/23/25 19:16 Last Admin: 08/24/25 20:57 Dose: 650 mg Documented By: ANT Buspirone HCl (Buspirone 5 Mg Tab) 5 mg PO AMHS JADON Stop: 09/23/25 20:59 Last Admin: 08/24/25 22:13 Dose: 5 mg Documented By: JOHANNE Calcium Carbonate (Calcium Carbonate 1250mg Tab) 1 tab PO QPM JADON Stop: 09/23/25 20:59 Last Admin: 08/24/25 22:13 Dose: 1 tab Documented By: JOHANNE Donepezil HCl (Donepezil Hcl 10 Mg Tab) 10 mg PO PM JADON Stop: 09/23/25 20:59 Last Admin: 08/24/25 22:13 Dose: 10 mg Documented By: JOHANNE Meropenem 500 mg/ Syringe 10 mls @ 2 mls/min IV Q8H JADON; Protocol Stop: 08/29/25 19:59 Last Admin: 08/25/25 03:47 Dose: 2 mls/min Documented By: Admin: 08/24/25 20:30 Dose: 2 mls/min Documented By: ALLISON Sodium Chloride (Nss) 1,000 mls @ 100 mls/hr IV .Q10H ONE Stop: 08/25/25 10:14 Last Admin: 08/25/25 00:14 Dose: 100 mls/hr Documented By: JOHANNE Insulin Aspart (Insulin Aspart Per Unit Charge) 0 units SC ACHS JADON Stop: 09/23/25 20:59 Last Admin: 08/24/25 22:12 Dose: 3 units Documented By: JOHANNE Co-signed By: AIYANA Discontinued Medications Sodium Chloride (Nss) 1,000 mls @ 999 mls/hr IV .Q1H1M ONE Stop: 08/24/25 16:26 Last Infusion: 08/24/25 17:20 Dose: Infused Documented By: Admin: 08/24/25 15:58 Dose: 999 mls/hr Documented By: PROSPER Cefepime HCl (Maxipime 2000mg) 2,000 mg in 20 mls @ 5 mls/min IV NOW STA; Protocol Stop: 08/24/25 16:51 Last Admin: 08/24/25 17:19 Dose: 5 mls/min Documented By: PROSPER Sodium Chloride (Nss) 500 mls @ 100 mls/hr IV .Q5H JADON Stop: 08/24/25 22:59 Last Infusion: 08/24/25 20:29 Dose: Infused Documented By: Admin: 08/24/25 18:50 Dose: 100 mls/hr Documented By: LIBRADO Sodium Chloride (Nss) 1,000 mls @ 100 mls/hr IV .Q10H JADON Stop: 08/27/25 19:16 Last Infusion: 08/25/25 00:15 Dose: Infused Documented By: Admin: 08/24/25 20:30 Dose: 100 mls/hr Documented By: EJW Imaging Data Radiologist's Impression: Chest X-Ray 08/24/25 15:26 XR chest 1V portable CLINICAL HISTORY: Chest pain, nonspecific COMPARISON STUDY: 07/20/2025 FINDINGS: Heart size and pulmonary vasculature are normal. Inspiration is shallow. There is mild stranding at the left lung base. No other consolidation or pleural effusion. No pneumothorax. IMPRESSION: Likely atelectasis left lung base. ACT 112: Negative or not required by law. Electronically signed by: Mk Alvarado M.D. 08/24/2025 3:56 PM Discharge Plan Visit Data Chief Complaint: Urinary Symptoms Stated Complaint: FEVER, LETHARGIC ED Provider: Kar Mckeon Discharge Problem: Acute UTI (urinary tract infection), Dementia, Generalized weakness, SIRS (systemic inflammatory response syndrome) Patient Disposition: Admitted As Inpatient Condition: Fair Discharge Instructions Interventions: ED Discharge Assessment Last Done: 08/24/25 19:17 Discharge Problem: Dementia Qualifiers: Dementia type: unspecified type Dementia severity: unspecified severity D ementia behavioral or psychological symptom: unspecified whether behavioral, psychotic, or mood disturbance or anxiety Qualified Code(s): F03.90 - Unspecified dementia, unspecified severity, without behavioral disturbance, psychotic disturbance, mood disturbance, and anxiety
--- NOTE | 2025-08-24 17:10 | History & Physical Report ---
Date of Service August 24, 2025 Assessment & Plan (1) Acute UTI (urinary tract infection): Plan: Patient is a 79 year old F with a past medical history of hypertension, DM Type II, dyslipidemia, vascular dementia, recurrent UTI w/ history ESBL and pseudomonas, breast cancer presenting with fever and urinary symptoms x 1 day. Patient with history of ESBL in urine, last admitted in June 2025 to [facility] for similar symptoms, urine culture positive for pseudomonas at that time. Presented this morning with lethargy and weakness when transferring from wheelchair at home. No urinary symptoms or fever. Family reports patient has been coughing, mostly at night for about a month. No acute respiratory issues at home. Generalized weakness 2/2 acute UTI with sepsis Admit to Med Surg Tele for further treatment of UTI with antibiotics Will obtain CT Head with AMS at home w/ sepsis; previous CT head from Jun 2025 w/o acute concerns No urinary sx; Urine turbid w/ blood, and leuks,--> h/o ESBL and PSeudomonas; Cefepime given in ED Meeting sepsis criteria- hypoxia, tachycardia, leukocytosis WBC 19K Urine and blood culture pending Stop Cefepime and start Merapenem given hx KELTON 1L NSS given in ED--> will start IVF with NSS at 100 ml/hr Maintain purewik Discharge planning: Patient's has spoken to [facility] for possible admission for SNF; currently has PT in the home w/ family assistance; considering placement to SNF at d/c #Diabetes Mellitus, Type II, non-insulin dependent Home management with Glipizide; stable A1C 6.9% in 01/2025 per external record Hold home oral anti-diabetic and start SSI while inpatient and adjust as needed Goal BSG 110-140; Accucheck ACHS #Hyperlipidemia Continue home statin #Dementia #Frequent falls Has PT and family support at home, difficult transfer, weakness to BLE at baseline PT/OT eval for weakness at home and h/o falls; wheelchair use at home currently Possible SNF placement DVT Ppx: SCD's Code status: Full PCP: Dr. Mar Lovelace Dispo: Admit for further management Patient seen in collaboration with Dr. Crenshaw. Please see addendum.I spent a total of 60 minutes coordinating, documenting and providing care for this patient excluding time spent in the performance of separately billed services or time spent by another provider/QHP. (2) Sepsis: (3) Generalized weakness: (4) Diabetes mellitus, type II: (5) Hyperlipidemia: (6) Dementia: (7) Falls frequently: History of Present Illness Primary Care Provider: Mar Lovelace MD Patient is a 79 year old F with a past medical history of hypertension, DM Type II, dyslipidemia, vascular dementia, recurrent UTI w/ history ESBL and pseudom onas, breast cancer presenting with fever and urinary symptoms x 1 day. Patient with history of ESBL in urine, last admitted in June 2025 to [facility] for similar symptoms, urine culture positive for pseudomonas at that time. Presented this morning with lethargy and weakness when transferring from wheelchair at home. No urinary symptoms or fever. Family reports patient has been coughing, mostly at night for about a month. No acute respiratory issues at home. Denies fever, chills, weight loss, weakness, headache, cognitive changes, vision/hearing changes, chest pain, SOB, swelling, difficulty breathing, urinary concerns, N/V/D, joint swelling/pain, ambulation difficulty, skin rashes, lesions, bleeding, bruising. In the emergency department, patient was hemodynamically stable with mildly high heart rate to low 100's. Afebrile. Sepsis noted with mild hypoxia, leukocytosis noted on lab workup w/ WBC 19K, Procalcitonin elevated 3.52, lactate 2.3. Urine positive for blood, leukocyte esterase. Urine culture pending. Previous urine culture 06/2025 + Pseudomonas, pansensitive to Cefepime. 1L NSS given. EKG showing Sinus tachycardia, 107 bpm, [id number]. Trop normal. Chest Xray showed mild stranding at the left lung base. No other consolidation or pleural effusion. As per external chart review, patient was seen by Urology on 08/22 for hospital follow-up from last admission to [facility]; started on prophylactic Macrobid for ongoing UTI concerns with ESBL, and now Pseudomonas. Patient was given 2 doses prior to admission today. History obtained primarily from the patient's , who was the bedside and assisted with history of present illness and medication history. Past hospitalization record reviewed. External chart review obtained from [facility]. Allergies Allergy/AdvReac Type Severity Reaction Status Date / Time walnut Allergy Severe mouth Verified 01/10/25 22:37 blisters Home Medications Medication Instructions Recorded Confirmed Type aspirin 81 mg tablet,delayed 81 mg PO QAM 01/01/20 08/24/25 History release (Adult Aspirin Regimen) Wheeled Walker #1 ea 05/29/20 01/13/25 Rx amoxicillin 500 mg capsule 2,000 mg PO DIRECTED PRN ONE 01/31/22 07/20/25 History HOUR PRIOR TO DENTAL VISITS. atorvastatin 40 mg tablet 40 mg PO QAM 01/31/22 08/24/25 History acetaminophen 500 mg tablet 1,000 mg PO TID PRN Pain 12/25/23 07/20/25 History (Tylenol Extra Strength) alendronate 70 mg tablet 70 mg PO WK 12/25/23 08/24/25 History donepezil 10 mg tablet (Aricept) 10 mg PO PM 12/25/23 08/24/25 History duloxetine 60 mg capsule,delayed 60 mg PO QAM 12/25/23 08/24/25 History release buspirone 5 mg tablet 5 mg PO AMHS 05/11/24 08/24/25 History glipizide 2.5 mg tablet, extended 2.5 mg PO DAILYBB 05/11/24 08/24/25 History release 24 hr calcium carbonate (Calcium 600) 600 mg PO QPM 01/10/25 08/24/25 History losartan 25 mg tablet 0 mg PO QAM 01/10/25 08/24/25 History ciprofloxacin HCl 500 mg tablet 500 mg PO Q12H #12 tabs 07/22/25 Rx nitrofurantoin 100 mg PO BID 08/24/25 08/24/25 History monohydrate/macrocrystals 100 mg capsule (Macrobid) senna-docusate sodium tablet 1 tab PO DAILY 08/24/25 08/24/25 History Past Med/Surg History Problem List (Updated 08/22/25 @ 00:07 by Background Daemon) Hyperlipidemia Depression Generalized weakness (Acute) History of recurrent UTIs Dementia Diabetes mellitus, type II Acute UTI (urinary tract infection) (Acute) Falls frequently (Acute) Chest pain (Acute) Costochondritis (Acute) Rib pain (Acute) Right knee pain Right knee DJD Encounter for pre-operative examination 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 Lumbar stenosis (Acute) Medical History (Updated 08/22/25 @ 00:07 by Background Daemon) Sepsis Breast cancer Posterior tibial tendon dysfunction, left Generalized weakness Vomiting COVID-19 Weakness Acute UTI Diarrhea Leukocytosis Hypertension, essential Encephalopathy Generalized weakness Acute confusion Ambulatory dysfunction Vomiting Obesity Bronchitis hx (no recent issues) Prediabetes PCP monitoring, labs drawn for PCP on 12/26 show A1C 6.5%-decision to monitor/diet control History of left breast cancer dx 1999; sx + radiation Heartburn symptom diet controlled Arthritis Anxiety Hypertension Surgical History (Updated 08/22/25 @ 00:07 by Fidel Nevarez) H/O lumpectomy H/O: hysterectomy History of cataract surgery RT History of tooth extraction reason for current abx Nausea and vomiting after administration of anesthetic agent History of colonoscopy History of hysterectomy History of arthroscopy of right knee History of lumpectomy of left breast WITH LYMPH NODES - PT DENIES LIMB RESTRICTION-1999 Family History Father Family history of diabetes mellitus Mother Family history of diabetes mellitus Other No family history of adverse response to anesthesia Patient's father is Patient's mother is Social History Smoking Status: Never smoker Second Hand Exposure: No; Do You Dip or Chew Tobacco: No; Hx Alcohol Use: No Hx Substance Use: No Preferred Language: Upper Sorbian Communication Ability: Effective Interior Horticulturist Required: No Beliefs That Will Affect Care: None marital status: Current Living Situation: Spouse and Family Current Living Situation Comment: , daughter Feels Safe at Home: Yes Assistive Devices: Bedside Commode, Hospital Bed, Walker and Wheelchair Review of Systems Review of Systems: All systems reviewed & are unremarkable except as noted in HPI & below Physical Exam Physical Exam: VITALS: Reviewed. WEIGHT/BMI reviewed. GEN: Healthy appearing, well-developed, NAD. PSYCH: AOx3- person, place, time. Normal memory, mood, and affect. HEENT -Head: NC/AT; -Eyes: PERRL, EOMI. No discharge or redn ess; -Ears: External ears are normal. -Nose: Normal nares. -Mouth and throat: MMM. Normal gums, muc barbra, palate,. Good dentition. NECK: Supple, with no masses. CV: RRR, no m/r/g. LUNGS: CTAB, no w/r/c. ABD: Soft, NT/ND, NBS, no masses or organomegaly. : N/A SKIN: Warm, well perfused. No skin rashes or abnormal lesions. MSK: Weak, 2/5 BLE EXT: No clubbing, cyanosis, or edema. NEURO: CN II_XII grossly intact. No focal deficits. Results & Data Results & Data Vital Signs (Past 12 Hours) Vital Signs Temp Pulse Resp BP Pulse Ox O2 Del Method 08/24/25 16:05 101 H 08/24/25 15:26 Room Air 08/24/25 15:18 37.5 C 113 H 20 131/96 91 Room Air Laboratory Results Short CBC 08/24/25 Range/Units 15:30 WBC 19.28 H (4.8-10.8) K/ul Hgb 13.3 (12.0-16.0) g/dl Hct 39.5 (37.0-47.0) % Plt Count 247 (130-400) K/uL BMP 08/24/25 15:30 Sodium 133 L Potassium 4.0 Chloride 100 Carbon Dioxide 24 BUN 13 Creatinine 0.82 Glucose 301 H* Calcium 9.2 Liver Function 08/24/25 Range/Units 15:30 Total Bilirubin 0.7 (0.2-1.0) mg/dl AST 14 (13-39) U/L ALT 21 (7-52) U/L Alkaline Phosphatase 66 (34-104) U/L Albumin 3.7 (3.4-5.0) gm/dl Urine 08/24/25 Range/Units 15:43 Urine Color Yellow Urine Appearance Turbid A (Clear) Urine pH 5.5 (4.5-7.5) Ur Specific [place] 1.025 (1.000-1.030) Urine Protein 2+ H (Negative) Urine Glucose (UA) 2+ H (Negative) Diagnostic Findings Chest X-Ray 08/24/25 15:26 XR chest 1V portable CLINICAL HISTORY: Chest pain, nonspecific COMPARISON STUDY: 07/20/2025 FINDINGS: Heart size and pulmonary vasculature are normal. Inspiration is shallow. There is mild stranding at the left lung base. No other consolidation or pleural effusion. No pneumothorax. IMPRESSION: Likely atelectasis left lung base. ACT 112: Negative or not required by law. Electronically signed by: Mk Alvarado M.D. 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 insulin use: without termite control service representative use Qualified Code(s): E11.65 - Type 2 diabetes mellitus with hyperglycemia (5) Hyperlipidemia Hyperlipidemia type: mixed hyperlipidemia Qualified Code(s): E78.2 - Mixed hyperlipidemia (6) Dementia Dementia type: unspecified type Dementia severity: unspecified severity Dementia behavioral or psychological symptom: unspecified whether behavioral, psychotic, or mood disturbance or anxiety Qualified Code(s): F03.90 - Unspecified dementia, unspecified severity, without behavioral disturbance, p sychotic disturbance, mood disturbance, and anxiety
[2025-08-24] MEDS: CEFEPIME 2000MG 2,000 MG/20 ML SYR IV STA (17:19)
--- NOTE | 2025-08-24 18:03 | Communication Note ---
Date of Service: August 24, 2025 Attending Addendum: Case reviewed with the advanced practitioner. I have personally performed a history and physical examination on the patient. I have reviewed the advanced practitioner's documentation on the date of service referenced in note, and I agree with, and take responsibility for the plan of care. please refer to her notes for full details patient seen and examined, records reviewed by myself as well on exam, patient seen resting in bed, comfortable, smiling oriented x 1-2, answers most questions appropriately states she is starting to feel better denies abdominal/flank/back pain reports dysuria this morning, no hematuria no other symptoms VS noted and reviewed oriented x 1-2, not in distress, speaks in sentences with no effort nor accessory muscle use normal rate, regular rhythm, no murmurs clear breath sounds bilaterally non distended, soft, nontender no bipedal edema, erythema, warmth no neuro deficits all labs, imaging noted and reviewed ASSESSMENT AND PLAN> SEPSIS SECONDARY TO UTI RECURRENT UTI HISTORY OF PSEUDOMONAS, ESBL KLEBSIELLA lactic acid 2.6. repeat at 7pm urine and blood culture ordered CT abd/pelvis ordered empiric Meropenem NSS METABOLIC ENCEPHALOPATHY secondary to above family noted some confusion today in the setting of Vascular Dementia CT head ordered other diagnoses and plan of care as per advanced practitioner's notes I spent a total of 40 minutes coordinating, documenting, and providing care for this patient, excluding time spent in the performance of separately billed services or time spent by another provider/QHP. Curtis Crenshaw MD
[2025-08-24] MEDS: SODIUM CHLORIDE 0.9% 500 ML IV SCH (18:50)
--- NOTE | 2025-08-24 18:52 | CT Scan Report ---
Technique: Axial computed tomography images were obtained of the brain without intravenous contrast. Comparison is made to the prior CT dated 07/20/2025 Findings: There is unchanged cerebral atrophy, within expected limits for the patient's age. Areas of decreased attenuation are seen within the periventricular white matter, likely representing chronic small vessel ischemic disease. There is no definite sign of acute or old infarction. No intracranial hemorrhage is evident. No definite mass lesion is seen on this noncontrast examination. There is no midline shift or other form of herniation. There is unchanged ventricular prominence that is likely due to the cerebral atrophy No fracture is identified. The orbits and the visualized paranasal sinuses appear unremarkable. The mastoid air cells appear clear. Impression: 1. Cerebral atrophy and chronic small vessel ischemic disease 2. Unchanged ventricular prominence that is likely due to the cerebral atrophy, though normal pressure hydrocephalus is also possible Electronically signed by Greg Molina 08-24-2025 6:52 PM
--- NOTE | 2025-08-24 18:55 | Electrocardiogram Report ---
Test Reason : Blood Pressure : */* mmHG Vent. Rate : 107 BPM Atrial Rate : 107 BPM P-R Int : 154 ms QRS Dur : 88 ms QT Int : 334 ms P-R-T Axes : 57 5 6 degrees QTcB Int : 445 ms Sinus tachycardia Nonspecific ST and T wave abnormality Abnormal ECG When compared with ECG of 20-Jul-2025 10:32, Nonspecific T wave abnormality now evident in Inferior leads Confirmed by Iain Barahona ([id number]) on 08/24/2025 6:54:39 PM Referred By: Confirmed By: Iain Barahona
--- NOTE | 2025-08-24 19:03 | CT Scan Report ---
EXAMINATION: CT of the abdomen and pelvis performed without contrast TECHNIQUE: Helical CT images from the lung bases through the symphysis pubis were obtained without contrast. Coronal and sagittal reformatted images were generated at a workstation for further assessment. Dose reduction techniques were achieved by using automatic exposure control and/or adjustment of mA and/or kV according to patient size and/or use of iterative reconstruction technique. COMPARISON: 08/08/2024 HISTORY: Abdominal pain FINDINGS: Lower chest: Trace left pleural effusion. Liver: No suspicious liver lesions. Gallbladder: No gallstones. No evidence of acute cholecystitis. Spleen: Normal size. Pancreas: No suspicious pancreatic lesions. The pancreatic duct is not dilated. Adrenal glands: No adrenal nodules. Kidneys: There is a 3 mm stone in the distal right ureter, adjacent to the UVJ. No significant hydroureter or hydronephrosis. Simple appearing bilateral renal cysts. There is a tiny nonobstructing inferior right renal stone. Bladder / Pelvic organs: Unremarkable. Bowel: No bowel obstruction. No abnormal bowel wall thickening. The appendix is unremarkable. Lymph nodes: No retroperitoneal, mesenteric, or pelvic lymphadenopathy. Peritoneum / Retroperitoneum: No free fluid or air within the abdomen. Vessels: No infrarenal aortic aneurysm. Bones and soft tissues: No suspicious lesion in the bones. IMPRESSION: There is a 3 mm stone in the distal right ureter, adjacent to the UVJ. No significant hydroureter or hydronephrosis. Electronically signed by Iain Frances 08-24-2025 7:01 PM
[2025-08-24] MEDS ORDERED: DEXTROSE 50% 50 ML SYRINGE IV PRN (19:17)
[2025-08-24] MEDS ORDERED: MAGNESIUM HYDROXIDE SUSP 30 ML UDC PO PRN (19:17)
[2025-08-24] MEDS ORDERED: GLUCOSE 10 TAB/TUBE PO PRN (19:17)
[2025-08-24] MEDS ORDERED: ALUMINUM/MAGNESIUM SUSP 30 ML UDC PO PRN (19:17)
[2025-08-24] MEDS ORDERED: GLUCOSE 40% GEL 15 GM TUBE PO PRN (19:17)
[2025-08-24] MEDS ORDERED: GLUCAGON FOR INJ 1 MG VIAL SQ PRN (19:17)
[2025-08-24] MEDS ORDERED: MELATONIN 3 MG TAB PO PRN (19:17)
[2025-08-24] MEDS ORDERED: CARBOHYDRATES FOR HYPOGLYCEMIA PO PRN (19:17)
[2025-08-24] MEDS ORDERED: POLYETHYLENE (MIRALAX) 17 GM PACK PO PRN (19:17)
[2025-08-24] MEDS ORDERED: ONDANSETRON INJ 2 MG/ML 2 ML VIAL IV PRN (19:17)
[2025-08-24] MEDS: MEROPENEM 500 MG in SYRINGE 0 ML IV SCH (20:30)
[2025-08-24] MEDS: SODIUM CHLORIDE 0.9% 1,000 ML IV SCH (20:30)
[2025-08-24] MEDS: ACETAMINOPHEN 325 MG TAB PO PRN (20:57)
[2025-08-24] MEDS: INSULIN ASPART PER UNIT CHARGE SC SCH (22:12)
[2025-08-24] MEDS: DONEPEZIL HCL 10 MG TAB PO SCH (22:13)
[2025-08-24] MEDS: busPIRone 5 MG TAB PO SCH (22:13)
[2025-08-24] MEDS: CALCIUM CARBONATE 1250MG TAB PO SCH (22:13)
[2025-08-25] MEDS: SODIUM CHLORIDE 0.9% 1,000 ML IV ONE (00:14)
[2025-08-25 06:56] LABS: Hematocrit (blood only) 35.0 % (37.0-47.0); Hemoglobin 11.6 g/dl (12.0-16.0); Mean Corpuscular Hemoglobin 30.4 pg (25.0-34.0); Mean Corpuscular Volume 91.6 fL (80.0-100.0); Platelet Count 189 K/uL (130-400); RDW Standard Deviation 42.9 fL (36.4-46.3); Red Blood Count 3.82 M/uL (4.20-5.40); White Blood Count 6.82 K/ul (4.8-10.8)
[2025-08-25 07:20] LABS: Anion Gap 6.0 (3-11); Blood Urea Nitrogen 11.0 mg/dl (6-23); Calcium 8.4 mg/dl (8.6-10.3); Carbon Dioxide 26.0 mmol/L (21-32); Chloride 107.0 mmol/L (98-107); Creatinine Clr Calc Pharmacy 68.4 ml/min; Glucose 150.0 mg/dl (70-99(Fasting)); Magnesium 1.8 mg/dl (1.7-2.4); Potassium 3.9 mmol/L (3.5-5.1); Sodium 139.0 mmol/L (136-145)
[2025-08-25] MEDS: ASPIRIN 81 MG ECTAB PO SCH (09:38)
[2025-08-25] MEDS: LOSARTAN POTASSIUM 25 MG TAB PO SCH (09:38)
[2025-08-25] MEDS: ATORVASTATIN 40 MG TAB PO SCH (09:39)
[2025-08-25] MEDS: DOCUSATE SODIUM/SENNA 50/8.6MG TAB PO SCH (09:43)
--- NOTE | 2025-08-25 11:28 | Hospitalist Progress Note ---
Date of Service August 25, 2025 Assessment & Plan (1) Acute UTI (urinary tract infection): (2) Sepsis with acute organ dysfunction: (3) Acute metabolic encephalopathy: (4) Delirium due to another medical condition: (5) Vascular dementia with delirium: Plan Patient with known significant dementia presents with weakness, increased confusion, reported fevers and urinalysis suspicious for UTI. Patient has had no more fevers. WBCs have normalized Suspect she is at somewhat her baseline cognitive function. Suspect ability to care for patient at home is becoming a bigger burden and is resulting with the frequent UTIs and hospitalizations. Case management to consider placement Reported history is that the patient was having a cough as well over the last couple weeks. Will check respiratory viral panel. They viral upper respiratory faction can certainly cause some exacerbation of her dementia and encephalopathy/delirium symptoms as well also can cause excess persistent weakness. Reviewing of the most recent urine cultures they have not been ESBL. She has had pansensitive Pseudomonas and Citrobacter, can narrow antibiotics. Attempted to contact patient's via phone. No answer Admission and Anticipated Discharge Date Admission Date: August 24, 2025 Subjective Patient not oriented to place or time. She does not seem to have any complaints. Nursing reports no significant issues overnight Physical Exam Physical Exam: Constitutional: Alert, nontoxic in appearance HEENT: Mucous membranes moist. Lungs: Clear to auscultation, decreased, no wheezes rales or rhonchi CV: S1-S2, regular Abdomen: Soft, nontender, nondistended Extremities: No significant edema Neuro: No focal deficits, generally weak Psych: Cooperative, normal mood, disoriented to place and time Results & Data Results & Data Vital Signs (Past 12 Hours) Vital Signs Temp Pulse Pulse Resp BP Pulse Ox O2 Del Method 08/25/25 07:20 78 08/25/25 03:39 36.4 C L 80 20 133/83 96 Room Air Diagnostic Findings Reviewed imaging, laboratory and diagnostic studies. Pertinent findings as below. WBCs 6.8, significantly improved Hemoglobin 11.6, baseline Electrolytes stable Creatinine 0.67 Urine culture pending Blood cultures pending
[2025-08-25] MEDS: CEFEPIME 1000MG 1,000 MG/10 ML SYR IV SCH (12:47)
[2025-08-25] MEDS ORDERED: PHA DELIRIUM CONSULT PRN (19:54)
[2025-08-26] MEDS: NITROFURANTOIN MONOHYDRATE 100 MG CAP PO SCH (08:20)
--- NOTE | 2025-08-26 11:42 | Hospitalist Progress Note ---
Date of Service August 26, 2025 Assessment & Plan (1) Acute UTI (urinary tract infection): (2) Sepsis with acute organ dysfunction: (3) Acute metabolic encephalopathy: (4) Delirium due to another medical condition: (5) Vascular dementia with delirium: Plan Patient 79-year-old female with potentially acute metabolic encephalopathy and delirium in the setting of MRSA UTI with underlying dementia. Discontinue cefepime based on sensitivities, start Macrobid Continue therapies Patient and daughter at bedside agreeable to continue rehabilitation at [facility] Case management communication, bed available at [facility] tomorrow. Anticipate discharge to [facility] for tomorrow on a course of oral Macrobid Check labs in a.m. Admission and Anticipated Discharge Date Admission Date: August 24, 2025 Subjective Patient sitting comfortably in bed, daughter at bedside. No acute issues Physical Exam Physical Exam: Constitutional: Alert, nontoxic HEENT: Mucous membranes moist. Lungs: Clear to auscultation, decreased, no wheezes rales or rhonchi CV: S1-S2, regular Abdomen: Soft, nontender, nondistended Extremities: No significant edema Neuro: No focal deficits, generally weak Psych: Cooperative, normal mood, impaired judgment and memory Results & Data Results & Data Vital Signs (Past 12 Hours) Vital Signs Temp Pulse Resp BP Pulse Ox O2 Del Method 08/26/25 06:42 36.6 C 81 20 141/81 H 96 Room Air 08/25/25 23:56 36.8 C 78 20 144/81 H 96 Room Air Diagnostic Findings Reviewed imaging, laboratory and diagnostic studies. Pertinent findings as below. Urine culture growing MRSA, 90,000 colonies, sensitive to Bactrim and Macrodantin orally Blood cultures no growth
[2025-08-26 16:08] VITALS: RESP 16
[2025-08-26] MEDS: MAGNESIUM SULFATE / D5W 1 GM/100 ML BAG IV ONE (22:28)
[2025-08-26 22:47] LABS: Base Excess VBG 4.6 mEq/L; HCO3 VBG 28 mmol/L; Oxygen Saturation VBG 96.7 %; PCO2 VBG 38 mmHg (38-50); PO2 VBG 70 mmHg; pH VBG 7.48 (7.36-7.41)
--- NOTE | 2025-08-27 | XRay Report ---
Exam(s): XR CXR 1 VIEW EXAM: XR Chest, 1 View CLINICAL HISTORY: Reason for exam: low o2. TECHNIQUE: Frontal view of the chest. COMPARISON: 08/24/2025 FINDINGS: Lungs: Unremarkable. No consolidation. Pleural space: Unremarkable. No pneumothorax. Heart: Unremarkable. No cardiomegaly. Mediastinum: Unremarkable. Normal mediastinal contour. Bones/joints: Unremarkable. No acute fracture. IMPRESSION: Normal chest x-ray. Electronically signed by: Demario Crouch MD 08/26/25 23:58 PM
[2025-08-27] MEDS: ALENDRONATE SODIUM 70 MG TAB PO SCH (05:28)
[2025-08-27 06:11] LABS: Hematocrit (blood only) 39.7 % (37.0-47.0); Hemoglobin 12.9 g/dl (12.0-16.0); Mean Corpuscular Hemoglobin 29.5 pg (25.0-34.0); Mean Corpuscular Volume 90.8 fL (80.0-100.0); Platelet Count 233 K/uL (130-400); RDW Standard Deviation 43.0 fL (36.4-46.3); Red Blood Count 4.37 M/uL (4.20-5.40); White Blood Count 9.11 K/ul (4.8-10.8)
[2025-08-27 06:27] LABS: Anion Gap 7.0 (3-11); Blood Urea Nitrogen 12.0 mg/dl (6-23); Calcium 9.6 mg/dl (8.6-10.3); Carbon Dioxide 28.0 mmol/L (21-32); Chloride 101.0 mmol/L (98-107); Creatinine Clr Calc Pharmacy 61.9 ml/min; Glucose 153.0 mg/dl (70-99(Fasting)); Potassium 3.8 mmol/L (3.5-5.1); Sodium 136.0 mmol/L (136-145)
[2025-08-27 07:39] VITALS: BP 143/83; TEMP 98.2
[2025-08-27 08:12] VITALS: O2SAT 95
--- NOTE | 2025-08-27 09:04 | Discharge Summary ---
Discharge Summary Date of Service August 27, 2025 Principal Dx & Hospital Course #1 = Principal Diagnosis (1) Acute UTI (urinary tract infection): (2) Sepsis with acute organ dysfunction: (3) Acute metabolic encephalopathy: (4) Delirium due to another medical condition: (5) Vascular dementia with delirium: Plan Patient 79-year-old female with known vascular dementia presents to the emergency room with worsening mental status, encephalopathy and delirium. Evaluation emergency room was concerning for urinary tract infection. Patient was admitted to the hospital. Given some fluids and started on IV antibiotics. After the course of her hospitalization her encephalopathy and delirium cleared. Urine culture grew MRSA. Sensitivities indicated that she could be transition to oral Macrobid. Day prior to discharge patient was evaluated the at the bedside. She definitely had some dementia and was talking about her condition thinking that it was her mother but the states that this is not unusual for her. Otherwise she was not delirious and was cooperative. She was seen by therapies. Case management was involved in her care. After conversation with the patient and family it was felt that she would benefit from subacute rehab at a residential facility. Arrangements made for her to be transferred to [facility] for ongoing rehabilitation. She will complete a course of oral antibiotics for her UTI and continue her outpatient care Notes For Next Care Provider Recommend ongoing discussions of goals of care as patient is having progressive dementia Medication Changes From Visit Ciprofloxacin discontinued Macrobid for UTI Admission HPI Per Admitting Provider Patient is a 79 year old F with a past medical history of hypertension, DM Type II, dyslipidemia, vascular dementia, recurrent UTI w/ history ESBL and pseudomonas, breast cancer presenting with fever and urinary symptoms x 1 day. Patient with history of ESBL in urine, last admitted in June 2025 to [facility] for similar symptoms, urine culture positive for pseudomonas at that time. Presented this morning with lethargy and weakness when transferring from wheelchair at home. No urinary symptoms or fever. Family reports patient has been coughing, mostly at night for about a month. No acute respiratory issues at home. Denies fever, chills, weight loss, weakness, headache, cognitive changes, vision/hearing changes, chest pain, SOB, swelling, difficulty breathing, urinary concerns, N/V/D, joint swelling/pain, ambulation difficulty, skin rashes, lesions, bleeding, bruising. In the emergency department, patient was hemodynamically stable with mildly high heart rate to low 100's. Afebrile. Sepsis noted with mild hypoxia, leukocytosis noted on lab workup w/ WBC 19K, Procalcitonin elevated 3.52, lactate 2.3. Urine positive for blood, leukocyte esterase. Urine culture pending. Previous urine culture 06/2025 + Pseudomonas, pansensitive to Cefepime. 1L NSS given. EKG showing Sinus tachycardia, 107 bpm, [id number]. Trop normal. Chest Xray showed mild stranding at the left lung base. No other consolidation or pleural effusion. As per external chart review, patient was seen by Urology on 08/22 for hospital follow-up from last admission to [facility]; started on prophylactic Macrobid for ongoing UTI concerns with ESBL, and now Pseudomonas. Patient was given 2 doses prior to admission today. History obtained primarily from the patient's , who was the bedside and assisted with history of present illness and medication history. Past hospitalization record reviewed. External chart review obtained from [facility]. Admission Exam Per Admitting Provider See H&P Discharge Exam Constitutional: Alert, nontoxic, no acute distress HEENT: Mucous membranes moist. Lungs: Clear to auscultation, decreased, no wheezes rales or rhonchi CV: S1-S2, regular Abdomen: Soft, nontender, nondistended Extremities: No significant edema Neuro: No focal deficits, generally weak Psych: Cooperative, normal mood, abnormal judgment and memory, disoriented to place and time Updated Medication List Medication Instructions Recorded Confirmed Type Wheeled Walker #1 ea 05/29/20 01/13/25 Rx amoxicillin 500 mg capsule 2,000 mg PO DIRECTED PRN ONE 01/31/22 07/20/25 History HOUR PRIOR TO DENTAL VISITS. ciprofloxacin HCl 500 mg tablet 500 mg PO Q12H #12 tabs 07/22/25 Rx senna-docusate sodium tablet 1 tab PO DAILY 08/24/25 08/24/25 History acetaminophen 500 mg tablet 1,000 mg (2 x 500 mg) PO TID PRN 08/27/25 Rx (Tylenol Extra Strength) Pain #100 tabs alendronate 70 mg tablet 70 mg PO WK #4 tabs 08/27/25 Rx aspirin 81 mg tablet,delayed 81 mg PO QAM #100 tabs 08/27/25 Rx release (Adult Aspirin Regimen) atorvastatin 40 mg tablet 40 mg PO QAM #30 tabs 08/27/25 Rx buspirone 5 mg tablet 5 mg PO AMHS #60 tabs 08/27/25 Rx calcium carbonate (Calcium 600) 600 mg PO QPM #30 tabs 08/27/25 Rx donepezil 10 mg tablet (Aricept) 10 mg PO PM #30 tabs 08/27/25 Rx duloxetine 60 mg capsule,delayed 60 mg PO QAM #30 caps 08/27/25 Rx release glipizide 2.5 mg tablet, extended 2.5 mg PO DAILYBB #30 tabs 08/27/25 Rx release 24 hr losartan 25 mg tablet 0 mg (0 x 25 mg) PO QAM #30 tabs 08/27/25 Rx nitrofurantoin 100 mg PO BID 5 days #10 caps 08/27/25 Rx monohydrate/macrocrystals 100 mg capsule (Macrobid) polyethylene glycol 3350 17 gram 17 g PO DAILY #30 ea 08/27/25 Rx oral powder packet (Miralax) Hospital Stay Data Consultations 08/24/25 18:27 ED Decision to Admit Stat Diagnostic Imagining Performed 08/24/25 17:46 CT head/brain wo con Urgent 08/24/25 17:51 CT Abd and Pelvis [CT abd pelvis wo con] Routine Reviewed imaging, laboratory and diagnostic studies. Pertinent findings as below. WBCs 9.1 Hemoglobin 12.9 Electrolytes stable Creatinine 0.74 Glucoses overall felt fair control Blood cultures no growth after 48 hours Urine culture grew 90,000 colonies of MRSA, sensitive to nitrofurantoin and Bactrim Pending Results Patient Have Any Pending Studies at Discharge: No Discharge Instructions Given to Patient (Per Discharging Provider) Continue with ongoing PT and OT Complete course of oral antibiotics Total Time Total Time Spent Total Time Spent (In Minutes): 32
[2025-08-27 15:17] VITALS: PULSE 116
== END 2025-08-27 15:53 | DRG 871 ==
LOC: ED 15:15 → SUATTDRO 17:18 → EDINP 17:18 → 2W 19:17 → 3E 08-26 18:45